=== PATIENT | female | born 1970 | race Caucasian/White ===

== ENCOUNTER 2021-05-23 21:59 | Emergency (ER) | payer MEDICAID, SELFPAY ==
[2021-05-23 22:14] VITALS: BP 156/99; PULSE 72; RESP 20; TEMP 36.8; O2SAT 97; BMI 28.5
--- NOTE | 2021-05-24 00:54 | PC.NURSE ---
patient on floor shaking. responds to verbal stimuli. denies new pain. warm blanket provided. reports further emesis with current vomiting. noted emesis is yellow with food particles.
--- NOTE | 2021-05-24 01:10 | CTR_ITS ---
PROCEDURE INFORMATION: Exam: CT Abdomen And Pelvis With Contrast Exam date and time: 05/24/2021 1:10 AM Age: 50 years old Clinical indication: Abdominal pain; Generalized; Prior surgery; Surgery date: 6+ months; Surgery type: Appy, gb, hyst; Additional info: Abd pain TECHNIQUE: Imaging protocol: Computed tomography of the abdomen and pelvis with contrast. Radiation optimization: All CT scans at this facility use at least one of these dose optimization techniques: automated exposure control; mA and/or kV adjustment per patient size (includes targeted exams where dose is matched to clinical indication); or iterative reconstruction. Contrast material: [id number]; Contrast volume: 95 ml; Contrast route: INTRAVENOUS (IV); COMPARISON: No relevant prior studies available. RADIATION DOSE METRICS: Total DLP (mGy-cm): 1080.02 FINDINGS: Diaphragm: Small hiatal hernia Liver: There is a 12 mm hypoattenuation cystic mass seen within the left hepatic lobe compatible with a benign cyst. Gallbladder and bile ducts: Status post cholecystectomy. Pancreas: Normal. No ductal dilation. Spleen: Normal. No splenomegaly. Adrenal glands: Normal. No mass. Kidneys and ureters: Normal. No hydronephrosis. Stomach and bowel: There mildly dilated loops of terminal ileum present in the lower abdomen containing some fluid and mildly desiccated bowel contents and mild bowel wall edema, findings compatible with a terminal ileitis. Trace fluid collections are seen within mesenteric folds within the pelvis adjacent to the terminal ileum. Appendix: Status post appendectomy. Intraperitoneal space: Unremarkable. No free air. No significant fluid collection. Vasculature: Unremarkable. No abdominal aortic aneurysm. Lymph nodes: Unremarkable. No enlarged lymph nodes. Urinary bladder: Unremarkable as visualized. Reproductive: Status post hysterectomy. Bones/joints: Unremarkable. No acute fracture. Soft tissues: Unremarkable. CT/CT abdomen pelvis w con* [id number] IMPRESSION: 1. Findings suggesting terminal ileitis 2. Trace fluid collection seen within mesenteric folds adjacent to the terminal ileum. 3. Benign cyst in the left hepatic lobe measuring 12 mm. No further workup needed.
--- NOTE | 2021-05-24 01:28 | ED_ITS ---
HPI - Nausea/Vomiting/Diarrhea General: Chief complaint: Nausea/Vomiting/Diarrhea Stated complaint: PT thinks ulcers Time Seen by Provider: 05/24/21 01:03 Source: patient Mode of arrival: ambulatory Limitations: no limitations History of Present Illness: HPI Narrative: 50-year-old female states she has been having abdominal pain since 1 PM. States the pain has been diffuse and severe in nature she is also had five episodes of vomiting. States the pain is currently 9 out of 10 denies any worsening or improving factors. States she had a gastric ulcers before and this feels similar. Denies any blood in her stool or diarrhea. Denies any fevers or chest pain. Associated nausea: Yes Associated symtoms: Reports nausea; Denies chest pain, dysuria or headache(s) Review of Systems Const: Denies: fever(s), chills, body aches or change in appetite Eyes: Denies: blurry vision or eye discomfort ENMT: Denies: throat pain or dental pain Card: Denies: chest pain Resp: Denies: dyspnea GI: Reports: abdominal pain, nausea and vomiting : Denies: dysuria Musc: Denies: neck pain or back pain Skin/Breast: Denies: rash Neuro: Denies: headache(s) Psych: Denies: depression Gilberto/Lymph: Denies: easy bruising All/Imm: Denies: urticaria PFSH ED PFSH: Social History Smoking and tobacco status: never smoked Physical Exam Const: COMMON NORMALS: no acute distress, patient oriented x3 and healthy appearing HENMT: COMMON NORMALS: normocephalic and atraumatic HEAD & SCALP: normocephalic and atraumatic Eye: COMMON NORMALS: Equal, round and reactive pupils present and EOMs intact bilaterally PUPIL: Yes Equal, round and reactive pupils present Neck/C-Spine: COMMON NORMALS: full ROM and supple Chest: COMMONS NORMALS: normal inspection of the chest and normal palpation of entire chest wall Resp: COMMON NORMALS: normal respiratory effort, No retractions, No use of accessory muscles and clear to auscultation bilaterally AUSCULTATION: clear to auscultation bilaterally Cardio: COMMON NORMALS: regular rate, regular rhythm and No murmurs present (Cardio) RATE: regular rate RHYTHM: regular rhythm GI: COMMON NORMALS: Normal to inspection, nondistended, normoactive bowel sounds present, Soft to palpation and no masses PALPATION: Yes Soft to palpation OTHER: diffuse abdominal tenderness Extremity: COMMON NORMALS: normal to inspection and full ROM Neuro: COMMON NORMALS: patient oriented x3, moves all extremities and no focal motor deficits Psych: COMMON NORMALS: mental status grossly normal, Normal thought process present and cooperative THOUGHT PROCESS: Normal thought process present Skin: COMMON NORMALS: no rashes or lesions noted and no wounds GENERAL SKIN EXAM: no rashes or lesions noted Course Vital Signs: Vital signs: Vital Signs Temperature 98.3 F 05/24/21 03:18 Pulse Rate 104 H 05/24/21 03:18 Respiratory Rate 20 H 05/24/21 04:01 Blood Pressure 112/78 05/24/21 03:18 Pulse Oximetry 96 05/24/21 03:18 MDM - Nausea/Vomiting/Diarrhea MDM Narrative: Medical decision making narrative: Patient presents with abdominal pain CT does show ileitis patient does have an elevated white count improved on second cbc lactate here is normal abdominal pain is much improved no tenderness on exam at discharge she feels much improved and would like to go home we will start her on antibiotic along with steroids and pain meds we will get her follow-up with the surgeon likely needs a colonoscopy informed her she has any fever or worsening pain she is return immediately she understands agrees to plan. Lab Data: Labs: Lab Results 05/23/21 05/23/21 05/24/21 02:15 02:15 02:55 WBC 20.6 10^3/uL H 10 ^3/uL (4.0-10.0) RBC 4.89 10^6/uL 10^6 /uL (4.1-5.3) Hgb 14.3 g/dL g/dL (11.5-15.3) Hct 43.2 % % (37.0-47.0) MCV 88.3 fl fl (81-99) MCH 29.2 pg pg (28.0-34.0) MCHC 33.1 g/dL g/dL (30.0-36.0) RDW 17.2 % H % (12.1-15.1) Plt Count 424 10^3/cmm H 10 ^3/cmm (130-400) MPV 9.5 fL fL (7.4-10.4) Neut % (Auto) 79.1 % % Lymph % (Auto) 13.0 % % [place] % (Auto) 6.5 % % Eos % (Auto) 0.0 % % Baso % (Auto) 0.2 % % Neut # (Auto) 16.30 10^3/uL H 1 0^3/uL (1.8-7.7) Lymph # (Auto) 2.7 10^3/uL 10^3/ uL (0.8-4.8) [place] # (Auto) 1.3 10^3/uL H 10^ 3/uL (0.2-0.9) Eos # (Auto) 0.0 10^3/uL 10^3/ uL (0.0-0.8) Baso # (Auto) 0.1 10^3/uL 10^3/ uL (0.0-0.1) Nucleated RBC % (a uto) 0 % % Nucleated RBCs # 0.0 /100WBC /100W BC Sodium Cancelled 139 mmol/L mmol/L (136-145) Potassium Cancelled 4.3 mmol/L mmol/L (3.5-5.1) Chloride Cancelled 103 mmol/L mmol/L (98-107) Carbon Dioxide Cancelled 27 mmol/L mmol/L (22-29) Anion Gap Cancelled 13.3 (5-19) BUN Cancelled 17 mg/dL mg/dL (6-20) Creatinine Cancelled 0.7 mg/dL mg/dL (0.5-0.9) GFR Calculation Cancelled 88.2 mL/min L mL/ min (90-130) Glucose Cancelled 102 mg/dL mg/dL (65-115) Calculated Osmolal ity Cancelled 290 mOsm/kg mOsm/ kg (285-295) Lactate Calcium Cancelled 8.3 mg/dL L mg/dL (8.5-10.5) Total Bilirubin Cancelled 0.6 mg/dL mg/dL (0.15-1.2) AST Cancelled 13 U/L U/L (0-32) ALT Cancelled 12 U/L U/L (0-33) Alkaline Phosphata se Cancelled 78 IU/L IU/L (35-105) Total Protein Cancelled 5.7 g/dL L g/dL (6.6-8.7) Albumin Cancelled 3.4 g/dL L g/dL (3.5-5.2) Globulin Cancelled 2.3 g/dL g/dL (1.3-4.6) Lipase Cancelled 26 U/L U/L (13-60) Urine Color Urine Appearance Urine pH Ur Specific Gravit y Urine Protein Urine Glucose (UA) Urine Ketones Urine Blood Urine Nitrate Urine Bilirubin Urine Urobilinogen Ur Leukocyte Olga ase 05/24/21 05/24/21 05/24/21 03:55 04:00 04:05 WBC 17.0 10^3/uL H 10 ^3/uL (4.0-10.0) RBC 4.38 10^6/uL 10^6 /uL (4.1-5.3) Hgb 12.6 g/dL g/dL (11.5-15.3) Hct 38.2 % % (37.0-47.0) MCV 87.2 fl fl (81-99) MCH 28.8 pg pg (28.0-34.0) MCHC 33.0 g/dL g/dL (30.0-36.0) RDW 16.0 % H % (12.1-15.1) Plt Count 361 10^3/cmm 10^3 /cmm (130-400) MPV 9.2 fL fL (7.4-10.4) Neut % (Auto) 78.2 % % Lymph % (Auto) 14.4 % % [place] % (Auto) 6.3 % % Eos % (Auto) 0.1 % % Baso % (Auto) 0.2 % % Neut # (Auto) 13.27 10^3/uL H 1 0^3/uL (1.8-7.7) Lymph # (Auto) 2.4 10^3/uL 10^3/ uL (0.8-4.8) [place] # (Auto) 1.1 10^3/uL H 10^ 3/uL (0.2-0.9) Eos # (Auto) 0.0 10^3/uL 10^3/ uL (0.0-0.8) Baso # (Auto) 0.0 10^3/uL 10^3/ uL (0.0-0.1) Nucleated RBC % (a uto) 0 % % Nucleated RBCs # 0.0 /100WBC /100W BC Sodium Potassium Chloride Carbon Dioxide Anion Gap BUN Creatinine GFR Calculation Glucose Calculated Osmolal ity Lactate 1.6 mmol/L mmol/L (0.5-2.2) Calcium Total Bilirubin AST ALT Alkaline Phosphata se Total Protein Albumin Globulin Lipase Urine Color Yellow (Yellow) Urine Appearance Clear (CLEAR) Urine pH 7 (5-7) Ur Specific Gravit y 1.005 (1.005-1.030) Urine Protein Neg (Negative) Urine Glucose (UA) Norm (Normal) Urine Ketones Negative (Negative) Urine Blood Neg (Negative) Urine Nitrate Negative (Negative) Urine Bilirubin Neg (Negative) Urine Urobilinogen Neg mg/dL mg/dL (Negative) Ur Leukocyte Olga ase Negative (Negative) Imaging Data^: CT Abd/Pel: Attestation: I personally reviewed and interpreted this imaging study as follows: Radiologist's impression: [place] [id number] CT Scan Report Signed Patient: Ramila Barrow I Unit #: [id number] : 1970 Age/Sex: 50 / F ADM Date: 05/23/21 Loc: ER Room/Bed: Attending Dr: Ordering Provider/Ordering MD: Ashanti Villanueva MD Date of Service: 05/24/21 Procedure(s): CT abdomen pelvis w con* [id number] Accession Number(s): [id number] Report Number: [id number] PROCEDURE INFORMATION: Exam: CT Abdomen And Pelvis With Contrast Exam date and time: 05/24/2021 1:10 AM Age: 50 years old Clinical indication: Abdominal pain; Generalized; Prior surgery; Surgery date: 6+ months; Surgery type: Appy, gb, hyst; Additional info: Abd pain TECHNIQUE: Imaging protocol: Computed tomography of the abdomen and pelvis with contrast. Radiation optimization: All CT scans at this facility use at least one of these dose optimization techniques: automated exposure control; mA and/or kV adjustment per patient size (includes targeted exams where dose is matched to clinical indication); or iterative reconstruction. Contrast material: [id number]; Contrast volume: 95 ml; Contrast route: INTRAVENOUS (IV); COMPARISON: No relevant prior studies available. RADIATION DOSE METRICS: Total DLP (mGy-cm): 1080.02 FINDINGS: Diaphragm: Small hiatal hernia Liver: There is a 12 mm hypoattenuation cystic mass seen within the left hepatic lobe compatible with a benign cyst. Gallbladder and bile ducts: Status post cholecystectomy. Pancreas: Normal. No ductal dilation. Spleen: Normal. No splenomegaly. Adrenal glands: Normal. No mass. Kidneys and ureters: Normal. No hydronephrosis. Stomach and bowel: There mildly dilated loops of terminal ileum present in the lower abdomen containing some fluid and mildly desiccated bowel contents and mild bowel wall edema, findings compatible with a terminal ileitis. Trace fluid collections are seen within mesenteric folds within the pelvis adjacent to the terminal ileum. Appendix: Status post appendectomy. Intraperitoneal space: Unremarkable. No free air. No significant fluid collection. Vasculature: Unremarkable. No abdominal aortic aneurysm. Lymph nodes: Unremarkable. No enlarged lymph nodes. Urinary bladder: Unremarkable as visualized. Reproductive: Status post hysterectomy. Bones/joints: Unremarkable. No acute fracture. Soft tissues: Unremarkable. CT/CT abdomen pelvis w con* [id number] IMPRESSION: 1. Findings suggesting terminal ileitis 2. Trace fluid collection seen within mesenteric folds adjacent to the terminal ileum. 3. Benign cyst in the left hepatic lobe measuring 12 mm. No further workup needed. Dictated By: Rohan Rizzo MD Signed By: Rohan Rizzo MD Signed Date/Time: 05/24/21315 DD/ 9 Discharge Plan Discharge Patient Disposition: Home Clinical Impression: Ileitis, terminal Qualifiers: Digestive disease complication type: unspecified complication Qualified Code(s): K50.019 - Crohn's disease of small intestine with unspecified complications Condition: Stable Prescriptions: New hydrocodone-acetaminophen 5-325 mg tablet 1 tab PO Q6H PRN (Reason: pain) Qty: 14 RF: 0 Protonix 40 mg tablet,delayed release (DR/EC) 40 mg PO DAILY Qty: 60 RF: 0 prednisone 50 mg tablet 50 mg PO DAILY Qty: 5 RF: 0 ondansetron 4 mg tablet,disintegrating 4 mg PO Q6H PRN (Reason: nausea and vomiting) Qty: 14 RF: 0 Augmentin 875-125 mg tablet 1 tab PO BID Qty: 14 RF: 0 No Action albuterol sulfate 2.5 mg /3 mL (0.083 %) solution for nebulization 2.5 mg inhalation TID RF: 0 albuterol sulfate [ProAir HFA] 90 mcg/actuation HFA aerosol inhaler 2 puff inhalation BID RF: 0 Atrovent HFA 17 mcg/actuation HFA aerosol inhaler 2 puff inhalation BID Qty: 12.9 RF: 0 albuterol sulfate 2.5 mg /3 mL (0.083 %) solution for nebulization 2.5 mg inhalation QID PRN (Reason: shortness of breath or wheezing) Qty: 75 RF: 1 azithromycin 250 mg tablet See Rx Instructions PO .COMPLEX Qty: 6 RF: 0 prednisone 20 mg tablet See Rx Instructions PO DAILY 11 Days Qty: 19 RF: 0 Discharge Orders: Discharge ED (Routine); Ordered 05/24/21 Ordered By: Ashanti Villanueva Referrals: Solis Appiah MD [Physician] - 1-3 days Linus Parry MD [Primary Care Provider] - Discharge Diet: Advance as tolerated Discharge Activity: Resume usual activity Patient Instructions: Abdominal Pain (ED), Opioid Safety Coding Level of Care Code ED Antenna Machine Operator for Chg Fwd Exam Comprehensive
[2021-05-24] MEDS: sodium chloride 0.9% 1,000 ML 999 ML IV (02:14)
[2021-05-24 02:15] VITALS: RESP 18
[2021-05-24] MEDS: ondansetron 2 mg/ML SDV 2 mL 4 MG IVP (02:15)
[2021-05-24] MEDS: morphine 4 mg/mL SDV 1 mL IVP (02:15)
[2021-05-24 02:23] LABS: Basophils # 0.1 10^3/uL (0.0-0.1); Basophils % 0.2 %; Hematocrit 43.2 % (37.0-47.0); Hemoglobin 14.3 g/dL (11.5-15.3); Lymphocytes # 2.7 10^3/uL (0.8-4.8); Mean Corpuscular HGB Conc 33.1 g/dL (30.0-36.0); Mean Corpuscular Hemoglobin 29.2 pg (28.0-34.0); Mean Corpuscular Volume 88.3 fl (81-99); Mean Platelet Volume 9.5 fL (7.4-10.4); Monocytes # 1.3 10^3/uL (0.2-0.9); Monocytes % 6.5 %; Neutrophils % 79.1 %; Nucleated Red Blood Cells % 0 %; Platelet Count 424 10^3/cmm (130-400); Red Blood Count 4.89 10^6/uL (4.1-5.3); Red Cell Distribution Width 17.2 % (12.1-15.1); White Blood Count 20.6 10^3/uL (4.0-10.0)
[2021-05-24] MEDS: iohexol 300 mg/mL 100 mL Btl IV (02:38)
[2021-05-24 03:18] VITALS: BP 112/78; PULSE 104; RESP 20; TEMP 36.8; O2SAT 96
[2021-05-24 03:25] LABS: Alanine Aminotransferase 12 U/L (0-33); Albumin Level 3.4 g/dL (3.5-5.2); Alkaline Phosphatase 78 IU/L (35-105); Anion Gap 13.3 (5-19); Aspartate Amino Transferase 13 U/L (0-32); Blood Urea Nitrogen 17 mg/dL (6-20); Calcium 8.3 mg/dL (8.5-10.5); Carbon Dioxide 27 mmol/L (22-29); Chloride 103 mmol/L (98-107); Globulin 2.3 g/dL (1.3-4.6); Glomerular Filtration Rate 88.2 mL/min (90-130); Glucose 102 mg/dL (65-115); Lipase 26 U/L (13-60); Osmolality Calculated 290 mOsm/kg (285-295); Potassium 4.3 mmol/L (3.5-5.1); Sodium 139 mmol/L (136-145); Total Bilirubin 0.6 mg/dL (0.15-1.2); Total Protein 5.7 g/dL (6.6-8.7)
[2021-05-24 04:01] VITALS: RESP 20
[2021-05-24] MEDS: HYDROmorphone 1 mg/mL INJ 1 mL IVP (04:01)
[2021-05-24 04:18] LABS: Add Urine Microscopic? NO; Charge for UA Resulting for Rev
[2021-05-24 04:23] LABS: Bilirubin Urine Neg (Negative); Blood Urine Neg (Negative); Glucose Urine UA Norm (Normal); Ketones Urine Negative (Negative); Leukocyte Esterase Urine Negative (Negative); Nitrate Urine Negative (Negative); Protein Urine Neg (Negative); Specific Gravity, Urine 1.005 (1.005-1.030); Urine Appearance Clear (CLEAR); Urine Color Yellow (Yellow); Urobilinogen Urine Neg (Negative); pH Urine 7 (5-7)
[2021-05-24 04:23] LABS: Lactate (Lactic Acid level) 1.6 mmol/L (0.5-2.2)
[2021-05-24 04:42] LABS: Basophils % 0.2 %; Eosinophils % 0.1 %; Hematocrit 38.2 % (37.0-47.0); Hemoglobin 12.6 g/dL (11.5-15.3); Lymphocytes # 2.4 10^3/uL (0.8-4.8); Lymphocytes % 14.4 %; Mean Corpuscular Hemoglobin 28.8 pg (28.0-34.0); Mean Corpuscular Volume 87.2 fl (81-99); Mean Platelet Volume 9.2 fL (7.4-10.4); Monocytes # 1.1 10^3/uL (0.2-0.9); Monocytes % 6.3 %; Neutrophils # 13.27 10^3/uL (1.8-7.7); Neutrophils % 78.2 %; Nucleated Red Blood Cells % 0 %; Platelet Count 361 10^3/cmm (130-400); Red Blood Count 4.38 10^6/uL (4.1-5.3)
[2021-05-24 05:15] VITALS: BP 129/40; PULSE 85; RESP 18; O2SAT 94
--- NOTE | 2021-05-24 11:39 | DCPLANNER ---
home health care case manager had message to schedule a follow up appointment for patient with Dr. Appiah at [facility]. home health care case manager emailed patients information to both Rubina and Meliza at [facility] General Surgery / ENT clinic. Patients information will be printed and reviewed. Clinic will call patient with appointment information.
--- NOTE | 2021-05-25 06:52 | DCPLANNER ---
Addendum entered by Judy Alejandra 06/30/21 16:39: Patient had a follow up appointment scheduled with general surgery - patient did attend appointment. Original Note: Patient has a follow up appointment scheduled for May, at 3:[address] Appiah. Clinic will call patient with appointment information.
== END 2021-05-24 05:18 | disposition home or self-care (01) ==
PROVIDERS: Physician Assistant; Emergency Provider Emergency Medicine; PCP Family Medicine
DX: K50.019 Crohn's disease of small intestine with unspecified complications (principal)
CPT/HCPCS: 74177; 80053; 81003; 83605; 83690; 85025; 96361; 96374; 96375; 99284; J1170; J2270; J2405; J2930; J7030; Q9967

== ENCOUNTER 2021-06-15 12:01 | Outpatient (CLI) | payer MEDICAID, SELFPAY ==
--- NOTE | 2021-06-15 12:22 | XR_ITS ---
WS: [id number] Exam: XR chest 2V* [id number] Date/Time of Exam: 06/15/2021 12:25 PM Reason For Exam: COPD Comparison 04/25/2009. The lungs are fully expanded. No infiltrates or pleural effusions. Stable-appearing 8 mm nodule in th e mid right lung. Cardiomediastinal silhouette is unremarkable. Regional bony elements appear normal. XR/XR chest 2V* [id number] IMPRESSION: 1. No acute cardiopulmonary finding. 2. Stable appearing 8 mm nodule in the mid right lung.
== END 2021-06-15 12:02 | disposition home or self-care (01) ==
LOC: RAD 12:13
PROVIDERS: PCP Family Medicine; Visit Provider Family Medicine
DX: J44.9 Chronic obstructive pulmonary disease, unspecified (principal); R91.1 Solitary pulmonary nodule
CPT/HCPCS: 71046

== ENCOUNTER → 2021-06-21 11:45 | Outpatient (BNVA) | payer MEDICAID, SELFPAY | PROVIDERS: PCP Family Medicine; Visit Provider Surgery | DX: Z11.52 Encounter for screening for COVID-19 (principal) | CPT/HCPCS: 87635 ==

== ENCOUNTER 2021-06-22 09:35 | Day surgery (SDC) | payer MEDICAID, SELFPAY ==
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
[2021-06-22 11:10] VITALS: BP 117/85; PULSE 106; RESP 12; TEMP 36.6; O2SAT 99
[2021-06-22 11:11] VITALS: BMI 31.5
--- NOTE | 2021-06-22 11:42 | W.PM.OPSFHP ---
Same Day Surgery H&P Indication for Procedure/HPI DATE OF PROCEDURE: June 22, 2021 CHIEF COMPLAINT/INDICATIONFOR SURGICAL PROCEDURE: EGD/colonoscopy PREOP DIAGNOSIS: Abdominal pain PLANNED PROCEDURE: Operation Date: 06/22/21 10:30 Proposed Procedures p EGD 58498/r10.13(Not Applicable) - Solis Appiah MD s Colonoscopy k63.5(Not Applicable) - Solis Appiah MD Medications/Allergies* Home Medications Medication Instructions Recorded Confirmed Type albuterol sulfate 2.5 mg INHALATION TID ml 05/13/21 06/22/21 History albuterol sulfate 90 mcg/actuation 2 puff INHALATION BID g 05/13/21 06/22/21 History aerosol inhaler (ProAir HFA) Allergies/Adverse Reactions Allergy/AdvReac Type Severity Reaction Status Date / Time Egg Derived Allergy ALGY-Difficulty Verified 06/07/21 13:39 Breathing Pertinent History/Comorbid Conditions* Medical History (Updated 06/07/21 @ 13:55 by Solis Appiah MD) Asthma Colon polyps History of kidney stones Surgical History (Updated 06/07/21 @ 13:55 by Solis Appiah MD) History of appendectomy History of History of colon resection History of colonoscopy History of hysterectomy History of laparotomy Status post laparoscopic cholecystectomy Social History Smoking and tobacco status: never smoked Pertinent Exam Findings alert, oriented x 3 and regular rate & rhythm Recommendations Surgery/Procedure today Coding Level of Care Code Acute Supervisor Channel Process for Chg Melissa
[2021-06-22] MEDS: sodium chloride 0.9% 1,000 ML 30 ML IV (11:58)
[2021-06-22 12:30] VITALS: BP 109/82; PULSE 97; RESP 18; TEMP 36.6; O2SAT 99
[2021-06-22 12:40] VITALS: BP 120/70; PULSE 92; RESP 20; O2SAT 96
[2021-06-22 12:50] VITALS: BP 103/62; PULSE 96; RESP 22; O2SAT 94
[2021-06-22 13:00] VITALS: BP 144/72; PULSE 97; RESP 20; O2SAT 97
--- NOTE | 2021-06-22 13:13 | ANES.PROC ---
Anesthesia Procedures Procedure/Date: 06/22/21 Procedure Narrative: After several unsuccessful attempts by RNs physician placed PIV. Using sterile prep and real time US guidance for vessel selection an 20 g PIV was inserted with real time visualization of needle entry and real time visualization of catheter advancement. Tolerated well. 1 attempt.
[2021-06-22 13:14] VITALS: BP 127/73; PULSE 88; RESP 20; TEMP 36.4; O2SAT 97
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
== END 2021-06-22 13:20 | disposition home or self-care (01) ==
PROVIDERS: PCP Family Medicine; Visit Provider Surgery
PROC: 0DJ08ZZ Inspection of Upper Intestinal Tract, Via Natural or Artificial Opening Endoscopic (ICD-10-PCS; CPT 43235; principal; 2021-06-22 10:30)
PROC: 0DJD8ZZ Inspection of Lower Intestinal Tract, Via Natural or Artificial Opening Endoscopic (ICD-10-PCS; CPT 45378; 2021-06-22 10:30)
DX: Z86.010 Personal history of colon polyps (principal); R13.10 Dysphagia, unspecified; K44.9 Diaphragmatic hernia without obstruction or gangrene; K29.70 Gastritis, unspecified, without bleeding; K64.8 Other hemorrhoids; J44.9 Chronic obstructive pulmonary disease, unspecified; K21.9 Gastro-esophageal reflux disease without esophagitis
CPT/HCPCS: 36410; 43239; 45380; 76942; 88305; 88342; J2704; J7030

== ENCOUNTER 2021-07-21 18:34 | Inpatient (IN) | payer MEDICAID, SELFPAY ==
[2021-07-21] VITALS (19 sets, daily range): BP systolic 108–186; BP diastolic 79–120; PULSE 108–158; RESP 19–33; TEMP 36.4–37.6; O2SAT 91–98; BMI 29.2
--- NOTE | 2021-07-21 18:35 | W.ED.SOB ---
HPI - SOB/Dyspnea General: Chief Complaint: Asthma Stated Complaint: ASTHMA EXACERBATION Time Seen by Provider: 07/21/21 18:34 History of Present Illness: HPI Narrative: Ms Barrwo is a 50-year-old lady with history of emphysema and asthma who presented to the ED for respiratory distress. She reports being compliant with her medication regimen and actually had a pulmonology appointment today however it was canceled due to weather, the past few days she has had increased cough however her wheezing and respiratory distress did not get worse until today. EMS found the patient to be markedly tachypneic and hypoxemic with respiratory distress. They administered albuterol nebulized treatments in addition to ipratropium, they reported giving 16 mg of Decadron. Patient had mild relief. She otherwise denies significant changes to health. Intensity symptoms is severe. Course has been worsening. Symptoms worse with exertion however do not resolve with rest. No other exacerbating or relieving factors identified. Pertinent past history: COPD and asthma Onset (ago): hour(s) Severity: severe Exacerbating factors: exertion and coughing Relieving factors: nothing Known history of: COPD and asthma Associated symptoms: Reports no associated symptoms Review of Systems General: Reports: 10 or more systems reviewed and unremarkable except in HPI and below PFSH ED PFSH: Medical History Asthma Colon polyps Helicobacter pylori gastritis History of kidney stones Surgical History H/O esophagogastroduodenoscopy (06/22/21) History of appendectomy History of History of colon resection History of colonoscopy History of hysterectomy History of laparotomy Status post colonoscopy (06/22/21) Status post laparoscopic cholecystectomy Family History (Updated 07/21/21 @ 23:06 by Anne Marie Anderson MD) Other No pertinent family history Social History Smoking and tobacco status: never smoked Physical Exam Const: COMMON NORMALS: alert GENERAL APPEARANCE: cooperative, in distress and ill appearing HENMT: COMMON NORMALS: normocephalic and atraumatic HEAD & SCALP: normocephalic and atraumatic THROAT: posterior oropharynx normal Eye: COMMON NORMALS: conjunctivae normal CONJUNCTIVA: Yes conjunctivae normal SCLERA: sclerae normal Neck/C-Spine: COMMON NORMALS: supple GENERAL: Yes trachea midline Resp: EFFORT & INSPECTION: Yes tachypneic, Yes respiratory distress and Yes labored AUSCULTATION: wheezes expiratory wheezes, inspiratory wheezes and throughout and diminished lung sounds Cardio: COMMON NORMALS: regular rhythm RATE: tachycardic RHYTHM: regular rhythm OTHER: Delayed cap refill, cool extremities GI: COMMON NORMALS: Soft to palpation PALPATION: Yes Soft to palpation and No Tenderness to palpation present (GI) PERCUSSION: normal to percussion Extremity: GENERAL: Yes normal exam except as noted and No edema Neuro: COMMON NORMALS: moves all extremities SENSORIUM/ORIENTATION: Yes alert and No Orientation impaired Psych: COMMON NORMALS: mental status grossly normal and Normal thought process present THOUGHT PROCESS: Normal thought process present Skin: NARRATIVE SKIN EXAM: Scattered skin lesions consistent with insect bites Procedures EJ/Peripheral Line Arm L: Size (gauge): 20 IV Secured and Dressing Applied: Yes Patient Tolerated Procedure: well Additional Comments: US guided Course ED course: - Patient was seen and evaluated by me at bedside - Patient placed on cardiac monitors, IV access obtained - Initial evaluation notable for ill appearance, respiratory distress - Additional nebulized treatment ordered, IV fluid bolus and magnesium ordered. Antibiotics given. There was difficulty obtaining IV access and I did obtain IV access using ultrasound guidance. Given work of breathing and patient reported history of improvement BiPAP was ordered. - Labs notable for leukocytosis. Metabolic panel with out acute electrolyte derangement. - Imaging notable for no lobar consolidation on chest x-ray. - Upon serial reexamination after treatment the patient was improved though patient still remains significantly ill. She appears to have improved respiratory effort and lung aeration with BiPAP. Pressures were closely monitored and no evidence of breath stacking identified. We did trial the patient briefly off BiPAP however oxygen saturation dropped to low 80s. A second 10 mg hour-long treatment of albuterol was administered. - Based on patient history, evaluation, labs, and imaging as interpreted the most likely cause of the patient's condition is acute exacerbation of asthma and COPD with acute hypercapnic and hypoxic respiratory failure. - The results of ED evaluation were discussed with the patient including plan for admission due to requirement for level of care not available if discharged to prevent significant worsening/deterioration. - Admitting service was contacted and Dr Anderson with the hospitalist service agreed to admit the patient - Patient was admitted to ICU without further deterioration or significant events though remains critically ill. Note: Click bubbles or prepopulated jensen in note writing are used for assistance with data collection and billing and are inherently more limited than narrative and other text portions of this note. Please use narrative for additional clinical history and defer to narrative/free test for any case of contradictory information. If information appears in only free text or click bubble it should be considered present or absent as reported. Please contact note adjusto writer operator for clarifications of clinical information or contradictory information. MDM is a brief summary, contradictory or erroneous seeming information should be clarified and full note should be reviewed. Vital Signs: Vital signs: Vital Signs Temperature 97.4 F L 07/26/21 11:18 Pulse Rate 95 07/26/21 15:27 Respiratory Rate 18 07/26/21 15:27 Blood Pressure 140/80 07/26/21 11:18 Pulse Oximetry 96 07/26/21 15:27 MDM - SOB/Dyspnea Medical Decision Making 50-year-old lady with history of emphysema and asthma presenting in respiratory distress with 1 day history of significant symptoms. Patient given albuterol treatments, received prehospital steroids, fluids, mag, antibiotics, and placed on BiPAP. Clinically stabilized with BiPAP however remains significantly ill and at significant decompensation with a short trial off BiPAP. Admitted to ICU for further management. Medical Records I reviewed the patient's medical records. Lab Data I reviewed the patient's lab results. : 07/26/21 04:42 07/26/21 04:42 Labs/Radiology: Radiology Impressions Chest CTA 07/22/21 11:41 IMPRESSION: 1. Proximal main pulmonary arteries are normal. No evidence of pulmonary embolus. 2. No acute-appearing pulmonary infiltrates. 3. A few tree-in-bud opacities in the RIGHT upper lobe laterally and RIGHT lower lobe likely inflammatory. 4. No other acute findings. Chest X-Ray 07/24/21 10:31 IMPRESSION: Negative for acute abnormality. Laboratory Results WBC 15.9 10^3/uL (4.0-10.0) H 07/21/21 19:20 RBC 4.77 10^6/uL (4.1-5.3) 07/21/21 19:20 Hgb 14.2 g/dL (11.5-15.3) 07/21/21 19:20 Hct 43.1 % (37.0-47.0) 07/21/21 19:20 MCV 90.4 fl (81-99) 07/21/21 19:20 MCH 29.8 pg (28.0-34.0) 07/21/21 19:20 MCHC 32.9 g/dL (30.0-36.0) 07/21/21 19:20 RDW 15.6 % (12.1-15.1) H 07/21/21 19:20 Plt Count 348 10^3/cmm (130-400) 07/21/21 19:20 MPV 9.4 fL (7.4-10.4) 07/21/21 19:20 Neut % (Auto) 63.2 % 07/21/21 19:20 Lymph % (Auto) 16.5 % 07/21/21 19:20 [place] % (Auto) 6.4 % 07/21/21 19:20 Eos % (Auto) 13.3 % 07/21/21 19:20 Baso % (Auto) 0.3 % 07/21/21 19:20 Neut # (Auto) 10.06 10^3/uL (1.8-7.7) H 07/21/21 19:20 Lymph # (Auto) 2.6 10^3/uL (0.8-4.8) 07/21/21 19:20 [place] # (Auto) 1.0 10^3/uL (0.2-0.9) H 07/21/21 19:20 Eos # (Auto) 2.1 10^3/uL (0.0-0.8) H 07/21/21 19:20 Baso # (Auto) 0.1 10^3/uL (0.0-0.1) 07/21/21 19:20 Nucleated RBC % (auto) 0 % 07/21/21 19:20 Nucleated RBCs # 0.0 /100WBC 07/21/21 19:20 Specimen Type Arterial 07/21/21 20:22 Sample Site Radial, left 07/21/21 20:22 ABG pH 7.36 (7.35-7.45) 07/21/21 20:22 ABG pCO2 46.4 mmHg (35-45) H 07/21/21 20:22 ABG pO2 69.5 mmHg (80.0-100.0) L 07/21/21 20:22 ABG HCO3 26.2 mmol/L (22-26) H 07/21/21 20:22 ABG Base Excess 0.3 mmol/L (-2.0-2.0) 07/21/21 20:22 Eric Test Pos 07/21/21 20:22 Hematocrit 40.8 % (37-47) 07/21/21 20:22 O2 Delivery Device Bipap 07/21/21 20:22 FiO2 40.0 % 07/21/21 20:22 Veterinary Surgeon ID Buttr 07/21/21 20:22 Sodium 144 mmol/L (136-145) 07/21/21 19:20 Potassium 3.7 mmol/L (3.5-5.1) 07/21/21 19:20 Chloride 104 mmol/L (98-107) 07/21/21 19:20 Carbon Dioxide 26 mmol/L (22-29) 07/21/21 19:20 Anion Gap 17.7 (5-19) 07/21/21 19:20 BUN 7 mg/dL (6-20) 07/21/21 19:20 Creatinine 0.7 mg/dL (0.5-0.9) 07/21/21 19:20 GFR Calculation 88.2 mL/min (90-130) L 07/21/21 19:20 Glucose 138 mg/dL (65-115) H 07/21/21 19:20 Calculated Osmolality 298 mOsm/kg (285-295) H 07/21/21 19:20 Calcium 9.8 mg/dL (8.5-10.5) 07/21/21 19:20 Total Bilirubin 0.5 mg/dL (0.15-1.2) 07/21/21 19:20 AST 18 U/L (0-32) 07/21/21 19:20 ALT 15 U/L (0-33) 07/21/21 19:20 Alkaline Phosphatase 115 IU/L (35-105) H 07/21/21 19:20 C-Reactive Protein 30.6 mg/L (0.0-4.9) H 07/21/21 19:20 NT-Pro-B Natriuret Pep 30 pg/mL (0-125) 07/21/21 19:20 Total Protein 7.4 g/dL (6.6-8.7) 07/21/21 19:20 Albumin 4.6 g/dL (3.5-5.2) 07/21/21 19:20 Globulin 2.8 g/dL (1.3-4.6) 07/21/21 19:20 Procalcitonin 0.04 ng/mL (0-0.5) 07/21/21 19:20 TSH 0.73 uIU/mL (0.27-4.20) 07/21/21 19:20 Coronavirus 229E (PCR) Not detected (NOT DETECT) 07/21/21 20:06 SARS-CoV-2 (PCR) Not detected (NOT DETECT) 07/21/21 20:06 EKG Data EKG 1: I personally reviewed and interpreted this EKG as follows: EKG Interpretation Date: 08/18/21 EKG interpretation time: 19:30 Interpretation: Twelve-lead EKG shows a regular rhythm at a rate of 157. RI interval 113. QRS duration 78. QTc 344. right [place] deviation. Interpretation: sinus tachycardia Rhythm. short RI. Critical Care Time Critical Care Time: Critical Care Time: Yes Total Critical Care Time: 40 Attestation: Due to a high probability of clinically significant, possibly life threatening deterioration, the patient required my highest level of attention and preparedness to intervene emergently and I personally spent this critical care time directly and personally managing the patient. This critical care time included obtaining a history; examining the patient; pulse oximetry; ordering and review of laboratory and imaging studies; arranging urgent treatment with development of a management plan; evaluation of patient's response to treatment; frequent reassessment; and, discussions with other providers as applicable. It was exclusive of separately billable procedures. Primary system is respiratory. Discharge Plan Discharge Patient Disposition: Admitted As Inpatient Admit Provider: Anne Marie Anderson Clinical Impression: Asthma with acute exacerbation, Acute respiratory distress, Acute respiratory failure with hypoxia and hypercarbia Condition: Stable Discharge Diet: Regular Discharge Activity: Increase activity as tolerated Coding Level of Care Code ED Fraud Prevention Analyst for Chg Fwd Exam Comprehensive
--- NOTE | 2021-07-21 18:48 | XRR_ITS ---
PROCEDURE INFORMATION: Exam: XR Chest Exam date and time: 07/21/2021 6:48 PM Age: 50 years old Clinical indication: Shortness of breath; Additional info: Asthma TECHNIQUE: Imaging protocol: XR of the chest. Views: 1 view. COMPARISON: CR XR chest 2V* [id number] 06/15/2021 12:30 PM FINDINGS: Lungs: Unremarkable. No consolidation. Pleural spaces: Unremarkable. No pleural effusion. No pneumothorax. Heart/Mediastinum: Unremarkable. No cardiomegaly. Bones/joints: Unremarkable. XR/XR chest 1V portable [id number] IMPRESSION: No acute findings.
--- NOTE | 2021-07-21 18:49 | ECG_ITS ---
[facility] Test Date: 2021-07-21 Pat Name: Ramila Barrow Department: Room: Gender: Female Housing Inspector: : 1970 Requested By: Hal Bernal Order Number: [id number] Jeri MD: Freddy Thompson M.D. Measurements Intervals [place] Rate: 157 P: 106 VT: 113 QRS: 107 QRSD: 78 T: 154 QT: 256 QTc: 414 Interpretive Statements SINUS TACHYCARDIA WITH SHORT VT INTERVAL, POSSIBLE ATRIAL FLUTTER RIGHT AXIS DEVIATION [QRS AXIS > 100] NONSPECIFIC ST & T-WAVE ABNORMALITY CRITICAL TEST RESULT No previous ECG available for comparison Electronically Signed On 07-22-2021 12:26:34 OVERLOCK COLLAR SETTER by Freddy Thompson M.D. [email or web address]/store/[id number]
[2021-07-21 19:27] LABS: Basophils # 0.1 10^3/uL (0.0-0.1); Basophils % 0.3 %; Eosinophils # 2.1 10^3/uL (0.0-0.8); Eosinophils % 13.3 %; Hematocrit 43.1 % (37.0-47.0); Hemoglobin 14.2 g/dL (11.5-15.3); Lymphocytes # 2.6 10^3/uL (0.8-4.8); Lymphocytes % 16.5 %; Mean Corpuscular HGB Conc 32.9 g/dL (30.0-36.0); Mean Corpuscular Hemoglobin 29.8 pg (28.0-34.0); Mean Corpuscular Volume 90.4 fl (81-99); Mean Platelet Volume 9.4 fL (7.4-10.4); Monocytes % 6.4 %; Neutrophils # 10.06 10^3/uL (1.8-7.7); Neutrophils % 63.2 %; Nucleated Red Blood Cells % 0 %; Platelet Count 348 10^3/cmm (130-400); Red Blood Count 4.77 10^6/uL (4.1-5.3); Red Cell Distribution Width 15.6 % (12.1-15.1); White Blood Count 15.9 10^3/uL (4.0-10.0)
[2021-07-21] MEDS: lactated ringers 1,000 ML 999 ML IV (19:33)
[2021-07-21] MEDS: magnesium sulfate premix 2 GM/50 ML PIGGYBACK IV (19:34)
[2021-07-21 19:54] LABS: NT Pro B Type Natriuretic Pept 30 pg/mL (0-125); Procalcitonin 0.04 ng/mL (0-0.5); Thyroid Stimulating Hormone 0.73 uIU/mL (0.27-4.20)
[2021-07-21 19:55] LABS: Slide Review Slide Review Perform
[2021-07-21 20:05] LABS: Alanine Aminotransferase 15 U/L (0-33); Albumin Level 4.6 g/dL (3.5-5.2); Alkaline Phosphatase 115 IU/L (35-105); Anion Gap 17.7 (5-19); Aspartate Amino Transferase 18 U/L (0-32); Blood Urea Nitrogen 7 mg/dL (6-20); C Reactive Protein 30.6 mg/L (0.0-4.9); Calcium 9.8 mg/dL (8.5-10.5); Carbon Dioxide 26 mmol/L (22-29); Chloride 104 mmol/L (98-107); Globulin 2.8 g/dL (1.3-4.6); Glomerular Filtration Rate 88.2 mL/min (90-130); Glucose 138 mg/dL (65-115); Osmolality Calculated 298 mOsm/kg (285-295); Potassium 3.7 mmol/L (3.5-5.1); Sodium 144 mmol/L (136-145); Total Bilirubin 0.5 mg/dL (0.15-1.2); Total Protein 7.4 g/dL (6.6-8.7)
[2021-07-21] MEDS: doxycycline 100 MG in sodium chloride 0.9% (plus) 100 ML IV (20:24)
[2021-07-21 20:33] LABS: ABG PCO2 46.4 mmHg (35-45); ABG PH Result 7.36 (7.35-7.45); Arterial Blood Gas Hematocrit 40.8 % (37-47); Base Excess ABG 0.3 mmol/L (-2.0-2.0); Blood Gas Allen Test Pos; Blood Gas Sample Site Radial, left; Blood Gas Sample Type Arterial; HCO3 ABG 26.2 mmol/L (22-26); Oxygen Device BIPAP; PO2 ABG 69.5 mmHg (80.0-100.0)
[2021-07-21] MEDS: sodium chloride 0.9% 1,000 ML 999 ML IV (21:06)
[2021-07-21] MEDS: cefTRIAXone 1,000 MG in sodium chloride 0.9% (plus) 50 ML 100 MG IV (21:32)
[2021-07-21 22:01] LABS: Adenovirus Not Detected (NOT DETECT); Chlamydia Pneumoniae Not Detected (NOT DETECT); Coronavirus 229E,HKU1,NL63,OC4 Not Detected (NOT DETECT); Human Metapneumovirus Not Detected (NOT DETECT); Human Rhinovirus/Enterovirus Not Detected (NOT DETECT); Influenza A Not Detected (NOT DETECT); Influenza A H1 Not Detected (NOT DETECT); Influenza A H1-2009 Not Detected (NOT DETECT); Influenza A H3 Not Detected (NOT DETECT); Influenza B Not Detected (NOT DETECT); Mycoplasma Pneumoniae Not Detected (NOT DETECT); Parainfluenza Virus Type 1 Not Detected (NOT DETECT); Parainfluenza Virus Type 2 Not Detected (NOT DETECT); Parainfluenza Virus Type 3 Not Detected (NOT DETECT); Parainfluenza Virus Type 4 Not Detected (NOT DETECT); Respiratory Syncytial Virus A Not Detected (NOT DETECT); Respiratory Syncytial Virus B Not Detected (NOT DETECT); SARS-COV-2 Not Detected (NOT DETECT)
[2021-07-21] MEDS: morphine 4 mg/mL SDV 1 mL 2 MG IVP (22:04)
[2021-07-21] MEDS: dexmedeTOMIDine 0.9 % NaCL 400 MCG/100 ML PREMIX IV (22:31)
[2021-07-21] MEDS: enoxaparin 40 mg/0.4 mL Syringe SUBCUT (22:31)
[2021-07-21 22:39] LABS: D Dimer 0.59 ug/mIFEU (0-0.59)
[2021-07-21] MEDS: sodium chloride 0.9% 1,000 ML 50 ML IV (22:53)
--- NOTE | 2021-07-21 22:56 | P.HP_ITS ---
Providers/Chief Complaint Admitting Physician: Anne Marie Anderson Primary Care Provider: Laron Gutierrez MD Chief Complaint: ASTHMA EXACERBATION History of Present Illness 50 year old with past medical history of helicobacter pylori gastritis, multiple abdominal surgeries, and chronic emphysema who denied prior history of tobacco abuse however significant second hand smoke now presenting to ER with shortness of breath. Patient was on BiPAP at time of my evaluation and slightly difficult to obtain full history however was reported the patient was having symptomsFor the past few days. She did states that she had appointment to see Pulmonary Medicine however this was canceled due to weather. Upon arrival to emergency roomHer laboratory workup showed a WBC of 15.9, hemoglobin of 14.2, hematocrit of 43.1 and a platelet count of 348. Sodium 144, potassium 3.7, chloride 104, bicarb 26, BUN 7 and creatinine of 0.7. Glucose of 138. Procalcitonin of 0.04. In a TSH of 0.73. COVID-19 PCR was not detected. Chest x-ray did not show any evidence of acute cardiopulmonary abnormality. Patient was givenHigh-dose albuterol nebulize x3 , ceftriaxone 1 g IV x1 and doxycycline 100 mg IV x1 and placed on BiPAP.While on BiPAP arterial blood gases were performed which showed a pH of 7.36, pCO2 46.4, PO2 of 69.5 and bicarb 26.2. Patient did have increased work of breathing on FiO2 40%. Review of Systems Narrative: All systems reviewed and found to be negative other than pertinent positive/ negatives noted in HPI Medications/Allergies Home Medications Medication Instructions Recorded Confirmed Last Taken Type albuterol sulfate 2.5 mg (3 mL) INHALATION QID PRN 05/13/21 07/12/21 06/21/21 Rx #75 ml albuterol sulfate 2.5 mg INHALATION TID ml 05/13/21 07/12/21 06/21/21 History albuterol sulfate 90 mcg/actuation 2 puff INHALATION BID g 05/13/21 07/12/21 06/21/21 History aerosol inhaler (ProAir HFA) ipratropium bromide 17 2 puff INHALATION BID #12.9 g 05/13/21 07/12/21 06/21/21 Rx mcg/actuation HFA aerosol inhaler (Atrovent HFA) prednisone 20 mg tablet See Rx Instructions PO DAILY 11 05/13/21 07/12/21 06/21/21 Rx Days #19 tab amoxicillin 875 mg-potassium 1 tab PO BID #14 tab 05/24/21 07/12/21 06/21/21 Rx clavulanate 125 mg tablet (Augmentin) hydrocodone 5 mg-acetaminophen 325 1 tab PO Q6H PRN #14 tab 05/24/21 07/12/21 06/20/21 Rx mg tablet prednisone 50 mg tablet 50 mg PO DAILY #5 tab 05/24/21 07/12/21 06/21/21 Rx sucralfate 1 gram tablet (Carafate) 1 g PO TID 30 Days #90 tab 06/07/21 07/12/21 06/21/21 Rx diphenhydramine HCl 25 mg tablet 12.5 mg PO TID PRN 14 Days #40 tab 07/05/21 07/12/21 Unknown Rx (Benadryl Allergy) Allergies Allergy/AdvReac Type Severity Reaction Status Date / Time Egg Derived Allergy ALGY-Difficulty Verified 07/21/21 18:35 Breathing PFSH Acute PFSH: Medical History Asthma Colon polyps Helicobacter pylori gastritis History of kidney stones Surgical History H/O esophagogastroduodenoscopy (06/22/21) History of appendectomy History of History of colon resection History of colonoscopy History of hysterectomy History of laparotomy Status post colonoscopy (06/22/21) Status post laparoscopic cholecystectomy Family History (Updated 07/21/21 @ 23:06 by Anne Marie Anderson MD) Other No pertinent family history Social History Smoking and tobacco status: never smoked Vitals/I&O/Wt Last Vital Signs Temp 99.6 F 07/21/21 18:35 Pulse 153 H 07/21/21 21:44 Resp 29 H 07/21/21 21:44 BP 134/83 07/21/21 20:00 Pulse Ox 94 07/21/21 22:54 07/21/21 07/21/21 07/21/21 06:59 14:59 22:59 Intake Total 1150 / 1150 Balance 1150 / 1150 Weight last 48 hrs Weight 65.771 kg Physical Exam Narrative: General- Alert awake and oriented in mild respiratory distress on BiPAP HEENT -Grossly unremarkable CVS -sinus tachycardia Chest-mildly labored respiration on bipap ABD- Non-distended : [place] Ext : no edema Data : 07/21/21 19:20 07/21/21 19:20 CXR: Radiologist's impression: No acute cardiopulmonary abnormality A&P Assessment and plan (1) Asthma with acute exacerbation: Continue BIPAP Duoneb q6hr Solu-medrol 125 mg IV x 1 Continue 80 mg IV q8hr Wean Bipap as tolerated Check D-dimer May consider CTA Consider pulmonary consult in am if D-dimer elevated Procal negative Empirically continue Doxycycline 100mg IV Q12hr Sputum culture if able to obtain NPO until off Bipap Precedex low dose if needed Status: Acute (2) DVT prophylaxis: Lovenox 40 mg SQ daily Status: Acute Plan Hx of Helicobacter Pylori Verify if completed tx course GERD Protonix 40 mg IV daily Attestations Medical Necessity Statement*: Anticipate over 2 midnights stay in hospital for evaluation and treatment of asthma exacerbation requiring ICU admission, BiPAP IV steroids and antibiotics. Time Spent in Patient Care: Greater than 35 minutes Critical Care Time: 35 Coding Level of Care Code Acute Estate Conservator for Ramirez Torres Diagnoses Asthma with acute exacerbation J45.901 DVT prophylaxis Z29.9
[2021-07-21] MEDS: ipratropium-albuterol 3 mL Neb INHALATION (23:53)
[2021-07-22] VITALS (49 sets, daily range): BP systolic 84–167; BP diastolic 37–90; PULSE 61–126; RESP 6–27; TEMP 36.2–37.1; O2SAT 92–98; BMI 30.9
[2021-07-22] MEDS: ipratropium-albuterol 3 mL Neb INHALATION ×6 (04:18→23:37)
[2021-07-22 04:25] LABS: Blood Urea Nitrogen 7 mg/dL (6-20); Calcium 6.2 mg/dL (8.5-10.5); Carbon Dioxide 14 mmol/L (22-29); Chloride 121 mmol/L (98-107); Glomerular Filtration Rate 168.3 mL/min (90-130); Glucose 183 mg/dL (65-115); Osmolality Calculated 307 mOsm/kg (285-295); Sodium 147 mmol/L (136-145)
[2021-07-22 04:27] LABS: Anion Gap 15.3 (5-19); Potassium 3.3 mmol/L (3.5-5.1)
[2021-07-22] MEDS: dexmedeTOMIDine 0.9 % NaCL 400 MCG/100 ML PREMIX 13.15 MCG IV (04:34)
[2021-07-22] MEDS: potassium chloride ER 20 mEq Tablet PO (06:31)
[2021-07-22] MEDS: doxycycline 100 MG in sodium chloride 0.9% (plus) 100 ML IV ×2 (08:18→21:22)
[2021-07-22] MEDS: pantoprazole 40 mg SDV IVP (08:19)
[2021-07-22] MEDS: dextrose 5%-ns 0.2% + KCL 20 20 MEQ/1,000 ML BAG 75 MEQ IV ×2 (08:20→23:59)
[2021-07-22] MEDS: budesonide 0.5 mg/2 mL Neb INHALATION ×2 (09:26→20:02)
--- NOTE | 2021-07-22 10:06 | PC.CHAP ---
Pastoral Care Encounter/Spiritual Assessment Type of Contact [] Declined elevator examiner and adjuster visit [] Patient/Family/Request visit [] Outpatient visit [] Follow-up visit [] Physician referral [] Code/Alert [x] Routine visit [] Staff referral [] Actively dying [x] Patient sleeping [] Family support [] [] Out of room [] Palliative care [] [] Receiving care in room [] Pre-surgical visit [] Trauma [] Long length of stay [x] ICU visit [] Other: Relational/Emotional Strength [] Patient feels connected with others/family/visitors/staff [] Distress [] Loneliness/isolation [] Abandonment Spirituality of Patient [] Person of Alessandra [] Attends Presybeterian of their Alessandra [] Believes in Prayer [] Reads Bible or Zoroastrianism materials [] There are Spiritual issues to be addressed Handstitching Machine Collar Feller Interventions [x] Prayer [] Active listening [] Non-anxious presence [] Spiritual/emotional support [] Crisis/trauma care [] Spiritual counseling [] Bereavement support [] Provided bereavement packet [] Provided Bible/devotional materials [] Provided toy/stuffed animal, coloring book to patient or family member [] Provided Communion [] Anointing/[place] [] Salvation [x] Completed spiritual assessment [] Other: Impact on Illness or Injury [] Angry [] Fearful [] Anxious [] Often cries [] Exhaustion [] Unable to work [] Unable to attend latter-day [] Unable to walk/stand [] Unable to read [] Unable to drive [] Unable to eat/drink [] Unable to sleep [] Unable to be with family [] Patient intubated [] Other: Summary Time spent with patient
[2021-07-22] MEDS: morphine 4 mg/mL SDV 1 mL 2 MG IVP ×2 (10:14→21:18)
[2021-07-22 10:23] LABS: Basophils % 0.3 %; Lymphocytes # 0.9 10^3/uL (0.8-4.8); Lymphocytes % 8.5 %; Mean Corpuscular Hemoglobin 29.5 pg (28.0-34.0); Mean Corpuscular Volume 95.2 fl (81-99); Mean Platelet Volume 9.5 fL (7.4-10.4); Monocytes # 0.1 10^3/uL (0.2-0.9); Monocytes % 0.5 %; Neutrophils # 9.31 10^3/uL (1.8-7.7); Neutrophils % 90.3 %; Nucleated Red Blood Cells % 0 %; Platelet Count 287 10^3/cmm (130-400); Red Blood Count 4.41 10^6/uL (4.1-5.3); Red Cell Distribution Width 15.6 % (12.1-15.1); White Blood Count 10.3 10^3/uL (4.0-10.0)
--- NOTE | 2021-07-22 11:34 | PM.PN ---
Subjective Subjective: This morning patient was seen and examined, she is off BiPAP currently on 3 clinic She has wheezing with diminished airflow however no acute respiratory distress conversational dyspnea she does have hoarseness of voice Will request CT chest Secondhand smoker Advance diet Severe acidosis noted on BMP today Lactic acid has improved Check ketone level Blood glucose 183 Anion gap 15 Vitals/I&O/Wt Last Vital Signs Temp 97.8 F 07/22/21 08:00 Pulse 77 07/22/21 11:14 Resp 18 07/22/21 11:14 BP 116/78 07/22/21 09:30 Pulse Ox 97 07/22/21 11:14 07/21/21 07/22/21 07/22/21 22:59 06:59 14:59 Intake Total 1150 / 1150 1267.611 / 2417.611 812.5 / 812.5 Output Total 300 / 300 325 / 325 Balance 1150 / 1150 967.611 / 2117.611 487.5 / 487.5 Weight last 48 hrs Weight 69.4 kg Weight 65.771 kg Physical Exam Narrative: Patient is on 3 L nasal cannula Awake and alert Nonfocal neuro exam Anxious appearing Hoarseness of voice noted Diminished breath sounds with mild wheezing Abdomen soft Trace edema of legs Abdomen soft EOMI, PERRLA Nonfocal neuro exam Data : 07/22/21 10:14 07/22/21 03:00 A&P Assessment and plan (1) Helicobacter pylori gastritis: Status: Acute (2) DVT prophylaxis: Status: Acute (3) Asthma with acute exacerbation: Status: Acute (4) Acute respiratory distress: Status: Acute Plan Acute hypoxia related to asthma exacerbation Patient has hoarseness of voice Secondhand smoking exposure We will consider CTA chest Advance diet to GI soft ABG reviewed Potassium repleted TSH is normal Noted severe acidosis, she does not have any signs of DKA, lactic acid is normal, no signs of uremia or abnormal kidney function, check ketone level Continue doxycycline for atypical microorganism coverage procalcitonin is unremarkable Full code Attestations Medical Necessity Statement*: Continue ICU management today may be transferred if ICU bed is required Time Spent in Patient Care: 20mins Coding Level of Care Code Acute Spout Liner Helper for g Fwd Diagnoses Helicobacter pylori gastritis K29.70; B96.81 DVT prophylaxis Z29.9 Asthma with acute exacerbation J45.901 Acute respiratory distress R06.03
--- NOTE | 2021-07-22 11:41 | CT_ITS ---
WS: [id number] CTA OF THE CHEST WITH PULMONARY EMBOLISM PROTOCOL TECHNIQUE: High-resolution contrast enhanced CTA of the chest with coronal and sagittal reformatted i nicks with pulmonary embolism protocol. MIP images are also reviewed. CLINICAL INFORMATION: HYPOXIA COMPARISON: None. DLP: 450.[address] scans at [facility] use at least one of these dose optimization techniques: automated e xposure control; mA and/or kV adjustment per patient size (includes targeted exams where dose is matc hed to clinical indication); or iterative reconstruction. FINDINGS: Proximal main pulmonary arteries are normal. Normal segmental and subsegmental pulmonary arteries. No evidence of pulmonary embolus. No mediastinal or hilar lymphadenopathy. No axillary lymphadenopathy. Calcified granuloma RIGHT upper lobe. No focal pneumonia or pleural fluid. A few tree-in-bud type opa cities in the RIGHT upper lobe laterally and RIGHT lower lobe likely inflammatory. Adrenal glands are normal. Small hepatic cyst at the dome the liver. Adrenal glands are normal. Tarah c and SMA are patent. CT/CT angio chest PE protcl [id number] IMPRESSION: 1. Proximal main pulmonary arteries are normal. No evidence of pulmonary embol us. 2. No acute-appearing pulmonary infiltrates. 3. A few tree-in-bud opacities in the RIGHT upper lobe laterally and RIGHT low er lobe likely inflammatory. 4. No other acute findings.
[2021-07-22] MEDS: iohexol 350 mg/mL 100 mL Btl IV (13:54)
[2021-07-22 13:58] LABS: Ketone (Acetest) Serum Positive (Negative)
[2021-07-22] MEDS: guaiFENesin 100 mg/5 mL UDC 10 mL 200 MG PO ×2 (18:27→23:59)
--- NOTE | 2021-07-22 18:30 | PC.NURSE ---
Report given to Vonnie OSBORNE, pt transferred to room 259-1. tolerated fair.
[2021-07-22] MEDS: enoxaparin 40 mg/0.4 mL Syringe SUBCUT (21:01)
[2021-07-23] VITALS (26 sets, daily range): BP systolic 117–167; BP diastolic 38–88; PULSE 85–140; RESP 16–28; TEMP 36.4–37.2; O2SAT 90–99
[2021-07-23] MEDS: calcium carbonate 500 mg Chew Tablet PO (01:30)
[2021-07-23] MEDS: ipratropium-albuterol 3 mL Neb INHALATION ×2 (04:08→08:37)
[2021-07-23] MEDS: morphine 4 mg/mL SDV 1 mL 2 MG IVP ×2 (06:06→12:28)
[2021-07-23 06:23] LABS: Basophils # 0.1 10^3/uL (0.0-0.1); Basophils % 0.3 %; Hematocrit 41.6 % (37.0-47.0); Hemoglobin 12.6 g/dL (11.5-15.3); Lymphocytes # 1.1 10^3/uL (0.8-4.8); Lymphocytes % 5.9 %; Mean Corpuscular HGB Conc 30.3 g/dL (30.0-36.0); Mean Corpuscular Hemoglobin 29.2 pg (28.0-34.0); Mean Corpuscular Volume 96.5 fl (81-99); Mean Platelet Volume 9.7 fL (7.4-10.4); Monocytes # 0.7 10^3/uL (0.2-0.9); Monocytes % 3.5 %; Neutrophils # 17.13 10^3/uL (1.8-7.7); Neutrophils % 89.5 %; Nucleated Red Blood Cells % 0 %; Platelet Count 229 10^3/cmm (130-400); Red Blood Count 4.31 10^6/uL (4.1-5.3); Red Cell Distribution Width 16.2 % (12.1-15.1); White Blood Count 19.1 10^3/uL (4.0-10.0)
[2021-07-23 06:59] LABS: Anion Gap 15.5 (5-19); Blood Urea Nitrogen 14 mg/dL (6-20); Calcium 9.1 mg/dL (8.5-10.5); Carbon Dioxide 19 mmol/L (22-29); Chloride 107 mmol/L (98-107); Glomerular Filtration Rate 88.2 mL/min (90-130); Glucose 158 mg/dL (65-115); Osmolality Calculated 288 mOsm/kg (285-295); Potassium 4.5 mmol/L (3.5-5.1); Sodium 137 mmol/L (136-145)
--- NOTE | 2021-07-23 07:53 | ECG_ITS ---
[facility] Test Date: 2021-07-23 Pat Name: Ramila Barrow Department: Room: 259 Gender: Female Road Crew Member: : 1970 Requested By: Afia Hernandez Order Number: [id number] Jeri MD: Farida Gonzalez M.D. Measurements Intervals [place] Rate: 120 P: 65 [place]: 109 QRS: 69 QRSD: 82 T: 59 QT: 296 QTc: 418 Interpretive Statements SINUS TACHYCARDIA WITH SHORT [place] INTERVAL ABNORMAL RHYTHM ECG Compared to ECG 07/21/2021 19:29:22 Right-axis deviation no longer present T-wave abnormality no longer present Electronically Signed On 07-23-2021 18:08:45 CAMPUS COORDINATOR by Farida Gonzalez M.D. [email or web address] meridianEBOOKAPLACEprotestant hospital.[employer]/store/[id number]
[2021-07-23] MEDS: budesonide 0.5 mg/2 mL Neb INHALATION ×2 (08:37→19:17)
[2021-07-23] MEDS: lactated ringers 1,000 ML 999 ML IV (08:55)
[2021-07-23] MEDS: pantoprazole 40 mg SDV IVP (09:03)
[2021-07-23] MEDS: doxycycline 100 MG in sodium chloride 0.9% (plus) 100 ML IV (09:07)
[2021-07-23] MEDS: apixaban 5 mg Tablet PO ×2 (09:08→20:45)
[2021-07-23] MEDS: guaiFENesin 100 mg/5 mL UDC 10 mL 200 MG PO ×2 (09:17→20:45)
[2021-07-23] MEDS: levalbuterol 0.63 mg/3 mL Neb INHALATION ×4 (11:34→23:20)
[2021-07-23] MEDS: metoprolol tartrate 1 mg/1 mL SDV 5 mL 5 MG IVP (12:28)
[2021-07-23] MEDS: cefTRIAXone 1,000 MG in sodium chloride 0.9% (plus) 50 ML 100 MG IV (13:15)
--- NOTE | 2021-07-23 14:01 | PM.PN ---
Subjective Subjective: Jump in leukocytosis, patient is still wheezing, escalated her steroids, change her DuoNeb to Xopenex and ipratropium Alternating between BiPAP and nasal cannula Added ceftriaxone Added montelukast No significant eosinophils noted on CBC Vitals/I&O/Wt Last Vital Signs Temp 98.9 F 07/23/21 12:00 Pulse 140 H 07/23/21 12:00 Resp 18 07/23/21 12:28 BP 167/38 07/23/21 12:00 Pulse Ox 90 07/23/21 12:00 07/22/21 07/23/21 07/23/21 22:59 06:59 14:59 Intake Total 1540 / 2608.687 480 / 3088.687 1340 / 1340 Output Total 700 / 1075 0 / 1075 750 / 750 Balance 840 / 1533.687 480 / 2013.687 590 / 590 Weight last 48 hrs Weight 68.629 kg Weight 69.4 kg Weight 65.771 kg Physical Exam Narrative: Patient is still wheezing Emotionally labile Awake and alert Nonfocal neuro exam Hoarseness of voice Diffuse bilateral wheezing She was on BiPAP at the time of my evaluation Looks dehydrated Soft abdomen Data : 07/23/21 06:00 07/23/21 06:00 A&P Assessment and plan (1) DVT prophylaxis: Status: Acute (2) Helicobacter pylori gastritis: Status: Acute (3) Asthma with acute exacerbation: Status: Acute (4) Acute respiratory distress: Status: Acute (5) Acute respiratory failure with hypoxia and hypercarbia: Status: Acute (6) Asthma: Status: Acute Plan Acute exacerbation of asthma Patient has history of secondhand smoking She is a nonalcoholic, does not smoke Activity Escalate her steroids Add ceftriaxone and montelukast I do not appreciate any eosinophils on CBC Close to monitor For sinus tachycardia repeat twelve-lead EKG: Consistent with multifocal atrial tachycardia, I gave her Cardizem and 1 L normal saline bolus Severe dehydration with positive ketones with normal anion gap acidosis Would keep her on BiPAP for now to decrease work of breathing Full code Give her a break from BiPAP to let her eat I try to get in touch with the family, no one has been answering Attestations Medical Necessity Statement*: Continue medical management Time Spent in Patient Care: 20mins Coding Level of Care Code 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
[2021-07-23] MEDS: dextrose 5%-ns 0.2% + KCL 20 20 MEQ/1,000 ML BAG 75 MEQ IV (14:51)
[2021-07-23] MEDS: dilTIAZem 30 mg Tablet PO ×2 (14:51→20:45)
[2021-07-23] MEDS: ipratropium 0.5 mg/2.5 mL Neb INHALATION ×3 (15:21→23:20)
[2021-07-23] MEDS: montelukast sodium 10 mg Tablet PO (17:25)
[2021-07-24] VITALS (21 sets, daily range): BP systolic 111–149; BP diastolic 72–79; PULSE 61–114; RESP 13–19; TEMP 36.7–36.8; O2SAT 93–98
[2021-07-24] MEDS: dilTIAZem 30 mg Tablet PO ×4 (01:18→20:52)
[2021-07-24] MEDS: guaiFENesin 100 mg/5 mL UDC 10 mL 200 MG PO ×5 (01:18→22:03)
[2021-07-24] MEDS: morphine 4 mg/mL SDV 1 mL 2 MG IVP ×2 (01:28→10:04)
[2021-07-24] MEDS: dextrose 5%-ns 0.2% + KCL 20 20 MEQ/1,000 ML BAG 75 MEQ IV (02:16)
[2021-07-24] MEDS: levalbuterol 0.63 mg/3 mL Neb INHALATION ×6 (03:17→23:03)
[2021-07-24] MEDS: ipratropium 0.5 mg/2.5 mL Neb INHALATION ×6 (03:17→23:03)
--- NOTE | 2021-07-24 05:59 | PC.NURSE ---
SHIFT SUMMARY Has slept for intervals. Wore BIPAP first part of the night then requested it to be removed and has been on NC O2 at 2.5l. Says some SOB with exertion. Continues to cough quite alot and says it hurts across upper abd & ribs when she coughs. Given po Robitussin which she says does help with the coughing. Received IV Morphine X1 for pain. Continues to receive IV Solumedrol. Urinating per BSC. IV infusing at 75ml/hr rate. HR has been much better tonight with rate in 90's to 105 range.
[2021-07-24 06:27] LABS: Basophils # 0.1 10^3/uL (0.0-0.1); Basophils % 0.3 %; Eosinophils % 0.1 %; Hematocrit 36.9 % (37.0-47.0); Hemoglobin 12.1 g/dL (11.5-15.3); Lymphocytes # 1.3 10^3/uL (0.8-4.8); Lymphocytes % 7.5 %; Mean Corpuscular HGB Conc 32.8 g/dL (30.0-36.0); Mean Corpuscular Hemoglobin 30.1 pg (28.0-34.0); Mean Corpuscular Volume 91.8 fl (81-99); Mean Platelet Volume 9.9 fL (7.4-10.4); Monocytes # 0.3 10^3/uL (0.2-0.9); Monocytes % 1.7 %; Neutrophils # 14.85 10^3/uL (1.8-7.7); Nucleated Red Blood Cells % 0 %; Platelet Count 298 10^3/cmm (130-400); Red Blood Count 4.02 10^6/uL (4.1-5.3); Red Cell Distribution Width 16.1 % (12.1-15.1); White Blood Count 16.9 10^3/uL (4.0-10.0)
[2021-07-24 06:30] LABS: Blood Urea Nitrogen 19 mg/dL (6-20); Calcium 8.7 mg/dL (8.5-10.5); Carbon Dioxide 19 mmol/L (22-29); Chloride 106 mmol/L (98-107); Glomerular Filtration Rate 88.2 mL/min (90-130); Glucose 145 mg/dL (65-115); Osmolality Calculated 289 mOsm/kg (285-295); Sodium 137 mmol/L (136-145)
[2021-07-24 06:46] LABS: Anion Gap 16.7 (5-19); Potassium 4.7 mmol/L (3.5-5.1)
[2021-07-24 07:31] LABS: Slide Review Slide Review Perform
[2021-07-24] MEDS: pantoprazole 40 mg SDV IVP (07:57)
[2021-07-24] MEDS: budesonide 0.5 mg/2 mL Neb INHALATION ×2 (07:58→19:04)
[2021-07-24] MEDS: apixaban 5 mg Tablet PO ×2 (10:02→20:52)
--- NOTE | 2021-07-24 10:25 | PM.PN ---
Subjective Subjective: This morning patient is endorsing feeling slightly better however still active wheezing present She desaturated to 80s 4% on room air as per the RT Currently on nasal cannula oxygen supplementation Was getting breathing treatment when entered the room Vitals/I&O/Wt Last Vital Signs Temp 98.0 F 07/24/21 03:14 Pulse 94 07/24/21 08:09 Resp 16 07/24/21 10:04 BP 149/79 07/24/21 08:00 Pulse Ox 98 07/24/21 08:00 07/23/21 07/24/21 07/24/21 22:59 06:59 14:59 Intake Total 252 / 2882 1216.25 / 4098.25 Output Total 700 / 1450 700 / 2150 Balance -448 / 1432 516.25 / 1948.25 Weight last 48 hrs Weight 72.484 kg Weight 68.629 kg Physical Exam Narrative: Patient was sitting in her bed On nasal cannula S1, S2 No signs of edema Expiratory wheezing noted on lung auscultation No audible wheezing or stridor No acute respiratory distress no conversational dyspnea Hoarseness of voice persistent Nonfocal neuro exam S1, S2 sinus Data : 07/24/21 05:25 07/24/21 05:25 A&P Assessment and plan (1) DVT prophylaxis: Status: Acute (2) Helicobacter pylori gastritis: Status: Acute (3) Asthma with acute exacerbation: Status: Acute (4) Acute respiratory distress: Status: Acute (5) Acute respiratory failure with hypoxia and hypercarbia: Status: Acute (6) Asthma: Status: Acute Plan Asthma exacerbation with slow recovery Active wheezing, escalated antibiotics continue budesonide Add montelukast and ceftriaxone yesterday Patient is endorsing some improvement in her symptoms CT rule out PE Repeat chest x-ray today TSH is normal, I am not sure what is causing hoarseness of voice, 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 At the time of discharge she will need oxygen, long-term steroids along breathing regimen No signs of infection, she is on empirical coverage with ceftriaxone Sinus tachycardia, short FL interval No signs of delta no signs of WPW For concern of multifocal atrial tachycardia I will keep her on Cardizem for now which is controlled her heart rate, getting Xopenex Repeat D-dimer tomorrow GI soft diet Attestations Medical Necessity Statement*: Continue hospitalization Time Spent in Patient Care: 20min Coding Level of Care Code 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
--- NOTE | 2021-07-24 10:31 | XRR_ITS ---
PROCEDURE INFORMATION: Exam: XR Chest Exam date and time: 07/24/2021 10:31 AM Age: 50 years old Clinical indication: Shortness of breath; Additional info: Asthma TECHNIQUE: Imaging protocol: XR of the chest. Views: 1 view. COMPARISON: CR (CHEST, ) 07/21/2021 7:16 PM FINDINGS: Lungs: Unremarkable. No consolidation. Pleural spaces: Unremarkable. No pleural effusion. No pneumothorax. Heart/Mediastinum: Unremarkable. No cardiomegaly. Bones/joints: Unremarkable. XR/XR chest 1V portable [id number] IMPRESSION: Negative for acute abnormality.
[2021-07-24] MEDS: calcium carbonate 500 mg Chew Tablet PO (11:19)
[2021-07-24] MEDS: cefTRIAXone 1,000 MG in sodium chloride 0.9% (plus) 50 ML 100 MG IV (12:24)
[2021-07-24] MEDS: fluticasone nasal spray 16gm Btl 2 SPRAY NASAL (17:55)
[2021-07-24] MEDS: montelukast sodium 10 mg Tablet PO (17:55)
[2021-07-25] VITALS (17 sets, daily range): BP systolic 138–164; BP diastolic 75–93; PULSE 80–113; RESP 16–18; TEMP 36.4–37; O2SAT 91–98
[2021-07-25] MEDS: guaiFENesin 100 mg/5 mL UDC 10 mL 200 MG PO ×3 (02:10→13:36)
[2021-07-25] MEDS: dilTIAZem 30 mg Tablet PO ×4 (02:10→20:25)
[2021-07-25] MEDS: levalbuterol 0.63 mg/3 mL Neb INHALATION ×5 (03:17→20:01)
[2021-07-25] MEDS: ipratropium 0.5 mg/2.5 mL Neb INHALATION ×5 (03:17→20:01)
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
[2021-07-25 05:13] LABS: Basophils # 0.1 10^3/uL (0.0-0.1); Basophils % 0.7 %; Eosinophils % 0.2 %; Hemoglobin 12.5 g/dL (11.5-15.3); Lymphocytes # 1.1 10^3/uL (0.8-4.8); Lymphocytes % 8.4 %; Mean Corpuscular HGB Conc 32.1 g/dL (30.0-36.0); Mean Corpuscular Hemoglobin 29.6 pg (28.0-34.0); Mean Corpuscular Volume 92.2 fl (81-99); Mean Platelet Volume 9.7 fL (7.4-10.4); Monocytes # 0.3 10^3/uL (0.2-0.9); Monocytes % 2.2 %; Neutrophils # 10.43 10^3/uL (1.8-7.7); Nucleated Red Blood Cells % 0.2 %; Platelet Count 309 10^3/cmm (130-400); Red Blood Count 4.23 10^6/uL (4.1-5.3)
[2021-07-25] MEDS: morphine 4 mg/mL SDV 1 mL 2 MG IVP ×2 (05:52→20:25)
[2021-07-25 06:15] LABS: Slide Review Slide Review Perform
[2021-07-25 07:07] LABS: D Dimer <= 0.27 ug/mIFEU (0-0.59)
[2021-07-25] MEDS: budesonide 0.5 mg/2 mL Neb INHALATION ×2 (08:08→20:01)
[2021-07-25] MEDS: pantoprazole 40 mg SDV IVP (09:26)
[2021-07-25] MEDS: apixaban 5 mg Tablet PO ×2 (09:26→20:25)
[2021-07-25] MEDS: fluticasone nasal spray 16gm Btl 2 SPRAY NASAL ×2 (09:27→17:56)
--- NOTE | 2021-07-25 11:00 | PC.NURSE ---
Dr. Hernandez verbalized order for Tesslon Pearls Q4H PRN for cough
--- NOTE | 2021-07-25 11:48 | PM.PN ---
Subjective Subjective: Patient is being him grace brown sputum with blood-tinged Afebrile Patient is stating feeling slightly better than yesterday Still wheezing Vitals/I&O/Wt Last Vital Signs Temp 97.5 F L 07/25/21 11:14 Pulse 91 07/25/21 11:14 Resp 18 07/25/21 11:14 BP 156/78 07/25/21 11:14 Pulse Ox 94 07/25/21 11:14 07/24/21 07/25/21 07/25/21 22:59 06:59 14:59 Intake Total 1670 / 2070 360 / 2430 Output Total 200 / 200 400 / 600 Balance 1470 / 1870 -40 / 1830 Weight last 48 hrs Weight 72.711 kg Weight 72.484 kg Physical Exam Narrative: Patient saturating well on nasal cannula Expiratory wheezing however slightly improved as compared to yesterday No use of respiratory sensory muscle Productive cough S1, S2 Abdomen soft Nonfocal neuro exam Awake and alert Hoarseness of voice has not improved Data : 07/25/21 04:43 07/24/21 05:25 Micro: Microbiology 07/24/21 11:34 Sputum Culture - Preliminary Sputum - Expectorated Sputum A&P Assessment and plan (1) DVT prophylaxis: Status: Acute (2) Helicobacter pylori gastritis: Status: Acute (3) Acute respiratory distress: Status: Acute (4) Asthma with acute exacerbation: Status: Acute (5) Acute respiratory failure with hypoxia and hypercarbia: Status: Acute (6) Asthma: Status: Acute Plan And plan to keep patient here 1 more day, keep her on high-dose steroids, montelukast, empirical ceftriaxone and add Raquel Ferreirasin Afebrile, no leukocytosis She will need close outpatient follow-up with pulmonary medicine Full code Retired DVT prophylaxis on board Attestations Medical Necessity Statement*: Continue hospitalization, discharge tomorrow Time Spent in Patient Care: 15min Coding Level of Care Code 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
[2021-07-25] MEDS: benzonatate 100 mg Capsule 200 MG PO (13:36)
[2021-07-25] MEDS: cefTRIAXone 1,000 MG in sodium chloride 0.9% (plus) 50 ML 100 MG IV (13:37)
[2021-07-25] MEDS: montelukast sodium 10 mg Tablet PO (17:56)
[2021-07-26] VITALS (10 sets, daily range): BP systolic 124–157; BP diastolic 75–87; PULSE 86–113; RESP 16–18; TEMP 36.3–36.8; O2SAT 91–97
[2021-07-26] MEDS: guaiFENesin 100 mg/5 mL UDC 10 mL 200 MG PO (02:59)
[2021-07-26] MEDS: dilTIAZem 30 mg Tablet PO ×3 (02:59→14:48)
[2021-07-26] MEDS: benzonatate 100 mg Capsule 200 MG PO ×2 (02:59→09:34)
[2021-07-26] MEDS: ipratropium 0.5 mg/2.5 mL Neb INHALATION ×3 (03:12→12:17)
[2021-07-26] MEDS: levalbuterol 0.63 mg/3 mL Neb INHALATION ×3 (03:12→12:17)
[2021-07-26 05:16] LABS: Hematocrit 38.6 % (37.0-47.0); Hemoglobin 12.4 g/dL (11.5-15.3); Mean Corpuscular HGB Conc 32.1 g/dL (30.0-36.0); Mean Corpuscular Hemoglobin 29.2 pg (28.0-34.0); Mean Corpuscular Volume 90.8 fl (81-99); Mean Platelet Volume 9.8 fL (7.4-10.4); Platelet Count 288 10^3/cmm (130-400); Red Blood Count 4.25 10^6/uL (4.1-5.3); Red Cell Distribution Width 15.6 % (12.1-15.1); White Blood Count 13.1 10^3/uL (4.0-10.0)
[2021-07-26 05:40] LABS: Blood Urea Nitrogen 25 mg/dL (6-20); Calcium 8.6 mg/dL (8.5-10.5); Carbon Dioxide 24 mmol/L (22-29); Chloride 105 mmol/L (98-107); Glomerular Filtration Rate 75.6 mL/min (90-130); Glucose 150 mg/dL (65-115); Osmolality Calculated 293 mOsm/kg (285-295); Sodium 138 mmol/L (136-145)
[2021-07-26 05:45] LABS: Anion Gap 13.2 (5-19); Potassium 4.2 mmol/L (3.5-5.1)
[2021-07-26 06:04] LABS: Slide Review Slide Review Perform
[2021-07-26 06:07] LABS: Absolute Neutrophil 8.6 10^3/cmm (1.4-6.5); Absolute Segmented Neutrophil 7.5 10/cmm (1.6-7.1); Band Neutrophils Absolute 1.2 10^3/cmm (0.0-1.2); Eosinophils 0 %; Lymphocytes 17 %; Lymphocytes Absolute 3.3 10^3/cmm (1.2-3.4); Platelet Estimate Normal (Normal); Segmented Neutrophils 57 %; Total Cells Counted 100 (0-100)
[2021-07-26] MEDS: budesonide 0.5 mg/2 mL Neb INHALATION (08:09)
[2021-07-26] MEDS: apixaban 5 mg Tablet PO (09:34)
[2021-07-26] MEDS: fluticasone nasal spray 16gm Btl 2 SPRAY NASAL (09:34)
[2021-07-26] MEDS: pantoprazole DR 40 mg Tablet PO (09:34)
[2021-07-26] MEDS: acetaminophen 325 mg Tablet 650 MG PO ×2 (09:35→14:48)
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
== END 2021-07-26 15:15 | disposition home or self-care (01) | DRG 202 ==
LOC: ER 21:01 → ICU 21:27 → MEDSURG 07-22 18:10
PROVIDERS: Admitting Provider Hospitalist; Emergency Provider Emergency Medicine; PCP Family Medicine; Visit Provider Internal Medicine
DX: J45.901 Unspecified asthma with (acute) exacerbation (principal); J96.02 Acute respiratory failure with hypercapnia; J96.01 Acute respiratory failure with hypoxia; E87.2 Acidosis; B96.81 Helicobacter pylori [H. pylori] as the cause of diseases classified elsewhere; K29.70 Gastritis, unspecified, without bleeding; J43.9 Emphysema, unspecified; R00.0 Tachycardia, unspecified; F43.10 Post-traumatic stress disorder, unspecified; Z77.22 Contact with and (suspected) exposure to environmental tobacco smoke (acute) (chronic); Z90.49 Acquired absence of other specified parts of digestive tract; Z79.899 Other long term (current) drug therapy; Z79.01 Long term (current) use of anticoagulants; Z63.0 Problems in relationship with spouse or partner
CPT/HCPCS: 36415; 36600; 71045; 71275; 80048; 80053; 82009; 82803; 83605; 83735; 83880; 84145; 84443; 85007; 85025; 85378; 86140; 87070; 87635; 93005; 94640; 94660; 94664; 96365; 96367; 96372; 99285; C9113; J0696; J1650; J2270; J2930; J3475; J3490; J7030; J7611; J7614; J7626; J7644; Q9967

== ENCOUNTER 2021-08-29 11:00 | Outpatient (CLI) | payer MEDICAID, SELFPAY | END 2021-08-29 11:01 | disposition home or self-care (01) | LOC: SLEEP 08-30 11:09 | PROVIDERS: PCP Family Medicine; Visit Provider Family Medicine | DX: R09.02 Hypoxemia (principal) | CPT/HCPCS: 94762 ==

== ENCOUNTER 2021-08-31 12:57 | Outpatient (CLI) | payer MEDICAID, SELFPAY ==
--- NOTE | 2021-08-31 13:07 | MM_ITS ---
WS: [id number] BILATERAL SCREENING 3D TOMOSYNTHESIS DIGITAL MAMMOGRAM WITH CAD HISTORY: SCREENING COMPARISON: 02/17/2011 Bilateral CC and MLO views submitted. Computer aided detection analyzed. Breast composition: There are scattered areas of fibroglandular density. No suspicious masses, microc alcifications or architectural distortion. MM/[place] [id number] IMPRESSION: BI-RADS: 1-Negative FOLLOW UP: 1 Year Follow-up
== END 2021-08-31 12:58 | disposition home or self-care (01) ==
PROVIDERS: PCP Family Medicine; Visit Provider Family Medicine
DX: Z12.31 Encounter for screening mammogram for malignant neoplasm of breast (principal)
CPT/HCPCS: 77063; 77067

== ENCOUNTER 2021-12-15 20:00 | Outpatient (CLI) | payer MEDICAID, SELFPAY | END 2021-12-15 20:01 | disposition home or self-care (01) | LOC: SLEEP 12-16 07:40 | PROVIDERS: PCP Family Medicine; Visit Provider Family Medicine | DX: G47.10 Hypersomnia, unspecified (principal); R06.83 Snoring; R53.83 Other fatigue | CPT/HCPCS: 95810 ==

== ENCOUNTER → 2022-01-10 12:42 | Outpatient (BNVA) | payer MEDICAID, SELFPAY | PROVIDERS: PCP Family Medicine; Referring Provider Family Medicine; Visit Provider Internal Medicine Critical Care Medicine | DX: J45.50 Severe persistent asthma, uncomplicated (principal); R06.02 Shortness of breath; R07.89 Other chest pain; F41.9 Anxiety disorder, unspecified | CPT/HCPCS: 82785; 85025; 86003; 99204 ==

== ENCOUNTER 2022-02-28 08:44 | Outpatient (CLI) | payer MEDICAID, SELFPAY ==
--- NOTE | 2022-02-28 14:16 | PFTS_ITS ---
Date of Study:02/28/22 Date of Dictation: MECHANICS: Forced vital capacity (FVC) is normal. Forced expiratory volume in one second (FEV1) is reduced. FEV1/FVC is reduced. FLOW VOLUME LOOP: Reduced flow at all lung volumes with significant scooping. LUNG VOLUMES: Total lung capacity (TLC) is normal. Residual volume (RV) is increased. DIFFUSING CAPACITY FOR CARBON MONOXIDE: Normal. INTERPRETATION: The postbronchodilator spirometry is consistent with moderate airflow obstruction. There is a significant postbronchodilator response. Lung volumes are consistent with air trapping. Gas exchange (DLCO) is normal. MTDD
== END 2022-02-28 08:45 | disposition home or self-care (01) ==
LOC: RT 08:45
PROVIDERS: PCP Family Medicine; Visit Provider Internal Medicine Critical Care Medicine
DX: J45.50 Severe persistent asthma, uncomplicated (principal)
CPT/HCPCS: J7611

== ENCOUNTER → 2022-03-01 08:33 | Outpatient (BNVA) | payer MEDICAID, SELFPAY | PROVIDERS: PCP Family Medicine; Visit Provider Internal Medicine Critical Care Medicine | DX: J45.50 Severe persistent asthma, uncomplicated (principal); M85.80 Other specified disorders of bone density and structure, unspecified site; M81.0 Age-related osteoporosis without current pathological fracture; Z92.241 Personal history of systemic steroid therapy | CPT/HCPCS: 99214 ==

== ENCOUNTER 2022-03-22 14:52 | Outpatient (CLI) | payer MEDICAID, SELFPAY ==
[2022-03-22 15:19] LABS: Occult Blood Stool Negative (Negative)
== END 2022-03-22 14:53 | disposition home or self-care (01) ==
LOC: LAB 14:54
PROVIDERS: PCP Family Medicine; Visit Provider Clinical Nurse Specialist Adult Health
DX: K92.1 Melena (principal)
CPT/HCPCS: 80053; 81000; 85025; G0328

== ENCOUNTER 2022-05-04 12:46 | Inpatient (IN) | payer MEDICAID, SELFPAY ==
[2022-05-04] VITALS (8 sets, daily range): BP systolic 134–158; BP diastolic 86–103; PULSE 98–121; RESP 16–24; TEMP 36.5–36.6; O2SAT 94–97; BMI 28.3; BMI 32.5
--- NOTE | 2022-05-04 14:21 | XR_ITS ---
WS: [id number] EXAMINATION: XR chest 1V portable [id number] REASON FOR EXAM: sob COMPARISON: 07/24/2021 ORDER DATE: 05/04/2022 2:21 PM TECHNIQUE: A single, portable frontal chest x-ray was obtained. X-RAY FINDINGS: The lungs are clear. Pleural spaces are clear. No pleural effusions or pneumothorax. Cardiomediastinal silhouette is normal. No evidence for pulmonary edema. Soft tissue and osseous structures are unremarkable, except for mild unchanged dextroscoliosis. No tubes or lines are present. XR/XR chest 1V portable [id number] IMPRESSION: Unremarkable frontal portable chest x-ray.
--- NOTE | 2022-05-04 14:33 | W.ED.SOB ---
HPI - SOB/Dyspnea General: Chief Complaint: Shortness of Breath/Dyspnea Stated Complaint: asthma attack Time Seen by Provider: 05/04/22 14:25 Source: patient History of Present Illness: HPI Narrative: 51-year-old female who presents to the emergency room with difficulty with breathing. She has a history of asthma she was seen at her doctor's office today and was in severe respiratory distress somewhat short of the doctor personally drove her to the emergency room on arrival here she was wheezing. When I came in to see the patient she was wheezing in a tripod position using accessory respiratory muscles and was moderately hypoxic. This is corrected with 2 L by nasal cannula however she has very poor air exchange. She does states she has had a moderately productive cough denies any chest pain subjective low-grade fever. MD elicited complaint: shortness of breath and cough Pertinent past history: COPD Onset (ago): day(s) Severity: mild Exacerbating factors: exertion and coughing Relieving factors: oxygen Associated symptoms: Reports chest congestion, cough and fever(s); Deny abdominal pain, chest pain, diaphoresis, dizziness, extremity pain, hemoptysis, lightheadedness, myalgias, nausea, orthopnea, palpitations, paresthesias, polydipsia, polyuria, rash, sense of impending doom, syncope or vomiting Treatment prior to arrival: bronchodilator Review of Systems Const: Reports: fever(s); Denies: chills, fatigue, malaise or diaphoresis ENMT: Denies: throat pain, ear or mastoid pain, nasal discharge or nasal congestion Card: Denies: chest pain, palpitations, lightheadedness, syncope or orthopnea Resp: Reports: dyspnea, productive cough, wheezing and chest congestion; Denies: hemoptysis GI: Denies: abdominal pain, nausea or vomiting : Denies: flank pain, difficulty voiding, dysuria, urinary frequency or urinary urgency Musc: Denies: extremity pain Skin/Breast: Denies: rash or pruritus Neuro: Denies: dizziness Endo: Denies: polyuria or polydipsia PFSH ED PFSH: Medical History Acute respiratory distress Acute respiratory failure with hypoxia and hypercarbia Asthma Asthma with acute exacerbation Colon polyps DVT prophylaxis Helicobacter pylori gastritis History of kidney stones Surgical History H/O esophagogastroduodenoscopy (06/22/21) History of appendectomy History of History of colon resection History of colonoscopy History of hysterectomy History of laparotomy Status post colonoscopy (06/22/21) Status post laparoscopic cholecystectomy Family History Other No pertinent family history Social History Smoking and tobacco status: never smoked Second hand smoke exposure: Yes Alcohol intake: never Physical Exam Const: GENERAL APPEARANCE: cooperative and comfortable ORIENTATION/CONSCIOUSNESS: Yes awake, Yes oriented to person, Yes oriented to place and Yes oriented to time HENMT: COMMON NORMALS: normocephalic, atraumatic and hearing grossly normal bilaterally HEAD & SCALP: normocephalic and atraumatic Resp: EFFORT & INSPECTION: Yes abnormal respiratory pattern, Yes tachypneic and Yes decreased respiratory effort AUSCULTATION: rhonchi, wheezes and diminished lung sounds Cardio: COMMON NORMALS: regular rhythm and No murmurs present (Cardio) RHYTHM: regular rhythm GI: COMMON NORMALS: Soft to palpation and No hepatosplenomegaly present AUSCULTATION: Yes normoactive bowel sounds PALPATION: Yes Soft to palpation, No Tenderness to palpation present (GI), No Guarding due to palpation present (GI) and Yes No hepatosplenomegaly present Extremity: COMMON NORMALS: normal to inspection, capillary refill normal, no clubbing, cyanosis or edema, no calf tenderness and no pedal edema Neuro: SENSORIUM/ORIENTATION: Yes oriented to person, Yes oriented to place and Yes oriented to time Skin: COMMON NORMALS: no rashes or lesions noted GENERAL SKIN EXAM: no rashes or lesions noted Course Vital Signs: Vital signs: Vital Signs Temperature 97.7 F 05/04/22 13:00 Pulse Rate 118 H 05/04/22 14:54 Respiratory Rate 22 H 05/04/22 14:46 Blood Pressure 158/103 05/04/22 13:00 Pulse Oximetry 97 05/04/22 14:48 Oxygen Delivery Me thod 05/04/22 14:46 Oxygen Flow Rate 30 05/04/22 14:46 Fraction of Inspir ed Oxygen 30 05/04/22 14:48 MDM - SOB/Dyspnea Medical Decision Making Patient required BiPAP. My initial exam room she was tripoding moving very little air despite nebulizers and steroids she still sounds very tight chest x-ray is unremarkable will admit discussed with hospitalist orders written Medical Records I reviewed the patient's medical records. Lab Data I reviewed the patient's lab results. 05/04/22 14:50 05/04/22 14:50 Labs/Radiology: Radiology Impressions Chest X-Ray 05/04/22 14:21 IMPRESSION: Unremarkable frontal portable chest x-ray. Laboratory Results WBC 9.5 10^3/uL (4.0-10.0) 05/04/22 14:50 RBC 4.73 10^6/uL (4.1-5.3) 05/04/22 14:50 Hgb 13.5 g/dL (11.5-15.3) 05/04/22 14:50 Hct 42.4 % (37.0-47.0) 05/04/22 14:50 MCV 89.6 fl (81-99) 05/04/22 14:50 MCH 28.5 pg (28.0-34.0) 05/04/22 14:50 MCHC 31.8 g/dL (30.0-36.0) 05/04/22 14:50 RDW 15.6 % (12.1-15.1) H 05/04/22 14:50 Plt Count 321 10^3/cmm (130-400) 05/04/22 14:50 MPV 9.1 fL (7.4-10.4) 05/04/22 14:50 Neut % (Auto) 73.6 % 05/04/22 14:50 Lymph % (Auto) 15.2 % 05/04/22 14:50 Otoe % (Auto) 4.4 % 05/04/22 14:50 Eos % (Auto) 5.9 % 05/04/22 14:50 Baso % (Auto) 0.2 % 05/04/22 14:50 Neut # (Auto) 6.95 10^3/uL (1.8-7.7) 05/04/22 14:50 Lymph # (Auto) 1.4 10^3/uL (0.8-4.8) 05/04/22 14:50 Otoe # (Auto) 0.4 10^3/uL (0.2-0.9) 05/04/22 14:50 Eos # (Auto) 0.6 10^3/uL (0.0-0.8) 05/04/22 14:50 Baso # (Auto) 0.0 10^3/uL (0.0-0.1) 05/04/22 14:50 Nucleated RBC % (auto) 0 % 05/04/22 14:50 Nucleated RBCs # 0.0 /100WBC 05/04/22 14:50 Specimen Type Arterial 05/04/22 14:46 Sample Site Radial, left 05/04/22 14:46 ABG pH 7.37 (7.35-7.45) 05/04/22 14:46 ABG pCO2 38.7 mmHg (35-45) 05/04/22 14:46 ABG pO2 100.0 mmHg (80.0-100.0) 05/04/22 14:46 ABG HCO3 22.6 mmol/L (22-26) 05/04/22 14:46 ABG O2 Saturation 98.5 05/04/22 14:46 ABG Base Excess -2.4 mmol/L (-2.0-2.0) L 05/04/22 14:46 Eric Test Pos 05/04/22 14:46 A-a O2 Gradient 8.5 mmHg (5-10) 05/04/22 14:46 Hematocrit 41.2 % (37-47) 05/04/22 14:46 Hgb O2 Saturation 96.7 % (95-100) 05/04/22 14:46 Carboxyhemoglobin 0.9 %THgb (0.4-20.1) 05/04/22 14:46 Methemoglobin 0.9 % (0.4-1.5) 05/04/22 14:46 Total Hemoglobin 13.4 g/dL (12-16) 05/04/22 14:46 Sodium 142.0 mmol/L (131-143) 05/04/22 14:46 Potassium 3.2 mmol/L (3.5-5.0) L 05/04/22 14:46 Glucose 112.0 mg/dL (70-115) 05/04/22 14:46 Ionized Calcium 1.2 mmol/L (1.1-1.4) 05/04/22 14:46 O2 Delivery Device Bipap 05/04/22 14:46 FiO2 30.0 % 05/04/22 14:46 Director Of Recruitment And Admissions ID Cak 05/04/22 14:46 Sodium 144 mmol/L (136-145) 05/04/22 14:50 Potassium 3.6 mmol/L (3.5-5.1) 05/04/22 14:50 Chloride 108 mmol/L (98-107) H 05/04/22 14:50 Carbon Dioxide 24 mmol/L (22-29) 05/04/22 14:50 Anion Gap 15.6 (5-19) 05/04/22 14:50 BUN 9 mg/dL (6-20) 05/04/22 14:50 Creatinine 0.7 mg/dL (0.5-0.9) 05/04/22 14:50 GFR Calculation 87.9 mL/min (90-130) L 05/04/22 14:50 Glucose 112 mg/dL (65-115) 05/04/22 14:50 Calculated Osmolality 297 mOsm/kg (285-295) H 05/04/22 14:50 Calcium 9.2 mg/dL (8.5-10.5) 05/04/22 14:50 Total Bilirubin 0.4 mg/dL (0.15-1.2) 05/04/22 14:50 AST 16 U/L (0-32) 05/04/22 14:50 ALT 19 U/L (0-33) 05/04/22 14:50 Alkaline Phosphatase 100 U/L (35-105) 05/04/22 14:50 Troponin T Baseline 6 ng/L (0-10) 05/04/22 14:50 Total Protein 7.1 g/dL (6.6-8.7) 05/04/22 14:50 Albumin 4.2 g/dL (3.5-5.2) 05/04/22 14:50 Globulin 2.9 g/dL (1.3-4.6) 05/04/22 14:50 Discharge Plan Discharge Patient Disposition: Admitted As Inpatient Clinical Impression: Asthma with exacerbation Condition: Stable Prescriptions: No Action albuterol sulfate 2.5 mg /3 mL (0.083 %) solution for nebulization 2.5 mg inhalation QID PRN (Reason: shortness of breath or wheezing) Qty: 75 1RF ondansetron HCl 4 mg tablet 4 mg PO Q8H PRN (Reason: nausea and vomiting) Qty: 30 0RF ipratropium-albuterol 0.5 mg-3 mg(2.5 mg base)/3 mL solution for nebulization 3 ml inhalation ONCE Qty: 1 0RF budesonide-formoterol [Symbicort] 160-4.5 mcg/actuation HFA aerosol inhaler 2 puff inhalation BID 30 Days Qty: 10.2 3RF Spiriva Respimat 1.25 mcg/actuation mist 2 puff inhalation DAILY 30 Days Qty: 4 3RF montelukast [Singulair] 10 mg tablet 10 mg PO DAILY 30 Days Qty: 30 3RF prednisone 10 mg tablet 10 mg PO .COMPLEX 16 Days Qty: 40 0RF Rx Instructions: 10 mg orally 40 mg for 4 days, 30 mg for 4 days, 20 mg for 4 days, 10 mg for 4 days; buspirone 5 mg tablet 5 mg PO TID PRN (Reason: anxiety) Qty: 90 3RF hydroxyzine HCl 25 mg tablet 25 mg PO BID PRN (Reason: anxiety) Qty: 60 0RF albuterol sulfate 90 mcg/actuation HFA aerosol inhaler 2 puff inhalation Q6H PRN (Reason: shortness of breath or wheezing) 30 Days Qty: 8.5 12RF sennosides [Senna Laxative] 8.6 mg tablet 8.6 mg PO BID PRN (Reason: constipation) Qty: 20 0RF Flomax 0.4 mg Capsule 0.4 mg PO DAILY prazosin 1 mg capsule 1 mg PO BEDTIME Referrals: Laron Gutierrez MD [Primary Care Provider] - Patient Instructions: Opioid Safety, Pain Management Coding Level of Care Code ED Transportation Economics Teacher for Elving Fwd Exam Detailed
[2022-05-04] MEDS: ipratropium-albuterol 3 mL Neb 6 ML INHALATION (14:44)
[2022-05-04 14:58] LABS: ABG PCO2 38.7 mmHg (35-45); ABG PH Result 7.37 (7.35-7.45); Alveolar-Arterial Oxygen Gradi 8.5 mmHg (5-10); Arterial Blood Gas Hematocrit 41.2 % (37-47); Base Excess ABG -2.4 mmol/L (-2.0-2.0); Blood Gas Allen Test Pos; Blood Gas Operator Identificat CAK; Blood Gas Sample Site Radial, left; Blood Gas Sample Type Arterial; Carboxyhemoglobin 0.9 %THgb (0.4-20.1); HCO3 ABG 22.6 mmol/L (22-26); HGB O2 Sat 96.7 % (95-100); Ionized Calcium Level - ABG 1.2 mmol/L (1.1-1.4); Methemoglobin 0.9 % (0.4-1.5); Oxygen Device BIPAP; Oxygen Saturation ABG 98.5; Potassium Level - ABG 3.2 mmol/L (3.5-5.0); Total Hemoglobin 13.4 g/dL (12-16)
[2022-05-04 15:13] LABS: Basophils % 0.2 %; Eosinophils # 0.6 10^3/uL (0.0-0.8); Eosinophils % 5.9 %; Hematocrit 42.4 % (37.0-47.0); Hemoglobin 13.5 g/dL (11.5-15.3); Lymphocytes # 1.4 10^3/uL (0.8-4.8); Lymphocytes % 15.2 %; Mean Corpuscular HGB Conc 31.8 g/dL (30.0-36.0); Mean Corpuscular Hemoglobin 28.5 pg (28.0-34.0); Mean Corpuscular Volume 89.6 fl (81-99); Mean Platelet Volume 9.1 fL (7.4-10.4); Monocytes # 0.4 10^3/uL (0.2-0.9); Monocytes % 4.4 %; Neutrophils # 6.95 10^3/uL (1.8-7.7); Neutrophils % 73.6 %; Nucleated Red Blood Cells % 0 %; Platelet Count 321 10^3/cmm (130-400); Red Blood Count 4.73 10^6/uL (4.1-5.3); Red Cell Distribution Width 15.6 % (12.1-15.1); White Blood Count 9.5 10^3/uL (4.0-10.0)
[2022-05-04 15:40] LABS: Alanine Aminotransferase 19 U/L (0-33); Albumin Level 4.2 g/dL (3.5-5.2); Alkaline Phosphatase 100 U/L (35-105); Anion Gap 15.6 (5-19); Aspartate Amino Transferase 16 U/L (0-32); Blood Urea Nitrogen 9 mg/dL (6-20); Calcium 9.2 mg/dL (8.5-10.5); Carbon Dioxide 24 mmol/L (22-29); Chloride 108 mmol/L (98-107); Globulin 2.9 g/dL (1.3-4.6); Glomerular Filtration Rate 87.9 mL/min (90-130); Glucose 112 mg/dL (65-115); Osmolality Calculated 297 mOsm/kg (285-295); Potassium 3.6 mmol/L (3.5-5.1); Sodium 144 mmol/L (136-145); Total Bilirubin 0.4 mg/dL (0.15-1.2); Total Protein 7.1 g/dL (6.6-8.7)
--- NOTE | 2022-05-04 15:48 | ECG_ITS ---
[facility] Test Date: 2022-05-04 Pat Name: Ramila Barrow Department: Room: Gender: Female Snow Removal Supervisor: : 1970 Requested By: Toby Parada Order Number: [id number] Jeri MD: Shelbie Ashby M.D. Measurements Intervals [place] Rate: 112 P: 70 NV: 109 QRS: 77 QRSD: 81 T: 73 QT: 328 QTc: 448 Interpretive Statements SINUS TACHYCARDIA WITH SHORT [place] INTERVAL POSSIBLE LEFT ATRIAL ENLARGEMENT [-0.1mV P-WAVE IN V1/V2] MINIMAL ST DEPRESSION [0.025+ mV ST DEPRESSION] Compared to ECG 07/23/2021 08:08:07 ST (T wave) deviation now present Electronically Signed On 05-05-2022 13:13:05 CANAL EQUIPMENT MAINTENANCE SUPERVISOR by Shelbie Ashby M.D. [id number]
[2022-05-04] MEDS: aspirin 81 mg Chew Tablet 324 MG PO (16:07)
[2022-05-04 16:20] LABS: Troponin(5th) Baseline 6 ng/L (0-10)
--- NOTE | 2022-05-04 16:38 | PM.HP ---
Providers/Chief Complaint Admitting Physician: Matthieu Tolbert MD, hospitalist Primary Care Provider: Laron Gutierrez MD Chief Complaint: asthma attack History of Present Illness Ramila Barrow is a 51 year old female who presents to the emergency department with complaints of significant shortness of breath. She states it started last night. She has a history of underlying severe persistent asthma, and reports she is never completely wheeze free. She has had no fevers. She is coughing up a little yellowish sputum. No vomiting or diarrhea. Denies any obvious ill contacts. Has been intubated 1 time in the past, several years ago. Has required BiPAP in the past. Has some chest tightness, which is her usual when she is having an asthma attack. Denies any smoke exposure. Review of Systems General: Reports: 10 or more systems reviewed and unremarkable except in HPI and below Const: Reports: fatigue; Denies: fever(s) or chills Eyes: Denies: change in vision ENMT: Denies: throat pain Card: Denies: chest pain Resp: Reports: dyspnea and productive cough GI: Denies: abdominal pain : Denies: flank pain Musc: Denies: neck pain Skin/Breast: Denies: rash Neuro: Denies: headache(s) Psych: Denies: anxiety or depression Endo: Denies: polyuria Gilberto/Lymph: Denies: easy bruising All/Imm: Denies: urticaria Medications/Allergies Home Medications Medication Instructions Recorded Confirmed Last Taken Type albuterol sulfate 2.5 mg/3 mL 2.5 mg (3 mL) inhalation QID PRN 05/13/21 05/04/22 06/21/21 Rx (0.083 %) solution for nebulization shortness of breath or wheezing #75 mL sennosides 8.6 mg tablet (Senna 8.6 mg PO BID PRN constipation #20 07/26/21 05/04/22 Unknown Rx Laxative) tabs budesonide-formoterol HFA 160 2 puff inhalation BID 30 days 01/10/22 05/04/22 Unknown Rx mcg-4.5 mcg/actuation aerosol #10.2 grams inhaler (Symbicort) montelukast 10 mg tablet 10 mg PO DAILY 30 days #30 tabs 08/16/22 12/08/22 12/07/22 Rx (Singulair) tiotropium bromide 1.25 2 puff inhalation DAILY 30 days #4 01/10/22 05/04/22 Unknown Rx mcg/actuation mist for inhalation grams (Spiriva Respimat) ondansetron HCl 4 mg tablet 4 mg PO Q8H PRN nausea and 02/02/22 05/04/22 Unknown Rx vomiting #30 tabs prednisone 10 mg tablet 10 mg PO .COMPLEX 16 days #40 tabs 03/01/22 05/04/22 Unknown Rx buspirone 5 mg tablet 5 mg PO TID PRN anxiety #90 tabs 04/13/22 05/04/22 Unknown Rx hydroxyzine HCl 25 mg tablet 25 mg PO BID PRN anxiety #60 tabs 04/13/22 05/04/22 Unknown Rx albuterol sulfate 90 mcg/actuation 2 puff inhalation Q6H PRN 05/02/22 05/04/22 Unknown Rx aerosol inhaler shortness of breath or wheezing 30 days #8.5 grams prazosin 1 mg capsule 1 mg PO BEDTIME 05/04/22 05/04/22 05/03/22 History tamsulosin 0.4 mg capsule (Flomax) 0.4 mg PO DAILY 05/04/22 05/04/22 05/03/22 History Allergies Allergy/AdvReac Type Severity Reaction Status Date / Time Egg Derived Allergy ALGY-Difficulty Verified 03/22/22 08:53 Breathing PFSH Acute PFSH: Medical History Acute respiratory distress Acute respiratory failure with hypoxia and hypercarbia Asthma Asthma with acute exacerbation Colon polyps DVT prophylaxis Helicobacter pylori gastritis History of kidney stones Surgical History H/O esophagogastroduodenoscopy (06/22/21) History of appendectomy History of History of colon resection History of colonoscopy History of hysterectomy History of laparotomy Status post colonoscopy (06/22/21) Status post laparoscopic cholecystectomy Family History Other No pertinent family history Social History (Updated 05/04/22 @ 16:40 by Matthieu Tolbert MD) Smoking and tobacco status: never smoked Second hand smoke exposure: Yes Alcohol intake: never Vitals/I&O/Wt Last Vital Signs Temp 97.7 F 05/04/22 13:00 Pulse 118 H 05/04/22 14:54 Resp 22 H 05/04/22 14:46 BP 158/103 05/04/22 13:00 Pulse Ox 97 05/04/22 14:48 O2 Del Method 05/04/22 14:46 O2 Flow Rate 30 05/04/22 14:46 FiO2 30 05/04/22 14:48 Weight last 48 hrs Weight 63.503 kg Physical Exam Narrative: General exam is a white female, who is actively wheezing, currently on BiPAP. HEENT: Atraumatic and normocephalic. Pupils equally round. BiPAP in place so oropharynx not examined Neck is supple no lymphadenopathy thyromegaly Cardiovascular tachycardic, no murmur Lungs bilateral expiratory wheezes. No inspiratory wheezes noted. No crackles. Abdomen is soft nontender positive bowel sounds. No obvious organomegaly exam is deferred Extremities no cyanosis clubbing or edema, cap refill brisk Skin no rash Neuro no obvious focal deficits. Data 05/04/22 14:50 05/04/22 14:50 Other Labs: ABG on BiPAP, 30% demonstrated pH 7.37, PCO2 of 39, PO2 of 100 LFTs normal Chest x-ray no infiltrate Troponin 6 EKG sinus tachycardia, normal axis, nonspecific ST-T wave changes. A&P Assessment and plan (1) Asthma attack: She has had a severe attack, but is improving She is currently requiring BiPAP Wean BiPAP and oxygen as tolerated. She normally does not use oxygen at home She is already received Solu-Medrol through the emergency department. We will continue this IV 60 mg every 6 hours hours Doxycycline secondary to purulent sputum in case bronchitis is present DuoNeb every 4 hours, albuterol every 2 hours as needed Budesonide twice daily Add loratadine Continue Singulair Influenza and COVID testing Follow-up with pulmonary as an outpatient. She is already established. Plan PTSD, continue current medications. Wean steroids as soon as possible as this could contribute to anxiety. Other medical problems as outlined in past medical history Attestations Medical Necessity Statement*: Will require greater than 2 midnight stay for evaluation treatment of severe asthma attack requiring BiPAP. Coding Level of Care Code Acute Registered Massage Therapist for Ramirez Torres Diagnoses Asthma attack J45.906
[2022-05-04] MEDS: LORazepam 2 mg/mL INJ 1 mL IVP (16:59)
--- NOTE | 2022-05-04 17:48 | ECG_ITS ---
[facility] Test Date: 2022-05-04 Pat Name: Ramila Barrow Department: Room: 261 Gender: Female Career Education Teacher: : 1970 Requested By: Toby Parada Order Number: [id number] Jeri MD: Shelbie Ashby M.D. Measurements Intervals [place] Rate: 104 P: 71 ND: 107 QRS: 67 QRSD: 81 T: 69 QT: 335 QTc: 442 Interpretive Statements SINUS TACHYCARDIA WITH SHORT [place] INTERVAL POSSIBLE LEFT ATRIAL ENLARGEMENT [-0.1mV P-WAVE IN V1/V2] Compared to ECG 05/04/2022 15:55:15 ST (T wave) deviation no longer present Electronically Signed On 05-05-2022 13:14:56 DIPPER CLOCK AND WATCH HANDS by Shelbie Ashby M.D. [id number]
[2022-05-04 19:11] LABS: Adenovirus Not Detected (NOT DETECT); Chlamydia Pneumoniae Not Detected (NOT DETECT); Coronavirus 229E,HKU1,NL63,OC4 Not Detected (NOT DETECT); Human Metapneumovirus Not Detected (NOT DETECT); Human Rhinovirus/Enterovirus Not Detected (NOT DETECT); Influenza A Not Detected (NOT DETECT); Influenza A H1 Not Detected (NOT DETECT); Influenza A H1-2009 Not Detected (NOT DETECT); Influenza A H3 Not Detected (NOT DETECT); Influenza B Not Detected (NOT DETECT); Mycoplasma Pneumoniae Not Detected (NOT DETECT); Parainfluenza Virus Type 1 Not Detected (NOT DETECT); Parainfluenza Virus Type 2 Not Detected (NOT DETECT); Parainfluenza Virus Type 3 Not Detected (NOT DETECT); Parainfluenza Virus Type 4 Not Detected (NOT DETECT); Respiratory Syncytial Virus A Not Detected (NOT DETECT); Respiratory Syncytial Virus B Not Detected (NOT DETECT); SARS-COV-2 Not Detected (NOT DETECT)
[2022-05-04 19:19] LABS: Results from GEN
[2022-05-04] MEDS: prazosin 1 mg Capsule PO (20:34)
[2022-05-04] MEDS: ipratropium-albuterol 3 mL Neb INHALATION (20:36)
[2022-05-04] MEDS: budesonide 0.5 mg/2 mL Neb INHALATION (20:36)
--- NOTE | 2022-05-04 20:52 | ECG_ITS ---
[facility] Test Date: 2022-05-04 Pat Name: Ramila Barrow Department: Room: 261 Gender: Female Electronic System Engineer: : 1970 Requested By: Toby Parada Order Number: [id number] Jeri MD: Shelbie Ashby M.D. Measurements Intervals [place] Rate: 104 P: 50 AK: 124 QRS: 35 QRSD: 71 T: 25 QT: 324 QTc: 428 Interpretive Statements SINUS TACHYCARDIA ABNORMAL RHYTHM ECG Compared to ECG 05/04/2022 18:09:51 Short AK interval no longer present Electronically Signed On 05-05-2022 13:14:36 ENTRY LEVEL LAB TECHNICIAN by Shelbie Ashby M.D. [id number]
[2022-05-04 22:39] LABS: Troponin 5 6HR 7.31 ng/L (0-10)
[2022-05-04 23:10] LABS: Troponin 5 6HR Delta 1.31 ng/L (0-12)
[2022-05-05] VITALS (14 sets, daily range): BP systolic 100–130; BP diastolic 58–76; PULSE 84–134; RESP 15–23; TEMP 36.6–36.9; O2SAT 94–98
[2022-05-05] MEDS: ipratropium-albuterol 3 mL Neb INHALATION ×6 (00:51→20:35)
[2022-05-05 04:18] LABS: Basophils % 0.1 %; Hematocrit 38.7 % (37.0-47.0); Hemoglobin 12.2 g/dL (11.5-15.3); Lymphocytes % 12.9 %; Mean Corpuscular HGB Conc 31.5 g/dL (30.0-36.0); Mean Corpuscular Hemoglobin 28.5 pg (28.0-34.0); Mean Corpuscular Volume 90.4 fl (81-99); Mean Platelet Volume 9.1 fL (7.4-10.4); Monocytes % 0.1 %; Neutrophils # 6.67 10^3/uL (1.8-7.7); Neutrophils % 86.1 %; Nucleated Red Blood Cells % 0 %; Platelet Count 287 10^3/cmm (130-400); Red Blood Count 4.28 10^6/uL (4.1-5.3); Red Cell Distribution Width 15.6 % (12.1-15.1); White Blood Count 7.8 10^3/uL (4.0-10.0)
[2022-05-05 04:36] LABS: Blood Urea Nitrogen 14 mg/dL (6-20); Calcium 9.5 mg/dL (8.5-10.5); Carbon Dioxide 19 mmol/L (22-29); Chloride 108 mmol/L (98-107); Glomerular Filtration Rate 75.3 mL/min (90-130); Glucose 162 mg/dL (65-115); Osmolality Calculated 294 mOsm/kg (285-295); Sodium 140 mmol/L (136-145)
[2022-05-05 05:20] LABS: Slide Review Slide Review Perform
[2022-05-05] MEDS: budesonide 0.5 mg/2 mL Neb INHALATION ×2 (07:40→20:35)
--- NOTE | 2022-05-05 09:26 | PM.PN ---
Subjective Subjective: Ramila reports she is a little bit better. She would like to be off the BiPAP. Medications: Reviewed: Yes Vitals/I&O/Wt Last Vital Signs Temp 98.5 F 05/05/22 08:00 Pulse 84 05/05/22 08:00 Resp 18 05/05/22 08:00 BP 116/70 05/05/22 08:00 Pulse Ox 97 05/05/22 08:00 O2 Del Method 05/05/22 08:00 O2 Flow Rate 2 05/04/22 19:30 FiO2 30 05/05/22 07:44 05/04/22 05/05/22 05/05/22 22:59 06:59 14:59 Intake Total 340 / 340 Output Total 350 / 350 Balance -10 / -10 Weight last 48 hrs Weight 71.078 kg Weight 70.76 kg Weight 63.503 kg Physical Exam Narrative: General exam is a white female, no distress currently Neck is supple no lymphadenopathy thyromegaly Cardiovascular tachycardic, no murmur Lungs few faint expiratory wheezes Abdomen is soft nontender positive bowel sounds. No obvious organomegaly Extremities no cyanosis clubbing or edema, cap refill brisk Skin no rash Data 05/05/22 04:08 05/05/22 04:08 A&P Assessment and plan (1) Asthma attack: She has had a severe attack, but is improving Wean off BiPAP Wean oxygen as tolerated Reduce Solu-Medrol to every 12 hours Continue doxycycline secondary to purulent sputum in case bronchitis is present DuoNeb every 4 hours, albuterol every 2 hours as needed Budesonide twice daily Continue loratadine Continue Singulair Influenza and COVID testing negative Follow-up with pulmonary as an outpatient. She is already established. Add Tessalon for cough Plan PTSD, continue current medications. Wean steroids as soon as possible as this could contribute to anxiety. Other medical problems as outlined in past medical history Attestations Medical Necessity Statement*: Needs continued hospitalization for IV steroids secondary to acute asthma exacerbation Coding Level of Care Code Acute Butadiene Compressor Operator for Ramirez Torres Diagnoses Asthma attack J45.901
[2022-05-05] MEDS: tamsulosin 0.4 mg Capsule PO (09:28)
[2022-05-05] MEDS: loratadine 10 mg Tablet PO (09:28)
[2022-05-05] MEDS: montelukast sodium 10 mg Tablet PO (09:28)
--- NOTE | 2022-05-05 11:16 | PC.CHAP ---
Pastoral Care Encounter/Spiritual Assessment Type of Contact [] Declined plug assembler visit [] Patient/Family/Request visit [] Outpatient visit [] Follow-up visit [] Physician referral [] Code/Alert [x] Routine visit [] Staff referral [] Actively dying [] Patient sleeping [] Family support [] [] Out of room [] Palliative care [] [] Receiving care in room [] Pre-surgical visit [] Trauma [] Long length of stay [] ICU visit [] Other: Relational/Emotional Strength [x] Patient feels connected with others/family/visitors/staff [] Distress [] Loneliness/isolation [] Abandonment Spirituality of Patient [x] Person of Alessandra [] Attends Zoroastrian of their Alessandra [x] Believes in Prayer [] Reads Bible or Adventist materials [] There are Spiritual issues to be addressed Production Intern Interventions [x] Prayer [] Active listening [] Non-anxious presence [] Spiritual/emotional support [] Crisis/trauma care [] Spiritual counseling [] Bereavement support [] Provided bereavement packet [x] Provided Bible/devotional materials [] Provided toy/stuffed animal, coloring book to patient or family member [] Provided Communion [] Anointing/[place] [] Salvation [] Completed spiritual assessment [] Other: Impact on Illness or Injury [] Angry [] Fearful [] Anxious [] Often cries [] Exhaustion [] Unable to work [] Unable to attend restorationism [] Unable to walk/stand [] Unable to read [] Unable to drive [] Unable to eat/drink [] Unable to sleep [] Unable to be with family [] Patient intubated [] Other: Summary Time spent with patient 5 min
[2022-05-05] MEDS: enoxaparin 40 mg/0.4 mL Syringe SUBCUT (11:19)
--- NOTE | 2022-05-05 11:31 | PC.NURSE ---
Notified Dr. Tolbert of patients HR 129-134. Patient did get a breathing treatment and at [address] Tolbert said to continue to observe.
[2022-05-05] MEDS: hyDROXYzine 25 mg Capsule PO (12:56)
[2022-05-05] MEDS: acetaminophen 325 mg Tablet 650 MG PO (12:57)
[2022-05-05] MEDS: benzonatate 100 mg Capsule PO (12:57)
[2022-05-05] MEDS: prazosin 1 mg Capsule PO (20:55)
[2022-05-06] VITALS (11 sets, daily range): BP systolic 105–176; BP diastolic 66–77; PULSE 72–116; RESP 15–24; TEMP 36.5–36.8; O2SAT 90–98
[2022-05-06] MEDS: ipratropium-albuterol 3 mL Neb INHALATION ×6 (00:15→21:31)
[2022-05-06 05:27] LABS: Basophils % 0.1 %; Hematocrit 35.7 % (37.0-47.0); Hemoglobin 11.4 g/dL (11.5-15.3); Lymphocytes # 1.1 10^3/uL (0.8-4.8); Lymphocytes % 6.3 %; Mean Corpuscular HGB Conc 31.9 g/dL (30.0-36.0); Mean Corpuscular Hemoglobin 28.9 pg (28.0-34.0); Mean Corpuscular Volume 90.4 fl (81-99); Mean Platelet Volume 9.4 fL (7.4-10.4); Monocytes # 0.3 10^3/uL (0.2-0.9); Monocytes % 1.4 %; Neutrophils # 15.93 10^3/uL (1.8-7.7); Neutrophils % 91.5 %; Nucleated Red Blood Cells % 0 %; Platelet Count 284 10^3/cmm (130-400); Red Blood Count 3.95 10^6/uL (4.1-5.3); Red Cell Distribution Width 15.9 % (12.1-15.1); White Blood Count 17.4 10^3/uL (4.0-10.0)
[2022-05-06 05:46] LABS: Anion Gap 12.6 (5-19); Blood Urea Nitrogen 20 mg/dL (6-20); Calcium 9.2 mg/dL (8.5-10.5); Carbon Dioxide 24 mmol/L (22-29); Chloride 104 mmol/L (98-107); Glomerular Filtration Rate 87.9 mL/min (90-130); Glucose 156 mg/dL (65-115); Osmolality Calculated 290 mOsm/kg (285-295); Potassium 3.6 mmol/L (3.5-5.1); Sodium 137 mmol/L (136-145)
[2022-05-06] MEDS: budesonide 0.5 mg/2 mL Neb INHALATION ×2 (07:43→21:32)
[2022-05-06] MEDS: tamsulosin 0.4 mg Capsule PO (08:20)
[2022-05-06] MEDS: montelukast sodium 10 mg Tablet PO (08:20)
[2022-05-06] MEDS: loratadine 10 mg Tablet PO (08:20)
[2022-05-06] MEDS: enoxaparin 40 mg/0.4 mL Syringe SUBCUT (12:06)
[2022-05-06] MEDS: benzonatate 100 mg Capsule 200 MG PO ×2 (14:59→20:52)
--- NOTE | 2022-05-06 19:57 | PM.PN ---
Subjective Subjective: Patient was seen and examined this morning, shortness of breath is improved, though she still has significant cough. Medications: Reviewed: Yes Medication Review Details: Generic Name Dose Route Start Last Admin Trade Name Janak PRN Reason Stop Dose Admin Acetaminophen 650 mg 05/05/22 09:23 05/05/22 12:57 Acetaminophen 32 5 Mg Tablet PO 650 mg Q6H PRN Administration Mild/Mod Pain Or Temp >/= 101 Albuterol/Ipratrop ium 3 ml 05/04/22 20:00 05/06/22 15:28 Ipratropium-Albu terol 3 Ml Neb INHALATION 3 ml Q4H.RESPIRATORY S CH Administration Benzonatate 200 mg 05/06/22 15:00 05/06/22 14:59 Benzonatate 100 Mg Capsule PO 200 mg TID AD Administration Budesonide 0.5 mg 05/04/22 20:00 05/06/22 07:43 Budesonide 0.5 M g/2 Ml Neb INHALATION 0.5 mg BID.RESPIRATORY S CH Administration Enoxaparin Sodium 40 mg 05/05/22 11:00 05/06/22 12:06 Enoxaparin 40 Mg /0.4 Ml Syringe SUBCUT 40 mg Q24H AD Administration Hydroxyzine Pamoat e 25 mg 05/04/22 18:36 05/05/22 12:56 Hydroxyzine 25 M g Capsule PO 25 mg BID PRN Administration anxiety Loratadine 10 mg 05/05/22 09:00 05/06/22 08:20 Loratadine 10 Mg Tablet PO 10 mg DAILY AD Administration Methylprednisolone Sodium Succinate 40 mg 05/06/22 14:00 05/06/22 14:57 Methylprednisolo ne Sod Succ 40 Mg/ Ml Inj IVP 40 mg Q8H AD Administration Montelukast Sodium 10 mg 05/05/22 09:00 05/06/22 08:20 Montelukast Sodi um 10 Mg Tablet PO 10 mg DAILY AD Administration Prazosin HCl 1 mg 05/04/22 21:00 05/05/22 20:55 Prazosin 1 Mg Ca psule PO 1 mg BEDTIME AD Administration Tamsulosin HCl 0.4 mg 05/05/22 09:00 05/06/22 08:20 Tamsulosin 0.4 M g Capsule PO 0.4 mg DAILY AD Administration Vitals/I&O/Wt Last Vital Signs Temp 97.9 F 05/06/22 16:00 Pulse 116 H 05/06/22 16:00 Resp 18 05/06/22 16:00 BP 135/67 05/06/22 16:00 Pulse Ox 90 05/06/22 16:00 O2 Del Method 05/06/22 16:00 O2 Flow Rate 1 05/06/22 11:10 FiO2 30 05/05/22 07:44 05/06/22 05/06/22 05/06/22 06:59 14:59 22:59 Intake Total 600 / 1320 480 / 480 360 / 840 Output Total 440 / 790 Balance 160 / 530 480 / 480 360 / 840 Weight last 48 hrs Weight 73.164 kg Weight 71.078 kg Physical Exam Resp: COMMON NORMALS: clear to auscultation bilaterally AUSCULTATION: clear to auscultation bilaterally Cardio: COMMON NORMALS: regular rate, regular rhythm, S1 normal heart sound present, S2 normal heart sound present, No gallops present (Cardio), No murmurs present (Cardio), No rub (Cardio) and Peripheral pulses 2+ throughout RATE: regular rate RHYTHM: regular rhythm HEART SOUNDS: S1 normal heart sound present and S2 normal heart sound present PERIPHERAL PULSES: Peripheral pulses 2+ throughout GI: COMMON NORMALS: Normal to inspection, nondistended, normoactive bowel sounds present, Soft to palpation, non-tender, No hepatosplenomegaly present and no masses AUSCULTATION: Yes normoactive bowel sounds PALPATION: Yes Soft to palpation and Yes No hepatosplenomegaly present RECTAL EXAM: deferred Extremity: COMMON NORMALS: no clubbing, cyanosis or edema and no pedal edema Data 05/06/22 05:08 05/06/22 05:08 A&P Assessment and plan (1) Asthma attack: She has had a severe attack, but is improving Wean off BiPAP Wean oxygen as tolerated Reduce Solu-Medrol to every 12 hours Continue doxycycline secondary to purulent sputum in case bronchitis is present DuoNeb every 4 hours, albuterol every 2 hours as needed Budesonide twice daily Continue loratadine Continue Singulair Influenza and COVID testing negative Follow-up with pulmonary as an outpatient. She is already established. Add Tessalon for cough Plan PTSD, continue current medications. Wean steroids as soon as possible as this could contribute to anxiety. Other medical problems as outlined in past medical history Attestations Medical Necessity Statement*: Patient is in hospital for continued IV steroids. Coding Level of Care Code Acute General Handling Supervisor for Ramirez Torres Diagnoses Asthma attack J45.901
[2022-05-06] MEDS: prazosin 1 mg Capsule PO (20:53)
[2022-05-07] VITALS (9 sets, daily range): BP systolic 118–137; BP diastolic 72–78; PULSE 75–113; RESP 16–22; TEMP 36.4–36.8; O2SAT 92–94
[2022-05-07] MEDS: ipratropium-albuterol 3 mL Neb INHALATION ×4 (00:58→12:18)
[2022-05-07] MEDS: budesonide 0.5 mg/2 mL Neb INHALATION (07:50)
[2022-05-07] MEDS: tamsulosin 0.4 mg Capsule PO (09:48)
[2022-05-07] MEDS: loratadine 10 mg Tablet PO (09:48)
[2022-05-07] MEDS: montelukast sodium 10 mg Tablet PO (09:48)
[2022-05-07] MEDS: benzonatate 100 mg Capsule 200 MG PO (09:48)
--- NOTE | 2022-05-07 12:14 | PM.DCS ---
Discharge Providers Date of Admission: 05/04/22 17:59 Date of Discharge: May 07, 2022 Attending Provider at Admission: Matthieu Tolbert MD Attending Provider at Discharge: Kahlil Keating MD Primary Care Provider: Laron Gutierrez MD Diagnoses at Discharge Discharge Diagnosis (1) Asthma attack: Status: Inactive Reason for Visit Reason for Visit: asthma attack Hospital Course Hospital Course 51 year old female with PMH h/o asthma came to ER with chief complain of significant shortness of breath she was admitted for the management of acute asthma excerbation, she initially required BIPAP along with other routine asthma exacerbation treatment ( steroids,nebs, supplemental oxygen as needed) to which she responded well she at the time of her discharge her SOB had resolved. She was discharged home on short course po steroids as well as antitussives medications.She will follow her PCP as outpatient. Physical Exam Resp: COMMON NORMALS: clear to auscultation bilaterally AUSCULTATION: clear to auscultation bilaterally Cardio: COMMON NORMALS: regular rate, regular rhythm, S1 normal heart sound present, S2 normal heart sound present, No gallops present (Cardio), No murmurs present (Cardio), No rub (Cardio) and Peripheral pulses 2+ throughout RATE: regular rate RHYTHM: regular rhythm HEART SOUNDS: S1 normal heart sound present and S2 normal heart sound present PERIPHERAL PULSES: Peripheral pulses 2+ throughout GI: COMMON NORMALS: Normal to inspection, nondistended, normoactive bowel sounds present, Soft to palpation, non-tender, No hepatosplenomegaly present and no masses AUSCULTATION: Yes normoactive bowel sounds PALPATION: Yes Soft to palpation and Yes No hepatosplenomegaly present RECTAL EXAM: deferred Extremity: COMMON NORMALS: no clubbing, cyanosis or edema and no pedal edema Discharge Data Studies Completed and Pending Completed Studies During Hospitalization Category Date Time Status XR chest 1V portable [id number] Urgent Exams 05/04/22 14:21 Completed Radiology Impressions Chest X-Ray 05/04/22 14:21 IMPRESSION: Unremarkable frontal portable chest x-ray. Laboratory Results WBC 17.4 10^3/uL (4.0-10.0) H 05/06/22 05:08 RBC 3.95 10^6/uL (4.1-5.3) L 05/06/22 05:08 Hgb 11.4 g/dL (11.5-15.3) L 05/06/22 05:08 Hct 35.7 % (37.0-47.0) L 05/06/22 05:08 MCV 90.4 fl (81-99) 05/06/22 05:08 MCH 28.9 pg (28.0-34.0) 05/06/22 05:08 MCHC 31.9 g/dL (30.0-36.0) 05/06/22 05:08 RDW 15.9 % (12.1-15.1) H 05/06/22 05:08 Plt Count 284 10^3/cmm (130-400) 05/06/22 05:08 MPV 9.4 fL (7.4-10.4) 05/06/22 05:08 Neut % (Auto) 91.5 % 05/06/22 05:08 Lymph % (Auto) 6.3 % 05/06/22 05:08 [place] % (Auto) 1.4 % 05/06/22 05:08 Eos % (Auto) 0.0 % 05/06/22 05:08 Baso % (Auto) 0.1 % 05/06/22 05:08 Neut # (Auto) 15.93 10^3/uL (1.8-7.7) H 05/06/22 05:08 Lymph # (Auto) 1.1 10^3/uL (0.8-4.8) 05/06/22 05:08 [place] # (Auto) 0.3 10^3/uL (0.2-0.9) 05/06/22 05:08 Eos # (Auto) 0.0 10^3/uL (0.0-0.8) 05/06/22 05:08 Baso # (Auto) 0.0 10^3/uL (0.0-0.1) 05/06/22 05:08 Nucleated RBC % (auto) 0 % 05/06/22 05:08 Nucleated RBCs # 0.0 /100WBC 05/06/22 05:08 Specimen Type Arterial 05/04/22 14:46 Sample Site Radial, left 05/04/22 14:46 ABG pH 7.37 (7.35-7.45) 05/04/22 14:46 ABG pCO2 38.7 mmHg (35-45) 05/04/22 14:46 ABG pO2 100.0 mmHg (80.0-100.0) 05/04/22 14:46 ABG HCO3 22.6 mmol/L (22-26) 05/04/22 14:46 ABG O2 Saturation 98.5 05/04/22 14:46 ABG Base Excess -2.4 mmol/L (-2.0-2.0) L 05/04/22 14:46 Eric Test Pos 05/04/22 14:46 A-a O2 Gradient 8.5 mmHg (5-10) 05/04/22 14:46 Hematocrit 41.2 % (37-47) 05/04/22 14:46 Hgb O2 Saturation 96.7 % (95-100) 05/04/22 14:46 Carboxyhemoglobin 0.9 %THgb (0.4-20.1) 05/04/22 14:46 Methemoglobin 0.9 % (0.4-1.5) 05/04/22 14:46 Total Hemoglobin 13.4 g/dL (12-16) 05/04/22 14:46 Sodium 142.0 mmol/L (131-143) 05/04/22 14:46 Potassium 3.2 mmol/L (3.5-5.0) L 05/04/22 14:46 Glucose 112.0 mg/dL (70-115) 05/04/22 14:46 Ionized Calcium 1.2 mmol/L (1.1-1.4) 05/04/22 14:46 O2 Delivery Device Bipap 05/04/22 14:46 FiO2 30.0 % 05/04/22 14:46 Finished Metal Repairer ID Cak 05/04/22 14:46 Sodium 137 mmol/L (136-145) 05/06/22 05:08 Potassium 3.6 mmol/L (3.5-5.1) 05/06/22 05:08 Chloride 104 mmol/L (98-107) 05/06/22 05:08 Carbon Dioxide 24 mmol/L (22-29) 05/06/22 05:08 Anion Gap 12.6 (5-19) 05/06/22 05:08 BUN 20 mg/dL (6-20) 05/06/22 05:08 Creatinine 0.7 mg/dL (0.5-0.9) 05/06/22 05:08 GFR Calculation 87.9 mL/min (90-130) L 05/06/22 05:08 Glucose 156 mg/dL (65-115) H 05/06/22 05:08 Calculated Osmolality 290 mOsm/kg (285-295) 05/06/22 05:08 Calcium 9.2 mg/dL (8.5-10.5) 05/06/22 05:08 Magnesium 2.0 mg/dL (1.7-2.3) 05/06/22 05:08 Total Bilirubin 0.4 mg/dL (0.15-1.2) 05/04/22 14:50 AST 16 U/L (0-32) 05/04/22 14:50 ALT 19 U/L (0-33) 05/04/22 14:50 Alkaline Phosphatase 100 U/L (35-105) 05/04/22 14:50 Troponin T Baseline 6 ng/L (0-10) 05/04/22 14:50 Troponin T Hi Sens 6Hr 7.31 ng/L (0-10) 05/04/22 21:54 Troponin T Hi Sens 6Hr Delta 1.31 ng/L (0-12) 05/04/22 21:54 Total Protein 7.1 g/dL (6.6-8.7) 05/04/22 14:50 Albumin 4.2 g/dL (3.5-5.2) 05/04/22 14:50 Globulin 2.9 g/dL (1.3-4.6) 05/04/22 14:50 Nasal Influ A H1 2008 PCR Not detected (NOT DETECT) 05/04/22 17:10 Coronavirus 229E (PCR) Not detected (NOT DETECT) 05/04/22 17:10 Influenza A (H1) PCR Not detected (NOT DETECT) 05/04/22 17:10 Influenza A (H3) PCR Not detected (NOT DETECT) 05/04/22 17:10 Influenza Type A (PCR) Not detected (NOT DETECT) 05/04/22 17:10 Influenza Type B (PCR) Not detected (NOT DETECT) 05/04/22 17:10 SARS-CoV-2 (PCR) Not detected (NOT DETECT) 05/04/22 17:10 Vitals Last Vital Signs Temp 97.8 F 05/07/22 11:49 Pulse 89 05/07/22 11:49 Resp 18 05/07/22 11:49 BP 137/78 05/07/22 11:49 Pulse Ox 93 05/07/22 11:49 O2 Del Method 05/07/22 07:55 O2 Flow Rate 1 05/06/22 11:10 FiO2 30 05/05/22 07:44 Discharge Plan Discharge Patient Disposition: Home Condition: Stable Prescriptions: New Adult Tussin Cough Congest DM 10-100 mg/5 mL liquid 10 ml PO Q8H PRN (Reason: cough) Qty: 1000 0RF prednisone 20 mg tablet 40 mg PO DAILY 5 Days Qty: 5 0RF Continued albuterol sulfate 2.5 mg /3 mL (0.083 %) solution for nebulization 2.5 mg inhalation QID PRN (Reason: shortness of breath or wheezing) Qty: 75 1RF ondansetron HCl 4 mg tablet 4 mg PO Q8H PRN (Reason: nausea and vomiting) Qty: 30 0RF ipratropium-albuterol 0.5 mg-3 mg(2.5 mg base)/3 mL solution for nebulization 3 ml inhalation ONCE Qty: 1 0RF budesonide-formoterol [Symbicort] 160-4.5 mcg/actuation HFA aerosol inhaler 2 puff inhalation BID 30 Days Qty: 10.2 3RF Spiriva Respimat 1.25 mcg/actuation mist 2 puff inhalation DAILY 30 Days Qty: 4 3RF montelukast [Singulair] 10 mg tablet 10 mg PO DAILY 30 Days Qty: 30 3RF buspirone 5 mg tablet 5 mg PO TID PRN (Reason: anxiety) Qty: 90 3RF hydroxyzine HCl 25 mg tablet 25 mg PO BID PRN (Reason: anxiety) Qty: 60 0RF albuterol sulfate 90 mcg/actuation HFA aerosol inhaler 2 puff inhalation Q6H PRN (Reason: shortness of breath or wheezing) 30 Days Qty: 8.5 12RF sennosides [Senna Laxative] 8.6 mg tablet 8.6 mg PO BID PRN (Reason: constipation) Qty: 20 0RF Flomax 0.4 mg Capsule 0.4 mg PO DAILY prazosin 1 mg capsule 1 mg PO BEDTIME Discontinued prednisone 10 mg tablet 10 mg PO .COMPLEX 16 Days Qty: 40 0RF Rx Instructions: 10 mg orally 40 mg for 4 days, 30 mg for 4 days, 20 mg for 4 days, 10 mg for 4 days; Discharge Orders: Discharge Order (Routine); Ordered 05/07/22 Ordered By: Kahlil Keating Referrals: Laron Gutierrez MD [Primary Care Provider] - 7-10 days (Please call Sunday to schedule your appointment with Dr. Gutierrez.) Patient Instructions: Asthma Exacerbation - Adult, Prednisone (By mouth), Guaifenesin (By mouth), Opioid Safety, Pain Management Discharge Attestations Time Spent in Discharge Care*: less than 30 min Quality Metrics Clinical Quality Measures [ No reported AMI, CVA or VTE this stay] Coding Level of Care Code Acute Chg FW DC note Exam Expanded Problem Focused Diagnoses Asthma attack J45.901
[2022-05-07] MEDS: enoxaparin 40 mg/0.4 mL Syringe SUBCUT (12:34)
== END 2022-05-07 14:33 | disposition home or self-care (01) | DRG 203 ==
LOC: ER 17:08 → MEDSURG 18:00
PROVIDERS: Physician Assistant; Admitting Provider Internal Medicine; Emergency Provider Family Medicine; PCP Family Medicine; Visit Provider Internal Medicine
DX: J45.901 Unspecified asthma with (acute) exacerbation (principal); F43.10 Post-traumatic stress disorder, unspecified; Z20.822 Contact with and (suspected) exposure to COVID-19; Z79.899 Other long term (current) drug therapy
CPT/HCPCS: 36415; 36600; 71045; 80048; 80051; 80053; 82330; 82805; 83735; 84484; 85025; 87631; 87635; 93005; 94640; 94660; 94762; 96372; 96374; 99285; J1650; J2060; J2920; J2930; J7626

== ENCOUNTER → 2022-06-06 12:45 | Outpatient (BNVA) | payer MEDICAID, SELFPAY | PROVIDERS: PCP Family Medicine; Visit Provider Internal Medicine Pulmonary Disease | DX: J45.50 Severe persistent asthma, uncomplicated (principal); J82.83 Eosinophilic asthma; M81.0 Age-related osteoporosis without current pathological fracture | CPT/HCPCS: 99214 ==

== ENCOUNTER 2022-06-20 07:29 | Inpatient (IN) | payer MEDICAID, SELFPAY ==
[2022-06-20] VITALS (98 sets, daily range): BP systolic 107–172; BP diastolic 65–118; PULSE 85–144; RESP 8–36; TEMP 36.5–37.2; O2SAT 88–100; BMI 34.4
--- NOTE | 2022-06-20 07:31 | XR_ITS ---
WS: [id number] Exam: XR chest 1V portable [id number] Date/Time of Exam: 06/20/2022 7:31 AM Reason For Exam: dyspnea/cough Comparison 05/04/2022. Lungs are clear and fully expanded. Normal cardiomediastinal silhouette. No pleural effusions. Region al bony elements are unremarkable. Mild thoracic dextroscoliosis. XR/XR chest 1V portable [id number] IMPRESSION: 1. No acute cardiopulmonary finding. No change.
--- NOTE | 2022-06-20 07:31 | ECG_ITS ---
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 Measurements Intervals [place] Rate: 127 P: 73 SC: 112 QRS: 73 QRSD: 80 T: 65 QT: 294 QTc: 427 Interpretive Statements SINUS TACHYCARDIA WITH SHORT SC INTERVAL MODERATE ST DEPRESSION [0.05+ mV ST DEPRESSION] Compared to ECG 05/04/2022 20:52:52 Short SC interval now present ST (T wave) deviation now present Electronically Signed On 06-20-2022 7:55:28 CURTAIN WORKER by Lasha Choi M.D. [id number]
--- NOTE | 2022-06-20 08:00 | W.ED.SOB ---
HPI - SOB/Dyspnea General: Chief Complaint: Shortness of Breath/Dyspnea Stated Complaint: ASTHMA ATTACK Time Seen by Provider: 06/20/22 07:31 Source: patient Mode of arrival: EMS History of Present Illness: HPI Narrative: 51-year-old female with a known history of severe asthma presents emergency room complaining difficulty with her asthma began overnight and progressively worsening on arrival here she is tripoding with use of accessory respiratory muscles. She was given albuterol and nebulized dexamethasone in route by EMS. She continues to speak in 2 and 3 word sentences with audible wheezing. She denies any fever sweats or chills reviewing her chart she had similar episodes previously. MD elicited complaint: shortness of breath, cough and asthma attack Pertinent past history: asthma Onset (ago): day(s) (1) Timing: constant Severity: severe Exacerbating factors: nothing Relieving factors: nothing Known history of: asthma Associated symptoms: Reports chest congestion and cough; Deny abdominal pain, chest pain, diaphoresis, dizziness, extremity pain, fever(s), hemoptysis, lightheadedness, myalgias, nausea, orthopnea, palpitations, paresthesias, polydipsia, polyuria, rash, sense of impending doom, syncope or vomiting Treatment prior to arrival: bronchodilator and other (Dexamethasone) Related Data: Home oxygen amount: none Review of Systems Const: Denies: fever(s), chills, fatigue, malaise or diaphoresis ENMT: Denies: throat pain, ear or mastoid pain, nasal discharge or nasal congestion Card: Denies: chest pain, palpitations, lightheadedness, syncope or orthopnea Resp: Reports: dyspnea, non-productive cough, wheezing and chest congestion; Denies: productive cough or hemoptysis GI: Denies: abdominal pain, nausea or vomiting : Denies: flank pain, difficulty voiding, dysuria, urinary frequency or urinary urgency Musc: Denies: extremity pain Skin/Breast: Denies: rash or pruritus Neuro: Denies: dizziness Endo: Denies: polyuria or polydipsia PFS ED PFSH: Medical History (Updated 06/20/22 @ 10:22 by Matthieu Tolbert MD) Acute respiratory distress Acute respiratory failure with hypoxia and hypercarbia Asthma Asthma attack Asthma with acute exacerbation Colon polyps DVT prophylaxis Helicobacter pylori gastritis History of kidney stones Surgical History H/O esophagogastroduodenoscopy (06/22/21) History of appendectomy History of History of colon resection History of colonoscopy History of hysterectomy History of laparotomy Status post colonoscopy (06/22/21) Status post laparoscopic cholecystectomy Family History Other No pertinent family history Social History Smoking and tobacco status: never smoked Second hand smoke exposure: Yes Alcohol intake: never Physical Exam Const: GENERAL APPEARANCE: cooperative ORIENTATION/CONSCIOUSNESS: Yes awake, Yes oriented to person, Yes oriented to place and Yes oriented to time HENMT: COMMON NORMALS: normocephalic, atraumatic and hearing grossly normal bilaterally HEAD & SCALP: normocephalic and atraumatic Resp: EFFORT & INSPECTION: Yes abnormal respiratory pattern, Yes respiratory distress, Yes labored, Yes retractions, Yes uses accessory muscles, Yes audible wheezes and Yes tripod positioning AUSCULTATION: rhonchi and wheezes Cardio: COMMON NORMALS: regular rhythm and No murmurs present (Cardio) RATE: tachycardic RHYTHM: regular rhythm GI: COMMON NORMALS: Soft to palpation and No hepatosplenomegaly present AUSCULTATION: Yes normoactive bowel sounds PALPATION: Yes Soft to palpation, No Tenderness to palpation present (GI), No Guarding due to palpation present (GI) and Yes No hepatosplenomegaly present Extremity: COMMON NORMALS: normal to inspection, capillary refill normal, no clubbing, cyanosis or edema, no calf tenderness and no pedal edema Neuro: SENSORIUM/ORIENTATION: Yes oriented to person, Yes oriented to place and Yes oriented to time Skin: COMMON NORMALS: no rashes or lesions noted GENERAL SKIN EXAM: no rashes or lesions noted Course Vital Signs: Vital signs: Vital Signs Temperature 98.2 F 06/20/22 07:30 Pulse Rate 108 H 06/20/22 10:33 Respiratory Rate 26 H 06/20/22 10:33 Blood Pressure 147/117 06/20/22 10:33 Pulse Oximetry 96 06/20/22 10:33 Oxygen Delivery Me thod 06/20/22 10:33 Fraction of Inspir ed Oxygen 26 06/20/22 08:13 MDM - SOB/Dyspnea Medical Decision Making Improved with BiPAP will admit ICU. Initially had ordered some IV Solu-Medrol was told she did receive dexamethasone later realized had been nebulized we did reorder the IV Solu-Medrol discussed Dr. Tolbert orders written. Labs imaging and EKG reviewed as found in the chart. Medical Records I reviewed the patient's medical records. Lab Data I reviewed the patient's lab results. 06/20/22 08:12 06/20/22 08:12 Labs/Radiology: Radiology Impressions Chest X-Ray 06/20/22 07:31 IMPRESSION: 1. No acute cardiopulmonary finding. No change. Laboratory Results WBC 11.0 10^3/uL (4.0-10.0) H 06/20/22 08:12 RBC 5.01 10^6/uL (4.1-5.3) 06/20/22 08:12 Hgb 14.2 g/dL (11.5-15.3) 06/20/22 08:12 Hct 45.0 % (37.0-47.0) 06/20/22 08:12 MCV 89.8 fl (81-99) 06/20/22 08:12 MCH 28.3 pg (28.0-34.0) 06/20/22 08:12 MCHC 31.6 g/dL (30.0-36.0) 06/20/22 08:12 RDW 14.9 % (12.1-15.1) 06/20/22 08:12 Plt Count 357 10^3/cmm (130-400) 06/20/22 08:12 MPV 9.2 fL (7.4-10.4) 06/20/22 08:12 Neut % (Auto) 50.4 % 06/20/22 08:12 Lymph % (Auto) 32.9 % 06/20/22 08:12 [place] % (Auto) 4.5 % 06/20/22 08:12 Eos % (Auto) 11.3 % 06/20/22 08:12 Baso % (Auto) 0.4 % 06/20/22 08:12 Neut # (Auto) 5.54 10^3/uL (1.8-7.7) 06/20/22 08:12 Lymph # (Auto) 3.6 10^3/uL (0.8-4.8) 06/20/22 08:12 [place] # (Auto) 0.5 10^3/uL (0.2-0.9) 06/20/22 08:12 Eos # (Auto) 1.3 10^3/uL (0.0-0.8) H 06/20/22 08:12 Baso # (Auto) 0.0 10^3/uL (0.0-0.1) 06/20/22 08:12 Nucleated RBC % (auto) 0 % 06/20/22 08:12 Nucleated RBCs # 0.0 /100WBC 06/20/22 08:12 Specimen Type Arterial 06/20/22 08:22 Sample Site Radial, right 06/20/22 08:22 ABG pH 7.36 (7.35-7.45) 06/20/22 08:22 ABG pCO2 46.4 mmHg (35-45) H 06/20/22 08:22 ABG pO2 77.7 mmHg (80.0-100.0) L 06/20/22 08:22 ABG HCO3 26.1 mmol/L (22-26) H 06/20/22 08:22 ABG O2 Saturation 96.4 06/20/22 08:22 ABG Base Excess 0.1 mmol/L (-2.0-2.0) 06/20/22 08:22 Eric Test Pos 06/20/22 08:22 A-a O2 Gradient 6.8 mmHg (5-10) 06/20/22 08:22 Hematocrit 43.0 % (37-47) 06/20/22 08:22 Hgb O2 Saturation 95.2 % (95-100) 06/20/22 08:22 Carboxyhemoglobin < 1.0 %THgb (0.4-20.1) 06/20/22 08:22 Methemoglobin 0.4 % (0.4-1.5) 06/20/22 08:22 Total Hemoglobin 14.0 g/dL (12-16) 06/20/22 08:22 Sodium 142.0 mmol/L (131-143) 06/20/22 08:22 Potassium 3.4 mmol/L (3.5-5.0) L 06/20/22 08:22 Glucose 138.0 mg/dL (70-115) H 06/20/22 08:22 Ionized Calcium 1.3 mmol/L (1.1-1.4) 06/20/22 08:22 O2 Delivery Device Bipap 06/20/22 08:22 FiO2 26.0 % 06/20/22 08:[address] ID glc 06/20/22 08:22 Sodium 139 mmol/L (136-145) 06/20/22 08:12 Potassium 3.5 mmol/L (3.5-5.1) 06/20/22 08:12 Chloride 102 mmol/L (98-107) 06/20/22 08:12 Carbon Dioxide 26 mmol/L (22-29) 06/20/22 08:12 Anion Gap 14.5 (5-19) 06/20/22 08:12 BUN 11 mg/dL (6-20) 06/20/22 08:12 Creatinine 0.8 mg/dL (0.5-0.9) 06/20/22 08:12 GFR Calculation 75.3 mL/min (90-130) L 06/20/22 08:12 Glucose 131 mg/dL (65-115) H 06/20/22 08:12 Calculated Osmolality 289 mOsm/kg (285-295) 06/20/22 08:12 Calcium 9.6 mg/dL (8.5-10.5) 06/20/22 08:12 Total Bilirubin 0.4 mg/dL (0.15-1.2) 06/20/22 08:12 AST 18 U/L (0-32) 06/20/22 08:12 ALT 18 U/L (0-33) 06/20/22 08:12 Alkaline Phosphatase 107 U/L (35-105) H 06/20/22 08:12 Total Protein 7.3 g/dL (6.6-8.7) 06/20/22 08:12 Albumin 4.7 g/dL (3.5-5.2) 06/20/22 08:12 Globulin 2.6 g/dL (1.3-4.6) 06/20/22 08:12 Influenza Type A Ag negative (Negative) 06/20/22 09:40 Influenza Type B Ag negative (Negative) 06/20/22 09:40 Discharge Plan Discharge Condition: Stable Prescriptions: No Action budesonide-formoterol [Symbicort] 160-4.5 mcg/actuation HFA aerosol inhaler 2 puff inhalation BID 30 Days Qty: 10.2 3RF Fasenra Pen 30 mg/mL auto-injector 30 mg SUBCUT Q28D Qty: 1 2RF Rx Instructions: PA Approved 04/03/22-04/03/23 [id number], LOADING DOSE- Start maintenance dose afterwards Fasenra Pen 30 mg/mL auto-injector 30 mg SUBCUT .q 8 weeks Qty: 1 5RF Rx Instructions: PA approved 04/03/22-04/03/23 [id number] Maintenance dose buspirone 5 mg tablet 5 mg PO TID PRN (Reason: anxiety) Qty: 90 3RF albuterol sulfate 90 mcg/actuation HFA aerosol inhaler 2 puff inhalation Q6H PRN (Reason: shortness of breath or wheezing) 30 Days Qty: 8.5 12RF albuterol sulfate 2.5 mg /3 mL (0.083 %) solution for nebulization 2.5 mg inhalation QID PRN (Reason: shortness of breath or wheezing) Qty: 360 9RF prazosin 1 mg capsule 1 mg PO BEDTIME dextromethorphan-guaifenesin [Adult Tussin Cough Congest DM] 10-100 mg/5 mL liquid 10 ml PO Q8H PRN (Reason: cough) Qty: 1000 0RF multivitamin Tablet 1 tab PO DAILY zinc acetate 50 mg (zinc) Capsule 50 mg PO DAILY Fish Oil Concentrate 1,000 mg Capsule 1,000 mg PO DAILY Calcium + D 600 mg-5 mcg (200 unit) Tablet 1 tab PO DAILY Vitamin C 500 mg Tablet 500 mg PO DAILY prednisone 10 mg tablet See Rx Instructions .ROUTE .COMPLEX Rx Instructions: 2 tablets (20 mg) po daily x 5 days then 1 tablet (10 mg) po daily x 5 days rx filled 06/08/22 10d/s Singulair 10 mg tablet 10 mg PO QAM hydroxyzine HCl 25 mg tablet 25 mg PO BID PRN (Reason: Anxiety) Spiriva Respimat 1.25 mcg/actuation mist 2 puff inhalation QAM Referrals: Laron Gutierrez MD [Primary Care Provider] - Coding Level of Care Code ED Public Health Technician for Chg Fwd Exam Detailed
[2022-06-20] MEDS: albuterol 2.5 mg/3 mL Neb INHALATION ×4 (08:09→19:58)
[2022-06-20] MEDS: ipratropium 0.5 mg/2.5 mL Neb INHALATION (08:09)
[2022-06-20 08:24] LABS: Basophils % 0.4 %; Eosinophils # 1.3 10^3/uL (0.0-0.8); Eosinophils % 11.3 %; Hemoglobin 14.2 g/dL (11.5-15.3); Lymphocytes # 3.6 10^3/uL (0.8-4.8); Lymphocytes % 32.9 %; Mean Corpuscular HGB Conc 31.6 g/dL (30.0-36.0); Mean Corpuscular Hemoglobin 28.3 pg (28.0-34.0); Mean Corpuscular Volume 89.8 fl (81-99); Mean Platelet Volume 9.2 fL (7.4-10.4); Monocytes # 0.5 10^3/uL (0.2-0.9); Monocytes % 4.5 %; Neutrophils # 5.54 10^3/uL (1.8-7.7); Neutrophils % 50.4 %; Nucleated Red Blood Cells % 0 %; Platelet Count 357 10^3/cmm (130-400); Red Blood Count 5.01 10^6/uL (4.1-5.3); Red Cell Distribution Width 14.9 % (12.1-15.1)
[2022-06-20 08:31] LABS: ABG PCO2 46.4 mmHg (35-45); ABG PH Result 7.36 (7.35-7.45); Alveolar-Arterial Oxygen Gradi 6.8 mmHg (5-10); Base Excess ABG 0.1 mmol/L (-2.0-2.0); Blood Gas Allen Test Pos; Blood Gas Operator Identificat glc; Blood Gas Sample Site Radial, right; Blood Gas Sample Type Arterial; Carboxyhemoglobin < 1.0 %THgb (0.4-20.1); HCO3 ABG 26.1 mmol/L (22-26); HGB O2 Sat 95.2 % (95-100); Ionized Calcium Level - ABG 1.3 mmol/L (1.1-1.4); Methemoglobin 0.4 % (0.4-1.5); Oxygen Device BIPAP; Oxygen Saturation ABG 96.4; PO2 ABG 77.7 mmHg (80.0-100.0); Potassium Level - ABG 3.4 mmol/L (3.5-5.0)
[2022-06-20 08:41] LABS: Alanine Aminotransferase 18 U/L (0-33); Albumin Level 4.7 g/dL (3.5-5.2); Alkaline Phosphatase 107 U/L (35-105); Anion Gap 14.5 (5-19); Aspartate Amino Transferase 18 U/L (0-32); Blood Urea Nitrogen 11 mg/dL (6-20); Calcium 9.6 mg/dL (8.5-10.5); Carbon Dioxide 26 mmol/L (22-29); Chloride 102 mmol/L (98-107); Globulin 2.6 g/dL (1.3-4.6); Glomerular Filtration Rate 75.3 mL/min (90-130); Glucose 131 mg/dL (65-115); Osmolality Calculated 289 mOsm/kg (285-295); Potassium 3.5 mmol/L (3.5-5.1); Sodium 139 mmol/L (136-145); Total Bilirubin 0.4 mg/dL (0.15-1.2); Total Protein 7.3 g/dL (6.6-8.7)
[2022-06-20 10:05] LABS: Influenza A by IFA negative (Negative); Influenza B by IFA negative (Negative)
--- NOTE | 2022-06-20 10:17 | P.HP_ITS ---
Providers/Chief Complaint Admitting Physician: Matthieu Tolbert MD, hospitalist Primary Care Provider: Laron Gutierrez MD Chief Complaint: ASTHMA ATTACK History of Present Illness Ramila Barrow is a 51 year old female presenting to the emergency department with complaints of severe wheezing, shortness of breath, cough, and some posttussive vomiting starting last night. She has history of severe persistent asthma, and was recently prescribed biologic. She reports this is not yet arrived so she has not yet started benralizumab. No fever. No ill contacts. Most recent hospitalization for asthma exacerbation requiring BiPAP was April. Review of Systems General: Reports: 10 or more systems reviewed and unremarkable except in HPI and below Const: Reports: malaise; Denies: fever(s) or chills Eyes: Denies: change in vision ENMT: Denies: throat pain Card: Denies: chest pain Resp: Reports: dyspnea, non-productive cough and wheezing GI: Reports: vomiting; Denies: abdominal pain or nausea : Denies: flank pain Musc: Denies: neck pain Skin/Breast: Denies: rash Neuro: Denies: headache(s) Psych: Denies: anxiety or depression Endo: Denies: polyuria Gilberto/Lymph: Denies: easy bruising All/Imm: Denies: urticaria Medications/Allergies Home Medications Medication Instructions Recorded Confirmed Last Taken Type budesonide-formoterol HFA 160 2 puff inhalation BID 30 days 01/10/22 06/20/22 Unknown Rx mcg-4.5 mcg/actuation aerosol #10.2 grams inhaler (Symbicort) buspirone 5 mg tablet 5 mg PO TID PRN anxiety #90 tabs 04/13/22 06/20/22 Unknown Rx prazosin 1 mg capsule 1 mg PO BEDTIME 05/04/22 06/20/22 06/19/22 History dextromethorphan-guaifenesin 10 10 ml PO Q8H PRN cough #1,000 mL 05/07/22 06/20/22 Unknown Rx mg-100 mg/5 mL oral liquid (Adult Tussin Cough Congestion DM) albuterol sulfate 90 mcg/actuation 2 puff inhalation Q6H PRN 06/02/22 06/20/22 06/20/22 Rx aerosol inhaler shortness of breath or wheezing 30 days #8.5 grams benralizumab 30 mg/mL subcutaneous 30 mg SUBCUT .q 8 weeks #1 mL 06/06/22 06/20/22 Unknown Rx auto-injector (Fasenra Pen) benralizumab 30 mg/mL subcutaneous 30 mg SUBCUT Q28D 3 doses #1 mL 06/06/22 06/20/22 Unknown Rx auto-injector (Fasenra Pen) albuterol sulfate 2.5 mg/3 mL 2.5 mg (3 mL) inhalation QID PRN 06/19/22 06/20/22 06/20/22 Rx (0.083 %) solution for nebulization shortness of breath or wheezing #360 mL ascorbic acid (vitamin C) 500 mg 500 mg PO DAILY 06/20/22 06/20/22 Unknown History tablet (Vitamin C) calcium carbonate 600 mg-vitamin 1 tab PO DAILY 06/20/22 06/20/22 Unknown History D3 5 mcg (200 unit) tablet hydroxyzine HCl 25 mg tablet 25 mg PO BID PRN Anxiety 06/20/22 06/20/22 Unknown History montelukast 10 mg tablet 10 mg PO QAM 06/20/22 06/20/22 06/19/22 History (Singulair) multivitamin 1 tab PO DAILY 06/20/22 06/20/22 Unknown History omega-3 fatty acids 1,000 mg 1,000 mg PO DAILY 06/20/22 06/20/22 06/16/22 History capsule prednisone 10 mg tablet See Rx Instructions .Route .COMPLEX 06/20/22 06/20/22 06/20/22 History 2 tabs tiotropium bromide 1.25 2 puff inhalation QAM 06/20/22 06/20/22 06/19/22 History mcg/actuation mist for inhalation (Spiriva Respimat) zinc acetate 50 mg (zinc) capsule 50 mg PO DAILY 06/20/22 06/20/22 Unknown History Allergies Allergy/AdvReac Type Severity Reaction Status Date / Time Iodinated Contrast Media Allergy Unknown Unknown Verified 06/20/22 09:07 Egg Derived Allergy ALGY-Difficulty Verified 06/20/22 09:07 Breathing PFSH Acute PFSH: Medical History (Updated 06/20/22 @ 10:22 by Matthieu Tolbert MD) Acute respiratory distress Acute respiratory failure with hypoxia and hypercarbia Asthma Asthma attack Asthma with acute exacerbation Colon polyps DVT prophylaxis Helicobacter pylori gastritis History of kidney stones Surgical History H/O esophagogastroduodenoscopy (06/22/21) History of appendectomy History of History of colon resection History of colonoscopy History of hysterectomy History of laparotomy Status post colonoscopy (06/22/21) Status post laparoscopic cholecystectomy Family History Other No pertinent family history Social History Smoking and tobacco status: never smoked Second hand smoke exposure: Yes Alcohol intake: never Vitals/I&O/Wt Last Vital Signs Temp 98.2 F 06/20/22 07:30 Pulse 117 H 06/20/22 09:21 Resp 8 L 06/20/22 09:21 BP 148/86 06/20/22 09:21 Pulse Ox 99 06/20/22 09:21 O2 Del Method 06/20/22 09:21 FiO2 26 06/20/22 08:13 Physical Exam Narrative: General exam is a white female, somewhat scared appearing, currently on BiPAP. HEENT: Atraumatic normocephalic. Oropharynx not examined she is on BiPAP. Neck is supple no lymphadenopathy thyromegaly Cardiovascular tachycardic, regular, no murmur Lungs bilateral expiratory wheezes, heard most prominently on the left. Diminished air expansion. Abdomen is soft nontender positive bowel sounds. No obvious organomegaly exam is deferred Extremities no cyanosis clubbing or edema, cap refill brisk Skin: Some areas of healing sores, most consistent with excoriations over the arms and legs Neuro no obvious focal deficits. Data 06/20/22 08:12 06/20/22 08:12 Other Labs: ABG demonstrates a pH 7.36, PCO2 46, PO2 of 77 on BiPAP with 26% FiO2 LFTs normal with the exception of alk phos of 107 Calcium 9.6 Influenza negative. COVID PCR pending. A&P Assessment and plan (1) Acute respiratory failure with hypoxia and hypercarbia: Patient presents with hypercarbia, hypoxia secondary to asthma exacerbation BiPAP has been initiated See further notation under asthma (2) Asthma exacerbation: Patient presents with severe asthma exacerbation She has received DuoNeb, Solu-Medrol in the emergency department. She is requiring BiPAP Secondary to the severity of presentation, will place in the ICU Solu-Medrol 60 mg IV every 8 hours Continue DuoNeb every 4 hours, albuterol every 2 to 4 hours as needed Continue Singulair Add loratadine Budesonide 0.5 mg twice daily Secondary to severity of presentation and requiring BiPAP there is risk for worsening medical status. She was recently prescribed biologic but has not yet had this delivered. I do not see a reason for antibiotic at this point in time. Plan Anxiety Other medical problems as listed in past medical history Full code Lovenox for DVT prophylaxis Attestations Medical Necessity Statement*: Will require greater than 2 midnight stay secondary to asthma exacerbation Critical Care Time: The high probability of a clinically significant, sudden or life threatening deterioration of the patient's [pulmonary] system(s) required my full and direct attention, intervention and personal management. The critical care time is as shown. This time is in addition to time spent performing any reported procedures but includes the following: [x] Data and vital sign review and interpretation [x] Patient assessment, examination and intervention [x] Documentation [x] Medication orders and management Critical Care Time (min): 34 Coding Level of Care Code Acute Code for [facility] Fwd Diagnoses Acute respiratory failure with hypoxia and hypercarbia J96.01; J96.02 Asthma exacerbation J45.901
[2022-06-20] MEDS: ketorolac 30 mg/mL INJ IVP (10:55)
[2022-06-20 11:29] LABS: Adenovirus Not Detected (NOT DETECT); Chlamydia Pneumoniae Not Detected (NOT DETECT); Coronavirus 229E,HKU1,NL63,OC4 Not Detected (NOT DETECT); Human Metapneumovirus Not Detected (NOT DETECT); Human Rhinovirus/Enterovirus Not Detected (NOT DETECT); Influenza A Not Detected (NOT DETECT); Influenza A H1 Not Detected (NOT DETECT); Influenza A H1-2009 Not Detected (NOT DETECT); Influenza A H3 Not Detected (NOT DETECT); Influenza B Not Detected (NOT DETECT); Mycoplasma Pneumoniae Not Detected (NOT DETECT); Parainfluenza Virus Type 1 Not Detected (NOT DETECT); Parainfluenza Virus Type 2 Not Detected (NOT DETECT); Parainfluenza Virus Type 3 Not Detected (NOT DETECT); Parainfluenza Virus Type 4 Not Detected (NOT DETECT); Respiratory Syncytial Virus A Not Detected (NOT DETECT); Respiratory Syncytial Virus B Not Detected (NOT DETECT); SARS-COV-2 Not Detected (NOT DETECT)
--- NOTE | 2022-06-20 12:03 | PC.CHAP ---
Pastoral Care Encounter/Spiritual Assessment Type of Contact [] Declined manufacturing engineer supervisor visit [] Patient/Family/Request visit [] Outpatient visit [] Follow-up visit [] Physician referral [] Code/Alert [] Routine visit [] Staff referral [] Actively dying [] Patient sleeping [] Family support [] [] Out of room [] Palliative care [] [] Receiving care in room [] Pre-surgical visit [] Trauma [] Long length of stay [] ICU visit [x] Other: not in room yet Relational/Emotional Strength [] Patient feels connected with others/family/visitors/staff [] Distress [] Loneliness/isolation [] Abandonment Spirituality of Patient [] Person of Alessandra [] Attends Yazidi of their Alessandra [] Believes in Prayer [] Reads Bible or Denominational materials [] There are Spiritual issues to be addressed Cook Boat Interventions [] Prayer [] Active listening [] Non-anxious presence [] Spiritual/emotional support [] Crisis/trauma care [] Spiritual counseling [] Bereavement support [] Provided bereavement packet [] Provided Bible/devotional materials [] Provided toy/stuffed animal, coloring book to patient or family member [] Provided Communion [] Anointing/Sharon [] Salvation [] Completed spiritual assessment [] Other: Impact on Illness or Injury [] Angry [] Fearful [] Anxious [] Often cries [] Exhaustion [] Unable to work [] Unable to attend orthodox [] Unable to walk/stand [] Unable to read [] Unable to drive [] Unable to eat/drink [] Unable to sleep [] Unable to be with family [] Patient intubated [] Other: Summary Time spent with patient
[2022-06-20] MEDS: sodium chloride 0.9% 1,000 ML 50 ML IV (13:16)
[2022-06-20] MEDS: enoxaparin 40 mg/0.4 mL Syringe SUBCUT (13:16)
[2022-06-20] MEDS: hyDROXYzine 25 mg Capsule PO (19:29)
--- NOTE | 2022-06-20 19:49 | ECG_ITS ---
[facility] Test Date: 2022-06-20 Pat Name: Ramila Barrow Department: Room: [facility] Gender: Female Chief Nurse Anesthetist: : 1970 Requested By: Matthieu Prince Order Number: [id number] Jeri MD: Lasha Choi M.D. Measurements Intervals [place] Rate: 134 P: 52 IL: 88 QRS: 68 QRSD: 81 T: 68 QT: 283 QTc: 423 Interpretive Statements SINUS TACHYCARDIA WITH SHORT [place] INTERVAL MODERATE ST DEPRESSION [0.05+ mV ST DEPRESSION] Compared to ECG 06/20/2022 07:51:33 No significant changes Electronically Signed On 06-21-2022 9:30:32 [employer] by Lasha Choi M.D. [id number]
[2022-06-20] MEDS: budesonide 0.5 mg/2 mL Neb INHALATION (19:58)
[2022-06-20] MEDS: prazosin 1 mg Capsule PO (20:57)
[2022-06-21] VITALS (29 sets, daily range): BP systolic 97–147; BP diastolic 49–93; PULSE 79–137; RESP 14–29; TEMP 37–37.2; O2SAT 90–100; BMI 34.4
[2022-06-21 04:11] LABS: Basophils % 0.1 %; Hemoglobin 11.7 g/dL (11.5-15.3); Lymphocytes # 1.2 10^3/uL (0.8-4.8); Lymphocytes % 11.7 %; Mean Corpuscular HGB Conc 31.6 g/dL (30.0-36.0); Mean Corpuscular Hemoglobin 28.8 pg (28.0-34.0); Mean Corpuscular Volume 91.1 fl (81-99); Mean Platelet Volume 9.3 fL (7.4-10.4); Monocytes # 0.1 10^3/uL (0.2-0.9); Monocytes % 0.6 %; Neutrophils # 8.51 10^3/uL (1.8-7.7); Neutrophils % 86.6 %; Nucleated Red Blood Cells % 0 %; Platelet Count 291 10^3/cmm (130-400); Red Blood Count 4.06 10^6/uL (4.1-5.3); Red Cell Distribution Width 15.2 % (12.1-15.1); White Blood Count 9.8 10^3/uL (4.0-10.0)
[2022-06-21 04:37] LABS: Anion Gap 16.4 (5-19); Blood Urea Nitrogen 15 mg/dL (6-20); Calcium 8.5 mg/dL (8.5-10.5); Carbon Dioxide 22 mmol/L (22-29); Chloride 106 mmol/L (98-107); Glomerular Filtration Rate 87.9 mL/min (90-130); Glucose 188 mg/dL (65-115); Osmolality Calculated 296 mOsm/kg (285-295); Potassium 4.4 mmol/L (3.5-5.1); Sodium 140 mmol/L (136-145)
[2022-06-21] MEDS: montelukast sodium 10 mg Tablet PO (05:54)
[2022-06-21] MEDS: predniSONE 20 mg Tablet 60 MG PO (08:01)
[2022-06-21] MEDS: loratadine 10 mg Tablet PO (08:01)
[2022-06-21] MEDS: pantoprazole DR 40 mg Tablet PO (08:01)
[2022-06-21] MEDS: levalbuterol 0.63 mg/3 mL Neb INHALATION ×3 (09:16→20:12)
[2022-06-21] MEDS: ipratropium 0.5 mg/2.5 mL Neb INHALATION ×3 (09:16→20:11)
[2022-06-21] MEDS: budesonide 0.5 mg/2 mL Neb INHALATION ×2 (09:16→20:11)
--- NOTE | 2022-06-21 09:48 | P.PN_ITS ---
Subjective Subjective: Ramila reports she is feeling somewhat better. She is still requiring BiPAP occasionally. She has an anxiety component as well. Wheezing has improved. Medications: Reviewed: Yes Vitals/I&O/Wt Last Vital Signs Temp 98.6 F 06/21/22 08:57 Pulse 95 06/21/22 09:17 Resp 17 06/21/22 08:00 BP 99/65 06/21/22 08:00 Pulse Ox 96 06/21/22 09:17 O2 Del Method 06/21/22 08:00 O2 Flow Rate 3 06/20/22 20:00 FiO2 26 06/21/22 09:17 06/20/22 06/21/22 06/21/22 22:59 06:59 14:59 Intake Total 795 / 795 250 / 1045 1240 / 1240 Output Total 900 / 900 150 / 150 Balance -105 / -105 250 / 145 1090 / 1090 Weight last 48 hrs Weight 74.843 kg Weight 74.843 kg Physical Exam Narrative: General exam is a white female no distress currently Neck is supple no lymphadenopathy thyromegaly Cardiovascular tachycardic, regular, no murmur Lungs diminished breath sounds currently. I do not hear any wheezing. Does have improved aeration compared to yesterday. Abdomen is soft nontender positive bowel sounds. No obvious organomegaly Extremities no cyanosis clubbing or edema, cap refill brisk Skin: Some areas of healing sores, most consistent with excoriations over the arms and legs Data 06/21/22 03:45 06/21/22 03:45 A&P Assessment and plan (1) Acute respiratory failure with hypoxia and hypercarbia: Patient presents with hypercarbia, hypoxia secondary to asthma exacerbation BiPAP has been initiated. She is no longer requiring BiPAP constantly. See further notation under asthma (2) Asthma exacerbation: Patient presents with severe asthma exacerbation She has received DuoNeb, Solu-Medrol in the emergency department. BiPAP has now been changed to as needed Discontinue Solu-Medrol. Changed to prednisone Continue DuoNeb every 4 hours, albuterol every 2 to 4 hours as needed Continue Singulair Add loratadine Budesonide 0.5 mg twice daily She was recently prescribed biologic but has not yet had this delivered. I do not see a reason for antibiotic at this point in time. Plan Anxiety Other medical problems as listed in past medical history Full code Lovenox for DVT prophylaxis Transfer out of ICU No need for laboratory tomorrow Hopefully ready for discharge by tomorrow a.m. Attestations Medical Necessity Statement*: Needs continued hospitalization secondary to sev ere asthma exacerbation requiring BiPAP, IV steroids. Coding Level of Care Code Acute Code for [facility] Fwd Diagnoses Acute respiratory failure with hypoxia and hypercarbia J96.01; J96.02 Asthma exacerbation J45.901
[2022-06-21] MEDS: enoxaparin 40 mg/0.4 mL Syringe SUBCUT (13:40)
[2022-06-21] MEDS: BuSPIRONE 10 mg Tablet 5 MG PO (15:23)
[2022-06-21] MEDS: hyDROXYzine 25 mg Capsule PO (16:39)
[2022-06-21 17:08] LABS: Thyroid Stimulating Hormone 0.47 uIU/mL (0.27-4.20)
[2022-06-21] MEDS: prazosin 1 mg Capsule PO (20:47)
[2022-06-22] VITALS (10 sets, daily range): BP systolic 100–130; BP diastolic 55–93; PULSE 82–100; RESP 14–20; O2SAT 92–96
[2022-06-22] MEDS: montelukast sodium 10 mg Tablet PO (05:22)
[2022-06-22] MEDS: pantoprazole DR 40 mg Tablet PO (08:01)
[2022-06-22] MEDS: predniSONE 20 mg Tablet 60 MG PO (08:01)
[2022-06-22] MEDS: loratadine 10 mg Tablet PO (08:01)
[2022-06-22] MEDS: budesonide 0.5 mg/2 mL Neb INHALATION (08:21)
[2022-06-22] MEDS: ipratropium 0.5 mg/2.5 mL Neb INHALATION (08:21)
[2022-06-22] MEDS: levalbuterol 0.63 mg/3 mL Neb INHALATION (08:21)
--- NOTE | 2022-06-22 09:47 | PM.DCS ---
Discharge Providers Date of Admission: 06/20/22 12:13 Date of Discharge: June 22, 2022 Attending Provider at Admission: Matthieu Tolbert MD Attending Provider at Discharge: Matthieu Tolbert MD Primary Care Provider: Laron Gutierrez MD Diagnoses at Discharge Discharge Diagnosis (1) Acute respiratory failure with hypoxia and hypercarbia: Status: Acute (2) Asthma exacerbation: Status: Acute Reason for Visit Reason for Visit: ASTHMA ATTACK Hospital Course Hospital Course Ramila is a 51-year-old white female with known severe persistent asthma who presented to the emergency department with complaints of increased wheezing. She had not been ill with any fever. She was diagnosed with an asthma exacerbation. There was no evidence of pneumonia. She was initiated on IV steroids, frequent breathing treatments. BiPAP was required initially. COVID and influenza testing were negative. With these treatments she had gradual improvement, and was able to be discharged on June 22. Home oxygen evaluation was completed and she did not qualify. I discussed with her, her steroid taper. She is also to follow-up with pulmonary, and try to get biological medication started as soon as possible. Physical Exam Narrative: General exam no distress Neck is supple no lymphadenopathy thyromegaly Cardiovascular regular rate and rhythm without murmur Lungs diminished breath sounds bilaterally. A very faint distant wheeze heard today Abdomen is soft with positive bowel sounds Extremities no cyanosis clubbing or edema Skin without rash Discharge Data Studies Completed and Pending Completed Studies During Hospitalization Category Date Time Status XR chest 1V portable [id number] Stat Exams 06/20/22 07:31 Completed Radiology Impressions Chest X-Ray 06/20/22 07:31 IMPRESSION: 1. No acute cardiopulmonary finding. No change. Laboratory Results WBC 9.8 10^3/uL (4.0-10.0) 06/21/22 03:45 RBC 4.06 10^6/uL (4.1-5.3) L 06/21/22 03:45 Hgb 11.7 g/dL (11.5-15.3) 06/21/22 03:45 Hct 37.0 % (37.0-47.0) 06/21/22 03:45 MCV 91.1 fl (81-99) 06/21/22 03:45 MCH 28.8 pg (28.0-34.0) 06/21/22 03:45 MCHC 31.6 g/dL (30.0-36.0) 06/21/22 03:45 RDW 15.2 % (12.1-15.1) H 06/21/22 03:45 Plt Count 291 10^3/cmm (130-400) 06/21/22 03:45 MPV 9.3 fL (7.4-10.4) 06/21/22 03:45 Neut % (Auto) 86.6 % 06/21/22 03:45 Lymph % (Auto) 11.7 % 06/21/22 03:45 [place] % (Auto) 0.6 % 06/21/22 03:45 Eos % (Auto) 0.0 % 06/21/22 03:45 Baso % (Auto) 0.1 % 06/21/22 03:45 Neut # (Auto) 8.51 10^3/uL (1.8-7.7) H 06/21/22 03:45 Lymph # (Auto) 1.2 10^3/uL (0.8-4.8) 06/21/22 03:45 [place] # (Auto) 0.1 10^3/uL (0.2-0.9) L 06/21/22 03:45 Eos # (Auto) 0.0 10^3/uL (0.0-0.8) 06/21/22 03:45 Baso # (Auto) 0.0 10^3/uL (0.0-0.1) 06/21/22 03:45 Nucleated RBC % (auto) 0 % 06/21/22 03:45 Nucleated RBCs # 0.0 /100WBC 06/21/22 03:45 Specimen Type Arterial 06/20/22 08:22 Sample Site Radial, right 06/20/22 08:22 ABG pH 7.36 (7.35-7.45) 06/20/22 08:22 ABG pCO2 46.4 mmHg (35-45) H 06/20/22 08:22 ABG pO2 77.7 mmHg (80.0-100.0) L 06/20/22 08:22 ABG HCO3 26.1 mmol/L (22-26) H 06/20/22 08:22 ABG O2 Saturation 96.4 06/20/22 08:22 ABG Base Excess 0.1 mmol/L (-2.0-2.0) 06/20/22 08:22 Eric Test Pos 06/20/22 08:22 A-a O2 Gradient 6.8 mmHg (5-10) 06/20/22 08:22 Hematocrit 43.0 % (37-47) 06/20/22 08:22 Hgb O2 Saturation 95.2 % (95-100) 06/20/22 08:22 Carboxyhemoglobin < 1.0 %THgb (0.4-20.1) 06/20/22 08:22 Methemoglobin 0.4 % (0.4-1.5) 06/20/22 08:22 Total Hemoglobin 14.0 g/dL (12-16) 06/20/22 08:22 Sodium 142.0 mmol/L (131-143) 06/20/22 08:22 Potassium 3.4 mmol/L (3.5-5.0) L 06/20/22 08:22 Glucose 138.0 mg/dL (70-115) H 06/20/22 08:22 Ionized Calcium 1.3 mmol/L (1.1-1.4) 06/20/22 08:22 O2 Delivery Device Bipap 06/20/22 08:22 FiO2 26.0 % 06/20/22 08:22 Waiter And Cashier ID glc 06/20/22 08:22 Sodium 140 mmol/L (136-145) 06/21/22 03:45 Potassium 4.4 mmol/L (3.5-5.1) 06/21/22 03:45 Chloride 106 mmol/L (98-107) 06/21/22 03:45 Carbon Dioxide 22 mmol/L (22-29) 06/21/22 03:45 Anion Gap 16.4 (5-19) 06/21/22 03:45 BUN 15 mg/dL (6-20) 06/21/22 03:45 Creatinine 0.7 mg/dL (0.5-0.9) 06/21/22 03:45 GFR Calculation 87.9 mL/min (90-130) L 06/21/22 03:45 Glucose 188 mg/dL (65-115) H 06/21/22 03:45 Calculated Osmolality 296 mOsm/kg (285-295) H 06/21/22 03:45 Calcium 8.5 mg/dL (8.5-10.5) 06/21/22 03:45 Magnesium 2.0 mg/dL (1.7-2.3) 06/21/22 03:45 Total Bilirubin 0.4 mg/dL (0.15-1.2) 06/20/22 08:12 AST 18 U/L (0-32) 06/20/22 08:12 ALT 18 U/L (0-33) 06/20/22 08:12 Alkaline Phosphatase 107 U/L (35-105) H 06/20/22 08:12 Total Protein 7.3 g/dL (6.6-8.7) 06/20/22 08:12 Albumin 4.7 g/dL (3.5-5.2) 06/20/22 08:12 Globulin 2.6 g/dL (1.3-4.6) 06/20/22 08:12 TSH 0.47 uIU/mL (0.27-4.20) 06/21/22 03:42 Coronavirus 229E (PCR) Not detected (NOT DETECT) 06/20/22 09:22 Influenza Type A Ag negative (Negative) 06/20/22 09:40 Influenza Type B Ag negative (Negative) 06/20/22 09:40 SARS-CoV-2 (PCR) Not detected (NOT DETECT) 06/20/22 09:22 Vitals Last Vital Signs Temp 98.7 F 06/21/22 16:00 Pulse 100 06/22/22 08:24 Resp 20 H 06/22/22 08:24 BP 110/67 06/22/22 08:00 Pulse Ox 95 06/22/22 08:26 O2 Del Method 06/22/22 08:24 O2 Flow Rate 3 06/20/22 20:00 FiO2 24 06/22/22 05:31 Discharge Plan Discharge Patient Disposition: Home Condition: Stable Prescriptions: New loratadine 10 mg Tablet 10 mg PO DAILY Qty: 30 0RF prednisone 10 mg tablet 10 mg PO DIRECTED Qty: 48 0RF Rx Instructions: see taper instructions 6 daily for 3 days, then 4 daily for 3 days, then 3 daily for 3 days, then 2 daily for 3 days, then 1 daily for 3 days Continued budesonide-formoterol [Symbicort] 160-4.5 mcg/actuation HFA aerosol inhaler 2 puff inhalation BID 30 Days Qty: 10.2 3RF Fasenra Pen 30 mg/mL auto-injector 30 mg SUBCUT Q28D Qty: 1 2RF Rx Instructions: PA Approved 04/03/22-04/03/23 [id number], LOADING DOSE- Start maintenance dose afterwards Fasenra Pen 30 mg/mL auto-injector 30 mg SUBCUT .q 8 weeks Qty: 1 5RF Rx Instructions: PA approved 04/03/22-04/03/23 [id number] Maintenance dose buspirone 5 mg tablet 5 mg PO TID PRN (Reason: anxiety) Qty: 90 3RF albuterol sulfate 90 mcg/actuation HFA aerosol inhaler 2 puff inhalation Q6H PRN (Reason: shortness of breath or wheezing) 30 Days Qty: 8.5 12RF albuterol sulfate 2.5 mg /3 mL (0.083 %) solution for nebulization 2.5 mg inhalation QID PRN (Reason: shortness of breath or wheezing) Qty: 360 9RF prazosin 1 mg capsule 1 mg PO BEDTIME dextromethorphan-guaifenesin [Adult Tussin Cough Congest DM] 10-100 mg/5 mL liquid 10 ml PO Q8H PRN (Reason: cough) Qty: 1000 0RF multivitamin Tablet 1 tab PO DAILY zinc acetate 50 mg (zinc) Capsule 50 mg PO DAILY Fish Oil Concentrate 1,000 mg Capsule 1,000 mg PO DAILY Calcium + D 600 mg-5 mcg (200 unit) Tablet 1 tab PO DAILY Vitamin C 500 mg Tablet 500 mg PO DAILY prednisone 10 mg tablet See Rx Instructions .ROUTE .COMPLEX Rx Instructions: 2 tablets (20 mg) po daily x 5 days then 1 tablet (10 mg) po daily x 5 days rx filled 06/08/22 10d/s Singulair 10 mg tablet 10 mg PO QAM hydroxyzine HCl 25 mg tablet 25 mg PO BID PRN (Reason: Anxiety) Spiriva Respimat 1.25 mcg/actuation mist 2 puff inhalation QAM Discharge Orders: Discharge Order (Routine); Ordered 06/22/22 Ordered By: Matthieu Tolbert Referrals: YadirarCelestino MD [Physician] - 1 week Laron Gutierrez MD [Primary Care Provider] - 4-7 days Discharge Diet: Regular Discharge Activity: Increase activity as tolerated Patient Instructions: Opioid Safety Activity Restrictions/Additional Instructions: Take all medicine as prescribed Avoid all exposure to smoke Prednisone taper is 10 mg tablets, 6 a day for 3 days, 4-day for 3 days, 3-day for 3 days, 2 a day for 3 days, 1 a day for 3 days then discontinue Patient's Health Concerns: Wheezing, asthma exacerbation Assessment: Asthma exacerbation Plan of Treatment: Steroid taper Continue nebs Initiate biologic when available Discharge Attestations Time Spent in Discharge Care*: greater than 30 min Quality Metrics Clinical Quality Measures [ No reported AMI, CVA or VTE this stay] Coding Level of Care Code Acute Chg FW DC note Diagnoses Acute respiratory failure with hypoxia and hypercarbia J96.01; J96.02 Asthma exacerbation J45.901
== END 2022-06-22 11:25 | disposition home or self-care (01) | DRG 202 ==
LOC: ER 08:03 → ICU 14:19
PROVIDERS: Admitting Provider Internal Medicine; Emergency Provider Family Medicine; PCP Family Medicine; Visit Provider Internal Medicine
DX: J45.51 Severe persistent asthma with (acute) exacerbation (principal); J96.01 Acute respiratory failure with hypoxia; J96.02 Acute respiratory failure with hypercapnia; Z79.51 Long term (current) use of inhaled steroids; Z79.52 Long term (current) use of systemic steroids; Z91.041 Radiographic dye allergy status; Z90.49 Acquired absence of other specified parts of digestive tract
CPT/HCPCS: 36415; 36600; 71045; 80048; 80051; 80053; 82330; 82805; 83735; 84443; 85025; 87635; 87804; 93005; 94640; 94660; 94760; 96372; 96374; 96375; 99285; J1650; J1885; J2930; J7030; J7512; J7613; J7614; J7626; J7644

== ENCOUNTER 2022-07-12 14:25 | Emergency (ER) | payer MEDICAID, SELFPAY ==
[2022-07-12] VITALS (29 sets, daily range): BP systolic 140–164; BP diastolic 69–92; PULSE 71–87; RESP 18; TEMP 35.8; O2SAT 96–100; BMI 30.2
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
[2022-07-12] MEDS: diphenhydrAMINE 50 mg/mL SDV 1mL 12.5 MG IVP (17:36)
[2022-07-12] MEDS: metoclopramide 5 mg/mL SDV 2 mL 10 MG IVP (17:36)
[2022-07-12] MEDS: sodium chloride 0.9% 1,000 ML 999 ML IV (17:36)
[2022-07-12] MEDS: ketorolac 30 mg/mL INJ 15 MG IVP (17:36)
[2022-07-12 17:42] LABS: Basophils % 0.3 %; Eosinophils % 9.4 %; Hematocrit 42.4 % (37.0-47.0); Hemoglobin 13.3 g/dL (11.5-15.3); Lymphocytes # 1.9 10^3/uL (0.8-4.8); Lymphocytes % 18.2 %; Mean Corpuscular HGB Conc 31.4 g/dL (30.0-36.0); Mean Corpuscular Hemoglobin 28.1 pg (28.0-34.0); Mean Corpuscular Volume 89.5 fl (81-99); Mean Platelet Volume 9.4 fL (7.4-10.4); Monocytes # 0.5 10^3/uL (0.2-0.9); Monocytes % 4.3 %; Neutrophils # 7.12 10^3/uL (1.8-7.7); Neutrophils % 67.2 %; Nucleated Red Blood Cells % 0 %; Platelet Count 332 10^3/cmm (130-400); Red Blood Count 4.74 10^6/uL (4.1-5.3); Red Cell Distribution Width 15.2 % (12.1-15.1); White Blood Count 10.6 10^3/uL (4.0-10.0)
[2022-07-12 18:05] LABS: Alanine Aminotransferase 13 U/L (0-33); Albumin Level 2.9 g/dL (3.5-5.2); Alkaline Phosphatase 61 U/L (35-105); Anion Gap 10.6 (5-19); Aspartate Amino Transferase 12 U/L (0-32); Blood Urea Nitrogen 9 mg/dL (6-20); Carbon Dioxide 21 mmol/L (22-29); Chloride 116 mmol/L (98-107); Globulin 1.5 g/dL (1.3-4.6); Glomerular Filtration Rate 129.6 mL/min (90-130); Glucose 86 mg/dL (65-115); Osmolality Calculated 298 mOsm/kg (285-295); Sodium 145 mmol/L (136-145); Total Bilirubin 0.2 mg/dL (0.15-1.2); Total Protein 4.4 g/dL (6.6-8.7)
[2022-07-12 18:08] LABS: Calcium 5.9 mg/dL (8.5-10.5); Potassium 2.6 mmol/L (3.5-5.1)
[2022-07-12 18:32] LABS: Ionized Calcium 1.1 mmol/L (1.1-1.4)
[2022-07-12] MEDS: potassium chloride ER 20 mEq Tablet 60 MEQ PO (18:36)
== END 2022-07-12 19:17 | disposition home or self-care (01) ==
PROVIDERS: Emergency Provider Emergency Medicine; PCP Family Medicine
DX: E87.1 Hypo-osmolality and hyponatremia (principal); R51.9 Headache, unspecified
CPT/HCPCS: 70450; 80053; 82330; 85025; 96365; 96375; 99285; J1200; J1885; J2765; J3475; J7030

== ENCOUNTER 2022-07-18 11:55 | Inpatient (IN) | payer MEDICAID, SELFPAY ==
[2022-07-18] VITALS (86 sets, daily range): BP systolic 106–166; BP diastolic 65–123; PULSE 92–140; RESP 14–38; TEMP 36.7; O2SAT 91–99; BMI 33.3
--- NOTE | 2022-07-18 12:24 | ECG_ITS ---
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 Measurements Intervals Thermal Rate: 125 P: 70 GA: 106 QRS: 74 QRSD: 75 T: 72 QT: 300 QTc: 434 Interpretive Statements SINUS TACHYCARDIA WITH SHORT GA INTERVAL NONSPECIFIC ST & T-WAVE ABNORMALITY Compared to ECG 06/20/2022 19:49:03 T-wave abnormality now present ST (T wave) deviation no longer present Electronically Signed On 07-18-2022 17:34:07 BRICK CATCHER by Lasha Choi M.D. [id number]
--- NOTE | 2022-07-18 12:25 | XR_ITS ---
WS: [id number] Exam: XR chest 1V portable [id number] Date/Time of Exam: 07/18/2022 12:30 PM Reason For Exam: dyspnea/cough Comparison 06/20/2022. The lungs are clear and fully expanded. Normal cardiomediastinal silhouette. No pleural effusions. [place] structures are intact. XR/XR chest 1V portable [id number] IMPRESSION: 1. No acute cardiopulmonary finding.
[2022-07-18 12:31] LABS: ABG PCO2 43.6 mmHg (35-45); ABG PH Result 7.37 (7.35-7.45); Arterial Blood Gas Hematocrit 43.1 % (37-47); Base Excess ABG -0.5 mmol/L (-2.0-2.0); Blood Gas Allen Test Pos; Blood Gas Operator Identificat MONRO; Blood Gas Sample Site Radial, left; Blood Gas Sample Type Arterial; Carboxyhemoglobin 0.7 %THgb (0.4-20.1); HGB O2 Sat 92.5 % (95-100); Ionized Calcium Level - ABG 1.2 mmol/L (1.1-1.4); Methemoglobin < 0.0 % (0.4-1.5); Oxygen Device ROOM AIR; Oxygen Saturation ABG 92.3; PO2 ABG 64.6 mmHg (80.0-100.0); Potassium Level - ABG 3.5 mmol/L (3.5-5.0); Total Hemoglobin 14.1 g/dL (12-16)
--- NOTE | 2022-07-18 12:47 | ED_ITS ---
HPI - SOB/Dyspnea General: Chief Complaint: Shortness of Breath/Dyspnea Stated Complaint: SOB Time Seen by Provider: 07/18/22 12:07 Source: patient Mode of arrival: EMS History of Present Illness: HPI Narrative: 51-year-old female with a history of asthma presents emergency room complaining of shortness of breath. She is very tachycardic has audible wheezing is tripoding using accessory respiratory muscles she has a moderately productive cough she denies fever. She has a known history of chronic respiratory failure with episodes of acute hypercarbia. She is not chronically on oxygen she is use multiple rounds of albuterol this morning with no improvement. MD elicited complaint: shortness of breath and cough Pertinent past history: asthma Onset (ago): hour(s) Timing: constant Severity: severe Exacerbating factors: exertion and coughing Relieving factors: nothing Known history of: asthma Associated symptoms: Reports chest congestion and cough; Deny abdominal pain, chest pain, diaphoresis, dizziness, extremity pain, fever(s), hemoptysis, lightheadedness, myalgias, nausea, orthopnea, palpitations, paresthesias, polydipsia, polyuria, rash, sense of impending doom, syncope or vomiting Treatment prior to arrival: bronchodilator Review of Systems Const: Reports: fatigue and malaise; Denies: fever(s), chills or diaphoresis ENMT: Denies: throat pain, ear or mastoid pain, nasal discharge or nasal congestion Card: Denies: chest pain, palpitations, lightheadedness, syncope or orthopnea Resp: Reports: dyspnea, non-productive cough, wheezing and chest congestion; Denies: hemoptysis GI: Denies: abdominal pain, nausea or vomiting : Denies: flank pain, difficulty voiding, dysuria, urinary frequency or urinary urgency Musc: Denies: extremity pain Skin/Breast: Denies: rash or pruritus Neuro: Denies: dizziness Endo: Denies: polyuria or polydipsia PFSH ED PFSH: Medical History (Updated 07/20/22 @ 06:48 by Toby Silva DO) Anxiety 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 Moderate airflow obstruction, significant post-bronchodilator response, air trapping. History of sleep study 11/2021 no sleep apnea or nocturnal hypoxemia Multiple allergies In 2021 absolute eosinophils 2100 and IgE 8633 PTSD (post-traumatic stress disorder) Severe persistent asthma Surgical History (Updated 07/18/22 @ 15:50 by Blanca Petit MD) H/O esophagogastroduodenoscopy (06/22/21) History of appendectomy History of History of colon resection History of hysterectomy History of laparotomy Status post colonoscopy (06/22/21) Status post laparoscopic cholecystectomy Family History Other No pertinent family history Social History (Updated 07/18/22 @ 17:44 by Blanca Petit MD) Smoking and tobacco status: never smoked Second hand smoke exposure: Yes Alcohol intake: never Substance/Drug Use: never Physical Exam Const: COMMON NORMALS: no acute distress GENERAL APPEARANCE: cooperative and comfortable ORIENTATION/CONSCIOUSNESS: Yes awake, Yes oriented to person, Yes oriented to place and Yes oriented to time HENMT: COMMON NORMALS: normocephalic, atraumatic and hearing grossly normal bilaterally HEAD & SCALP: normocephalic and atraumatic Resp: EFFORT & INSPECTION: Yes tachypneic, Yes retractions and Yes uses accessory muscles AUSCULTATION: wheezes Cardio: COMMON NORMALS: regular rhythm and No murmurs present (Cardio) RATE: tachycardic RHYTHM: regular rhythm GI: COMMON NORMALS: Soft to palpation and No hepatosplenomegaly present AUSCULTATION: Yes normoactive bowel sounds PALPATION: Yes Soft to palpation, No Tenderness to palpation present (GI), No Guarding due to palpation present (GI) and Yes No hepatosplenomegaly present Extremity: COMMON NORMALS: normal to inspection, capillary refill normal, no clubbing, cyanosis or edema, no calf tenderness and no pedal edema Neuro: SENSORIUM/ORIENTATION: Yes oriented to person, Yes oriented to place and Yes oriented to time Skin: COMMON NORMALS: no rashes or lesions noted GENERAL SKIN EXAM: no rashes or lesions noted Course Vital Signs: Vital signs: Vital Signs Temperature 98.4 F 07/20/22 06:00 Pulse Rate 102 H 07/20/22 06:00 Respiratory Rate 16 07/20/22 06:00 Blood Pressure 132/79 07/20/22 06:00 Pulse Oximetry 95 07/20/22 06:00 Oxygen Delivery Me thod 07/20/22 03:00 Oxygen Flow Rate 2 07/20/22 03:00 Fraction of Inspir ed Oxygen 30 07/19/22 06:06 MDM - SOB/Dyspnea Medical Decision Making Severe asthma exacerbation patient has had persistent problem in the past given steroids on arrival here she already had multiple nebs is very tachycardic. She was placed on BiPAP have good improvement with decrease to worker we will repeat breathing better oxygenation decrease in respiratory rate she is feeling quite a bit better will admit discussed with hospitalist. Flu and COVID swabs were negative nothing acute on her chest x-ray EKG did not show any acute changes. Blood pressure is elevated will need to be monitored. Discussed with hospitalist orders have been written Medical Records I reviewed the patient's medical records. Lab Data I reviewed the patient's lab results. 07/18/22 12:47 07/18/22 12:47 Labs/Radiology: Radiology Impressions Chest X-Ray 07/18/22 12:25 IMPRESSION: 1. No acute cardiopulmonary finding. Laboratory Results WBC 8.5 10^3/uL (4.0-10.0) 07/18/22 12:47 RBC 5.05 10^6/uL (4.1-5.3) 07/18/22 12:47 Hgb 14.3 g/dL (11.5-15.3) 07/18/22 12:47 Hct 44.7 % (37.0-47.0) 07/18/22 12:47 MCV 88.5 fl (81-99) 07/18/22 12:47 MCH 28.3 pg (28.0-34.0) 07/18/22 12:47 MCHC 32.0 g/dL (30.0-36.0) 07/18/22 12:47 RDW 15.3 % (12.1-15.1) H 07/18/22 12:47 Plt Count 345 10^3/cmm (130-400) 07/18/22 12:47 MPV 9.3 fL (7.4-10.4) 07/18/22 12:47 Neut % (Auto) 58.2 % 07/18/22 12:47 Lymph % (Auto) 26.7 % 07/18/22 12:47 [place] % (Auto) 5.6 % 07/18/22 12:47 Eos % (Auto) 8.4 % 07/18/22 12:47 Baso % (Auto) 0.4 % 07/18/22 12:47 Neut # (Auto) 4.95 10^3/uL (1.8-7.7) 07/18/22 12:47 Lymph # (Auto) 2.3 10^3/uL (0.8-4.8) 07/18/22 12:47 [place] # (Auto) 0.5 10^3/uL (0.2-0.9) 07/18/22 12:47 Eos # (Auto) 0.7 10^3/uL (0.0-0.8) 07/18/22 12:47 Baso # (Auto) 0.0 10^3/uL (0.0-0.1) 07/18/22 12:47 Nucleated RBC % (auto) 0 % 07/18/22 12:47 Nucleated RBCs # 0.0 /100WBC 07/18/22 12:47 Specimen Type Arterial 07/18/22 12:18 Sample Site Radial, left 07/18/22 12:18 ABG pH 7.37 (7.35-7.45) 07/18/22 12:18 ABG pCO2 43.6 mmHg (35-45) 07/18/22 12:18 ABG pO2 64.6 mmHg (80.0-100.0) L 07/18/22 12:18 ABG HCO3 25.0 mmol/L (22-26) 07/18/22 12:18 ABG O2 Saturation 92.3 07/18/22 12:18 ABG Base Excess -0.5 mmol/L (-2.0-2.0) 07/18/22 12:18 Eric Test Pos 07/18/22 12:18 A-a O2 Gradient 4.0 mmHg (5-10) L 07/18/22 12:18 Hematocrit 43.1 % (37-47) 07/18/22 12:18 Hgb O2 Saturation 92.5 % (95-100) L 07/18/22 12:18 Carboxyhemoglobin 0.7 %THgb (0.4-20.1) 07/18/22 12:18 Methemoglobin < 0.0 % (0.4-1.5) L 07/18/22 12:18 Total Hemoglobin 14.1 g/dL (12-16) 07/18/22 12:18 Sodium 143.0 mmol/L (131-143) 07/18/22 12:18 Potassium 3.5 mmol/L (3.5-5.0) 07/18/22 12:18 Glucose 124.0 mg/dL (70-115) H 07/18/22 12:18 Ionized Calcium 1.2 mmol/L (1.1-1.4) 07/18/22 12:18 O2 Delivery Device Room air 07/18/22 12:18 FiO2 21.0 % 07/18/22 12:18 Vp [employer] [place] 07/18/22 12:18 Sodium 142 mmol/L (136-145) 07/18/22 12:47 Potassium 4.0 mmol/L (3.5-5.1) 07/18/22 12:47 Chloride 105 mmol/L (98-107) 07/18/22 12:47 Carbon Dioxide 24 mmol/L (22-29) 07/18/22 12:47 Anion Gap 17.0 (5-19) 07/18/22 12:47 BUN 15 mg/dL (6-20) 07/18/22 12:47 Creatinine 0.7 mg/dL (0.5-0.9) 07/18/22 12:47 GFR Calculation 87.9 mL/min (90-130) L 07/18/22 12:47 Glucose 130 mg/dL (65-115) H 07/18/22 12:47 Calculated Osmolality 297 mOsm/kg (285-295) H 07/18/22 12:47 Calcium 8.7 mg/dL (8.5-10.5) 07/18/22 12:47 Total Bilirubin 0.4 mg/dL (0.15-1.2) 07/18/22 12:47 AST 19 U/L (0-32) 07/18/22 12:47 ALT 12 U/L (0-33) 07/18/22 12:47 Alkaline Phosphatase 89 U/L (35-105) 07/18/22 12:47 Troponin T Baseline 6 ng/L (0-10) 07/18/22 22:15 Troponin T 120 Minute Cancelled 07/17/22 23:44 Delta Troponin T Cancelled 07/17/22 23:44 NT-Pro-B Natriuret Pep 36 pg/mL (0-125) 07/18/22 12:47 Total Protein 7.2 g/dL (6.6-8.7) 07/18/22 12:47 Albumin 4.2 g/dL (3.5-5.2) 07/18/22 12:47 Globulin 3.0 g/dL (1.3-4.6) 07/18/22 12:47 Coronavirus 229E (PCR) Not detected (NOT DETECT) 07/18/22 14:55 Influenza Type A Ag negative (Negative) 07/18/22 14:55 Influenza Type B Ag negative (Negative) 07/18/22 14:55 SARS-CoV-2 (PCR) Not detected (NOT DETECT) 07/18/22 14:55 Discharge Plan Discharge Patient Disposition: Admitted As Inpatient Admit Provider: Blanca Petit Clinical Impression: Severe persistent asthma, Anxiety, PTSD (post-traumatic stress disorder), Status asthmaticus, Elevated blood pressure reading Condition: Stable Coding Level of Care Code ED Tipple Boss for Ramirez Torres
[2022-07-18 12:57] LABS: Basophils % 0.4 %; Eosinophils # 0.7 10^3/uL (0.0-0.8); Eosinophils % 8.4 %; Hematocrit 44.7 % (37.0-47.0); Hemoglobin 14.3 g/dL (11.5-15.3); Lymphocytes # 2.3 10^3/uL (0.8-4.8); Lymphocytes % 26.7 %; Mean Corpuscular Hemoglobin 28.3 pg (28.0-34.0); Mean Corpuscular Volume 88.5 fl (81-99); Mean Platelet Volume 9.3 fL (7.4-10.4); Monocytes # 0.5 10^3/uL (0.2-0.9); Monocytes % 5.6 %; Neutrophils # 4.95 10^3/uL (1.8-7.7); Neutrophils % 58.2 %; Nucleated Red Blood Cells % 0 %; Platelet Count 345 10^3/cmm (130-400); Red Blood Count 5.05 10^6/uL (4.1-5.3); Red Cell Distribution Width 15.3 % (12.1-15.1); White Blood Count 8.5 10^3/uL (4.0-10.0)
[2022-07-18 13:17] LABS: Alanine Aminotransferase 12 U/L (0-33); Albumin Level 4.2 g/dL (3.5-5.2); Alkaline Phosphatase 89 U/L (35-105); Aspartate Amino Transferase 19 U/L (0-32); Blood Urea Nitrogen 15 mg/dL (6-20); Calcium 8.7 mg/dL (8.5-10.5); Carbon Dioxide 24 mmol/L (22-29); Chloride 105 mmol/L (98-107); Glomerular Filtration Rate 87.9 mL/min (90-130); Glucose 130 mg/dL (65-115); Osmolality Calculated 297 mOsm/kg (285-295); Sodium 142 mmol/L (136-145); Total Bilirubin 0.4 mg/dL (0.15-1.2); Total Protein 7.2 g/dL (6.6-8.7)
--- NOTE | 2022-07-18 14:21 | PC.PHAR ---
PT BROUGHT MEDICATIONS IN WITH HER- PT HAS MULTIPLE BOTTLES OF THE SAME MEDICATIONS- UNCLEAR IF PT TAKES MEDICATIONS PRESCRIBED
--- NOTE | 2022-07-18 15:29 | P.HP_ITS ---
Providers/Chief Complaint Admitting Physician: Blanca Petit MD Primary Care Provider: Laron Gutierrez MD Chief Complaint: SOB History of Present Illness Ramila Barrow is a 51 year old female with a history of severe persistent asthma who presented to the emergency room via EMS with severe difficulty breathing. She says she was doing okay yesterday. Last night her breathing started to worsen. She equates it to her downstairs neighbor increasing use of heat last night which often bothers her. She utilized several rescue nebulizer treatments, her usual inhalers and took extra prednisone without any improvement in her symptoms. She is not sure exactly how many breathing treatments she used but nothing was making anything any better. She eventually contacted EMS. On arrival to the emergency room she was described as tripoding and using accessory muscles. She received Solu-Medrol and was placed on BiPAP. ABG showed 7.3 on room air. She has had several ER visits and hospitalizations over the last few months. She has a history of hypercapnia and hypoxemia at times. She has required BiPAP before. With management she has started to have some improvement continues to have significant work of breathing. Request was made for admission to hospitalist service. In talking with Mrs. Barrow, she had previously followed with Dr. Ruiz. She does have an allergic component to her asthma. She was prescribed anti-IL-5 treatment last fall. Prior approval was obtained in March but patient indicates she has yet to receive the medication from the company. She takes prednisone 10 mg most days sometimes more. She uses albuterol, Spiriva and Pulmicort. She also uses loratadine and Singulair. She has rhinorrhea. Not using any nasal inhalers. Cough is occasionally productive of yellowish-green sputum. No fever. No nausea or vomiting. She has chronic diarrhea related to prior GI surgeries. She indicates that she is in the process of trying to see if she can make arrangements to move back to [facility] where she might have more support. The issues around her PTSD and anxiety have escalated lately for reasons beyond her control. This has made it more challenging for her. She tells me that at some point in time she was told that she had a spot on her lungs. Review of prior CT scans seems to show that she had a bud in tree appearance in right upper lobe. She is worried that this could have been cancer but she indicates that she does not want to know and would never have a biopsy. Cancer evidently runs in her family. Her tobacco exposure over the years was secondhand smoke. Review of Systems General: Reports: Other (ROS as per HPI or as otherwise noted here) Card: Denies: chest pain Resp: Denies: pain on inspiration or hemoptysis GI: Denies: change in bowel habits or hematochezia : Denies: difficulty voiding or hematuria Psych: Reports: anxiety and other (Fear) Medications/Allergies Home Medications Medication Instructions Recorded Confirmed Last Taken Type budesonide-formoterol HFA 160 2 puff inhalation BID 30 days 01/10/22 07/18/22 Unknown Rx mcg-4.5 mcg/actuation aerosol #10.2 grams inhaler (Symbicort) buspirone 5 mg tablet 5 mg PO TID PRN anxiety #90 tabs 04/13/22 07/18/22 Unknown Rx prazosin 1 mg capsule 1 mg PO BEDTIME 05/04/22 07/18/22 07/17/22 History albuterol sulfate 90 mcg/actuation 2 puff inhalation Q6H PRN 06/02/22 07/18/22 06/20/22 Rx aerosol inhaler shortness of breath or wheezing 30 days #8.5 grams benralizumab 30 mg/mL subcutaneous 30 mg SUBCUT .q 8 weeks #1 mL 06/06/22 07/18/22 Unknown Rx auto-injector (Fasenra Pen) benralizumab 30 mg/mL subcutaneous 30 mg SUBCUT Q28D 3 doses #1 mL 06/06/22 07/18/22 Unknown Rx auto-injector (Fasenra Pen) albuterol sulfate 2.5 mg/3 mL 2.5 mg (3 mL) inhalation QID PRN 06/19/22 07/18/22 07/18/22 Rx (0.083 %) solution for nebulization shortness of breath or wheezing #360 mL ascorbic acid (vitamin C) 500 mg 500 mg PO DAILY 06/20/22 07/18/22 07/18/22 History tablet (Vitamin C) calcium carbonate 600 mg-vitamin 1 tab PO DAILY 06/20/22 07/18/22 07/17/22 History D3 5 mcg (200 unit) tablet hydroxyzine HCl 25 mg tablet 25 mg PO BID PRN Anxiety 06/20/22 07/18/22 Unknown History multivitamin 1 tab PO DAILY 06/20/22 07/18/22 07/17/22 History omega-3 fatty acids 1,000 mg 1,000 mg PO DAILY 06/20/22 07/18/22 06/16/22 History capsule prednisone 10 mg tablet 10 mg PO DAILY PRN Pain 06/20/22 07/18/22 07/18/22 History tiotropium bromide 1.25 2 puff inhalation QAM 06/20/22 07/18/22 07/17/22 History mcg/actuation mist for inhalation (Spiriva Respimat) zinc acetate 50 mg (zinc) capsule 50 mg PO DAILY 06/20/22 07/18/22 07/17/22 History loratadine 10 mg tablet 10 mg PO DAILY #30 tabs 06/22/22 07/18/22 07/17/22 Rx montelukast 10 mg tablet 10 mg PO QAM #30 tabs 06/28/22 07/18/22 07/17/22 Rx (Singulair) metoclopramide HCl 10 mg tablet 10 mg PO Q6H PRN headache #20 tabs 07/12/22 07/18/22 Unknown Rx (Reglan) potassium chloride 10 mEq 10 meq PO DAILY #5 caps 07/12/22 07/18/22 Unknown Rx capsule,extended release Allergies Allergy/AdvReac Type Severity Reaction Status Date / Time Iodinated Contrast Media Allergy Unknown Unknown Verified 06/20/22 09:07 Egg Derived Allergy ALGY-Difficulty Verified 06/20/22 09:07 Breathing PFSH Acute PFSH: Medical History (Updated 07/18/22 @ 17:53 by Blanca Petit MD) Anxiety 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 Moderate airflow obstruction, significant post-bronchodilator response, air trapping. History of sleep study 11/2021 no sleep apnea or nocturnal hypoxemia Multiple allergies In 2021 absolute eosinophils 2100 and IgE 8633 PTSD (post-traumatic stress disorder) Severe persistent asthma Surgical History (Updated 07/18/22 @ 15:50 by Blanca Petit MD) H/O esophagogastroduodenoscopy (06/22/21) History of appendectomy History of History of colon resection History of hysterectomy History of laparotomy Status post colonoscopy (06/22/21) Status post laparoscopic cholecystectomy Family History Other No pertinent family history Social History (Updated 07/18/22 @ 17:44 by Blanca Petit MD) Smoking and tobacco status: never smoked Second hand smoke exposure: Yes Alcohol intake: never Substance/Drug Use: never Vitals/I&O/Wt Last Vital Signs Temp 98.0 F 07/18/22 12:07 Pulse 124 H 07/18/22 15:27 Resp 22 H 07/18/22 15:10 BP 139/87 07/18/22 15:10 Pulse Ox 97 07/18/22 15:27 O2 Del Method 07/18/22 13:20 FiO2 30 07/18/22 15:27 Weight last 48 hrs Weight 74.843 kg Physical Exam Narrative: Patient is awake and alert. She is able to talk in 1-3 word sentences only. She is sitting straight up in bed. Accessory muscle use noted supraclavicular and intercostal. Some nasal flaring at times and has to pause frequently to take in a few breaths. No audible wheezing. Normocephalic except for dry skin particularly notable around the mouth. Right pupil is larger than left pupil. [place] sclera. Nasopharynx with clear rhinorrhea. Oropharynx with cobblestone posterior pharyngeal mucosa. Neck is supple. Lungs with diffuse inspiratory and expiratory wheezes throughout. Occasional cough nonproductive. Cardiovascular exam reveals a tachycardic but regular rhythm. Pulses are 2+ x4. Abdomen is soft. Nontender. Extremities with 1+ pretibial edema bilaterally. Mild clubbing is noted. Patient with multiple sores in different stages of healing and evidence of old sores with scattered hypopigmentation. Moves all extremities. Face is symmetric. Speech understandable. Patient is tearful and apologetic at times but able to provide history and has normal affect otherwise. Data 07/18/22 12:47 07/18/22 12:47 Other Labs: Radiology Impressions Chest X-Ray 07/18/22 12:25 IMPRESSION: 1. No acute cardiopulmonary finding. Laboratory Results WBC 8.5 10^3/uL (4.0-10.0) 07/18/22 12:47 RBC 5.05 10^6/uL (4.1-5.3) 07/18/22 12:47 Hgb 14.3 g/dL (11.5-15.3) 07/18/22 12:47 Hct 44.7 % (37.0-47.0) 07/18/22 12:47 MCV 88.5 fl (81-99) 07/18/22 12:47 MCH 28.3 pg (28.0-34.0) 07/18/22 12:47 MCHC 32.0 g/dL (30.0-36.0) 07/18/22 12:47 RDW 15.3 % (12.1-15.1) H 07/18/22 12:47 Plt Count 345 10^3/cmm (130-400) 07/18/22 12:47 MPV 9.3 fL (7.4-10.4) 07/18/22 12:47 Neut % (Auto) 58.2 % 07/18/22 12:47 Lymph % (Auto) 26.7 % 07/18/22 12:47 [place] % (Auto) 5.6 % 07/18/22 12:47 Eos % (Auto) 8.4 % 07/18/22 12:47 Baso % (Auto) 0.4 % 07/18/22 12:47 Neut # (Auto) 4.95 10^3/uL (1.8-7.7) 07/18/22 12:47 Lymph # (Auto) 2.3 10^3/uL (0.8-4.8) 07/18/22 12:47 [place] # (Auto) 0.5 10^3/uL (0.2-0.9) 07/18/22 12:47 Eos # (Auto) 0.7 10^3/uL (0.0-0.8) 07/18/22 12:47 Baso # (Auto) 0.0 10^3/uL (0.0-0.1) 07/18/22 12:47 Nucleated RBC % (auto) 0 % 07/18/22 12:47 Nucleated RBCs # 0.0 /100WBC 07/18/22 12:47 Specimen Type Arterial 07/18/22 12:18 Sample Site Radial, left 07/18/22 12:18 ABG pH 7.37 (7.35-7.45) 07/18/22 12:18 ABG pCO2 43.6 mmHg (35-45) 07/18/22 12:18 ABG pO2 64.6 mmHg (80.0-100.0) L 07/18/22 12:18 ABG HCO3 25.0 mmol/L (22-26) 07/18/22 12:18 ABG O2 Saturation 92.3 07/18/22 12:18 ABG Base Excess -0.5 mmol/L (-2.0-2.0) 07/18/22 12:18 Eric Test Pos 07/18/22 12:18 A-a O2 Gradient 4.0 mmHg (5-10) L 07/18/22 12:18 Hematocrit 43.1 % (37-47) 07/18/22 12:18 Hgb O2 Saturation 92.5 % (95-100) L 07/18/22 12:18 Carboxyhemoglobin 0.7 %THgb (0.4-20.1) 07/18/22 12:18 Methemoglobin < 0.0 % (0.4-1.5) L 07/18/22 12:18 Total Hemoglobin 14.1 g/dL (12-16) 07/18/22 12:18 Sodium 143.0 mmol/L (131-143) 07/18/22 12:18 Potassium 3.5 mmol/L (3.5-5.0) 07/18/22 12:18 Glucose 124.0 mg/dL (70-115) H 07/18/22 12:18 Ionized Calcium 1.2 mmol/L (1.1-1.4) 07/18/22 12:18 O2 Delivery Device Room air 07/18/22 12:18 FiO2 21.0 % 07/18/22 12:18 Policy Value Calculator ID [place] 07/18/22 12:18 Sodium 142 mmol/L (136-145) 07/18/22 12:47 Potassium 4.0 mmol/L (3.5-5.1) 07/18/22 12:47 Chloride 105 mmol/L (98-107) 07/18/22 12:47 Carbon Dioxide 24 mmol/L (22-29) 07/18/22 12:47 Anion Gap 17.0 (5-19) 07/18/22 12:47 BUN 15 mg/dL (6-20) 07/18/22 12:47 Creatinine 0.7 mg/dL (0.5-0.9) 07/18/22 12:47 GFR Calculation 87.9 mL/min (90-130) L 07/18/22 12:47 Glucose 130 mg/dL (65-115) H 07/18/22 12:47 Calculated Osmolality 297 mOsm/kg (285-295) H 07/18/22 12:47 Calcium 8.7 mg/dL (8.5-10.5) 07/18/22 12:47 Total Bilirubin 0.4 mg/dL (0.15-1.2) 07/18/22 12:47 AST 19 U/L (0-32) 07/18/22 12:47 ALT 12 U/L (0-33) 07/18/22 12:47 Alkaline Phosphatase 89 U/L (35-105) 07/18/22 12:47 Total Protein 7.2 g/dL (6.6-8.7) 07/18/22 12:47 Albumin 4.2 g/dL (3.5-5.2) 07/18/22 12:47 Globulin 3.0 g/dL (1.3-4.6) 07/18/22 12:47 Influenza Type A Ag negative (Negative) 07/18/22 14:55 Influenza Type B Ag negative (Negative) 07/18/22 14:55 Laboratory Tests 07/18/22 14:55 Coronavirus 229E (PCR) Pending SARS-CoV-2 (PCR) Pending A&P Assessment and plan (1) Status asthmaticus: (2) Severe persistent asthma: (3) Anxiety: (4) PTSD (post-traumatic stress disorder): Plan Lower extremity edema High blood pressure without a diagnosis of hypertension Inpatient admission ICU level care Continue BiPAP as needed Oxygen supplementation as needed Continue systemic and inhaled steroids Pulmonary toilet Continue Singulair and loratadine Add Flonase Influenza and COVID screening are negative No current indication for antibiotic therapy Check BNP Echocardiogram Monitor blood pressure for need to treat Telemetry monitoring Benadryl cream to areas of itching Hydroxyzine orally as needed PPI Lovenox for DVT prophylaxis Supportive care otherwise Findings, concerns and plans were discussed with patient and she was provided supportive care. She was given an opportunity to ask questions Anticipate discharge home with outpatient follow-up Has appointment with Dr. Kumar in November of this year, may have to consider earlier appointment for follow-up Appointment scheduled with Dr. Gutierrez on 07/20/2022 11:40 AM although I anticipate patient will probably be in the hospital that date Case management to assist with challenges receiving anti-IL-5 treatment Full code Attestations Medical Necessity Statement*: Anticipated stay greater than 2 midnights in a patient with severe persistent asthma presenting again with severe respiratory distress of acute onset in the last 24 hours. She is requiring BiPAP therapy, close monitoring, IV steroids and serial breathing treatments. At high risk of rapid clinical decline up to and including the possibility of needing intubation. Diagnoses Status asthmaticus J45.902 Severe persistent asthma J45.50 Anxiety F41.9 PTSD (post-traumatic stress disorder) F43.10
[2022-07-18 15:42] LABS: Influenza A by IFA negative (Negative); Influenza B by IFA negative (Negative)
[2022-07-18 17:10] LABS: Adenovirus Not Detected (NOT DETECT); Chlamydia Pneumoniae Not Detected (NOT DETECT); Coronavirus 229E,HKU1,NL63,OC4 Not Detected (NOT DETECT); Human Metapneumovirus Not Detected (NOT DETECT); Human Rhinovirus/Enterovirus Not Detected (NOT DETECT); Influenza A Not Detected (NOT DETECT); Influenza A H1 Not Detected (NOT DETECT); Influenza A H1-2009 Not Detected (NOT DETECT); Influenza A H3 Not Detected (NOT DETECT); Influenza B Not Detected (NOT DETECT); Mycoplasma Pneumoniae Not Detected (NOT DETECT); Parainfluenza Virus Type 1 Not Detected (NOT DETECT); Parainfluenza Virus Type 2 Not Detected (NOT DETECT); Parainfluenza Virus Type 3 Not Detected (NOT DETECT); Parainfluenza Virus Type 4 Not Detected (NOT DETECT); Respiratory Syncytial Virus A Not Detected (NOT DETECT); Respiratory Syncytial Virus B Not Detected (NOT DETECT); SARS-COV-2 Not Detected (NOT DETECT)
[2022-07-18 18:19] LABS: NT Pro B Type Natriuretic Pept 36 pg/mL (0-125)
--- NOTE | 2022-07-18 20:59 | ECG_ITS ---
[facility] Test Date: 2022-07-18 Pat Name: Ramila Barrow Department: Room: Gender: Female Agent Broker: : 1970 Requested By: Ashanti Villanueva Order Number: [id number] Jeri MD: Lasha Choi M.D. Measurements Intervals [place] Rate: 132 P: 73 ND: 113 QRS: 75 QRSD: 73 T: 67 QT: 288 QTc: 427 Interpretive Statements SINUS TACHYCARDIA WITH SHORT ND INTERVAL NONSPECIFIC ST & T-WAVE ABNORMALITY Compared to ECG 07/18/2022 12:59:13 No significant changes Electronically Signed On 07-19-2022 10:27:00 STAVE BLOCK SPLITTER by Lasha Choi M.D. [id number]
[2022-07-18] MEDS: budesonide 0.5 mg/2 mL Neb INHALATION (21:57)
[2022-07-18] MEDS: ipratropium 0.5 mg/2.5 mL Neb INHALATION (21:57)
[2022-07-18 22:46] LABS: Troponin(5th) Baseline 6 ng/L (0-10)
[2022-07-18] MEDS: fluticasone nasal spray 16gm Btl 1 SPRAY NASAL (22:56)
[2022-07-18] MEDS: FUROsemide 10 mg/mL SDV 4mL 40 MG IVP (22:56)
[2022-07-18] MEDS: magnesium sulfate premix 2 GM/50 ML PIGGYBACK IV (22:58)
[2022-07-18] MEDS: prazosin 1 mg Capsule PO (22:59)
--- NOTE | 2022-07-18 23:20 | ECG_ITS ---
[facility] Test Date: 2022-07-19 Pat Name: Ramila Barrow Department: Room: ICU02 Gender: Female Superintendent Drilling And Production: : 1970 Requested By: Emmanuel Grant Order Number: [id number] Jeri MD: Lasha Choi M.D. Measurements Intervals [place] Rate: 115 P: 68 CA: 109 QRS: 71 QRSD: 76 T: 71 QT: 334 QTc: 463 Interpretive Statements SINUS TACHYCARDIA WITH SHORT CA INTERVAL POSSIBLE LEFT ATRIAL ENLARGEMENT [-0.1mV P-WAVE IN V1/V2] MODERATE ST DEPRESSION [0.05+ mV ST DEPRESSION] Compared to ECG 07/18/2022 21:06:57 ST (T wave) deviation now present T-wave abnormality no longer present Electronically Signed On 07-19-2022 10:29:25 SUPERVISOR POWDERED METAL by Lasha Choi M.D. [id number]
--- NOTE | 2022-07-18 23:33 | W.PM.EVENTAC ---
Event Note Event Note: Called by the ER nurse as patient is still awaiting bed in the ICU. She is complaining of chest pain with tachycardia and heart rate running at around 130. Complaining of left-sided pricking type chest pain radiating to retrosternal without nausea or vomiting. On examination decreased air entry all over the lung jensen with diffuse rhonchi. Heart rate 130 Saturation 92% on BiPAP Afebrile On review it seems patient has not received any medication as orders are still in transfer que. Plan: Magnesium sulfate 1 g IV stat Ipratropium, Xopenex every 4 hourly, Pulmicort twice daily with first dose of both right now. Solu-Medrol 60 mg every 8 hourly. Dose right now. Protonix 40 mg IV stat, MaaloX as needed Troponin cycle. We will further treat as per the results of the labs. On checking in again post nebulization patient feels a lot better but still complaining of mild chest pain. IV Lasix 40 mg one-time. Other Coding Information Prolonged care (total time indicated above or notated here) (Care given in addition to the admission evaluation for worsening of symptoms while on treatment. Overall care time 45 minutes)
[2022-07-19] VITALS (110 sets, daily range): BP systolic 85–141; BP diastolic 53–105; PULSE 82–139; RESP 11–30; TEMP 35.7–36.8; O2SAT 87–100; BMI 33.8
[2022-07-19] MEDS: morphine 4 mg/mL SDV 1 mL 1 MG IVP ×4 (00:23→18:41)
[2022-07-19] MEDS: pantoprazole 40 mg SDV IVP ×2 (00:24→08:00)
[2022-07-19] MEDS: nitroglycerin 1 gm/inch oint Pkt 0.5 INCH TOPICAL (00:27)
[2022-07-19] MEDS: enoxaparin 40 mg/0.4 mL Syringe SUBCUT ×2 (00:29→23:09)
[2022-07-19 00:58] LABS: Troponin 5 2HR 7.41 ng/L (0-10); Troponin 5 2HR Delta 1.41 ABS# (0-10)
--- NOTE | 2022-07-19 01:46 | PC.NURSE ---
Pt arrived from ER to ICU 2 via yael @2321 on continuos monitoring w/ RN @bedside. Continuos monitoring continued. No skin issues noted. Pt reporting 8/10 chest pain. Hospitalist aware. New order for Morphine 1mg PRN and nitro paste 0.5 inch ONCE (see MAR). 93% Spo2 on 3L NC, BIPAP applied for work of breathing.
--- NOTE | 2022-07-19 03:20 | ECG_ITS ---
[facility] Test Date: 2022-07-19 Pat Name: Ramila Barrow Department: Room: [facility] Gender: Female Satellite Communications Operator: : 1970 Requested By: Emmanuel Grant Order Number: [id number] Jeri MD: Lasha Choi M.D. Measurements Intervals [place] Rate: 111 P: 66 MO: 113 QRS: 69 QRSD: 77 T: 75 QT: 330 QTc: 449 Interpretive Statements SINUS TACHYCARDIA WITH SHORT MO INTERVAL POSSIBLE LEFT ATRIAL ENLARGEMENT [-0.1mV P-WAVE IN V1/V2] MODERATE ST DEPRESSION [0.05+ mV ST DEPRESSION] Compared to ECG 07/19/2022 01:14:50 No significant changes Electronically Signed On 07-19-2022 10:28:50 ELECTRO OPTICS ENGINEER by Lasha Choi M.D. [id number]
[2022-07-19 03:25] LABS: Troponin 5 6HR 6.89 ng/L (0-10)
[2022-07-19] MEDS: ipratropium 0.5 mg/2.5 mL Neb INHALATION ×6 (03:50→23:29)
[2022-07-19] MEDS: levalbuterol 1.25 mg/3 mL Neb INHALATION ×6 (03:50→23:28)
[2022-07-19 04:28] LABS: Troponin 5 6HR Delta 0.52 ng/L (0-12)
[2022-07-19] MEDS: montelukast sodium 10 mg Tablet PO (05:34)
[2022-07-19] MEDS: budesonide 0.5 mg/2 mL Neb INHALATION ×2 (07:35→19:43)
[2022-07-19] MEDS: guaiFENesin 100 mg/5 mL UDC 10 mL 200 MG PO ×5 (07:57→23:09)
[2022-07-19] MEDS: fluticasone nasal spray 16gm Btl 1 SPRAY NASAL ×2 (08:00→17:14)
[2022-07-19] MEDS: loratadine 10 mg Tablet PO (08:00)
[2022-07-19] MEDS: hyDROXYzine 25 mg Capsule PO (12:11)
--- NOTE | 2022-07-19 14:02 | PC.NURSE ---
New Orders Received Informed Dr. Mendenhall patient has no diet order-received telephone orders for regular diet.
--- NOTE | 2022-07-19 15:28 | P.PN_ITS ---
Subjective Subjective: Overnight labs and H&P reviewed. Patient states she is feeling better this morning, however still continues to have intermittent sharp left- sided chest pain. Her troponin series was unremarkable overnight. She does have significant wheezing over her left lung jensen. Medications: Reviewed: Yes Vitals/I&O/Wt Last Vital Signs Temp 96.3 F L 07/19/22 08:00 Pulse 113 H 07/19/22 14:00 Resp 12 07/19/22 14:00 BP 133/75 07/19/22 14:00 Pulse Ox 95 07/19/22 14:00 O2 Del Method 07/19/22 11:25 O2 Flow Rate 2 07/19/22 11:25 FiO2 30 07/19/22 06:06 07/19/22 07/19/22 07/19/22 06:59 14:59 22:59 Intake Total 50 / 50 Output Total 600 / 600 Balance -550 / -550 Weight last 48 hrs Weight 73.482 kg Weight 73.482 kg Weight 74.843 kg Physical Exam Narrative: General: No acute distress, AO x3 HEENT: PERRLA, pupils bilaterally equal and reactive, pallors not present Chest: B/L wheezing left worse than right. CVS: S1-S2 regular, no murmurs, no tachycardia, no gallops, no rubs Abdomen: Soft, nontender, no organomegaly, bowel sounds present Neuro: No focal deficits, no facial deformity, AO x3, power 5/5 in all limbs Extremities: Healthy surgical dressing present on the right hip, mild tenderness, soft no erythema. Data 07/18/22 12:47 07/18/22 12:47 A&P Assessment and plan (1) Status asthmaticus: Patient admitted yesterday with status asthmaticus. She has persistent severe asthma. Currently receiving treatment with levo albuterol 1.25 mg 4 times daily, ipratropium every 4 hours scheduled, budesonide 0.5 mg twice daily, IV steroids methylprednisone 60 mg IV every 8 hours. Patient was supposed to start interleukin-5 inhibitors as outpatient, however she states that she never received the medication. Review of pulmonology notes shows that medication was refilled as recently as June 06 and the PA was approved. We are going to send this prescription to our specialty pharmacy and try to get her the medication. She still has significant wheezing, left worse than right. Suspect that her left-sided chest pain is related to worsening wheezing on the left side, however given persistence will obtain D-dimer to screen for PE. If elevated will likely need a CTA. He is continuing to be significantly tachycardic. Given that patient's symptoms are still ongoing, she would be best monitored in the ICU with close monitoring of her respiratory status. (2) Severe persistent asthma: (3) Anxiety: (4) PTSD (post-traumatic stress disorder): Attestations Medical Necessity Statement*: continued monitoring of respiratory status is warranted in view of persistent wheezing, coughing, need to continue both IV steroids and scheduled nebulization Coding Level of Care Code Critical Care >/= 30 minutes Diagnoses Status asthmaticus J45.902 Severe persistent asthma J45.50 Anxiety F41.9 PTSD (post-traumatic stress disorder) F43.10
[2022-07-19 16:51] LABS: D Dimer 0.35 ug/mIFEU (0-0.59)
[2022-07-19] MEDS: prazosin 1 mg Capsule PO (20:32)
--- NOTE | 2022-07-19 21:18 | USCV_ITS ---
Ramila Barrow Age: 51 Gender: F : 1970 Exam Date: 07/19/2022 07:48 Ordering Phys: Blanca Petit MD Technologist: KENTON Exam Location: [facility] Indication: SHORTNESS OF BREATH, RESP DISTRESS, HIGH BLOOD PRESSURE BP: 113 / 69 HR: 97 Rhythm: Sinus Technical Quality: Adequate MEASUREMENTS (Male / Female) Normal Values 2D ECHO LVOT Diameter 2.0 cm LV Ejection Fraction MOD 2C 66.3 % LV Ejection Fraction 2C AL 67.4 % LA Diameter 2.7 cm LA Width 2.5 cm LA Height 3.9 cm RA Width 2.4 cm RA Height 3.9 cm Aorta at Sinotubular Diameter 1.3 cm IVC Diameter 1.7 cm M-MODE Aortic Annulus Diameter 1.8 cm LA Ao Ratio MM 1.5 MV E Point Septal Separation 0.3 cm DOPPLER AV Peak Velocity 223.7 cm/s LVOT Peak Velocity 127.0 cm/s AV Area Cont Eq vti 1.4 cm squared AV Area Cont Eq pk 1.7 cm squared MV Peak Velocity 162.0 cm/s MV Area PHT 3.4 cm squared Mitral E to A Ratio 0.7 MV E' Velocity 54.5 cm/s Mitral E to MV E' Ratio 9.2 Mitral E to LV E' Lateral Ratio 8.3 Mitral E to LV E' Septal Ratio 10.4 TR Peak Velocity 257.1 cm/s TR Peak Gradient 26.4 mmHg TR Mean Velocity 207.9 cm/s TR Mean Gradient 17.8 mmHg TR Velocity Time Integral 59.8 cm TV Peak E Velocity 44.0 cm/s Right Atrial Pressure 3.0 mmHg Pulmonary Artery Systolic Pressu 29.4 mmHg PV Peak Velocity 124.0 cm/s RV Acceleration Time 0.2 s RV Ejection Time 0.3 s RV AcT/ET 0.6 FINDINGS Left Ventricle Normal left ventricular size and systolic function, EF 67 %. No regional wall motion abnormalities. Grade I/IV diastolic dysfunction (abnormal relaxation filling pattern), normal to mildly elevated filling pressures. Mild left ventricular hypertrophy. No regional wall motion abnormalities. Right Ventricle The right ventricle is normal in size and function. Right Atrium The right atrium is normal in size. Left Atrium The left atrium is normal in size. Mitral Valve Trace mitral valve regurgitation. Aortic Valve No gross abnormalities noted Tricuspid Valve Trace tricuspid valve regurgitation. Pulmonic Valve Pulmonic valve not well visualized. Estimated pulmonary artery peak systolic pressure of 29 mmHg Pericardium Normal pericardium without effusion. Aorta Normal ascending aorta dimension. IVC Normal inferior vena cava. CONCLUSIONS Normal left ventricular size and systolic function, EF 67 %. No regional wall motion abnormalities. Grade I/IV diastolic dysfunction (abnormal relaxation filling pattern), normal to mildly elevated filling pressures. Mild left ventricular hypertrophy. No regional wall motion abnormalities. Pulmonic valve not well visualized. Estimated pulmonary artery peak systolic pressure of 29 mmHg. No significant stenotic or regurgitant valvular lesions There is no pericardial effusion. There are no intracardiac masses. No previous study is available for comparison. Dr Farida Gonzalez MD FACC (Electronically Signed) Final Date: 19 July 2022 18:30 S
[2022-07-20] VITALS (85 sets, daily range): BP systolic 88–169; BP diastolic 50–110; PULSE 88–139; RESP 10–48; TEMP 36.9–37; O2SAT 84–99
[2022-07-20] MEDS: guaiFENesin 100 mg/5 mL UDC 10 mL 200 MG PO ×6 (02:49→23:59)
[2022-07-20 03:41] LABS: Magnesium 2.8 mg/dL (1.7-2.3)
[2022-07-20] MEDS: ipratropium 0.5 mg/2.5 mL Neb INHALATION ×5 (03:44→19:46)
[2022-07-20] MEDS: levalbuterol 1.25 mg/3 mL Neb INHALATION ×5 (03:44→19:46)
[2022-07-20] MEDS: montelukast sodium 10 mg Tablet PO (05:17)
[2022-07-20] MEDS: budesonide 0.5 mg/2 mL Neb INHALATION ×2 (08:18→19:46)
[2022-07-20] MEDS: loratadine 10 mg Tablet PO (08:43)
[2022-07-20] MEDS: pantoprazole 40 mg SDV IVP (08:43)
[2022-07-20] MEDS: fluticasone nasal spray 16gm Btl 1 SPRAY NASAL ×2 (08:45→18:03)
[2022-07-20] MEDS: morphine 4 mg/mL SDV 1 mL 1 MG IVP ×2 (12:48→20:09)
--- NOTE | 2022-07-20 13:10 | CT_ITS ---
WS: [id number] CTA CHEST AND ABDOMEN AND PELVIS TECHNIQUE: Contrast enhanced CTA of the chest, with abdomen, and pelvis with coronal and sagittal ref ormatted images and additional MIP Images. CLINICAL INFORMATION: evalute for PE , pancreatitis COMPARISON: CTA July 22, 2021 DLP: 1058.[address] scans at [facility] use at least one of these dose optimization techniques: automated e xposure control; mA and/or kV adjustment per patient size (includes targeted exams where dose is matc hed to clinical indication); or iterative reconstruction. FINDINGS: Both lungs are well aerated. No acute pulmonary infiltrates. No focal pneumonia or pleural fluid. A few calcified granulomas. No mediastinal or hilar lymphadenopathy. No axillary lymphadenopat hy. Proximal main pulmonary arteries are normal. Normal segmental and subsegmental pulmonary arteries . No filling defects to suggest pulmonary embolus. Normal caliber thoracic aorta. Normal caliber desc ending thoracic aorta. Diffuse fatty infiltration liver. Mild hepatomegaly. Small LEFT hepatic cyst measuring 10 mm. Cholecy stectomy clips. Normal portal vein and splenic vein. Normal pancreatic parenchymal enhancement. Mami l portal vein and splenic vein. Normal caliber abdominal aorta. Celiac and SMA are patent. Adrenal gl ands are normal. Normal renal parenchymal enhancement. No hydronephrosis. Normal sigmoid colon. Prior hysterectomy. Low-lying cecum RIGHT lower quadrant. Mild cecal and RIGHT colon constipation. Fat-con taining umbilical hernia. Prior hysterectomy. CT/CT angio chest w abd pel w con IMPRESSION: 1. Lungs are well aerated. No acute pulmonary infiltrates. No focal pneumonia or pleural fluid. 2. No evidence of pulmonary embolus. 3. Diffuse fatty infiltration liver with hepatomegaly. 4. Cholecystectomy clips. 5. Prior hysterectomy. 6. Fat-containing umbilical hernia. 7. Low-lying cecum RIGHT lower quadrant with cecal and RIGHT colon constipatio n.
[2022-07-20] MEDS: diphenhydrAMINE 50 mg/mL SDV 1mL IVP (13:40)
[2022-07-20] MEDS: iohexol 350 mg/mL 500 mL Btl (per mL) IV (15:15)
--- NOTE | 2022-07-20 18:09 | PC.NURSE ---
Uneventful shift, did go to CT today for complaint of abdomen pain. Results in reports
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
[2022-07-20] MEDS: acetaminophen 325 mg Tablet 650 MG PO (21:03)
[2022-07-20] MEDS: prazosin 1 mg Capsule PO (21:03)
[2022-07-20] MEDS: hyDROXYzine 25 mg Capsule PO (21:03)
[2022-07-20] MEDS: benzonatate 100 mg Capsule PO (21:03)
[2022-07-21] VITALS (37 sets, daily range): BP systolic 113–153; BP diastolic 56–99; PULSE 84–129; RESP 14–26; TEMP 36.1–36.6; O2SAT 88–96
[2022-07-21] MEDS: levalbuterol 1.25 mg/3 mL Neb INHALATION ×7 (00:08→23:53)
[2022-07-21] MEDS: ipratropium 0.5 mg/2.5 mL Neb INHALATION ×7 (00:08→23:53)
[2022-07-21] MEDS: enoxaparin 40 mg/0.4 mL Syringe SUBCUT ×2 (00:11→23:20)
[2022-07-21] MEDS: morphine 4 mg/mL SDV 1 mL 1 MG IVP ×5 (00:11→22:33)
[2022-07-21 03:00] LABS: Basophils % 0.2 %; Hemoglobin 11.3 g/dL (11.5-15.3); Lymphocytes # 0.7 10^3/uL (0.8-4.8); Lymphocytes % 4.3 %; Mean Corpuscular HGB Conc 30.5 g/dL (30.0-36.0); Mean Corpuscular Volume 91.8 fl (81-99); Monocytes # 0.4 10^3/uL (0.2-0.9); Monocytes % 2.1 %; Neutrophils # 14.97 10^3/uL (1.8-7.7); Neutrophils % 91.3 %; Nucleated Red Blood Cells % 0 %; Platelet Count 274 10^3/cmm (130-400); Red Blood Count 4.03 10^6/uL (4.1-5.3); Red Cell Distribution Width 16.3 % (12.1-15.1); White Blood Count 16.4 10^3/uL (4.0-10.0)
[2022-07-21 03:25] LABS: Alanine Aminotransferase 27 U/L (0-33); Albumin Level 3.5 g/dL (3.5-5.2); Alkaline Phosphatase 69 U/L (35-105); Aspartate Amino Transferase 25 U/L (0-32); Blood Urea Nitrogen 22 mg/dL (6-20); Carbon Dioxide 22 mmol/L (22-29); Chloride 105 mmol/L (98-107); Globulin 2.3 g/dL (1.3-4.6); Glomerular Filtration Rate 65.8 mL/min (90-130); Glucose 178 mg/dL (65-115); Osmolality Calculated 296 mOsm/kg (285-295); Sodium 139 mmol/L (136-145); Total Bilirubin 0.2 mg/dL (0.15-1.2); Total Protein 5.8 g/dL (6.6-8.7)
[2022-07-21 03:36] LABS: Anion Gap 15.8 (5-19); Potassium 3.8 mmol/L (3.5-5.1)
[2022-07-21] MEDS: guaiFENesin 100 mg/5 mL UDC 10 mL 200 MG PO ×6 (04:15→22:31)
[2022-07-21] MEDS: sucralfate 1 gm Tablet PO ×4 (06:11→22:31)
[2022-07-21] MEDS: montelukast sodium 10 mg Tablet PO (06:11)
--- NOTE | 2022-07-21 07:34 | PC.NURSE ---
Rounding with Dr. Cosby, discussing POC.
[2022-07-21] MEDS: budesonide 0.5 mg/2 mL Neb INHALATION ×2 (07:47→19:47)
[2022-07-21] MEDS: pantoprazole DR 40 mg Tablet PO ×2 (08:10→17:06)
[2022-07-21] MEDS: loratadine 10 mg Tablet PO (08:10)
[2022-07-21] MEDS: metoprolol tartrate 25 mg Tablet PO ×2 (08:11→22:31)
[2022-07-21] MEDS: fluticasone nasal spray 16gm Btl 1 SPRAY NASAL ×2 (08:11→17:06)
[2022-07-21] MEDS: alum-mag-hydroxide-sime 30 mL UDC 15 ML PO (09:07)
--- NOTE | 2022-07-21 09:52 | PC.CHAP ---
Pastoral Care Encounter/Spiritual Assessment Type of Contact [] Declined safety director visit [] Patient/Family/Request visit [] Outpatient visit [] Follow-up visit [] Physician referral [] Code/Alert [x] Routine visit [] Staff referral [] Actively dying [] Patient sleeping [] Family support [] [] Out of room [] Palliative care [] [] Receiving care in room [] Pre-surgical visit [] Trauma [] Long length of stay [x] ICU visit [x] Other: 2nd day with meeting with PT... setting up in chair Relational/Emotional Strength [] Patient feels connected with others/family/visitors/staff [] Distress [] Loneliness/isolation [] Abandonment Spirituality of Patient [] Person of Alessandra [] Attends Sabianist of their Alessandra [] Believes in Prayer [] Reads Bible or Zoroastrian materials [] There are Spiritual issues to be addressed Platform Mill Supervisor Interventions [x] Prayer [] Active listening [] Non-anxious presence [] Spiritual/emotional support [] Crisis/trauma care [] Spiritual counseling [] Bereavement support [] Provided bereavement packet [] Provided Bible/devotional materials [] Provided toy/stuffed animal, coloring book to patient or family member [] Provided Communion [] Anointing/[place] [] Salvation [x] Completed spiritual assessment [] Other: Impact on Illness or Injury [] Angry [] Fearful [] Anxious [] Often cries [] Exhaustion [] Unable to work [] Unable to attend rastafarian [] Unable to walk/stand [] Unable to read [] Unable to drive [] Unable to eat/drink [] Unable to sleep [] Unable to be with family [] Patient intubated [] Other: Summary Time spent with patient
--- NOTE | 2022-07-21 14:46 | P.PN_ITS ---
Subjective Subjective: Reports that she is still having pain in her LUQ. Continued shortness of breath. Denies N/V/D. Has been able to eat and drink some and sit up in the chair. She says that she is still very fatigued. Vitals/I&O/Wt Last Vital Signs Temp 97.0 F L 07/21/22 06:00 Pulse 100 07/21/22 14:00 Resp 16 07/21/22 14:00 BP 122/81 07/21/22 14:00 Pulse Ox 95 07/21/22 14:00 O2 Del Method 07/21/22 12:14 O2 Flow Rate 2 07/21/22 12:14 FiO2 30 07/19/22 06:06 07/20/22 07/21/22 07/21/22 22:59 06:59 14:59 Intake Total 440 / 920 400 / 1320 480 / 480 Output Total 150 / 150 200 / 350 Balance 290 / 770 200 / 970 480 / 480 Weight last 48 hrs Weight 167 lb Weight 162 lb Physical Exam 2 Narrative: General: No acute distress, AO x3 HEENT: PERRLA, pupils bilaterally equal and reactive, pallors not present Chest: Wheezing appreciated over left lung all feels CVS: S1-S2 regular, no murmurs, no tachycardia, no gallops, no rubs Abdomen: Soft, nontender, no organomegaly, bowel sounds present Neuro: No focal sensory or motor deficits. Data 07/21/22 02:11 07/21/22 02:11 A&P Assessment and plan (1) Status asthmaticus: . (2) Severe persistent asthma: (3) Anxiety: (4) PTSD (post-traumatic stress disorder): Plan Patient admitted with status asthmaticus. She has persistent severe asthma. Currently receiving treatment with levo albuterol 1.25 mg 4 times daily, ipratropium every 4 hours scheduled, budesonide 0.5 mg twice daily, IV steroids methylprednisone 60 mg IV every 8 hours. Her wheezing is improved today though still persistent in the left lung. Continue IV steroids for now. She continues to complain of a persistent epigastric and left-sided chest discomfort which is radiating into her left shoulder. Troponin series was negative, no acute ST-T wave changes on EKG, unlikely that her pain is related to ACS. CTA of the chest was performed and negative for PE. CT of the abdomen and pelvis negative for acute events, no evidence of pancreatitis. Patient has a history of gastric ulceration and that may be the source of her p ain. We will increase her Protonix to 40 mg twice daily and add Carafate. Tachycardia is improved. Will continue ICU monitoring for now until her breathing is more stable Code Status: Full IVF: None DVT PPx: Lovenox GI PPx: Protonix ABx: None Diet: Regular Disposition: ICU Attestations Medical Necessity Statement*: Continued admission for status asthmaticus, IV steroids, intense nebulization, de-escalating steroids today, moved out of ICU Coding Level of Care Code Acute Code for Chg Fwd Moderate MDM includes number and complexity of problems actively addressed during encounter, amount and/or complexity of data reviewed/ordered and described risk of complication, morbidity or mortality of management as documented Diagnoses Status asthmaticus J45.902 Severe persistent asthma J45.50 Anxiety F41.9 PTSD (post-traumatic stress disorder) F43.10
--- NOTE | 2022-07-21 18:50 | PC.NURSE ---
TPN bag hung, tubing not changed, Surgeon, Pharmacy, and spd manager aware.
[2022-07-21] MEDS: ondansetron 2 mg/ML SDV 2 mL 4 MG IVP (21:53)
[2022-07-21] MEDS: prazosin 1 mg Capsule PO (22:31)
[2022-07-22] VITALS (37 sets, daily range): BP systolic 104–169; BP diastolic 63–103; PULSE 73–128; RESP 15–41; TEMP 36.6–36.8; O2SAT 90–98
[2022-07-22] MEDS: guaiFENesin 100 mg/5 mL UDC 10 mL 200 MG PO ×6 (02:58→22:04)
[2022-07-22] MEDS: levalbuterol 1.25 mg/3 mL Neb INHALATION ×6 (03:02→23:46)
[2022-07-22] MEDS: ipratropium 0.5 mg/2.5 mL Neb INHALATION ×6 (03:02→23:46)
[2022-07-22] MEDS: morphine 4 mg/mL SDV 1 mL 1 MG IVP (03:17)
[2022-07-22 04:33] LABS: Basophils % 0.2 %; Eosinophils % 0.1 %; Hematocrit 40.1 % (37.0-47.0); Hemoglobin 12.3 g/dL (11.5-15.3); Lymphocytes # 1.2 10^3/uL (0.8-4.8); Lymphocytes % 9.8 %; Mean Corpuscular HGB Conc 30.7 g/dL (30.0-36.0); Mean Corpuscular Hemoglobin 28.8 pg (28.0-34.0); Mean Corpuscular Volume 93.9 fl (81-99); Monocytes # 0.4 10^3/uL (0.2-0.9); Monocytes % 3.3 %; Neutrophils # 10.54 10^3/uL (1.8-7.7); Nucleated Red Blood Cells % 0 %; Platelet Count 291 10^3/cmm (130-400); Red Blood Count 4.27 10^6/uL (4.1-5.3); Red Cell Distribution Width 16.3 % (12.1-15.1); White Blood Count 12.6 10^3/uL (4.0-10.0)
[2022-07-22 05:02] LABS: Alanine Aminotransferase 30 U/L (0-33); Albumin Level 3.6 g/dL (3.5-5.2); Alkaline Phosphatase 75 U/L (35-105); Aspartate Amino Transferase 25 U/L (0-32); Blood Urea Nitrogen 23 mg/dL (6-20); C Reactive Protein 4.9 mg/L (0.0-4.9); Calcium 8.1 mg/dL (8.5-10.5); Carbon Dioxide 24 mmol/L (22-29); Chloride 106 mmol/L (98-107); Globulin 2.5 g/dL (1.3-4.6); Glomerular Filtration Rate 65.8 mL/min (90-130); Glucose 133 mg/dL (65-115); Osmolality Calculated 294 mOsm/kg (285-295); Sodium 139 mmol/L (136-145); Total Bilirubin 0.3 mg/dL (0.15-1.2); Total Protein 6.1 g/dL (6.6-8.7)
[2022-07-22 05:10] LABS: Anion Gap 14.3 (5-19); Potassium 5.3 mmol/L (3.5-5.1)
[2022-07-22] MEDS: sucralfate 1 gm Tablet PO ×4 (06:03→20:25)
[2022-07-22] MEDS: montelukast sodium 10 mg Tablet PO (06:03)
[2022-07-22] MEDS: budesonide 0.5 mg/2 mL Neb INHALATION ×2 (07:36→19:22)
--- NOTE | 2022-07-22 07:41 | PM.PN ---
Subjective Subjective: Reports continued shortness of breath and chest tightness. She has been able to sit up and ambulate around the room. Denies any chest pain. Has been able to eat and drink some. Vitals/I&O/Wt Last Vital Signs Temp 97.8 F 07/21/22 19:00 Pulse 107 H 07/22/22 07:30 Resp 20 H 07/22/22 07:30 BP 106/63 07/22/22 06:00 Pulse Ox 95 07/22/22 07:30 O2 Del Method 07/22/22 07:30 O2 Flow Rate 2 07/22/22 07:30 FiO2 30 07/19/22 06:06 07/21/22 07/22/22 07/22/22 22:59 06:59 14:59 Intake Total 440 / 920 200 / 1120 Output Total 350 / 350 Balance 440 / 920 -150 / 770 Weight last 48 hrs Weight 167 lb Weight 167 lb Physical Exam Narrative: General: No acute distress, AO x3. HEENT: PERRLA, pupils bilaterally equal and reactive, pallors not present Chest: Wheezing appreciated over left lung all feels CVS: S1-S2 regular, no murmurs, no tachycardia, no gallops, no rubs Abdomen: Soft, nontender, no organomegaly, bowel sounds present. Neuro: No focal sensory or motor deficits. Data 07/22/22 03:30 07/22/22 03:30 A&P Assessment and plan (1) Status asthmaticus: . (2) Severe persistent asthma: (3) Anxiety: (4) PTSD (post-traumatic stress disorder): Plan Patient admitted with status asthmaticus. Has history of severe persistent asthma. Currently receiving treatment with levo albuterol 1.25 mg 4 times daily, ipratropium every 4 hours scheduled, budesonide 0.5 mg twice daily, IV steroids methylprednisone 60 mg IV every 8 hours. Her wheezing is improved today though still persistent in the left lung. Continue IV steroids for now. She continues to complain of a persistent epigastric and left-sided chest discomfort which is radiating into her left shoulder. Troponin series was negative, no acute ST-T wave changes on EKG, unlikely that her pain is related to ACS. CTA of the chest was performed and negative for PE. CT of the abdomen and pelvis negative for acute events, no evidence of pancreatitis. Patient has a history of gastric ulceration and that may be the source of her pain. We will increase her Protonix to 40 mg twice daily and add Carafate. Tachycardia is improved. Ok to transfer to CSU today. Code Status: Full IVF: None DVT PPx: Lovenox GI PPx: Protonix ABx: None Diet: Regular Attestations Medical Necessity Statement*: Continued admission for status asthmaticus, IV steroids, intense nebulization, de-escalating steroids today, moved out of ICU Coding Level of Care Code Acute Code for Chg Fwd Moderate MDM includes number and complexity of problems actively addressed during encounter, amount and/or complexity of data reviewed/ordered and described risk of complication, morbidity or mortality of management as documented Diagnoses Status asthmaticus J45.902 Severe persistent asthma J45.50 Anxiety F41.9 PTSD (post-traumatic stress disorder) F43.10
[2022-07-22] MEDS: metoprolol tartrate 25 mg Tablet PO ×2 (08:05→20:25)
[2022-07-22] MEDS: pantoprazole DR 40 mg Tablet PO ×2 (08:05→17:22)
[2022-07-22] MEDS: loratadine 10 mg Tablet PO (08:05)
[2022-07-22] MEDS: fluticasone nasal spray 16gm Btl 1 SPRAY NASAL ×2 (08:05→17:24)
[2022-07-22] MEDS: prazosin 1 mg Capsule PO (20:25)
[2022-07-22] MEDS: benzonatate 100 mg Capsule PO (22:04)
[2022-07-22] MEDS: hyDROXYzine 25 mg Capsule PO (22:04)
[2022-07-22] MEDS: enoxaparin 40 mg/0.4 mL Syringe SUBCUT (23:58)
[2022-07-23] VITALS (36 sets, daily range): BP systolic 120–182; BP diastolic 80–108; PULSE 86–115; RESP 15–26; TEMP 36.6–36.8; O2SAT 88–99
[2022-07-23] MEDS: guaiFENesin 100 mg/5 mL UDC 10 mL 200 MG PO ×5 (02:44→19:27)
[2022-07-23] MEDS: ipratropium 0.5 mg/2.5 mL Neb INHALATION ×5 (05:19→19:48)
[2022-07-23] MEDS: levalbuterol 1.25 mg/3 mL Neb INHALATION ×5 (05:19→19:48)
[2022-07-23] MEDS: montelukast sodium 10 mg Tablet PO (06:32)
[2022-07-23] MEDS: sucralfate 1 gm Tablet PO ×4 (06:32→20:08)
[2022-07-23] MEDS: budesonide 0.5 mg/2 mL Neb INHALATION ×2 (08:42→19:48)
[2022-07-23] MEDS: fluticasone nasal spray 16gm Btl 1 SPRAY NASAL ×2 (09:26→17:34)
[2022-07-23] MEDS: pantoprazole DR 40 mg Tablet PO ×2 (09:26→17:37)
[2022-07-23] MEDS: loratadine 10 mg Tablet PO (09:26)
[2022-07-23] MEDS: metoprolol tartrate 25 mg Tablet PO ×2 (09:26→20:08)
[2022-07-23] MEDS: benzonatate 100 mg Capsule PO (13:48)
--- NOTE | 2022-07-23 17:21 | P.PN_ITS ---
Subjective Subjective: Says she feels a little better today. Having trouble breathing when she gets up to walk. Continues to have a lot of wheezing. Vitals/I&O/Wt Last Vital Signs Temp 97.9 F 07/23/22 15:56 Pulse 110 H 07/23/22 15:56 Resp 18 07/23/22 15:56 BP 164/108 07/23/22 15:56 Pulse Ox 94 07/23/22 15:56 O2 Del Method 07/23/22 15:56 O2 Flow Rate 3 07/23/22 15:38 FiO2 30 07/19/22 06:06 07/23/22 07/23/22 07/23/22 06:59 14:59 22:59 Intake Total 480 / 480 Balance 480 / 480 Weight last 48 hrs Weight 167 lb 9.6 oz Weight 167 lb Physical Exam Narrative: General: No acute distress, AO x3. HEENT: PERRLA, pupils bilaterally equal and reactive, pallors not present Chest: Wheezing appreciated over left lung all jensen. Decreased air movement throughout. CVS: S1-S2 regular, no murmurs, no tachycardia, no gallops, no rubs Abdomen: Soft, nontender, no organomegaly, bowel sounds present. Neuro: No focal sensory or motor deficits. Data 07/22/22 03:30 07/22/22 03:30 A&P Assessment and plan (1) Status asthmaticus: . (2) Severe persistent asthma: (3) Anxiety: (4) PTSD (post-traumatic stress disorder): Plan Patient admitted with status asthmaticus. Continue inpatient monitoring. Currently receiving treatment with levo albuterol 1.25 mg 4 times daily, ipratropium every 4 hours scheduled, budesonide 0.5 mg twice daily, IV steroids methylprednisone 60 mg IV every 8 hours. Her wheezing is improved today though still persistent in the left lung. Continue IV steroids for now. Chest pain improved. Troponin series was negative, no acute ST-T wave changes on EKG, unlikely that her pain is related to ACS. CTA of the chest was performed and negative for PE. CT of the abdomen and pelvis negative for acute events, no evidence of pa ncreatitis. Patient has a history of gastric ulceration and that may be the source of her pain. We will increase her Protonix to 40 mg twice daily and add Carafate. Tachycardia is improved. Code Status: Full IVF: None DVT PPx: Lovenox GI PPx: Protonix ABx: None Diet: Regular Attestations Medical Necessity Statement*: Continued admission for status asthmaticus, IV steroids, intense nebulization, de-escalating steroids today, moved out of ICU Coding Level of Care Code Acute Code for Chg Fwd Moderate MDM includes number and complexity of problems actively addressed during encounter, amount and/or complexity of data reviewed/ordered and described risk of complication, morbidity or mortality of management as documented Diagnoses Status asthmaticus J45.902 Severe persistent asthma J45.50 Anxiety F41.9 PTSD (post-traumatic stress disorder) F43.10
[2022-07-23] MEDS: morphine 4 mg/mL SDV 1 mL 1 MG IVP (20:07)
[2022-07-23] MEDS: prazosin 1 mg Capsule PO (20:08)
[2022-07-24] VITALS (20 sets, daily range): BP systolic 142–171; BP diastolic 66–95; PULSE 72–107; RESP 16–25; TEMP 36.6–36.7; O2SAT 94–99
[2022-07-24] MEDS: guaiFENesin 100 mg/5 mL UDC 10 mL 200 MG PO ×4 (00:13→23:28)
[2022-07-24] MEDS: enoxaparin 40 mg/0.4 mL Syringe SUBCUT ×2 (00:14→23:29)
[2022-07-24] MEDS: levalbuterol 1.25 mg/3 mL Neb INHALATION ×6 (00:49→22:16)
[2022-07-24] MEDS: ipratropium 0.5 mg/2.5 mL Neb INHALATION ×6 (00:49→22:16)
[2022-07-24] MEDS: sucralfate 1 gm Tablet PO ×4 (06:09→20:48)
[2022-07-24] MEDS: montelukast sodium 10 mg Tablet PO (06:09)
[2022-07-24] MEDS: budesonide 0.5 mg/2 mL Neb INHALATION ×2 (08:08→22:16)
[2022-07-24] MEDS: metoprolol tartrate 25 mg Tablet PO ×2 (08:55→20:48)
[2022-07-24] MEDS: loratadine 10 mg Tablet PO (08:55)
[2022-07-24] MEDS: pantoprazole DR 40 mg Tablet PO ×2 (08:55→16:47)
[2022-07-24] MEDS: hyDROXYzine 25 mg Capsule PO ×3 (08:56→20:48)
--- NOTE | 2022-07-24 11:56 | P.PN_ITS ---
Subjective Subjective: Seen this morning. No acute events overnight. He says she gets really short of breath when she tries to walk to the bathroom. CTA at admission did rule out a pulmonary embolism. Sees Dr. Kumar for pulmonology. Patient does have a diagnosis of severe persistent asthma. Says she feels slightly better than yesterday. Vitals/I&O/Wt Last Vital Signs Temp 97.9 F 07/24/22 04:00 Pulse 103 H 07/24/22 08:00 Resp 16 07/24/22 08:00 BP 155/67 07/24/22 07:41 Pulse Ox 97 07/24/22 08:00 O2 Del Method 07/24/22 08:00 O2 Flow Rate 3 07/24/22 08:00 FiO2 30 07/19/22 06:06 07/23/22 07/24/22 07/24/22 22:59 06:59 14:59 Intake Total 1480 / 1960 236 / 236 Balance 1480 / 1960 236 / 236 Weight last 48 hrs Weight 76.022 kg Weight 76.022 kg Physical Exam Narrative: General: Alert oriented x3, patient seen eating up in bed appearing comfortable at this time not short of breath right now. No conversational dyspnea. No acute distress. On 3 L nasal cannula. HEENT: Normocephalic, atraumatic, EOMI, Cardio: Regular rate rhythm, normal S1-S2, Respiratory: Bilateral rhonchi all throughout her lung jensen and significant wheezing present. GI: Abdomen soft, nontender, nondistended, bowel sounds + Extremities: No bilateral lower extremity edema appreciated. Data 07/22/22 03:30 07/22/22 03:30 A&P Assessment and plan (1) Severe persistent asthma: (2) Anxiety: (3) PTSD (post-traumatic stress disorder): (4) Status asthmaticus: (5) COPD (chronic obstructive pulmonary disease): Plan #Asthma exacerbation #History of severe persistent asthma #Anxiety #PTSD -Continue Solu-Medrol 60 every 8 hours ? Continue with desonide 0.5 nebulization twice daily ? DuoNeb every 4 hours scheduled ? Patient is definitely improved compared to admission however still is wheezing significantly and sounds tight. I would like to continue inpatient treatment with IV steroids at this time. ? CTA chest at admission was negative for PE. CT abdomen pelvis negative for acute pathology no pancreatitis. ? Patient did have some epigastric pain on admission for which Protonix was increased to 40 twice daily and Carafate was added. I will continue that at discharge. ? Patient follows with pulmonology as an outpatient. I have encouraged her to follow-up with them after discharge. ? She will require prolonged prednisone taper. -Patient is on IL-5 injections as an outpatient however she says she has not been able to get her dose most recently. She is supposed to be on it every 8 weeks. ?Sputum culture did not show any growth ? Echocardiogram shows EF 67% no diagnostic wall motion abnormalities. Grade 1 x 4 diastolic dysfunction. ?Patient does not seem fluid overloaded and seems well compensated. -No labs to review today. ? We will check a BMP tomorrow. ? Patient got magnesium on admission in the ER. -If she continues to improve will consider to discharge her in a.m. ? We will need home oxygen evaluation at discharge - We will discuss with her outpatient senior education specialist at discharge for transition of care. Full Code Diet: Regular Attestations Medical Necessity Statement*: Continue to hospitalize today for IV steroids and treatment of asthma exacerbation. Plan to discharge her home possibly by tomorrow if she continues to improve. and Straight Forward/Low Time for a total of 30 minutes, includes reviewing past or interval history, examining/interviewing patient, placing orders, counseling patient/family/other support, updating patient/family/other support, discussing plan of care with staff and documenting encounter Other Coding Information Focused coding review requested Diagnoses Severe persistent asthma J45.50 Anxiety F41.9 PTSD (post-traumatic stress disorder) F43.10 Status asthmaticus J45.902 COPD (chronic obstructive pulmonary disease) J44.9
[2022-07-24] MEDS: benzonatate 100 mg Capsule PO ×2 (12:04→20:48)
[2022-07-24] MEDS: prazosin 1 mg Capsule PO (20:48)
[2022-07-24] MEDS: morphine 4 mg/mL SDV 1 mL 1 MG IVP (20:52)
[2022-07-24 21:25] LABS: Adenovirus Detected (NOT DETECT); Chlamydia Pneumoniae Not Detected (NOT DETECT); Coronavirus 229E,HKU1,NL63,OC4 Not Detected (NOT DETECT); Human Metapneumovirus Not Detected (NOT DETECT); Human Rhinovirus/Enterovirus Detected (NOT DETECT); Influenza A Not Detected (NOT DETECT); Influenza A H1 Not Detected (NOT DETECT); Influenza A H1-2009 Not Detected (NOT DETECT); Influenza A H3 Not Detected (NOT DETECT); Influenza B Not Detected (NOT DETECT); Mycoplasma Pneumoniae Not Detected (NOT DETECT); Parainfluenza Virus Type 1 Not Detected (NOT DETECT); Parainfluenza Virus Type 2 Not Detected (NOT DETECT); Parainfluenza Virus Type 3 Not Detected (NOT DETECT); Parainfluenza Virus Type 4 Not Detected (NOT DETECT); Respiratory Syncytial Virus A Not Detected (NOT DETECT); Respiratory Syncytial Virus B Not Detected (NOT DETECT); SARS-COV-2 Not Detected (NOT DETECT)
[2022-07-25] VITALS (18 sets, daily range): BP systolic 116–170; BP diastolic 58–98; PULSE 71–106; RESP 15–23; TEMP 36.6–36.8; O2SAT 87–100
[2022-07-25] MEDS: montelukast sodium 10 mg Tablet PO (03:03)
[2022-07-25] MEDS: ipratropium 0.5 mg/2.5 mL Neb INHALATION ×4 (04:08→20:21)
[2022-07-25] MEDS: levalbuterol 1.25 mg/3 mL Neb INHALATION ×4 (04:08→20:21)
[2022-07-25] MEDS: budesonide 0.5 mg/2 mL Neb INHALATION ×2 (07:41→20:21)
[2022-07-25] MEDS: loratadine 10 mg Tablet PO (09:03)
[2022-07-25] MEDS: metoprolol tartrate 25 mg Tablet PO ×2 (09:03→20:17)
[2022-07-25] MEDS: fluticasone nasal spray 16gm Btl 1 SPRAY NASAL ×2 (09:03→18:02)
[2022-07-25] MEDS: pantoprazole DR 40 mg Tablet PO ×2 (09:03→17:47)
[2022-07-25] MEDS: guaiFENesin 100 mg/5 mL UDC 10 mL 200 MG PO ×3 (12:02→22:51)
[2022-07-25] MEDS: sucralfate 1 gm Tablet PO ×2 (12:02→17:48)
--- NOTE | 2022-07-25 14:59 | PC.NURSE ---
IV infiltrated #24 gauge removed on left lateral wrist. pt stated she is a hard stick. and needed an IV ultrasound to put in.
--- NOTE | 2022-07-25 15:01 | PC.NURSE ---
House sup called to assist in starting an MAGNOLIA IV.
--- NOTE | 2022-07-25 15:04 | PM.PN ---
Subjective Subjective: Patient seen and examined today. She was undergoing a home O2 evaluation. She feels a lot better. However still has some wheezing. Vitals/I&O/Wt Last Vital Signs Temp 97.9 F 07/25/22 12:00 Pulse 94 07/25/22 12:00 Resp 22 H 07/25/22 12:00 BP 170/98 07/25/22 12:48 Pulse Ox 90 07/25/22 12:00 O2 Del Method 07/25/22 12:00 O2 Flow Rate 2 07/25/22 09:02 FiO2 30 07/19/22 06:06 07/25/22 07/25/22 07/25/22 06:59 14:59 22:59 Intake Total 420 / 1636 480 / 480 Balance 420 / 1636 480 / 480 Weight last 48 hrs Weight 76.34 kg Weight 76.022 kg Physical Exam Narrative: General: Alert oriented x3, patient seen eating up in bed appearing comfortable at this time not short of breath right now. No conversational dyspnea. No acute distress. On 3 L nasal cannula. HEENT: Normocephalic, atraumatic, EOMI, Cardio: Regular rate rhythm, normal S1-S2, Respiratory: Bilateral rhonchi all throughout her lung jensen and moderate wheezing present with significant improvement than yesterday GI: Abdomen soft, nontender, nondistended, bowel sounds + Extremities: No bilateral lower extremity edema appreciated. Data 07/22/22 03:30 07/22/22 03:30 Micro: Microbiology 07/24/22 19:05 Gram Stain - Final Sputum - Expectorated Sputum A&P Assessment and plan (1) Severe persistent asthma: (2) Anxiety: (3) PTSD (post-traumatic stress disorder): (4) Status asthmaticus: (5) COPD (chronic obstructive pulmonary disease): Plan #Asthma exacerbation #History of severe persistent asthma #Anxiety #PTSD -Continue Solu-Medrol 60 BID. She will need a prednisone taper at discharge. ? Continue with desonide 0.5 nebulization twice daily ? DuoNeb every 4 hours scheduled ? Patient is definitely improved compared to admission however still is wheezing significantly and sounds tight. I would like to continue inpatient treatment with IV steroids at this time. ? CTA chest at admission was negative for PE. CT abdomen pelvis negative for acute pathology no pancreatitis. ? Patient did have some epigastric pain on admission for which Protonix was increased to 40 twice daily and Carafate was added. I will continue that at discharge. ? Patient follows with pulmonology as an outpatient. I have encouraged her to follow-up with them after discharge. ? She will require prolonged prednisone taper. -Patient is on IL-5 injections as an outpatient however she says she has not been able to get her dose most recently. She is supposed to be on it every 8 weeks. ?Sputum culture did not show any growth ? Echocardiogram shows EF 67% no diagnostic wall motion abnormalities. Grade 1 x 4 diastolic dysfunction. ?Patient does not seem fluid overloaded and seems well compensated. -No labs to review today. ? Patient got magnesium on admission in the ER. -If she continues to improve will consider to discharge her in a.m. ? We will need home oxygen evaluation at discharge Full Code Diet: Regular Attestations Medical Necessity Statement*: Possible discharge in a.m. as long as patient continues to improve. Diagnoses Severe persistent asthma J45.50 Anxiety F41.9 PTSD (post-traumatic stress disorder) F43.10 Status asthmaticus J45.902 COPD (chronic obstructive pulmonary disease) J44.9
[2022-07-25] MEDS: benzonatate 100 mg Capsule PO (20:17)
[2022-07-25] MEDS: prazosin 1 mg Capsule PO (20:17)
[2022-07-25] MEDS: hyDROXYzine 25 mg Capsule PO (20:18)
[2022-07-25] MEDS: enoxaparin 40 mg/0.4 mL Syringe SUBCUT (20:18)
--- NOTE | 2022-07-25 22:29 | PC.NURSE ---
Solumedrol not given due to no IV access. Multiple attempts have been made without success. Waiting for US guided access.
--- NOTE | 2022-07-25 23:00 | PC.NURSE ---
IV access obtained to right AC using US guiding. Patient given solumedrol as ordered with flush. Shortly after patient c/o severe pain to site with twitching noticed to right pointer finger. IV access removed. Patient refusing to have IV replaced at this time.
[2022-07-26] VITALS (10 sets, daily range): BP systolic 149–152; BP diastolic 70–90; PULSE 75–90; RESP 14–20; TEMP 36.6; O2SAT 90–97
[2022-07-26] MEDS: guaiFENesin 100 mg/5 mL UDC 10 mL 200 MG PO ×2 (04:01→11:06)
[2022-07-26] MEDS: montelukast sodium 10 mg Tablet PO (04:01)
[2022-07-26] MEDS: fluticasone nasal spray 16gm Btl 1 SPRAY NASAL (09:02)
[2022-07-26] MEDS: pantoprazole DR 40 mg Tablet PO (09:03)
[2022-07-26] MEDS: metoprolol tartrate 25 mg Tablet PO (09:03)
[2022-07-26] MEDS: loratadine 10 mg Tablet PO (09:03)
[2022-07-26] MEDS: budesonide 0.5 mg/2 mL Neb INHALATION (09:14)
[2022-07-26] MEDS: levalbuterol 1.25 mg/3 mL Neb INHALATION ×2 (09:15→11:47)
[2022-07-26] MEDS: ipratropium 0.5 mg/2.5 mL Neb INHALATION ×2 (09:15→11:47)
[2022-07-26] MEDS: sucralfate 1 gm Tablet PO (11:06)
--- NOTE | 2022-07-26 12:47 | PC.NURSE ---
discharge instructions given and explained.pt verb understanding of instructions.discharged via w/c to exit.friend to drive pt home
--- NOTE | 2022-07-26 13:55 | P.DS_ITS ---
Discharge Providers Date of Admission: 07/18/22 22:41 Date of Discharge: July 25, 2022 Attending Provider at Admission: Blanca Petit MD Attending Provider at Discharge: Lenka Wilhelm MD Primary Care Provider: Laron Gutierrez MD Diagnoses at Discharge Discharge Diagnosis (1) Severe persistent asthma: Status: Chronic (2) Anxiety: Status: Acute (3) PTSD (post-traumatic stress disorder): Status: Acute (4) Status asthmaticus: Status: Resolved (5) COPD (chronic obstructive pulmonary disease): Status: Acute Reason for Visit Reason for Visit: SOB Brief History: As per Dr. Petit Ramila Riddhi Barrow is a 51 year old female with a history of severe persistent asthma who presented to the emergency room via EMS with severe difficulty breathing.? She says she was doing okay yesterday.? Last night her breathing started to worsen.? She equates it to her downstairs neighbor increasing use of heat last night which often bothers her.? She utilized several rescue nebulizer treatments, her usual inhalers and took extra prednisone without any improvement in her symptoms.? She is not sure exactly how many breathing treatments she used but nothing was making anything any better.? She eventually contacted EMS.? On arrival to the emergency room she was described as tripoding and using accessory muscles.? She received Solu-Medrol and was placed on BiPAP.? ABG showed 7.3 // on room air.? She has had several ER visits and hospitalizations over the last few months.? She has a history of hypercapnia and hypoxemia at times.? She has required BiPAP before.? With management she has started to have some improvement continues to have significant work of breathing.? Request was made for admission to hospitalist service. In talking with Mrs. Barrow, she had previously followed with Dr. Ruiz.? She does have an allergic component to her asthma.? She was prescribed anti-IL-5 treatment last fall.? Prior approval was obtained in March but patient indicates she has yet to receive the medication from the company.? She takes prednisone 10 mg most days sometimes more.? She uses albuterol, Spiriva and Pulmicort.? She also uses loratadine and Singulair.? She has rhinorrhea.? Not using any nasal inhalers.? Cough is occasionally productive of yellowish-green sputum.? No fever.? No nausea or vomiting.? She has chronic diarrhea related to prior GI surgeries.? She indicates that she is in the process of trying to see if she can make arrangements to move back to [facility] where she might have more support.? The issues around her PTSD and anxiety have escalated lately for reasons beyond her control.? This has made it more challenging for her.? She tells me that at some point in time she was told that she had a spot on her lungs.? Review of prior CT scans seems to show that she had a bud in tree appearance in right upper lobe.? She is worried that this could have been cancer but she indicates that she does not want to know and would never have a biopsy.? Cancer evidently runs in her family.? Her tobacco exposure over the years was secondhand smoke. Hospital Course Hospital Course She was initially admitted for status asthmaticus who has an allergic component to asthma as well. She was supposed to start on IL-5 biologic agent treatment last fall however was not able to obtain the medication due to insurance issues. She finally got approval but has not received the medication yet. She initially was in the ICU and was given magnesium and placed on Solu-Medrol 60 every 8 hours. Patient remained on that and gradually improved. CT of chest negative for PE. Eventually patient was discharged home once wheezing was better on a steroid taper. During hospital stay respiratory panel revealed she was positive for adenovirus and Enterra rhinovirus as well. Home oxygen evaluation was done at discharge and she was sent home on 2 L. She was asked to follow-up with her inventory planner after discharge. Once she is completely back to her baseline she will be starting the biologic agent. She will coordinate with pulmonology clinic to have that administered. I will send a copy of the summary to her inventory planner for transition of care. Physical Exam Narrative: General: Alert oriented x3, patient seen eating up in bed appearing comfortable at this time not short of breath right now.? No conversational dyspnea.? No acute distress.? On 2 L nasal cannula. HEENT: Normocephalic, atraumatic, EOMI, Cardio: Regular rate rhythm, normal S1-S2, Respiratory: No wheezing present however minimal rhonchi appreciated at lung bases. Lungs mainly clear to auscultation today. Much better compared to prior days when she was seen. Very good bilateral air movement. GI: Abdomen soft, nontender, nondistended, bowel sounds + Extremities: No bilateral lower extremity edema appreciated. Discharge Data Studies Completed and Pending Completed Studies During Hospitalization Category Date Time Status CTA chest CT abdomen pelvis [CT angio chest w abd pel w Cat Scan 07/20/22 13:10 Completed con] Routine XR chest 1V portable [id number] Stat Exams 07/18/22 12:25 Completed CV. echo complete* [id number] Routine Ultrasound 07/19/22 21:18 Completed Pending at discharge Category Date Time Status Sputum Culture and Gram Stain Routine Lab 07/24/22 19:05 Results Radiology Impressions Chest X-Ray 07/18/22 12:25 IMPRESSION: 1. No acute cardiopulmonary finding. Chest/Abdomen/Pelvis CT 07/20/22 13:10 IMPRESSION: 1. Lungs are well aerated. No acute pulmonary infiltrates. No focal pneumonia or pleural fluid. 2. No evidence of pulmonary embolus. 3. Diffuse fatty infiltration liver with hepatomegaly. 4. Cholecystectomy clips. 5. Prior hysterectomy. 6. Fat-containing umbilical hernia. 7. Low-lying cecum RIGHT lower quadrant with cecal and RIGHT colon con stipation. Laboratory Results WBC 12.6 10^3/uL (4.0-10.0) H 07/22/22 03:30 RBC 4.27 10^6/uL (4.1-5.3) 07/22/22 03:30 Hgb 12.3 g/dL (11.5-15.3) 07/22/22 03:30 Hct 40.1 % (37.0-47.0) 07/22/22 03:30 MCV 93.9 fl (81-99) 07/22/22 03:30 MCH 28.8 pg (28.0-34.0) 07/22/22 03:30 MCHC 30.7 g/dL (30.0-36.0) 07/22/22 03:30 RDW 16.3 % (12.1-15.1) H 07/22/22 03:30 Plt Count 291 10^3/cmm (130-400) 07/22/22 03:30 MPV 10.0 fL (7.4-10.4) 07/22/22 03:30 Neut % (Auto) 84.0 % 07/22/22 03:30 Lymph % (Auto) 9.8 % 07/22/22 03:30 [place] % (Auto) 3.3 % 07/22/22 03:30 Eos % (Auto) 0.1 % 07/22/22 03:30 Baso % (Auto) 0.2 % 07/22/22 03:30 Neut # (Auto) 10.54 10^3/uL (1.8-7.7) H 07/22/22 03:30 Lymph # (Auto) 1.2 10^3/uL (0.8-4.8) 07/22/22 03:30 [place] # (Auto) 0.4 10^3/uL (0.2-0.9) 07/22/22 03:30 Eos # (Auto) 0.0 10^3/uL (0.0-0.8) 07/22/22 03:30 Baso # (Auto) 0.0 10^3/uL (0.0-0.1) 07/22/22 03:30 Nucleated RBC % (auto) 0 % 07/22/22 03:30 Nucleated RBCs # 0.0 /100WBC 07/22/22 03:30 D-Dimer 0.35 ug/mIFEU (0-0.59) 07/19/22 16:00 Specimen Type Arterial 07/18/22 12:18 Sample Site Radial, left 07/18/22 12:18 ABG pH 7.37 (7.35-7.45) 07/18/22 12:18 ABG pCO2 43.6 mmHg (35-45) 07/18/22 12:18 ABG pO2 64.6 mmHg (80.0-100.0) L 07/18/22 12:18 ABG HCO3 25.0 mmol/L (22-26) 07/18/22 12:18 ABG O2 Saturation 92.3 07/18/22 12:18 ABG Base Excess -0.5 mmol/L (-2.0-2.0) 07/18/22 12:18 Eric Test Pos 07/18/22 12:18 A-a O2 Gradient 4.0 mmHg (5-10) L 07/18/22 12:18 Hematocrit 43.1 % (37-47) 07/18/22 12:18 Hgb O2 Saturation 92.5 % (95-100) L 07/18/22 12:18 Carboxyhemoglobin 0.7 %THgb (0.4-20.1) 07/18/22 12:18 Methemoglobin < 0.0 % (0.4-1.5) L 07/18/22 12:18 Total Hemoglobin 14.1 g/dL (12-16) 07/18/22 12:18 Sodium 143.0 mmol/L (131-143) 07/18/22 12:18 Potassium 3.5 mmol/L (3.5-5.0) 07/18/22 12:18 Glucose 124.0 mg/dL (70-115) H 07/18/22 12:18 Ionized Calcium 1.2 mmol/L (1.1-1.4) 07/18/22 12:18 O2 Delivery Device Room air 07/18/22 12:18 FiO2 21.0 % 07/18/22 12:18 Charter Representative ID [place] 07/18/22 12:18 Sodium 139 mmol/L (136-145) 07/22/22 03:30 Potassium 5.3 mmol/L (3.5-5.1) H 07/22/22 03:30 Chloride 106 mmol/L (98-107) 07/22/22 03:30 Carbon Dioxide 24 mmol/L (22-29) 07/22/22 03:30 Anion Gap 14.3 (5-19) 07/22/22 03:30 BUN 23 mg/dL (6-20) H 07/22/22 03:30 Creatinine 0.9 mg/dL (0.5-0.9) 07/22/22 03:30 GFR Calculation 65.8 mL/min (90-130) L 07/22/22 03:30 Glucose 133 mg/dL (65-115) H 07/22/22 03:30 Calculated Osmolality 294 mOsm/kg (285-295) 07/22/22 03:30 Calcium 8.1 mg/dL (8.5-10.5) L 07/22/22 03:30 Magnesium 2.8 mg/dL (1.7-2.3) H 07/20/22 02:32 Total Bilirubin 0.3 mg/dL (0.15-1.2) 07/22/22 03:30 AST 25 U/L (0-32) 07/22/22 03:30 ALT 30 U/L (0-33) 07/22/22 03:30 Alkaline Phosphatase 75 U/L (35-105) 07/22/22 03:30 Troponin T Baseline 6 ng/L (0-10) 07/18/22 22:15 Troponin T 120 Minute 7.41 ng/L (0-10) 07/18/22 23:44 Delta Troponin T 1.41 ABS# (0-10) 07/18/22 23:44 Troponin T Hi Sens 6Hr 6.89 ng/L (0-10) 07/19/22 02:48 Troponin T Hi Sens 6Hr Delta 0.52 ng/L (0-12) 07/19/22 02:48 C-Reactive Protein 4.9 mg/L (0.0-4.9) 07/22/22 03:30 NT-Pro-B Natriuret Pep 36 pg/mL (0-125) 07/18/22 12:47 Total Protein 6.1 g/dL (6.6-8.7) L 07/22/22 03:30 Albumin 3.6 g/dL (3.5-5.2) 07/22/22 03:30 Globulin 2.5 g/dL (1.3-4.6) 07/22/22 03:30 Nasal Influ A H1 2009 PCR Not detected (NOT DETECT) 07/24/22 19:30 Adenovirus (PCR) Detected (NOT DETECT) A 07/24/22 19:30 C. pneumoniae DNA (PCR) Not detected (NOT DETECT) 07/24/22 19:30 Coronavirus 229E (PCR) Not detected (NOT DETECT) 07/24/22 19:30 Human Metapneumovir PCR Not detected (NOT DETECT) 07/24/22 19:30 Influenza A (H1) PCR Not detected (NOT DETECT) 07/24/22 19:30 Influenza A (H3) PCR Not detected (NOT DETECT) 07/24/22 19:30 Influenza Type A Ag negative (Negative) 07/18/22 14:55 Influenza Type A (PCR) Not detected (NOT DETECT) 07/24/22 19:30 Influenza Type B Ag negative (Negative) 07/18/22 14:55 Influenza Type B (PCR) Not detected (NOT DETECT) 07/24/22 19:30 M. pneumoniae (PCR) Not detected (NOT DETECT) 07/24/22 19:30 Parainfluenza 1 (PCR) Not detected (NOT DETECT) 07/24/22 19:30 Parainfluenza 2 (PCR) Not detected (NOT DETECT) 07/24/22 19:30 Parainfluenza 3 (PCR) Not detected (NOT DETECT) 07/24/22 19:30 Parainfluenza 4 (PCR) Not detected (NOT DETECT) 07/24/22 19:30 RSV Type A (PCR) Not detected (NOT DETECT) 07/24/22 19:30 RSV Type B (PCR) Not detected (NOT DETECT) 07/24/22 19:30 Entero/Rhino (PCR) Detected (NOT DETECT) A 07/24/22 19:30 SARS-CoV-2 (PCR) Not detected (NOT DETECT) 07/24/22 19:30 Vitals Last Vital Signs Temp 97.9 F 07/25/22 12:00 Pulse 94 07/25/22 12:00 Resp 22 H 07/25/22 12:00 BP 170/98 07/25/22 12:48 Pulse Ox 90 07/25/22 12:00 O2 Del Method 07/25/22 12:00 O2 Flow Rate 2 07/25/22 09:02 FiO2 30 07/19/22 06:06 Discharge Plan Discharge Patient Disposition: Home Condition: Stable Prescriptions: New sucralfate 1 gram Tablet 1 g PO AC&BEDTIME 14 Days Qty: 28 0RF benzonatate 100 mg Capsule 100 mg PO TID PRN (Reason: Cough) 7 Days Qty: 15 0RF pantoprazole 40 mg Tablet,Delayed Release (Dr/Ec) 40 mg PO BID 30 Days Qty: 60 0RF metoprolol tartrate 25 mg Tablet 25 mg PO BID@0900,2100 30 Days Qty: 60 0RF prednisone 10 mg tablet 10 mg PO DIRECTED Qty: 23 0RF Rx Instructions: 40 mg daily x3d 20 mg daily x3d 10 mg daily x3d 5 mg daily x4d Continued buspirone 5 mg tablet 5 mg PO TID PRN (Reason: anxiety) Qty: 90 3RF albuterol sulfate 90 mcg/actuation HFA aerosol inhaler 2 puff inhalation Q6H PRN (Reason: shortness of breath or wheezing) 30 Days Qty: 8.5 12RF albuterol sulfate 2.5 mg /3 mL (0.083 %) solution for nebulization 2.5 mg inhalation QID PRN (Reason: shortness of breath or wheezing) Qty: 360 9RF Singulair 10 mg tablet 10 mg PO QAM Qty: 30 3RF Fasenra Pen 30 mg/mL auto-injector 30 mg SUBCUT Q28D Qty: 1 2RF Rx Instructions: LOADING DOSE NC Ref# [id number], 04/03/22-04/03/23 [id number] Fasenra Pen 30 mg/mL auto-injector 30 mg SUBCUT .q 8 weeks Qty: 1 5RF Rx Instructions: Maintenance dose NC Ref# [id number], 04/03/22-04/03/23 [id number] metoclopramide HCl [Reglan] 10 mg tablet 10 mg PO Q6H PRN (Reason: headache) Qty: 20 0RF potassium chloride 10 mEq capsule, extended release 10 meq PO DAILY Qty: 5 0RF prazosin 1 mg capsule 1 mg PO BEDTIME multivitamin Tablet 1 tab PO DAILY zinc acetate 50 mg (zinc) Capsule 50 mg PO DAILY omega-3 fatty acids 1,000 mg Capsule 1,000 mg PO DAILY calcium carbonate-vitamin D3 600 mg-5 mcg (200 unit) Tablet 1 tab PO DAILY ascorbic acid (vitamin C) [Vitamin C] 500 mg Tablet 500 mg PO DAILY prednisone 10 mg tablet 10 mg PO DAILY PRN (Reason: Pain) hydroxyzine HCl 25 mg tablet 25 mg PO BID PRN (Reason: Anxiety) Spiriva Respimat 1.25 mcg/actuation mist 2 puff inhalation QAM loratadine 10 mg Tablet 10 mg PO DAILY Qty: 30 0RF No Action budesonide-formoterol [Symbicort] 160-4.5 mcg/actuation HFA aerosol inhaler 2 puff inhalation BID 30 Days Qty: 10.2 3RF Discharge Orders: Discharge Order (Routine); Ordered 07/26/22 Ordered By: Lenka Wilhelm Other Ambulatory Orders: DME: Oxygen (Order) Location: None Selected Ordered By: Lenka Wilhelm Referrals: Celestino Kumar MD [Physician] - 08/08/22 3:00 pm (Please follow-up with Dr. Kumar on August 08 at 3:00P.M. If you have any questions or need to reschedule. Please call ) Laron Gutierrez MD [Primary Care Provider] - 08/01/22 4:10 pm (Please follow-up with Dr. Gutierrez on August 01 at 4:10P.M. If you have any quesions or need to reschedule. Please call ) Discharge Diet: Regular Discharge Activity: Increase activity as tolerated and Oxygen as instructed Patient Instructions: Benzonatate (By mouth), Metoprolol (By mouth) (Lopressor, Toprol XL), Sucralfate (By mouth) (Carafate), Prednisone (By mouth) (predniSONE Intensol, Prednicot, Deltasone, Riya), Pantoprazole (By mouth) (Protonix), Asthma (DC), COPD (Chronic Obstructive Pulmonary Disease) (DC), Anxiety (DC), COPD Stoplight, Opioid Safety Activity Restrictions/Additional Instructions: return to er if you have worsening of symptoms or new symptoms develop Discharge Attestations Time Spent in Discharge Care*: less than 30 min Quality Metrics Clinical Quality Measures [ No reported AMI, CVA or VTE this stay] Coding Level of Care Code 72357 Total time (in minutes) for Discharge: 20 Diagnoses Severe persistent asthma J45.50 Anxiety F41.9 PTSD (post-traumatic stress disorder) F43.10 Status asthmaticus J45.902 COPD (chronic obstructive pulmonary disease) J44.9
== END 2022-07-26 12:48 | disposition home or self-care (01) | DRG 191 ==
LOC: ER 12:51 → ICU 22:42 → CSU 07-22 14:21
PROVIDERS: Family Medicine; Student in an Organized Health Care Education/Training Program; Admitting Provider Hospitalist; Emergency Provider Family Medicine; PCP Family Medicine; Visit Provider Internal Medicine
DX: J44.9 Chronic obstructive pulmonary disease, unspecified (principal); J45.52 Severe persistent asthma with status asthmaticus; F43.10 Post-traumatic stress disorder, unspecified; Z79.51 Long term (current) use of inhaled steroids; Z79.52 Long term (current) use of systemic steroids; K52.9 Noninfective gastroenteritis and colitis, unspecified; F41.9 Anxiety disorder, unspecified; Z77.22 Contact with and (suspected) exposure to environmental tobacco smoke (acute) (chronic); H54.40 Blindness, one eye, unspecified eye; Z86.16 Personal history of COVID-19; Z90.49 Acquired absence of other specified parts of digestive tract; R07.9 Chest pain, unspecified; R00.0 Tachycardia, unspecified
CPT/HCPCS: 36415; 36600; 71045; 71275; 74177; 80051; 80053; 82330; 82805; 83735; 83880; 84484; 85025; 85378; 86140; 87070; 87205; 87486; 87581; 87633; 87635; 87804; 93005; 93306; 94640; 94660; 94664; 94760; 96365; 96372; 96374; 96375; 99291; C9113; J1200; J1650; J1940; J2270; J2405; J2930; J3475; J7613; J7614; J7626; J7644; Q9967

== ENCOUNTER 2022-08-08 13:51 | Oncology outpatient (recurring) (ONCR) | payer MEDICAID, SELFPAY ==
[2022-08-08] MEDS: NON-FORMULARY MEDICATION 1 EACH SUBCUT (14:31)
[2022-08-08 14:35] VITALS: BP 126/72; PULSE 71; RESP 18; TEMP 35.9; TEMP 36.4; O2SAT 99
== END 2022-08-25 23:59 | disposition home or self-care (01) ==
LOC: ONCMED 13:51
PROVIDERS: PCP Family Medicine; Visit Provider Internal Medicine Pulmonary Disease
DX: J45.50 Severe persistent asthma, uncomplicated (principal)
CPT/HCPCS: 96401; 99214

== ENCOUNTER 2022-09-14 23:02 | Inpatient (IN) | payer MEDICAID, SELFPAY ==
--- NOTE | 2022-09-14 23:03 | XRR_ITS ---
PROCEDURE INFORMATION: Exam: XR Chest Exam date and time: 09/14/2022 11:15 PM Age: 52 years old Clinical indication: Shortness of breath; Additional info: SOB TECHNIQUE: Imaging protocol: Radiologic exam of the chest. Views: 1 view. COMPARISON: CR XR chest 1V portable [id number] 07/18/2022 1:11 PM FINDINGS: Lungs: The lungs are hyperinflated, consistent with COPD. No consolidative pulmonary infiltrates are noted. Faintly visualized 5 mm calcified granuloma noted in the mid right lung. Pleural spaces: No pleural effusion. No pneumothorax. Heart/Mediastinum: No cardiomegaly. Bones/joints: Mild degenerative thoracic spine changes are noted. XR/XR chest 1V portable [id number] IMPRESSION: 1. The lungs are hyperinflated, consistent with COPD. 2. No acute abnormality demonstrated.
[2022-09-14 23:11] VITALS: BP 170/101; PULSE 140; RESP 28; TEMP 37.4; O2SAT 100; BMI 29.9
[2022-09-14 23:36] VITALS: PULSE 143; RESP 24; O2SAT 93
[2022-09-14] MEDS: albuterol 2.5 mg/3 mL Neb INHALATION (23:36)
[2022-09-14] MEDS: ipratropium 0.5 mg/2.5 mL Neb INHALATION (23:36)
[2022-09-14 23:50] LABS: SARS Covid-2 Antigen negative (Negative)
[2022-09-14 23:51] LABS: ABG PCO2 48.7 mmHg (35-45); ABG PH Result 7.33 (7.35-7.45); Arterial Blood Gas Hematocrit 40.3 % (37-47); Blood Gas Sample Site Brachial, right; Blood Gas Sample Type Arterial; HCO3 ABG 25.5 mmol/L (22-26); Oxygen Device NC; PO2 ABG 85.8 mmHg (80.0-100.0)
[2022-09-15] VITALS (27 sets, daily range): BP systolic 122–183; BP diastolic 58–131; PULSE 78–147; RESP 15–31; TEMP 36.4–36.8; O2SAT 89–97
[2022-09-15 00:31] LABS: Basophils % 0.1 %; Hematocrit 41.4 % (37.0-47.0); Hemoglobin 13.4 g/dL (11.5-15.3); Lymphocytes # 1.4 10^3/uL (0.8-4.8); Lymphocytes % 13.5 %; Mean Corpuscular HGB Conc 32.4 g/dL (30.0-36.0); Mean Corpuscular Hemoglobin 28.3 pg (28.0-34.0); Mean Corpuscular Volume 87.5 fl (81-99); Mean Platelet Volume 8.9 fL (7.4-10.4); Monocytes # 0.3 10^3/uL (0.2-0.9); Monocytes % 2.4 %; Neutrophils # 8.76 10^3/uL (1.8-7.7); Neutrophils % 83.4 %; Nucleated Red Blood Cells % 0 %; Platelet Count 382 10^3/cmm (130-400); Red Blood Count 4.73 10^6/uL (4.1-5.3); Red Cell Distribution Width 15.6 % (12.1-15.1); White Blood Count 10.5 10^3/uL (4.0-10.0)
--- NOTE | 2022-09-15 00:59 | W.ED.SOB ---
HPI - SOB/Dyspnea General: Chief Complaint: Shortness of Breath/Dyspnea Stated Complaint: RESP DISTRESS Time Seen by Provider: 09/14/22 23:15 Source: patient and EMS Mode of arrival: EMS Limitations: no limitations History of Present Illness: HPI Narrative: 52-year-old female has a history of chronic persistent asthma states started having coughing fit roughly 2 hours ago took 4 breathing treatments states she continued be short of breath she is on 2 L oxygen at all times at home she is on 3 L here and is 98%. She received breathing treatments in route she denies any recent fevers states that she gets these asthma attacks like this. Denies any worsening proving factors. 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 Moderate airflow obstruction, significant post-bronchodilator response, air trapping. History of sleep study 11/2021 no sleep apnea or nocturnal hypoxemia Multiple allergies In 2021 absolute eosinophils 2100 and IgE 8633 PTSD (post-traumatic stress disorder) Severe persistent asthma Surgical History H/O esophagogastroduodenoscopy (06/22/21) History of appendectomy History of History of colon resection History of hysterectomy History of laparotomy Status post colonoscopy (06/22/21) Status post laparoscopic cholecystectomy Family History Other No pertinent family history Social History Smoking and tobacco status: never smoked Second hand smoke exposure: Yes Alcohol intake: never Substance/Drug Use: never Physical Exam Const: COMMON NORMALS: patient oriented x3 GENERAL APPEARANCE: in distress HENMT: COMMON NORMALS: normocephalic and atraumatic HEAD & SCALP: normocephalic and atraumatic Eye: COMMON NORMALS: Equal, round and reactive pupils present and EOMs intact bilaterally PUPIL: Yes Equal, round and reactive pupils present Neck/C-Spine: COMMON NORMALS: full ROM and supple Chest: COMMONS NORMALS: normal inspection of the chest and normal palpation of entire chest wall Resp: EFFORT & INSPECTION: Yes tachypneic AUSCULTATION: wheezes Cardio: COMMON NORMALS: regular rhythm and No murmurs present (Cardio) RATE: tachycardic RHYTHM: regular rhythm GI: COMMON NORMALS: Normal to inspection, nondistended, normoactive bowel sounds present, Soft to palpation, non-tender and no masses PALPATION: Yes Soft to palpation Extremity: COMMON NORMALS: normal to inspection and full ROM Neuro: COMMON NORMALS: patient oriented x3, moves all extremities and no focal motor deficits Psych: COMMON NORMALS: mental status grossly normal, Normal thought process present and cooperative THOUGHT PROCESS: Normal thought process present Skin: COMMON NORMALS: no rashes or lesions noted and no wounds GENERAL SKIN EXAM: no rashes or lesions noted Course Vital Signs: Vital signs: Vital Signs Temperature 99.4 F 09/14/22 23:11 Pulse Rate 145 H 09/15/22 01:45 Respiratory Rate 30 H 09/15/22 01:45 Blood Pressure 183/85 09/15/22 00:43 Pulse Oximetry 96 09/15/22 01:45 Oxygen Delivery Me thod Nasal Cannula 09/15/22 01:45 Oxygen Flow Rate 3 09/15/22 01:45 MDM - SOB/Dyspnea Medical Decision Making Patient presents with asthma exacerbation. Have given her multiple breathing treatments along with magnesium she still has wheezing did ambulate her and she desaturated x-ray shows no pneumonia spoke to hospitalist will admit. Lab Data 09/15/22 00:24 09/15/22 00:24 Labs/Radiology: Radiology Impressions Chest X-Ray 09/14/22 23:03 IMPRESSION: 1. The lungs are hyperinflated, consistent with COPD. 2. No acute abnormality demonstrated. Laboratory Results WBC 10.5 10^3/uL (4.0-10.0) H 09/15/22 00:24 RBC 4.73 10^6/uL (4.1-5.3) 09/15/22 00: Hgb 13.4 g/dL (11.5-15.3) 09/15/22 00: Hct 41.4 % (37.0-47.0) 09/15/22: MCV 87.5 fl (81-99) 09/15/22 00: MCH 28.3 pg (28.0-34.0) 09/15/22: MCHC 32.4 g/dL (30.0-36.0) 09/15/22 00: RDW 15.6 % (12.1-15.1) H 09/15/22 00:24 Plt Count 382 10^3/cmm (130-400) 09/15/22: MPV 8.9 fL (7.4-10.4) 09/15/22 00: Neut % (Auto) 83.4 % 09/15/22 00: Lymph % (Auto) 13.5 % 09/15/22 00:24 [place] % (Auto) 2.4 % 09/15/22 00:24 Eos % (Auto) 0.0 % 09/15/22 00: Baso % (Auto) 0.1 % 09/15/22 00: Neut # (Auto) 8.76 10^3/uL (1.8-7.7) H 09/15/22 00: Lymph # (Auto) 1.4 10^3/uL (0.8-4.8) 09/15/22 00:24 [place] # (Auto) 0.3 10^3/uL (0.2-0.9) 09/15/22 00:24 Eos # (Auto) 0.0 10^3/uL (0.0-0.8) 09/15/22 00: Baso # (Auto) 0.0 10^3/uL (0.0-0.1) 09/15/22 00: Nucleated RBC % (auto) 0 % 09/15/22:24 Nucleated RBCs # 0.0 /100WBC 09/15/22 00:24 PT 13.00 SECONDS (12.1-14.9) 09/15/22 01:14 INR 0.95 (0.8-1.2) 09/15/22 01:14 Specimen Type Arterial 09/14/22 23:39 Sample Site Brachial, right 09/14/22 23:39 ABG pH 7.33 (7.35-7.45) L 09/14/22 23:39 ABG pCO2 48.7 mmHg (35-45) H 09/14/22 23:39 ABG pO2 85.8 mmHg (80.0-100.0) 09/14/22 23:39 ABG HCO3 25.5 mmol/L (22-26) 09/14/22 23:39 ABG Base Excess -1.0 mmol/L (-2.0-2.0) 09/14/22 23:39 Eric Test N/a 09/14/22 23:39 Hematocrit 40.3 % (37-47) 09/14/22 23:39 O2 Delivery Device Nc 09/14/22 23:39 O2 Liters/Min 3.0 % 09/14/22 23:39 FiO2 32.0 % 09/14/22 23:39 Underground Foreman ID Alewe 09/14/22 23:39 Sodium 139 mmol/L (136-145) 09/15/22 00:24 Potassium 3.7 mmol/L (3.5-5.1) 09/15/22 00:24 Chloride 105 mmol/L (98-107) 09/15/22 00:24 Carbon Dioxide 21 mmol/L (22-29) L 09/15/22 00:24 Anion Gap 16.7 (5-19) 09/15/22 00:24 BUN 11 mg/dL (6-20) 09/15/22 00:24 Creatinine 0.7 mg/dL (0.5-0.9) 09/15/22 00:24 GFR Calculation 87.5 mL/min (90-130) L 09/15/22 00:24 Glucose 153 mg/dL (65-115) H 09/15/22 00:24 Calculated Osmolality 290 mOsm/kg (285-295) 09/15/22 00:24 Calcium 8.9 mg/dL (8.5-10.5) 09/15/22 00:24 Total Bilirubin 0.2 mg/dL (0.15-1.2) 09/15/22 00:24 AST 20 U/L (0-32) 09/15/22 00:24 ALT 17 U/L (0-33) 09/15/22 00:24 Alkaline Phosphatase 88 U/L (35-105) 09/15/22 00:24 NT-Pro-B Natriuret Pep 36 pg/mL (0-125) 09/15/22 00:24 Total Protein 7.4 g/dL (6.6-8.7) 09/15/22 00:24 Albumin 4.0 g/dL (3.5-5.2) 09/15/22 00:24 Globulin 3.4 g/dL (1.3-4.6) 09/15/22 00:24 SARS-CoV-2 Ag (Rapid) negative (Negative) 09/14/22 23:25 Discharge Plan Discharge Patient Disposition: Admitted As Inpatient Clinical Impression: Asthma with exacerbation, Acute respiratory failure with hypoxia Condition: Stable Prescriptions: No Action (DME) Walker with wheels and a seat See Rx Instructions .Route .MEDSUPPLY Qty: 1 0RF Rx Instructions: As directed nystatin 100,000 unit/mL suspension 500,000 unit PO Q6H Qty: 250 2RF Rx Instructions: swish in mouth for two minutes and then swallow for treatment of thrush until better. hydroxyzine HCl 25 mg tablet 25 mg PO BID PRN (Reason: Anxiety) Qty: 60 0RF albuterol sulfate 90 mcg/actuation HFA aerosol inhaler 2 puff inhalation Q6H PRN (Reason: shortness of breath or wheezing) 30 Days Qty: 8.5 12RF albuterol sulfate 2.5 mg /3 mL (0.083 %) solution for nebulization 2.5 mg inhalation QID PRN (Reason: shortness of breath or wheezing) Qty: 360 9RF Singulair 10 mg tablet 10 mg PO QAM Qty: 30 3RF Fasenra Pen 30 mg/mL auto-injector 30 mg SUBCUT Q28D Qty: 1 2RF Rx Instructions: LOADING DOSE PA Ref# [id number], 04/03/22-04/03/23 [id number] Fasenra Pen 30 mg/mL auto-injector 30 mg SUBCUT .q 8 weeks Qty: 1 5RF Rx Instructions: Maintenance dose [place] Ref# [id number], 04/03/22-04/03/23 [id number] budesonide-formoterol [Symbicort] 160-4.5 mcg/actuation HFA aerosol inhaler 2 puff inhalation BID 30 Days Qty: 10.2 3RF buspirone 5 mg tablet 5 mg PO TID PRN (Reason: anxiety) Qty: 90 6RF metoclopramide HCl [Reglan] 10 mg tablet 10 mg PO Q6H PRN (Reason: headache) Qty: 20 0RF potassium chloride 10 mEq capsule, extended release 10 meq PO DAILY Qty: 5 0RF prazosin 1 mg capsule 1 mg PO BEDTIME multivitamin Tablet 1 tab PO DAILY zinc acetate 50 mg (zinc) Capsule 50 mg PO DAILY omega-3 fatty acids 1,000 mg Capsule 1,000 mg PO DAILY calcium carbonate-vitamin D3 600 mg-5 mcg (200 unit) Tablet 1 tab PO DAILY ascorbic acid (vitamin C) [Vitamin C] 500 mg Tablet 500 mg PO DAILY prednisone 10 mg tablet 10 mg PO DAILY PRN (Reason: Pain) Spiriva Respimat 1.25 mcg/actuation mist 2 puff inhalation QAM loratadine 10 mg Tablet 10 mg PO DAILY Qty: 30 0RF prednisone 10 mg tablet 10 mg PO DIRECTED Qty: 23 0RF Rx Instructions: 40 mg daily x3d 20 mg daily x3d 10 mg daily x3d 5 mg daily x4d Referrals: Laron Gutierrez MD [Primary Care Provider] - Coding Level of Care Code ED Dray Truck Driver for Ramirez Torres
[2022-09-15 01:03] LABS: Alanine Aminotransferase 17 U/L (0-33); Alkaline Phosphatase 88 U/L (35-105); Blood Urea Nitrogen 11 mg/dL (6-20); Calcium 8.9 mg/dL (8.5-10.5); Carbon Dioxide 21 mmol/L (22-29); Chloride 105 mmol/L (98-107); Globulin 3.4 g/dL (1.3-4.6); Glomerular Filtration Rate 87.5 mL/min (90-130); Glucose 153 mg/dL (65-115); NT Pro B Type Natriuretic Pept 36 pg/mL (0-125); Osmolality Calculated 290 mOsm/kg (285-295); Sodium 139 mmol/L (136-145); Total Bilirubin 0.2 mg/dL (0.15-1.2); Total Protein 7.4 g/dL (6.6-8.7)
[2022-09-15 01:05] LABS: Anion Gap 16.7 (5-19); Aspartate Amino Transferase 20 U/L (0-32); Potassium 3.7 mmol/L (3.5-5.1)
[2022-09-15] MEDS: LORazepam 2 mg/mL INJ 1 mL 0.5 MG IVP (01:22)
[2022-09-15] MEDS: morphine 4 mg/mL SDV 1 mL IVP (01:24)
[2022-09-15] MEDS: ondansetron 2 mg/ML SDV 2 mL 4 MG IVP (01:27)
[2022-09-15] MEDS: magnesium sulfate premix 2 GM/50 ML PIGGYBACK IV (01:30)
[2022-09-15] MEDS: albuterol 2.5 mg/3 mL Neb INHALATION (01:39)
[2022-09-15 01:47] LABS: INR 0.95 (0.8-1.2)
[2022-09-15] MEDS: acetaminophen 500 mg Tablet 1000 MG PO (02:22)
[2022-09-15] MEDS: LORazepam 2 mg/mL INJ 1 mL 1 MG IVP (02:38)
--- NOTE | 2022-09-15 03:21 | PM.HP ---
Providers/Chief Complaint Admitting Physician: Yoni Caldwell MD Primary Care Provider: Laron Gutierrez MD Chief Complaint: RESP DISTRESS History of Present Illness Ramila Barrow is a 52 year old female with a past medical history of COPD, asthma, anxiety, PTSD, who presents to [facility] due to wheezing and shortness of breath. She tells me that she has been short of breath since her , she is always short of breath, she is always wheezing, but recently she been feeling increasingly short of breath. Short of breath with exertion, no chest pain, no palpitations, does have a productive cough. In the emergency room, patient received several steroid treatments with albuterol with magnesium, but continues to have wheezing and complains of shortness of breath, hospitalist team was called for admission Review of Systems Const: Denies: fever(s) Card: Denies: chest pain Resp: Reports: dyspnea and productive cough : Denies: flank pain Medications/Allergies Home Medications Medication Instructions Recorded Confirmed Last Taken Type prazosin 1 mg capsule 1 mg PO BEDTIME 05/04/22 08/08/22 07/17/22 History albuterol sulfate 90 mcg/actuation 2 puff inhalation Q6H PRN 06/02/22 08/08/22 06/20/22 Rx aerosol inhaler shortness of breath or wheezing 30 days #8.5 grams albuterol sulfate 2.5 mg/3 mL 2.5 mg (3 mL) inhalation QID PRN 06/19/22 09/13/22 07/18/22 Rx (0.083 %) solution for nebulization shortness of breath or wheezing #360 mL ascorbic acid (vitamin C) 500 mg 500 mg PO DAILY 06/20/22 08/08/22 07/18/22 History tablet (Vitamin C) calcium carbonate 600 mg-vitamin 1 tab PO DAILY 06/20/22 08/08/22 07/17/22 History D3 5 mcg (200 unit) tablet multivitamin 1 tab PO DAILY 06/20/22 08/08/22 07/17/22 History omega-3 fatty acids 1,000 mg 1,000 mg PO DAILY 06/20/22 08/08/22 06/16/22 History capsule prednisone 10 mg tablet 10 mg PO DAILY PRN Pain 06/20/22 08/08/22 07/18/22 History tiotropium bromide 1.25 2 puff inhalation QAM 06/20/22 08/08/22 07/17/22 History mcg/actuation mist for inhalation (Spiriva Respimat) zinc acetate 50 mg (zinc) capsule 50 mg PO DAILY 06/20/22 08/08/22 07/17/22 History loratadine 10 mg tablet 10 mg PO DAILY #30 tabs 06/22/22 08/08/22 07/17/22 Rx montelukast 10 mg tablet 10 mg PO QAM #30 tabs 06/28/22 09/13/22 07/17/22 Rx (Singulair) metoclopramide HCl 10 mg tablet 10 mg PO Q6H PRN headache #20 tabs 07/12/22 08/08/22 Unknown Rx (Reglan) potassium chloride 10 mEq 10 meq PO DAILY #5 caps 07/12/22 08/08/22 Unknown Rx capsule,extended release benralizumab 30 mg/mL subcutaneous 30 mg SUBCUT .q 8 weeks #1 mL 07/21/22 09/13/22 Unknown Rx auto-injector (Fasenra Pen) benralizumab 30 mg/mL subcutaneous 30 mg SUBCUT Q28D 3 doses #1 mL 07/21/22 09/13/22 Unknown Rx auto-injector (Fasenra Pen) prednisone 10 mg tablet 10 mg PO DIRECTED #23 tabs 07/25/22 09/13/22 Unknown Rx budesonide-formoterol HFA 160 2 puff inhalation BID 30 days 07/26/22 08/08/22 Unknown Rx mcg-4.5 mcg/actuation aerosol #10.2 grams inhaler (Symbicort) Walker with wheels and a seat #1 ea 08/01/22 08/08/22 Unknown Rx nystatin 100,000 unit/mL oral 500,000 unit (5 mL) PO Q6H #250 mL 08/01/22 08/08/22 Unknown Rx suspension buspirone 5 mg tablet 5 mg PO TID PRN anxiety #90 tabs 08/17/22 Unknown Rx hydroxyzine HCl 25 mg tablet 25 mg PO BID PRN Anxiety #60 tabs 09/13/22 09/13/22 Unknown Rx Allergies Allergy/AdvReac Type Severity Reaction Status Date / Time Iodinated Contrast Media Allergy Unknown Unknown Verified 09/13/22 12:05 Egg Derived Allergy ALGY-Difficulty Verified 09/13/22 12:05 Breathing PFSH Acute PFSH: Medical History Anxiety 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 Moderate airflow obstruction, significant post-bronchodilator response, air trapping. History of sleep study 11/2021 no sleep apnea or nocturnal hypoxemia Multiple allergies In 2021 absolute eosinophils 2100 and IgE [id number] PTSD (post-traumatic stress disorder) Severe persistent asthma Surgical History H/O esophagogastroduodenoscopy (06/22/21) History of appendectomy History of History of colon resection History of hysterectomy History of laparotomy Status post colonoscopy (06/22/21) Status post laparoscopic cholecystectomy Family History Other No pertinent family history Social History Smoking and tobacco status: never smoked Second hand smoke exposure: Yes Alcohol intake: never Substance/Drug Use: never Vitals/I&O/Wt Last Vital Signs Temp 99.4 F 09/14/22 23:11 Pulse 145 H 09/15/22 01:45 Resp 30 H 09/15/22 01:45 BP 183/85 09/15/22 00:43 Pulse Ox 96 09/15/22 01:45 O2 Del Method Nasal Cannula 09/15/22 01:45 O2 Flow Rate 3 09/15/22 01:45 Weight last 48 hrs Weight 69.4 kg Physical Exam Const: COMMON NORMALS: no acute distress and patient oriented x3 HENMT: COMMON NORMALS: normocephalic HEAD & SCALP: normocephalic Eye: COMMON NORMALS: Equal, round and reactive pupils present Neck/C-Spine: COMMON NORMALS: full ROM Lymph: LYMPHATIC: no lymphadenopathy noted Resp: COMMON NORMALS: normal respiratory effort, No retractions and No use of accessory muscles AUSCULTATION: wheezes throughout Cardio: COMMON NORMALS: regular rhythm, S1 normal heart sound present and S2 normal heart sound present RATE: tachycardic RHYTHM: regular rhythm HEART SOUNDS: S1 normal heart sound present and S2 normal heart sound present GI: COMMON NORMALS: Normal to inspection, nondistended, normoactive bowel sounds present, Soft to palpation, non-tender and no bruits Extremity: COMMON NORMALS: no pedal edema Neuro: COMMON NORMALS: patient oriented x3, CN's II-XII intact bilaterally, moves all extremities and no focal motor deficits Psych: COMMON NORMALS: mental status grossly normal Data 09/15/22 00:24 09/15/22 00:24 A&P Assessment and plan (1) Asthma with exacerbation: (2) Acute respiratory failure with hypoxia: (3) COPD (chronic obstructive pulmonary disease): Plan Asthma, COPD exacerbation -Has received several steroid treatments in the emergency room including albuterol, magnesium, and she does feel better but continues to complain of wheezing and shortness of breath -Admit to general medical floors -Solu-Medrol 60 every 8 hours -DuoNeb -Ipratropium -Doxycycline -Sputum culture, blood cultures -Troponin series, BMP -Monitor respiratory status closely -Full code -Lovenox for DVT prophylaxis Attestations Medical Necessity Statement*: Patient requires hospitalization for COPD, asthma exacerbation, inpatient, greater than 2 midnights Diagnoses Asthma with exacerbation J45.901 Acute respiratory failure with hypoxia J96.01 COPD (chronic obstructive pulmonary disease) J44.9
[2022-09-15] MEDS: pantoprazole 40 mg SDV IVP (03:41)
[2022-09-15] MEDS: enoxaparin 40 mg/0.4 mL Syringe SUBCUT (03:41)
[2022-09-15] MEDS: doxycycline 100 MG in sodium chloride 0.9% (plus) 100 ML IV (03:41)
--- NOTE | 2022-09-15 04:32 | ECG_ITS ---
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 Measurements Intervals [place] Rate: 118 P: 56 VT: 139 QRS: 48 QRSD: 83 T: 54 QT: 338 QTc: 475 Interpretive Statements SINUS TACHYCARDIA POSSIBLE LEFT ATRIAL ENLARGEMENT [-0.1mV P-WAVE IN V1/V2] MODERATE ST DEPRESSION [0.05+ mV ST DEPRESSION] Compared to ECG 07/19/2022 04:56:44 Short VT interval no longer present ST (T wave) deviation still present Electronically Signed On 09-15-2022 21:57:29 CDT by Farida Gonzalez M.D. [id number]
[2022-09-15 06:43] LABS: Troponin(5th) Baseline 8 ng/L (0-10)
[2022-09-15 06:53] LABS: NT Pro B Type Natriuretic Pept 50 pg/mL (0-125); Procalcitonin 0.04 ng/mL (0-0.5)
[2022-09-15 07:03] LABS: C Reactive Protein 6.7 mg/L (0.0-4.9)
--- NOTE | 2022-09-15 07:50 | PC.NURSE ---
Bedside report received from Sarah Winchester director of accounting nurse. Patient resting in bed.
--- NOTE | 2022-09-15 08:19 | PC.PHAR ---
pt states she takes care of her own medications-pt states she is no longer taking metoprolol tartrate 25mg bid @,12 rx filled 07/26/22 30d/s or protonix 40mg bid filled 07/26/22 30d/s-pt states hasnt taken prednisone for a month-pt states she got her loading dose of fasenra last month-notes are made in the pharmacy comments
[2022-09-15] MEDS: ipratropium-albuterol 3 mL Neb INHALATION ×4 (08:33→20:23)
--- NOTE | 2022-09-15 08:48 | ECG_ITS ---
[facility] Test Date: 2022-09-15 Pat Name: Ramila Barrow Department: Room: 259 Gender: Female Parasitologist: : 1970 Requested By: Yoni Caldwell Order Number: [id number] Jeri MD: Farida Gonzalez M.D. Measurements Intervals [place] Rate: 106 P: 56 [place]: 126 QRS: 57 QRSD: 85 T: 64 QT: 350 QTc: 466 Interpretive Statements SINUS TACHYCARDIA POSSIBLE LEFT ATRIAL ENLARGEMENT [-0.1mV P-WAVE IN V1/V2] ABNORMAL RHYTHM ECG Compared to ECG 09/15/2022 04:32:33 ST (T wave) deviation no longer present Electronically Signed On 09-15-2022 22:21:51 CDT by Farida Gonzalez M.D. [id number]
--- NOTE | 2022-09-15 09:36 | PM.PN ---
Subjective Subjective: History and physical reviewed in the chart, as well as with the patient. She has been short of breath. She feels minimally better since arriving at the emergency department with shortness of breath. She states this is similar to her other hospital stays. She does have some discomfort in her chest when she coughs hard. She reports her sputum has been productive yellow to green sputum. Medications: Reviewed: Yes Vitals/I&O/Wt Last Vital Signs Temp 98.3 F 09/15/22 04:00 Pulse 111 H 09/15/22 08:34 Resp 18 09/15/22 08:34 BP 127/79 09/15/22 07:46 Pulse Ox 95 09/15/22 08:34 O2 Del Method Nasal Cannula 09/15/22 08:34 O2 Flow Rate 2 09/15/22 08:34 09/14/22 09/15/22 09/15/22 22:59 06:59 14:59 Intake Total 150 / 150 240 / 240 Output Total 100 / 100 Balance 50 / 50 240 / 240 Weight last 48 hrs Weight 69.4 kg Physical Exam Narrative: General exam is a female, no apparent distress, on 2 L of oxygen Neck is supple Cardiovascular regular rate and rhythm, no murmur Lungs diminished breath sounds bilaterally. Few expiratory wheezes Abdomen is soft nontender, positive bowel sounds Extremities no cyanosis, clubbing, or edema Data 09/15/22 00:24 09/15/22 00:24 Micro: Microbiology 09/15/22 05:58 Blood Culture - Preliminary Blood SPECIMEN COLLECTED 09/15/22 05:54 Blood Culture - Preliminary Blood SPECIMEN COLLECTED A&P Assessment and plan (1) Asthma with exacerbation: Patient presents with acute asthma exacerbation with some respiratory failure. She is still significantly short of breath, but clinically better. Continue budesonide twice daily Reduce Solu-Medrol to 40 every 12 hours Continue doxycycline DuoNeb every 4 hours Plan PTSD. Continue home meds. Attestations Medical Necessity Statement*: needs continued hospital stay for IV steroids, frequent breathing treatments secondary to severe COPD exacerbation. Coding Level of Care Code Acute Code for [facility] Melissa Diagnoses Asthma with exacerbation J45.901
[2022-09-15 09:59] LABS: Troponin 5 2HR 6.58 ng/L (0-10)
[2022-09-15 10:20] LABS: Troponin 5 2HR Delta -1.42 ABS# (0-10)
[2022-09-15 12:18] LABS: Troponin 5 6HR 6.48 ng/L (0-10)
[2022-09-15] MEDS: acetaminophen 325 mg Tablet 650 MG PO (12:24)
[2022-09-15] MEDS: BuSPIRONE 10 mg Tablet 5 MG PO (12:25)
[2022-09-15 12:26] LABS: Troponin 5 6HR Delta -1.52 ng/L (0-12)
[2022-09-15] MEDS: doxycycline 100 mg Tablet PO (17:40)
[2022-09-15] MEDS: budesonide 0.5 mg/2 mL Neb INHALATION (20:23)
[2022-09-15] MEDS: prazosin 1 mg Capsule PO (21:28)
--- NOTE | 2022-09-15 22:50 | ECG_ITS ---
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 Measurements Intervals [place] Rate: 126 P: 66 CO: 100 QRS: 55 QRSD: 79 T: 59 QT: 291 QTc: 422 Interpretive Statements SINUS TACHYCARDIA WITH SHORT CO INTERVAL NONSPECIFIC ST & T-WAVE ABNORMALITY ABNORMAL RHYTHM ECG Compared to ECG 09/15/2022 08:48:03 Short CO interval now present T-wave abnormality now present Electronically Signed On 09-16-2022 10:04:36 CDT by Freddy Thompson M.D. [id number]
[2022-09-16] VITALS (15 sets, daily range): BP systolic 117–125; BP diastolic 71–81; PULSE 50–135; RESP 16–20; TEMP 36.4–36.7; O2SAT 94–99
[2022-09-16] MEDS: ipratropium-albuterol 3 mL Neb INHALATION ×3 (00:26→08:31)
[2022-09-16] MEDS: benzonatate 100 mg Capsule PO ×2 (00:38→09:01)
[2022-09-16] MEDS: enoxaparin 40 mg/0.4 mL Syringe SUBCUT (03:22)
[2022-09-16] MEDS: pantoprazole 40 mg SDV IVP (04:00)
[2022-09-16] MEDS: montelukast sodium 10 mg Tablet PO (05:17)
[2022-09-16 06:25] LABS: Basophils % 0.1 %; Hematocrit 37.4 % (37.0-47.0); Hemoglobin 11.5 g/dL (11.5-15.3); Lymphocytes # 1.2 10^3/uL (0.8-4.8); Lymphocytes % 6.9 %; Mean Corpuscular HGB Conc 30.7 g/dL (30.0-36.0); Mean Corpuscular Hemoglobin 27.5 pg (28.0-34.0); Mean Corpuscular Volume 89.5 fl (81-99); Mean Platelet Volume 9.3 fL (7.4-10.4); Monocytes # 0.2 10^3/uL (0.2-0.9); Monocytes % 1.2 %; Neutrophils # 15.54 10^3/uL (1.8-7.7); Neutrophils % 90.9 %; Nucleated Red Blood Cells % 0 %; Platelet Count 391 10^3/cmm (130-400); Red Blood Count 4.18 10^6/uL (4.1-5.3); Red Cell Distribution Width 16.3 % (12.1-15.1); White Blood Count 17.1 10^3/uL (4.0-10.0)
[2022-09-16 06:49] LABS: Anion Gap 17.6 (5-19); Blood Urea Nitrogen 17 mg/dL (6-20); Calcium 8.6 mg/dL (8.5-10.5); Carbon Dioxide 20 mmol/L (22-29); Chloride 107 mmol/L (98-107); Glomerular Filtration Rate 87.5 mL/min (90-130); Glucose 143 mg/dL (65-115); Osmolality Calculated 296 mOsm/kg (285-295); Potassium 3.6 mmol/L (3.5-5.1); Sodium 141 mmol/L (136-145)
[2022-09-16] MEDS: budesonide 0.5 mg/2 mL Neb INHALATION ×2 (08:31→19:48)
[2022-09-16] MEDS: doxycycline 100 mg Tablet PO (09:01)
[2022-09-16] MEDS: BuSPIRONE 10 mg Tablet 5 MG PO (09:01)
[2022-09-16] MEDS: loratadine 10 mg Tablet PO (09:01)
[2022-09-16] MEDS: acetaminophen 325 mg Tablet 650 MG PO (09:09)
[2022-09-16] MEDS: FUROsemide 10 mg/mL SDV 4mL 40 MG IVP (11:39)
[2022-09-16] MEDS: levalbuterol 0.63 mg/3 mL Neb INHALATION ×4 (11:51→23:58)
[2022-09-16] MEDS: ipratropium 0.5 mg/2.5 mL Neb INHALATION (11:51)
--- NOTE | 2022-09-16 14:45 | P.PN_ITS ---
Subjective Subjective: Hospital course, labs appreciated. Examination patient sitting up in bed, on 2 L of oxygen supplementation. States she feels better but still feeling out of breath. Today morning went to the bathroom off oxygen and desaturated to the low 80s with tachycardia with heart rate going up to 120s. On review it seems heart rate has been running more than 110s since yesterday. Saturating appropriate on 2 L. Able to have conversation without difficulty breathing.. States continues to have cough with expectoration. Medications: Reviewed: Yes Vitals/I&O/Wt Last Vital Signs Temp 97.7 F 09/16/22 12:00 Pulse 117 H 09/16/22 12:00 Resp 16 09/16/22 12:00 BP 123/76 09/16/22 12:00 Pulse Ox 96 09/16/22 12:00 O2 Del Method Nasal Cannula 09/16/22 12:00 O2 Flow Rate 2 09/16/22 11:55 09/15/22 09/16/22 09/16/22 22:59 06:59 14:59 Intake Total 360 / 1300 720 / 720 Balance 360 / 1300 720 / 720 Weight last 48 hrs Weight 69.4 kg Physical Exam Const: COMMON NORMALS: no acute distress and patient oriented x3 HENMT: COMMON NORMALS: normocephalic HEAD & SCALP: normocephalic Eye: COMMON NORMALS: Equal, round and reactive pupils present PUPIL: Yes Eq ual, round and reactive pupils present Neck/C-Spine: COMMON NORMALS: full ROM Lymph: LYMPHATIC: no lymphadenopathy noted Resp: COMMON NORMALS: normal respiratory effort, No retractions and No use of accessory muscles EFFORT & INSPECTION: Yes able to speak in complete sentences, Yes symmetric chest movement, Yes tachypneic, No pursed lip breathing, No labored and Yes audible wheezes AUSCULTATION: wheezes throughout Cardio: COMMON NORMALS: regular rhythm, S1 normal heart sound present and S2 normal heart sound present RATE: tachycardic RHYTHM: regular rhythm HEART SOUNDS: S1 normal heart sound present and S2 normal heart sound present GI: COMMON NORMALS: Normal to inspection, nondistended, normoactive bowel sounds present, Soft to palpation, non-tender and no bruits PALPATION: Yes Soft to palpation Extremity: COMMON NORMALS: no pedal edema Neuro: COMMON NORMALS: patient oriented x3, CN's II-XII intact bilaterally, moves all extremities and no focal motor deficits Psych: COMMON NORMALS: mental status grossly normal Data 09/16/22 05:26 09/16/22 05:26 Micro: Microbiology 09/15/22 05:58 Blood Culture - Preliminary Blood NEGATIVE TO DATE 09/15/22 05:54 Blood Culture - Preliminary Blood NEGATIVE TO DATE A&P Assessment and plan (1) Asthma with exacerbation: Hypoxic respiratory failure secondary to asthma. Follow-up sputum culture. Switch to Levaquin. Check respiratory viral panel. Echocardiogram done before showed an normal EF with grade 1 diastolic dysfunction. Given persistent tachycardia cannot rule out mild CHF. Check proBNP. IV Lasix 40 mg one-time. Switch from DuoNeb to ipratropium, Xopenex every 4 hourly. Budesonide twice daily. Continue with Solu-Medrol 40 mg every 12 hourly. (2) Acute respiratory failure with hypoxia: (3) Tachycardia: Sinus Most likely in setting of respiratory failure and regular use of DuoNebs. Nebulization changed. We will continue to monitor. If needed will start on low-dose beta-jordan. Plan PTSD. Continue home meds. Attestations Medical Necessity Statement*: Requires further hospitalization for management of hypoxic respiratory failure in setting of asthma Time Spent in Patient Care: Greater than 35 minutes Coding Level of Care Code Acute Code for [facility] Melissa Diagnoses Asthma with exacerbation J45.901 Acute respiratory failure with hypoxia J96.01 Tachycardia R00.0
[2022-09-16 14:50] LABS: Adenovirus Not Detected (NOT DETECT); Chlamydia Pneumoniae Not Detected (NOT DETECT); Coronavirus 229E,HKU1,NL63,OC4 Not Detected (NOT DETECT); Human Metapneumovirus Not Detected (NOT DETECT); Human Rhinovirus/Enterovirus Not Detected (NOT DETECT); Influenza A Not Detected (NOT DETECT); Influenza A H1 Not Detected (NOT DETECT); Influenza A H1-2009 Not Detected (NOT DETECT); Influenza A H3 Not Detected (NOT DETECT); Influenza B Not Detected (NOT DETECT); Mycoplasma Pneumoniae Not Detected (NOT DETECT); Parainfluenza Virus Type 1 Not Detected (NOT DETECT); Parainfluenza Virus Type 2 Not Detected (NOT DETECT); Parainfluenza Virus Type 3 Not Detected (NOT DETECT); Parainfluenza Virus Type 4 Not Detected (NOT DETECT); Respiratory Syncytial Virus A Not Detected (NOT DETECT); Respiratory Syncytial Virus B Not Detected (NOT DETECT); SARS-COV-2 Not Detected (NOT DETECT)
[2022-09-16] MEDS: prazosin 1 mg Capsule PO (20:17)
[2022-09-16] MEDS: morphine 4 mg/mL SDV 1 mL 1 MG IVP (22:33)
[2022-09-17] VITALS (7 sets, daily range): BP systolic 102–146; BP diastolic 65–82; PULSE 73–108; RESP 15–18; TEMP 36.4–36.9; O2SAT 96–98
[2022-09-17] MEDS: enoxaparin 40 mg/0.4 mL Syringe SUBCUT (03:08)
[2022-09-17] MEDS: pantoprazole 40 mg SDV IVP (03:08)
[2022-09-17] MEDS: levalbuterol 0.63 mg/3 mL Neb INHALATION ×2 (03:27→08:29)
[2022-09-17] MEDS: montelukast sodium 10 mg Tablet PO (05:44)
[2022-09-17] MEDS: levoFLOXacin 750 mg Tablet PO (05:44)
[2022-09-17] MEDS: loratadine 10 mg Tablet PO (08:09)
--- NOTE | 2022-09-17 12:47 | PM.DCS ---
Discharge Providers Date of Admission: 09/15/22 02:38 Date of Discharge: September 17, 2022 Attending Provider at Admission: Yoni Caldwell MD Attending Provider at Discharge: Emmanuel Grant MD Primary Care Provider: Laron Gutierrez MD Diagnoses at Discharge Discharge Diagnosis (1) Asthma with exacerbation: Status: Acute (2) Acute respiratory failure with hypoxia: Status: Acute (3) Tachycardia: Status: Acute Reason for Visit Reason for Visit: RESP DISTRESS Brief History: History as per HPI: Ramila Barrow is a 52 year old female with a past medical history of COPD, asthma, anxiety, PTSD, who presents to [facility] due to wheezing and shortness of breath.? She tells me that she has been short of breath since her , she is always short of breath, she is always wheezing, but recently she been feeling increasingly short of breath.? Short of breath with exertion, no chest pain, no palpitations, does have a productive cough.? In the emergency room, patient received several steroid treatments with albuterol with magnesium, but continues to have wheezing and complains of shortness of breath, hospitalist team was called for admission Hospital Course Hospital Course Patient was roomed to the hospital further evaluation and management of hypoxia in setting of asthma exacerbation. She was started on inhalation treatment and IV steroids. Because she had protracted recovery she was started on empiric antibiotics. Chest imaging negative for consolidations. Respiratory viral panel came back negative. Eventually patient responded to the treatment and has been on her home oxygen requirement for last 24 hours both at rest on exertion. She has been discharged hemodynamically stable condition on inhalation treatment with Pulmicort twice daily and DuoNebs every 8 hours with steroid taper. She is to follow-up with a primary care provider within next 1 week. On review of old records it seems patient has a history of diastolic heart failure for which she has been discharged on oral Lasix 20 mg as needed on a daily basis. Physical Exam Narrative: General exam is a female, no apparent distress, on 2 L of oxygen Neck is supple Cardiovascular regular rate and rhythm, no murmur Lungs diminished breath sounds bilaterally. Few expiratory wheezes Abdomen is soft nontender, positive bowel sounds Extremities no cyanosis, clubbing, or edema Discharge Data Studies Completed and Pending Completed Studies During Hospitalization Category Date Time Status XR chest 1V portable [id number] Stat Exams 09/14/22 23:03 Completed Pending at discharge Category Date Time Status Arterial Blood Gas W/Coox Stat Lab 09/14/22 23:03 Ordered Blood Culture Routine Lab 09/15/22 05:58 Results Sputum Culture and Gram Stain Stat Lab 09/15/22 08:40 Results Radiology Impressions Chest X-Ray 09/14/22 23:03 IMPRESSION: 1. The lungs are hyperinflated, consistent with COPD. 2. No acute abnormality demonstrated. Laboratory Results WBC 17.1 10^3/uL (4.0-10.0) H 09/16/22 05:26 RBC 4.18 10^6/uL (4.1-5.3) 09/16/22 05:26 Hgb 11.5 g/dL (11.5-15.3) 09/16/22 05:26 Hct 37.4 % (37.0-47.0) 09/16/22 05:26 MCV 89.5 fl (81-99) 09/16/22 05:26 MCH 27.5 pg (28.0-34.0) L 09/16/22 05:26 MCHC 30.7 g/dL (30.0-36.0) D 09/16/22 05:26 RDW 16.3 % (12.1-15.1) H 09/16/22 05:26 Plt Count 391 10^3/cmm (130-400) 09/16/22 05:26 MPV 9.3 fL (7.4-10.4) 09/16/22 05:26 Neut % (Auto) 90.9 % 09/16/22 05:26 Lymph % (Auto) 6.9 % 09/16/22 05:26 Parker % (Auto) 1.2 % 09/16/22 05:26 Eos % (Auto) 0.0 % 09/16/22 05:26 Baso % (Auto) 0.1 % 09/16/22 05:26 Neut # (Auto) 15.54 10^3/uL (1.8-7.7) H 09/16/22 05:26 Lymph # (Auto) 1.2 10^3/uL (0.8-4.8) 09/16/22 05:26 Parker # (Auto) 0.2 10^3/uL (0.2-0.9) 09/16/22 05:26 Eos # (Auto) 0.0 10^3/uL (0.0-0.8) 09/16/22 05:26 Baso # (Auto) 0.0 10^3/uL (0.0-0.1) 09/16/22 05:26 Nucleated RBC % (auto) 0 % 09/16/22 05:26 Nucleated RBCs # 0.0 /100WBC 09/16/22 05:26 PT 13.00 SECONDS (12.1-14.9) 09/15/22 01:14 INR 0.95 (0.8-1.2) 09/15/22 01:14 Specimen Type Arterial 09/14/22 23:39 Sample Site Brachial, right 09/14/22 23:39 ABG pH 7.33 (7.35-7.45) L 09/14/22 23:39 ABG pCO2 48.7 mmHg (35-45) H 09/14/22 23:39 ABG pO2 85.8 mmHg (80.0-100.0) 09/14/22 23:39 ABG HCO3 25.5 mmol/L (22-26) 09/14/22 23:39 ABG Base Excess -1.0 mmol/L (-2.0-2.0) 09/14/22 23:39 Eric Test N/a 09/14/22 23:39 Hematocrit 40.3 % (37-47) 09/14/22 23:39 O2 Delivery Device Nc 09/14/22 23:39 O2 Liters/Min 3.0 % 09/14/22 23:39 FiO2 32.0 % 09/14/22 23:39 Pig Machine Crane Operator ID [email or web address] 09/14/22 23:39 Sodium 141 mmol/L (136-145) 09/16/22 05:26 Potassium 3.6 mmol/L (3.5-5.1) 09/16/22 05:26 Chloride 107 mmol/L (98-107) 09/16/22 05:26 Carbon Dioxide 20 mmol/L (22-29) L 09/16/22 05:26 Anion Gap 17.6 (5-19) 09/16/22 05:26 BUN 17 mg/dL (6-20) 09/16/22 05:26 Creatinine 0.7 mg/dL (0.5-0.9) 09/16/22 05:26 GFR Calculation 87.5 mL/min (90-130) L 09/16/22 05:26 Glucose 143 mg/dL (65-115) H 09/16/22 05:26 Calculated Osmolality 296 mOsm/kg (285-295) H 09/16/22 05:26 Calcium 8.6 mg/dL (8.5-10.5) 09/16/22 05:26 Total Bilirubin 0.2 mg/dL (0.15-1.2) 09/15/22 00:24 AST 20 U/L (0-32) 09/15/22 00:24 ALT 17 U/L (0-33) 09/15/22 00:24 Alkaline Phosphatase 88 U/L (35-105) 09/15/22 00:24 Troponin T Baseline 8 ng/L (0-10) 09/15/22 05:54 Troponin T 120 Minute 6.58 ng/L (0-10) 09/15/22 08:56 Delta Troponin T -1.42 ABS# (0-10) L 09/15/22 08:56 Troponin T Hi Sens 6Hr 6.48 ng/L (0-10) 09/15/22 11:44 Troponin T Hi Sens 6Hr Delta -1.52 ng/L (0-12) L 09/15/22 11:44 C-Reactive Protein 6.7 mg/L (0.0-4.9) H 09/15/22 05:54 NT-Pro-B Natriuret Pep 50 pg/mL (0-125) 09/15/22 05:54 Total Protein 7.4 g/dL (6.6-8.7) 09/15/22 00:24 Albumin 4.0 g/dL (3.5-5.2) 09/15/22 00:24 Globulin 3.4 g/dL (1.3-4.6) 09/15/22 00:24 Procalcitonin 0.04 ng/mL (0-0.5) 09/15/22 05:54 Nasal Influ A H1 2008 PCR Not detected (NOT DETECT) 09/16/22 12:07 Adenovirus (PCR) Not detected (NOT DETECT) 09/16/22 12:07 C. pneumoniae DNA (PCR) Not detected (NOT DETECT) 09/16/22 12:07 Coronavirus 229E (PCR) Not detected (NOT DETECT) 09/16/22 12:07 Human Metapneumovir PCR Not detected (NOT DETECT) 09/16/22 12:07 Influenza A (H1) PCR Not detected (NOT DETECT) 09/16/22 12:07 Influenza A (H3) PCR Not detected (NOT DETECT) 09/16/22 12:07 Influenza Type A (PCR) Not detected (NOT DETECT) 09/16/22 12:07 Influenza Type B (PCR) Not detected (NOT DETECT) 09/16/22 12:07 M. pneumoniae (PCR) Not detected (NOT DETECT) 09/16/22 12:07 Parainfluenza 1 (PCR) Not detected (NOT DETECT) 09/16/22 12:07 Parainfluenza 2 (PCR) Not detected (NOT DETECT) 09/16/22 12:07 Parainfluenza 3 (PCR) Not detected (NOT DETECT) 09/16/22 12:07 Parainfluenza 4 (PCR) Not detected (NOT DETECT) 09/16/22 12:07 RSV Type A (PCR) Not detected (NOT DETECT) 09/16/22 12:07 RSV Type B (PCR) Not detected (NOT DETECT) 09/16/22 12:07 Entero/Rhino (PCR) Not detected (NOT DETECT) 09/16/22 12:07 SARS-CoV-2 (PCR) Not detected (NOT DETECT) 09/16/22 12:07 SARS-CoV-2 Ag (Rapid) negative (Negative) 09/14/22 23:25 Vitals Last Vital Signs Temp 97.9 F 09/17/22 12:00 Pulse 97 09/17/22 12:00 Resp 16 09/17/22 12:00 BP 146/82 09/17/22 12:00 Pulse Ox 96 09/17/22 12:00 O2 Del Method Nasal Cannula 09/17/22 08:00 O2 Flow Rate 2 09/17/22 08:00 Discharge Plan Discharge Patient Disposition: Home Condition: Stable Prescriptions: New Pulmicort 0.5 mg/2 mL suspension for nebulization 0.5 mg inhalation BID Qty: 60 0RF ipratropium-albuterol 0.5 mg-3 mg(2.5 mg base)/3 mL solution for nebulization 3 ml inhalation TID Qty: 180 0RF metoprolol tartrate 25 mg tablet 12.5 mg PO BID Qty: 30 0RF Lasix 20 mg tablet 20 mg PO DAILY PRN (Reason: edema) Qty: 20 0RF prednisone 10 mg tablet See Taper PO DIRECTED Qty: 42 0RF Taper: predniSONE 60-10 60 mg Daily for 2 Days and 0 Hour 50 mg Daily for 2 Days and 0 Hour 40 mg Daily for 2 Days and 0 Hour 30 mg Daily for 2 Days and 0 Hour 20 mg Daily for 2 Days and 0 Hour 10 mg Daily for 2 Days and 0 Hour Rx Instructions: see taper instructions Continued (DME) Walker with wheels and a seat See Rx Instructions .Route .MEDSUPPLY Qty: 1 0RF Rx Instructions: As directed hydroxyzine HCl 25 mg tablet 25 mg PO BID PRN (Reason: Anxiety) Qty: 60 0RF albuterol sulfate 90 mcg/actuation HFA aerosol inhaler 2 puff inhalation Q6H PRN (Reason: shortness of breath or wheezing) 30 Days Qty: 8.5 12RF albuterol sulfate 2.5 mg /3 mL (0.083 %) solution for nebulization 2.5 mg inhalation QID PRN (Reason: shortness of breath or wheezing) Qty: 360 9RF Singulair 10 mg tablet 10 mg PO QAM Qty: 30 3RF Fasenra Pen 30 mg/mL auto-injector 30 mg SUBCUT Q28D Qty: 1 2RF Rx Instructions: LOADING DOSE PA Ref# [id number], 04/03/22-04/03/23 [id number] Fasenra Pen 30 mg/mL auto-injector 30 mg SUBCUT .q 8 weeks Qty: 1 5RF Rx Instructions: Maintenance dose PA Ref# [id number], 04/03/22-04/03/23 [id number] budesonide-formoterol [Symbicort] 160-4.5 mcg/actuation HFA aerosol inhaler 2 puff inhalation BID 30 Days Qty: 10.2 3RF buspirone 5 mg tablet 5 mg PO TID PRN (Reason: anxiety) Qty: 90 6RF metoclopramide HCl [Reglan] 10 mg tablet 10 mg PO Q6H PRN (Reason: headache) Qty: 20 0RF prazosin 1 mg capsule 1 mg PO BEDTIME multivitamin Tablet 1 tab PO QAM zinc acetate 50 mg (zinc) Capsule 50 mg PO QAM calcium carbonate-vitamin D3 600 mg-5 mcg (200 unit) Tablet 1 tab PO QAM ascorbic acid (vitamin C) [Vitamin C] 500 mg Tablet 500 mg PO QAM Spiriva Respimat 1.25 mcg/actuation mist 2 puff inhalation QAM Claritin 10 mg Tablet 10 mg PO DAILY PRN (Reason: Allergy Symptoms) Discharge Orders: Discharge Order (Routine); Ordered 09/17/22 Ordered By: Emmanuel Grant Referrals: Laron Gutierrez MD [Primary Care Provider] - 4-7 days (Please call tomorrow to schedule hospital follow up appointment in 4-7 days.) Discharge Diet: Regular Discharge Activity: Resume usual activity and Increase activity as tolerated Patient Instructions: Asthma Exacerbation - Adult, Metoprolol (By mouth), Furosemide (By mouth), Prednisone (By mouth), Budesonide (By breathing), Ipratropium/Albuterol (By breathing), Opioid Safety Activity Restrictions/Additional Instructions: Continue taking steroid taper as directed. Take DuoNebs which is inhalation treatment every 8 hours and Pulmicort twice daily. Take metoprolol 12.5 mg twice daily for elevated heart rate. 20 mg oral Lasix has been added to you rmedication list for edema in lower limbs. Discharge Attestations Time Spent in Discharge Care*: greater than 30 min Specific Discharge Activities: educating patient, educating and/or supporting family/caregiver, discussing with pcp/other providers, discussing with supportive employment case manager/social workers/dc planners, documenting/other paperwork and evaluating patient/reviewing data Status at Discharge: Cognitive status at discharge: cognitively intact, Behavioral status at discharge: cooperative, Functional status at discharge: independent ambulation, Overall status at discharge: patient is back to baseline Quality Metrics Clinical Quality Measures [ No reported AMI, CVA or VTE this stay] Coding Level of Care Code 22142 Total time (in minutes) for Discharge: 50 Diagnoses Asthma with exacerbation J45.901 Acute respiratory failure with hypoxia J96.01 Tachycardia R00.0
[2022-09-17] MEDS: FUROsemide 40 mg Tablet PO (13:37)
== END 2022-09-17 15:29 | disposition home or self-care (01) | DRG 190 ==
LOC: ER 09-15 02:54 → MEDSURG 09-15 03:05
PROVIDERS: Internal Medicine; Admitting Provider Family Medicine; Emergency Provider Emergency Medicine; PCP Family Medicine; Visit Provider Student in an Organized Health Care Education/Training Program
DX: J44.9 Chronic obstructive pulmonary disease, unspecified (principal); J96.01 Acute respiratory failure with hypoxia; J45.901 Unspecified asthma with (acute) exacerbation; I50.32 Chronic diastolic (congestive) heart failure; F41.9 Anxiety disorder, unspecified; F43.10 Post-traumatic stress disorder, unspecified; Z79.51 Long term (current) use of inhaled steroids; H54.40 Blindness, one eye, unspecified eye; Z86.16 Personal history of COVID-19; R00.0 Tachycardia, unspecified
CPT/HCPCS: 36415; 36600; 71045; 80048; 80053; 82803; 83880; 84145; 84484; 85025; 85610; 86140; 87040; 87070; 87205; 87426; 87486; 87581; 87633; 93005; 94640; 96365; 96372; 96376; 99291; C9113; J1650; J1940; J2060; J2270; J2405; J2920; J2930; J3475; J3490; J7613; J7614; J7626; J7644

== ENCOUNTER 2022-09-21 10:28 | Oncology outpatient (recurring) (ONCR) | payer MEDICAID, SELFPAY ==
[2022-09-21] MEDS: FASENRA 1 EACH SUBCUT (11:30)
[2022-09-21 11:37] VITALS: BP 116/76; PULSE 86; RESP 18; TEMP 36.4; O2SAT 97
== END 2022-09-24 23:59 | disposition home or self-care (01) ==
LOC: ONCMED 10:28
PROVIDERS: PCP Family Medicine; Visit Provider Internal Medicine Pulmonary Disease
DX: J45.50 Severe persistent asthma, uncomplicated (principal); Z79.899 Other long term (current) drug therapy
CPT/HCPCS: 96372

== ENCOUNTER 2022-10-26 13:36 | Oncology outpatient (recurring) (ONCR) | payer MEDICAID, SELFPAY ==
[2022-10-26] MEDS: Benralizumab *no charge* 30 mg/ml syringe SUBCUT (15:24)
[2022-10-26 16:58] VITALS: BP 134/77; PULSE 88; RESP 18; TEMP 36.6; O2SAT 92
[2022-10-26 17:10] VITALS: BP 134/80; PULSE 88; RESP 18; TEMP 36.6; O2SAT 97
== END 2022-11-24 23:59 | disposition home or self-care (01) ==
PROVIDERS: PCP Family Medicine; Visit Provider Internal Medicine Pulmonary Disease
DX: J45.909 Unspecified asthma, uncomplicated (principal)
CPT/HCPCS: 96372

== ENCOUNTER 2022-11-01 20:47 | Emergency (ER) | payer MEDICAID, SELFPAY ==
[2022-11-01 20:50] VITALS: BP 158/81; PULSE 104; RESP 20; TEMP 36.8; O2SAT 98; BMI 31.3
--- NOTE | 2022-11-01 20:56 | ECG_ITS ---
[facility] Test Date: 2022-11-01 Pat Name: Ramila Barrow Department: Room: Gender: Female [employer] Drafter: : [id number] Requested By: Alvaro Ruiz Order Number: [id number] Jeri MD: Lasha Choi M.D. Measurements Intervals [place] Rate: 111 P: 70 CT: 109 QRS: 67 QRSD: 80 T: 61 QT: 340 QTc: 463 Interpretive Statements SINUS TACHYCARDIA WITH SHORT CT INTERVAL POSSIBLE LEFT ATRIAL ENLARGEMENT [-0.1mV P-WAVE IN V1/V2] MINIMAL ST DEPRESSION [0.025+ mV ST DEPRESSION] Compared to ECG 09/16/2022 00:41:25 ST (T wave) deviation now present T-wave abnormality no longer present Electronically Signed On 11-02-2022 15:41:23 CDT by Lasha Choi M.D. [email or web address]
[2022-11-01 20:58] VITALS: RESP 22; O2SAT 96
--- NOTE | 2022-11-01 21:02 | XRR_ITS ---
PROCEDURE INFORMATION: Exam: XR Chest Exam date and time: 11/01/2022 9:07 PM Age: 52 years old Clinical indication: Dyspnea TECHNIQUE: Imaging protocol: Radiologic exam of the chest. Views: 1 view. COMPARISON: CR (CHEST, ) 09/14/2022 11:15 PM FINDINGS: Lungs: Unremarkable. No consolidation. Pleural spaces: Unremarkable. No pleural effusion. No pneumothorax. Heart/Mediastinum: Unremarkable. No cardiomegaly. Bones/joints: Unremarkable for age. XR/XR chest 1V portable [id number] IMPRESSION: Negative chest
--- NOTE | 2022-11-01 21:07 | ED_ITS ---
HPI - SOB/Dyspnea General: Chief Complaint: Shortness of Breath/Dyspnea Stated Complaint: RESP. DISTRESS Time Seen by Provider: 11/01/22 20:48 History of Present Illness: HPI Narrative: Patient presents to the ER from EMS with complaints of increasing shortness of breath that started yesterday. Patient states she wears 2 L of oxygen at all times. Patient says she took multiple breathing treatments at home and had a DuoNeb on route and it only helped slightly. Patient does admit that she smoked meth approximately 3 days ago to help with her anxiety but she feels this made the problem worse. Patient is very anxious appearing and says she is trying to hide from her ex currently. 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 Moderate airflow obstruction, significant post-bronchodilator response, air trapping. History of sleep study 11/2021 no sleep apnea or nocturnal hypoxemia Multiple allergies In 2021 absolute eosinophils 2100 and IgE 8633 PTSD (post-traumatic stress disorder) Severe persistent asthma Surgical History H/O esophagogastroduodenoscopy (06/22/21) History of appendectomy History of History of colon resection History of hysterectomy History of laparotomy Status post colonoscopy (06/22/21) Status post laparoscopic cholecystectomy Family History Other No pertinent family history Social History Smoking and tobacco status: never smoked Second hand smoke exposure: Yes Alcohol intake: never Substance/Drug Use: never Physical Exam Const: COMMON NORMALS: no acute distress, average body habitus, patient oriented x3, no limitations, healthy appearing, alert and well nourished HENMT: COMMON NORMALS: normocephalic, atraumatic, hearing grossly normal bilaterally, external ears normal, Normal external nose present and moist oral mucous membranes HEAD & SCALP: normocephalic and atraumatic NOSE: Normal external nose present EXTERNAL EAR: Yes external ears normal Eye: COMMON NORMALS: Equal, round and reactive pupils present, EOMs intact bilaterally, conjunctivae normal and no scleral icterus CONJUNCTIVA: Yes conjunctivae normal PUPIL: Yes Equal, round and reactive pupils present Neck/C-Spine: COMMON NORMALS: full ROM, no lymphadenopathy, supple, no meningeal signs, no JVD and Thyroid normal THYROID: Thyroid normal Chest: COMMONS NORMALS: normal inspection of the chest and normal palpation of entire chest wall Resp: COMMON NORMALS: normal respiratory effort, No retractions and No use of accessory muscles AUSCULTATION: wheezes Cardio: COMMON NORMALS: no JVD, regular rhythm (Tachycardic), S1 normal heart sound present and S2 normal heart sound present RHYTHM: regular rhythm (Tachycardic) HEART SOUNDS: S1 normal heart sound present and S2 normal heart sound present GI: COMMON NORMALS: Normal to inspection, nondistended, normoactive bowel sounds present, Soft to palpation, non-tender, No hepatosplenomegaly present and no masses PALPATION: Yes Soft to palpation and Yes No hepatosplenomegaly present : COMMON NORMALS: Yes no CVA tenderness BLADDER/KIDNEY EXAM: Yes no CVA t enderness Back/Pelvis: COMMON NORMALS: no CVA tenderness Neuro: COMMON NORMALS: patient oriented x3 SENSORIUM/ORIENTATION: Yes alert MENINGEAL SIGNS: Yes no meningeal signs Skin: NARRATIVE SKIN EXAM: Multiple sores probably from picking in various stages of healing. Course Vital Signs: Vital signs: Vital Signs Temperature 98.3 F 11/01/22 20:50 Pulse Rate 104 H 11/01/22 20:50 Respiratory Rate 22 H 11/01/22 20:58 Blood Pressure 158/81 11/01/22 20:50 Pulse Oximetry 96 11/01/22 20:58 Oxygen Delivery Me thod Nasal Cannula 11/01/22 20:50 Oxygen Flow Rate 2 11/01/22 20:50 MDM - SOB/Dyspnea Medical Decision Making Patient presents to the ER with complaints of increasing shortness of breath over the last couple days since smoking some methamphetamine. Patient is also extremely anxious and has depression and is currently hiding from her ex. Lab work was obtained, as well as EKG, as well as chest x-ray all which were benign. Patient was given Decadron 10 mg IV and 1 Xopenex breathing treatment. Patient be discharged home for acute exacerbation of COPD secondary to methamphetamine use, anxiety, depression. Patient will be given a prescription for prednisone 50 mg 1 p.o. daily for the next 5 days. Patient should follow-up with her PCP in the next 7 to 10 days. Differential Diagnosis Likely acute exacerbation of chronic obstructive airways disease; Unlikely congestive heart failure, community acquired pneumonia, asthma with exacerbation or pulmonary embolism Medical Records I reviewed the patient's medical records. Lab Data I reviewed the patient's lab results. 11/01/22 22:00 11/01/22 22:00 Labs/Radiology: Radiology Impressions Chest X-Ray 11/01/22 21:02 IMPRESSION: Negative chest Laboratory Results WBC 7.4 10^3/uL (4.0-10.0) 11/01/22 22:00 RBC 4.16 10^6/uL (4.1-5.3) 11/01/22 22:00 Hgb 12.0 g/dL (11.5-15.3) 11/01/22 22:00 Hct 37.4 % (37.0-47.0) 11/01/22 22:00 MCV 89.9 fl (81-99) 11/01/22 22:00 MCH 28.8 pg (28.0-34.0) 11/01/22 22:00 MCHC 32.1 g/dL (30.0-36.0) 11/01/22 22:00 RDW 15.3 % (12.1-15.1) H 11/01/22 22:00 Plt Count 327 10^3/cmm (130-400) 11/01/22 22:00 MPV 9.4 fL (7.4-10.4) 11/01/22 22:00 Neut % (Auto) 68.3 % 11/01/22 22:00 Lymph % (Auto) 21.5 % 11/01/22 22:00 [place] % (Auto) 9.8 % 11/01/22 22:00 Eos % (Auto) 0.0 % 11/01/22 22:00 Baso % (Auto) 0.1 % 11/01/22 22:00 Neut # (Auto) 5.08 10^3/uL (1.8-7.7) 11/01/22 22:00 Lymph # (Auto) 1.6 10^3/uL (0.8-4.8) 11/01/22 22:00 [place] # (Auto) 0.7 10^3/uL (0.2-0.9) 11/01/22 22:00 Eos # (Auto) 0.0 10^3/uL (0.0-0.8) 11/01/22 22:00 Baso # (Auto) 0.0 10^3/uL (0.0-0.1) 11/01/22 22:00 Nucleated RBC % (auto) 0 % 11/01/22 22:00 Nucleated RBCs # 0.0 /100WBC 11/01/22 22:00 Sodium 147 mmol/L (136-145) H 11/01/22 22:00 Potassium 4.0 mmol/L (3.5-5.1) 11/01/22 22:00 Chloride 110 mmol/L (98-107) H 11/01/22 22:00 Carbon Dioxide 28 mmol/L (22-29) 11/01/22 22:00 Anion Gap 13.0 (5-19) 11/01/22 22:00 BUN 8 mg/dL (6-20) 11/01/22 22:00 Creatinine 0.9 mg/dL (0.5-0.9) 11/01/22 22:00 GFR Calculation 65.5 mL/min (90-130) L 11/01/22 22:00 Glucose 110 mg/dL (65-115) 11/01/22 22:00 Calculated Osmolality 303 mOsm/kg (285-295) H 11/01/22 22:00 Calcium 8.8 mg/dL (8.5-10.5) 11/01/22 22:00 Total Bilirubin 0.2 mg/dL (0.15-1.2) 11/01/22 22:00 AST 33 U/L (0-32) H 11/01/22 22:00 ALT 37 U/L (0-33) H 11/01/22 22:00 Alkaline Phosphatase 84 U/L (35-105) 11/01/22 22:00 Troponin T Gen 5 ng/L 11 ng/L (0-10) H 11/01/22 22:00 NT-Pro-B Natriuret Pep 40 pg/mL (0-125) 11/01/22 22:00 Total Protein 6.2 g/dL (6.6-8.7) L 11/01/22 22:00 Albumin 3.9 g/dL (3.5-5.2) 11/01/22 22:00 Globulin 2.3 g/dL (1.3-4.6) 11/01/22 22:00 Urine Color Light yellow (Yellow) 11/01/22 21:32 Urine Appearance Cloudy (CLEAR) A 11/01/22 21:32 Urine pH 5 (5-7) 11/01/22 21:32 Ur Specific [place] 1.025 (1.005-1.030) 11/01/22 21:32 Urine Protein Neg (Negative) 11/01/22 21:32 Urine Glucose (UA) Norm (Normal) 11/01/22 21:32 Urine Ketones Negative (Negative) 11/01/22 21:32 Urine Blood 2+ (Negative) H 11/01/22 21:32 Urine Nitrate Negative (Negative) 11/01/22 21:32 Urine Bilirubin Neg (Negative) 11/01/22 21:32 Urine Urobilinogen Neg mg/dL (Negative) 11/01/22 21:32 Ur Leukocyte Esterase Negative (Negative) 11/01/22 21:32 Urine RBC 0-4 /hpf (0-2) H 11/01/22 21:32 Urine WBC 0-4 /hpf (0-5) H 11/01/22 21:32 Ur Squamous Epith Cells 10-15 /hpf (0-5) H 11/01/22 21:32 Calcium Oxalate Crystal 5-10 /hpf H 11/01/22 21:32 Amorphous Sediment Not Reportable 11/01/22 21:32 Urine Bacteria 2+ /hpf (NONE) H 11/01/22 21:32 Urine Mucus 2+ /hpf 11/01/22 21:32 Urine Opiates Screen Negative ng/mL (Negative) 11/01/22 21:32 Ur Barbiturates Screen Negative ng/mL (Negative) 11/01/22 21:32 Ur Phencyclidine Scrn Negative ng/mL (Negative) 11/01/22 21:32 Ur Amphetamines Screen Positive ng/mL (Negative) H 11/01/22 21:32 U Benzodiazepines Scrn Negative ng/mL (Negative) 11/01/22 21:32 Urine Cocaine Screen Negative ng/mL (Negative) 11/01/22 21:32 U Marijuana (THC) Screen Negative ng/mL (Negative) 11/01/22 21:32 EKG Data EKG 1: I personally reviewed and interpreted this EKG as follows: EKG Interpretation Date: 11/01/22 EKG interpretation time: 20:56 Prior EKG tracings: not available for review Interpretation: EKG showed ventricular rate 111 beats a minute, KS interval 109, QRS duration 80, QTc of 406, sinus tach with short KS interval, possible left atrial lod gment, minimal ST depression Discharge Plan Discharge Patient Disposition: Home Clinical Impression: Acute exacerbation of chronic obstructive airways disease Condition: Stable Prescriptions: New prednisone 50 mg tablet 50 mg PO DAILY 7 Days Qty: 7 0RF No Action (DME) Walker with wheels and a seat See Rx Instructions .Route .MEDSUPPLY Qty: 1 0RF Rx Instructions: As directed hydroxyzine HCl 25 mg tablet 25 mg PO BID PRN (Reason: Anxiety) Qty: 60 0RF albuterol sulfate 90 mcg/actuation HFA aerosol inhaler 2 puff inhalation Q6H PRN (Reason: shortness of breath or wheezing) 30 Days Qty: 8.5 12RF albuterol sulfate 2.5 mg /3 mL (0.083 %) solution for nebulization 2.5 mg inhalation QID PRN (Reason: shortness of breath or wheezing) Qty: 360 9RF Singulair 10 mg tablet 10 mg PO QAM Qty: 30 3RF Fasenra Pen 30 mg/mL auto-injector 30 mg SUBCUT Q28D Qty: 1 2RF Rx Instructions: LOADING DOSE PA Ref# [id number], 04/03/22-04/03/23 [id number] Fasenra Pen 30 mg/mL auto-injector 30 mg SUBCUT .q 8 weeks Qty: 1 5RF Rx Instructions: Maintenance dose PA Ref# [id number], 04/03/22-04/03/23 [id number] budesonide-formoterol [Symbicort] 160-4.5 mcg/actuation HFA aerosol inhaler 2 puff inhalation BID 30 Days Qty: 10.2 3RF buspirone 5 mg tablet 5 mg PO TID PRN (Reason: anxiety) Qty: 90 6RF metoclopramide HCl [Reglan] 10 mg tablet 10 mg PO Q6H PRN (Reason: headache) Qty: 20 0RF prazosin 1 mg capsule 1 mg PO BEDTIME multivitamin Tablet 1 tab PO QAM zinc acetate 50 mg (zinc) Capsule 50 mg PO QAM calcium carbonate-vitamin D3 600 mg-5 mcg (200 unit) Tablet 1 tab PO QAM ascorbic acid (vitamin C) [Vitamin C] 500 mg Tablet 500 mg PO QAM Spiriva Respimat 1.25 mcg/actuation mist 2 puff inhalation QAM Claritin 10 mg Tablet 10 mg PO DAILY PRN (Reason: Allergy Symptoms) Pulmicort 0.5 mg/2 mL suspension for nebulization 0.5 mg inhalation BID Qty: 60 0RF ipratropium-albuterol 0.5 mg-3 mg(2.5 mg base)/3 mL solution for nebulization 3 ml inhalation TID Qty: 180 0RF metoprolol tartrate 25 mg tablet 12.5 mg PO BID Qty: 30 0RF Lasix 20 mg tablet 20 mg PO DAILY PRN (Reason: edema) Qty: 20 0RF prednisone 10 mg tablet See Taper PO DIRECTED Qty: 42 0RF Taper: predniSONE 60-10 60 mg Daily for 2 Days and 0 Hour 50 mg Daily for 2 Days and 0 Hour 40 mg Daily for 2 Days and 0 Hour 30 mg Daily for 2 Days and 0 Hour 20 mg Daily for 2 Days and 0 Hour 10 mg Daily for 2 Days and 0 Hour Rx Instructions: see taper instructions Discharge Orders: Discharge ED (Routine); Ordered 11/01/22 Ordered By: Alvaro Ruiz Referrals: Laron Gutierrez MD [Primary Care Provider] - 1 week Patient Instructions: COPD (Chronic Obstructive Pulmonary Disease) (DC) Activity Restrictions/Additional Instructions: Please take your steroids as directed for the next 7 days. Please do not use any illicit substances. Please follow-up with your family practice doctor in the next 1 to 2 weeks as needed. Or return to the ER if symptoms return and/or worsen. Coding Level of Care Code ED Weed Cooking Operator for Ramirez Torres
[2022-11-01 21:56] LABS: Add Urine Microscopic? YES; Bilirubin Urine Neg (Negative); Blood Urine 2+ (Negative); Glucose Urine UA Norm (Normal); Ketones Urine Negative (Negative); Leukocyte Esterase Urine Negative (Negative); Nitrate Urine Negative (Negative); Protein Urine Neg (Negative); Specific Gravity, Urine 1.025 (1.005-1.030); Urine Appearance Cloudy (CLEAR); Urine Color Light yellow (Yellow); Urobilinogen Urine Neg (Negative); pH Urine 5 (5-7)
[2022-11-01 21:57] LABS: Add Urine Culture? No; Amphetamines Screen Urine Positive (Negative); Bacteria Urine 2+ /hpf; Barbiturates Screen Urine Negative (Negative); Benzodiazepines Screen Urine Negative (Negative); Cocaine Screen Urine Negative (Negative); Mucus Urine 2+ /hpf; Opiate Screen Urine Negative (Negative); PCP Screen Urine Negative (Negative); RBC Urine 0-4 /hpf (0-2); THC Screen Urine Negative (Negative); WBC Urine 0-4 /hpf (0-5)
[2022-11-01 22:12] LABS: Basophils % 0.1 %; Hematocrit 37.4 % (37.0-47.0); Lymphocytes # 1.6 10^3/uL (0.8-4.8); Lymphocytes % 21.5 %; Mean Corpuscular HGB Conc 32.1 g/dL (30.0-36.0); Mean Corpuscular Hemoglobin 28.8 pg (28.0-34.0); Mean Corpuscular Volume 89.9 fl (81-99); Mean Platelet Volume 9.4 fL (7.4-10.4); Monocytes # 0.7 10^3/uL (0.2-0.9); Monocytes % 9.8 %; Neutrophils # 5.08 10^3/uL (1.8-7.7); Neutrophils % 68.3 %; Nucleated Red Blood Cells % 0 %; Platelet Count 327 10^3/cmm (130-400); Red Blood Count 4.16 10^6/uL (4.1-5.3); Red Cell Distribution Width 15.3 % (12.1-15.1); White Blood Count 7.4 10^3/uL (4.0-10.0)
[2022-11-01 22:26] LABS: Troponin T (5th) Once 11 ng/L (0-10)
[2022-11-01 22:36] LABS: Alanine Aminotransferase 37 U/L (0-33); Albumin Level 3.9 g/dL (3.5-5.2); Alkaline Phosphatase 84 U/L (35-105); Aspartate Amino Transferase 33 U/L (0-32); Blood Urea Nitrogen 8 mg/dL (6-20); Calcium 8.8 mg/dL (8.5-10.5); Carbon Dioxide 28 mmol/L (22-29); Chloride 110 mmol/L (98-107); Globulin 2.3 g/dL (1.3-4.6); Glomerular Filtration Rate 65.5 mL/min (90-130); Glucose 110 mg/dL (65-115); NT Pro B Type Natriuretic Pept 40 pg/mL (0-125); Osmolality Calculated 303 mOsm/kg (285-295); Sodium 147 mmol/L (136-145); Total Bilirubin 0.2 mg/dL (0.15-1.2); Total Protein 6.2 g/dL (6.6-8.7)
[2022-11-01 22:58] VITALS: BP 162/76; PULSE 108; RESP 18; O2SAT 95
[2022-11-01] MEDS: dexamethasone 10 mg/mL INJ IVP (23:05)
[2022-11-01] MEDS: levalbuterol 1.25 mg/3 mL Neb INHALATION (23:14)
[2022-11-01 23:15] VITALS: PULSE 97; RESP 22; O2SAT 97
[2022-11-01 23:33] VITALS: BP 154/73; PULSE 105; RESP 18; O2SAT 96
== END 2022-11-01 23:34 | disposition home or self-care (01) ==
PROVIDERS: Emergency Provider Emergency Medicine; PCP Family Medicine
DX: J44.1 Chronic obstructive pulmonary disease with (acute) exacerbation (principal); Z77.22 Contact with and (suspected) exposure to environmental tobacco smoke (acute) (chronic)
CPT/HCPCS: 71045; 80053; 80306; 81001; 83880; 84484; 85025; 93005; 94640; 96374; 99285; J1100; J7614

== ENCOUNTER → 2022-11-10 08:28 | Outpatient (BNVA) | payer MEDICAID, SELFPAY | PROVIDERS: PCP Family Medicine; Visit Provider Internal Medicine Pulmonary Disease | DX: J45.50 Severe persistent asthma, uncomplicated (principal); F41.9 Anxiety disorder, unspecified; M81.0 Age-related osteoporosis without current pathological fracture | CPT/HCPCS: 99214 ==

== ENCOUNTER 2022-12-04 09:10 | Inpatient (IN) | payer MEDICAID, SELFPAY ==
[2022-12-04] VITALS (14 sets, daily range): BP systolic 107–161; BP diastolic 76–118; PULSE 80–135; RESP 15–24; TEMP 36.2–36.6; O2SAT 92–99; BMI 33.4
--- NOTE | 2022-12-04 09:19 | XR_ITS ---
WS: [id number] XR chest 1V portable [id number] REASON FOR EXAM: dyspnea/cough FINDINGS: The heart and mediastinum are within normal limits. No active pulmonary parenchymal or pleural disease is noted. Bony thorax is intact without significant focal abnormality. XR/XR chest 1V portable [id number] IMPRESSION: No acute chest abnormality.
--- NOTE | 2022-12-04 09:33 | ECG_ITS ---
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 Measurements Intervals [place] Rate: 99 P: 75 GA: 101 QRS: 77 QRSD: 77 T: 70 QT: 325 QTc: 419 Interpretive Statements SINUS RHYTHM WITH SHORT GA INTERVAL Compared to ECG 11/01/2022 20:56:40 Sinus tachycardia no longer present ST (T wave) deviation no longer present Electronically Signed On 12-04-2022 16:18:03 CDT by Freddy Thompson M.D. [id number]
--- NOTE | 2022-12-04 09:35 | W.ED.SOB ---
HPI - SOB/Dyspnea General: Chief Complaint: Shortness of Breath/Dyspnea Stated Complaint: resp distress, copd, asthma Time Seen by Provider: 12/04/22 09:10 Source: patient Mode of arrival: EMS Limitations: no limitations History of Present Illness: HPI Narrative: 52-year-old female presents emergency room with severe shortness of breath and expiratory wheezing. EMS had given her albuterol treatment in route. She was found without any oxygen she normally is on 2 L/min she has significant work of breathing. It is improved slightly with nebulizers here in the emergency room. She has had a little bit of a productive cough. MD elicited complaint: shortness of breath, cough and chest pain Pertinent past history: COPD Onset (ago): hour(s) Timing: constant Severity: severe Exacerbating factors: nothing Relieving factors: nothing Known history of: COPD Associated symptoms: Reports chest congestion, chest pain and cough; Deny abdominal pain, diaphoresis, dizziness, extremity pain, fever(s), hemoptysis, lightheadedness, myalgias, nausea, orthopnea, palpitations, paresthesias, polydipsia, polyuria, rash, sense of impending doom, syncope or vomiting Treatment prior to arrival: oxygen, bronchodilator and other (CPAP) Review of Systems Const: Denies: fever(s), chills or diaphoresis Card: Reports: chest pain; Denies: palpitations, lightheadedness, syncope or orthopnea Resp: Reports: dyspnea, productive cough, wheezing and chest congestion; Denies: hemoptysis GI: Denies: abdominal pain, nausea or vomiting Musc: Denies: extremity pain Neuro: Denies: dizziness Endo: Denies: polyuria or polydipsia PFSH ED PFSH: Medical History Anxiety 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 Moderate airflow obstruction, significant post-bronchodilator response, air trapping. History of sleep study 11/2021 no sleep apnea or nocturnal hypoxemia Multiple allergies In 2021 absolute eosinophils 2100 and IgE 8633 Psychiatric care PTSD (post-traumatic stress disorder) Severe persistent asthma Surgical History H/O esophagogastroduodenoscopy (06/22/21) History of appendectomy History of History of colon resection History of hysterectomy History of laparotomy Status post colonoscopy (06/22/21) Status post laparoscopic cholecystectomy Family History Other No pertinent family history Social History Smoking and tobacco status: never smoked Second hand smoke exposure: Yes Alcohol intake: never Substance/Drug Use: never Physical Exam Const: GENERAL APPEARANCE: cooperative ORIENTATION/CONSCIOUSNESS: Yes awake, Yes oriented to person, Yes oriented to place and Yes oriented to time HENMT: COMMON NORMALS: normocephalic, atraumatic and hearing grossly normal bilaterally HEAD & SCALP: normocephalic and atraumatic Resp: COMMON NORMALS: normal respiratory effort, No retractions and No use of accessory muscles AUSCULTATION: rhonchi and wheezes Cardio: COMMON NORMALS: regular rhythm and No murmurs present (Cardio) RATE: tachycardic RHYTHM: regular rhythm GI: COMMON NORMALS: Soft to palpation and No hepatosplenomegaly present AUSCULTATION: Yes normoactive bowel sounds PALPATION: Yes Soft to palpation, No Tenderness to palpation present (GI), No Guarding due to palpation present (GI) and Yes No hepatosplenomegaly present Extremity: COMMON NORMALS: normal to inspection, capillary refill normal, no clubbing, cyanosis or edema, no calf tenderness and no pedal edema Neuro: SENSORIUM/ORIENTATION: Yes oriented to person, Yes oriented to place and Yes oriented to time Skin: COMMON NORMALS: no rashes or lesions noted GENERAL SKIN EXAM: no rashes or lesions noted Course Vital Signs: Vital signs: Vital Signs Temperature 97.8 F 12/04/22 09:12 Pulse Rate 82 12/04/22 11:27 Respiratory Rate 18 12/04/22 10:28 Blood Pressure 107/82 12/04/22 10:28 Pulse Oximetry 99 12/04/22 11:27 Oxygen Delivery Me thod Room Air 12/04/22 09:20 Fraction of Inspir ed Oxygen 30 12/04/22 11:27 MDM - SOB/Dyspnea Medical Decision Making Chest x-ray clear, ABGs did not show any significant hypercapnia. Patient has severe COPD exacerbation with increased work of breathing requiring BiPAP. She did get some improvement with DuoNebs and steroids. Will place on observation for COPD exacerbation discussed with hospitalist Medical Records I reviewed the patient's medical records. Lab Data I reviewed the patient's lab results. 12/04/22 09:53 12/04/22 09:53 Labs/Radiology: Radiology Impressions Chest X-Ray 12/04/22 09:19 IMPRESSION: No acute chest abnormality. Laboratory Results WBC 10.7 10^3/uL (4.0-10.0) H 12/04/22 09:53 RBC 5.73 10^6/uL (4.1-5.3) H 12/04/22 09:53 Hgb 15.6 g/dL (11.5-15.3) H 12/04/22 09:53 Hct 50.4 % (37.0-47.0) H 12/04/22 09:53 MCV 88.0 fl (81-99) 12/04/22 09:53 MCH 27.2 pg (28.0-34.0) L 12/04/22 09:53 MCHC 31.0 g/dL (30.0-36.0) 12/04/22 09:53 RDW 15.7 % (12.1-15.1) H 12/04/22 09:53 Plt Count 338 10^3/cmm (130-400) 12/04/22 09:53 MPV 9.6 fL (7.4-10.4) 12/04/22 09:53 Neut % (Auto) 53.8 % 12/04/22 09:53 Lymph % (Auto) 39.1 % 12/04/22 09:53 [place] % (Auto) 4.8 % 12/04/22 09:53 Eos % (Auto) 0.0 % 12/04/22 09:53 Baso % (Auto) 0.2 % 12/04/22 09:53 Neut # (Auto) 5.76 10^3/uL (1.8-7.7) 12/04/22 09:53 Lymph # (Auto) 4.2 10^3/uL (0.8-4.8) 12/04/22 09:53 [place] # (Auto) 0.5 10^3/uL (0.2-0.9) 12/04/22 09:53 Eos # (Auto) 0.0 10^3/uL (0.0-0.8) 12/04/22 09:53 Baso # (Auto) 0.0 10^3/uL (0.0-0.1) 12/04/22 09:53 Nucleated RBC % (auto) 0 % 12/04/22 09:53 Nucleated RBCs # 0.0 /100WBC 12/04/22 09:53 Specimen Type Arterial 12/04/22 09:25 Sample Site Brachial, right 12/04/22 09:25 ABG pH 7.39 (7.35-7.45) 12/04/22 09:25 ABG pCO2 43.5 mmHg (35-45) 12/04/22 09:25 ABG pO2 119.0 mmHg (80.0-100.0) H 12/04/22 09:25 ABG HCO3 26.0 mmol/L (22-26) 12/04/22 09:25 ABG O2 Saturation 99.5 12/04/22 09:25 ABG Base Excess 0.6 mmol/L (-2.0-2.0) 12/04/22 09:25 Eric Test N/a 12/04/22 09:25 A-a O2 Gradient 14.5 mmHg (5-10) H 12/04/22 09:25 Hematocrit 42.4 % (37-47) 12/04/22 09:25 Hgb O2 Saturation 97.8 % (95-100) 12/04/22 09:25 Carboxyhemoglobin 1.0 %THgb (0.4-20.1) 12/04/22 09:25 Methemoglobin 0.7 % (0.4-1.5) 12/04/22 09:25 Total Hemoglobin 13.8 g/dL (12-16) 12/04/22 09:25 Sodium 142.0 mmol/L (131-143) 12/04/22 09:25 Potassium 3.8 mmol/L (3.5-5.0) 12/04/22 09:25 Glucose 101.0 mg/dL (70-115) 12/04/22 09:25 Ionized Calcium 1.2 mmol/L (1.1-1.4) 12/04/22 09:25 O2 Delivery Device Bipap 12/04/22 09:25 FiO2 40.0 % 12/04/22 09:25 Chicken Raiser ID Amh 12/04/22 09:25 Sodium 141 mmol/L (136-145) 12/04/22 09:53 Potassium 3.8 mmol/L (3.5-5.1) 12/04/22 09:53 Chloride 102 mmol/L (98-107) 12/04/22 09:53 Carbon Dioxide 27 mmol/L (22-29) 12/04/22 09:53 Anion Gap 15.8 (5-19) 12/04/22 09:53 BUN 17 mg/dL (6-20) 12/04/22 09:53 Creatinine 0.9 mg/dL (0.5-0.9) 12/04/22 09:53 GFR Calculation 65.5 mL/min (90-130) L 12/04/22 09:53 Glucose 95 mg/dL (65-115) 12/04/22 09:53 Calculated Osmolality 293 mOsm/kg (285-295) 12/04/22 09:53 Calcium 9.5 mg/dL (8.5-10.5) 12/04/22 09:53 Total Bilirubin 0.5 mg/dL (0.15-1.2) 12/04/22 09:53 AST 15 U/L (0-32) 12/04/22 09:53 ALT 21 U/L (0-33) 12/04/22 09:53 Alkaline Phosphatase 83 U/L (35-105) 12/04/22 09:53 Troponin T Baseline 9 ng/L (0-10) 12/04/22 09:53 Total Protein 7.6 g/dL (6.6-8.7) 12/04/22 09:53 Albumin 4.5 g/dL (3.5-5.2) 12/04/22 09:53 Globulin 3.1 g/dL (1.3-4.6) 12/04/22 09:53 Discharge Plan Discharge Patient Disposition: Placed in Observation Admit Provider: Matthieu Tolbert Clinical Impression: Acute exacerbation of chronic obstructive airways disease Condition: Stable Prescriptions: No Action (DME) Walker with wheels and a seat See Rx Instructions .Route .MEDSUPPLY Qty: 1 0RF Rx Instructions: As directed hydroxyzine HCl 25 mg tablet 25 mg PO BID PRN (Reason: Anxiety) Qty: 60 0RF albuterol sulfate 90 mcg/actuation HFA aerosol inhaler 2 puff inhalation Q6H PRN (Reason: shortness of breath or wheezing) 30 Days Qty: 8.5 12RF Singulair 10 mg tablet 10 mg PO QAM Qty: 30 3RF Fasenra Pen 30 mg/mL auto-injector 30 mg SUBCUT Q28D Qty: 1 2RF Rx Instructions: LOADING DOSE MS Ref# [id number], 04/03/22-04/03/23 [id number] Fasenra Pen 30 mg/mL auto-injector 30 mg SUBCUT .q 8 weeks Qty: 1 5RF Rx Instructions: Maintenance dose MS Ref# [id number], 04/03/22-04/03/23 [id number] budesonide-formoterol [Symbicort] 160-4.5 mcg/actuation HFA aerosol inhaler 2 puff inhalation BID 30 Days Qty: 10.2 3RF buspirone 5 mg tablet 5 mg PO TID PRN (Reason: anxiety) Qty: 90 6RF albuterol sulfate 2.5 mg /3 mL (0.083 %) solution for nebulization 2.5 mg inhalation QID PRN (Reason: shortness of breath or wheezing) Qty: 360 9RF metoclopramide HCl [Reglan] 10 mg tablet 10 mg PO Q6H PRN (Reason: headache) Qty: 20 0RF [place] Caps 1 cap PO DAILY prazosin 1 mg capsule 1 mg PO BEDTIME PRN (Reason: unknown) multivitamin Tablet 1 tab PO QAM zinc acetate 50 mg (zinc) Capsule 50 mg PO QAM calcium carbonate-vitamin D3 600 mg-5 mcg (200 unit) Tablet 1 tab PO QAM ascorbic acid (vitamin C) [Vitamin C] 500 mg Tablet 500 mg PO QAM Spiriva Respimat 1.25 mcg/actuation mist 2 puff inhalation QAM loratadine [Claritin] 10 mg Tablet 10 mg PO DAILY PRN (Reason: Allergy Symptoms) budesonide [Pulmicort] 0.5 mg/2 mL suspension for nebulization 0.5 mg inhalation BID Qty: 60 0RF ipratropium-albuterol 0.5 mg-3 mg(2.5 mg base)/3 mL solution for nebulization 3 ml inhalation TID Qty: 180 0RF Referrals: Laron Gutierrez MD [Primary Care Provider] - Coding Level of Care Code ED Doctor Of Nurse Anesthesia Practice for Ramirez Torres
[2022-12-04 09:37] LABS: ABG PCO2 43.5 mmHg (35-45); ABG PH Result 7.39 (7.35-7.45); Alveolar-Arterial Oxygen Gradi 14.5 mmHg (5-10); Arterial Blood Gas Hematocrit 42.4 % (37-47); Base Excess ABG 0.6 mmol/L (-2.0-2.0); Blood Gas Operator Identificat AMH; Blood Gas Sample Site Brachial, right; Blood Gas Sample Type Arterial; HGB O2 Sat 97.8 % (95-100); Ionized Calcium Level - ABG 1.2 mmol/L (1.1-1.4); Methemoglobin 0.7 % (0.4-1.5); Oxygen Device BIPAP; Oxygen Saturation ABG 99.5; Potassium Level - ABG 3.8 mmol/L (3.5-5.0); Total Hemoglobin 13.8 g/dL (12-16)
[2022-12-04 10:15] LABS: Basophils % 0.2 %; Hematocrit 50.4 % (37.0-47.0); Hemoglobin 15.6 g/dL (11.5-15.3); Lymphocytes # 4.2 10^3/uL (0.8-4.8); Lymphocytes % 39.1 %; Mean Corpuscular Hemoglobin 27.2 pg (28.0-34.0); Mean Platelet Volume 9.6 fL (7.4-10.4); Monocytes # 0.5 10^3/uL (0.2-0.9); Monocytes % 4.8 %; Neutrophils # 5.76 10^3/uL (1.8-7.7); Neutrophils % 53.8 %; Nucleated Red Blood Cells % 0 %; Platelet Count 338 10^3/cmm (130-400); Red Blood Count 5.73 10^6/uL (4.1-5.3); Red Cell Distribution Width 15.7 % (12.1-15.1); White Blood Count 10.7 10^3/uL (4.0-10.0)
[2022-12-04] MEDS: dexamethasone 10 mg/mL INJ IVP (10:20)
[2022-12-04 10:27] LABS: Alanine Aminotransferase 21 U/L (0-33); Albumin Level 4.5 g/dL (3.5-5.2); Alkaline Phosphatase 83 U/L (35-105); Anion Gap 15.8 (5-19); Aspartate Amino Transferase 15 U/L (0-32); Blood Urea Nitrogen 17 mg/dL (6-20); Calcium 9.5 mg/dL (8.5-10.5); Carbon Dioxide 27 mmol/L (22-29); Chloride 102 mmol/L (98-107); Globulin 3.1 g/dL (1.3-4.6); Glomerular Filtration Rate 65.5 mL/min (90-130); Glucose 95 mg/dL (65-115); Osmolality Calculated 293 mOsm/kg (285-295); Potassium 3.8 mmol/L (3.5-5.1); Sodium 141 mmol/L (136-145); Total Bilirubin 0.5 mg/dL (0.15-1.2); Total Protein 7.6 g/dL (6.6-8.7); Troponin(5th) Baseline 9 ng/L (0-10)
--- NOTE | 2022-12-04 10:27 | PC.PHAR ---
pt states she takes care of her own medications-pt states she hasnt taken lasix 20mg daily (rx filled 09/18/22 20d/s) and metoprolol tartrate 25mg take 12.5mg bid (rx filled 09/18/22 30d/s) for 2 months pt states she has been out for 2 months-pt states she is still taking singulair 10mg qam ext shows last filled 08/05/22 30d/s-pt states she has taken no po meds today pt states she did use albuterol solution and ipratropium-albuterol solution today-notes are made in the pharmacy comments
--- NOTE | 2022-12-04 11:38 | ECG_ITS ---
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 Measurements Intervals [place] Rate: 84 P: 80 DC: 102 QRS: 78 QRSD: 85 T: 70 QT: 353 QTc: 419 Interpretive Statements SINUS RHYTHM WITH SHORT DC INTERVAL Compared to ECG 12/04/2022 09:33:51 No significant changes Electronically Signed On 12-04-2022 16:19:16 CDT by Freddy Thompson M.D. [id number]
--- NOTE | 2022-12-04 11:57 | PM.HP ---
Providers/Chief Complaint Admitting Physician: Matthieu Tolbert MD Primary Care Provider: Laron Gutierrez MD Chief Complaint: resp distress, copd, asthma History of Present Illness Ramila Barrow is a 52 year old female presenting to the hospital with shortness of breath. She reports its been going on for at least the last 3 to 4 days, particularly in the morning, with significant amounts of wheezing and coughing. Today it did not seem to let up even after nebulizer use so she came in. She reports her cough is not productive. No hemoptysis. States she is using all medicine as prescribed. Denies any smoking, or being around any smoke. According to an emergency department note on November 01, she was given a long prednisone taper there and that she had been smoking methamphetamine prior to that visit. Review of Systems General: Reports: 10 or more systems reviewed and unremarkable except in HPI and below Card: Denies: swelling of feet/ankles Resp: Reports: dyspnea, non-productive cough and wheezing GI: Denies: abdominal pain, nausea, vomiting, hematochezia, melena or mucus in stool Medications/Allergies Home Medications Medication Instructions Recorded Confirmed Last Taken Type prazosin 1 mg capsule 1 mg PO BEDTIME PRN unknown 05/04/22 12/04/22 07/17/22 History albuterol sulfate 90 mcg/actuation 2 puff inhalation Q6H PRN 06/02/22 12/04/22 06/20/22 Rx aerosol inhaler shortness of breath or wheezing 30 days #8.5 grams ascorbic acid (vitamin C) 500 mg 500 mg PO QAM 06/20/22 12/04/22 12/03/22 History tablet (Vitamin C) calcium carbonate 600 mg-vitamin 1 tab PO QAM 06/20/22 12/04/22 12/03/22 History D3 5 mcg (200 unit) tablet multivitamin 1 tab PO QAM 06/20/22 12/04/22 07/17/22 History tiotropium bromide 1.25 2 puff inhalation QAM 06/20/22 12/04/22 07/17/22 History mcg/actuation mist for inhalation (Spiriva Respimat) zinc acetate 50 mg (zinc) capsule 50 mg PO QAM 06/20/22 12/04/22 07/17/22 History montelukast 10 mg tablet 10 mg PO QAM #30 tabs 06/28/22 12/04/22 07/17/22 Rx (Singulair) metoclopramide HCl 10 mg tablet 10 mg PO Q6H PRN headache #20 tabs 07/12/22 12/04/22 Unknown Rx (Reglan) benralizumab 30 mg/mL subcutaneous 30 mg SUBCUT .q 8 weeks #1 mL 07/21/22 12/04/22 Unknown Rx auto-injector (Fasenra Pen) benralizumab 30 mg/mL subcutaneous 30 mg SUBCUT Q28D 3 doses #1 mL 07/21/22 12/04/22 10/26/22 Rx auto-injector (Fasenra Pen) budesonide-formoterol HFA 160 2 puff inhalation BID 30 days 07/26/22 12/04/22 Unknown Rx mcg-4.5 mcg/actuation aerosol #10.2 grams inhaler (Symbicort) Walker with wheels and a seat #1 ea 08/01/22 12/04/22 Unknown Rx buspirone 5 mg tablet 5 mg PO TID PRN anxiety #90 tabs 08/17/22 12/04/22 Unknown Rx hydroxyzine HCl 25 mg tablet 25 mg PO BID PRN Anxiety #60 tabs 09/13/22 12/04/22 Unknown Rx loratadine 10 mg tablet (Claritin) 10 mg PO DAILY PRN Allergy Symptoms 09/15/22 12/04/22 Unknown History budesonide 0.5 mg/2 mL suspension 0.5 mg (2 mL) inhalation BID #60 mL 09/17/22 12/04/22 Unknown Rx for nebulization (Pulmicort) ipratropium 0.5 mg-albuterol 3 mg 3 ml inhalation TID #180 mL 09/17/22 12/04/22 12/04/22 08:30 Rx (2.5 mg base)/3 mL nebulization soln albuterol sulfate 2.5 mg/3 mL 2.5 mg (3 mL) inhalation QID PRN 11/14/22 12/04/22 12/04/22 08:00 Rx (0.083 %) solution for nebulization shortness of breath or wheezing #360 mL Black Licorice Caps 1 cap PO DAILY 12/04/22 12/04/22 Unknown History Allergies Allergy/AdvReac Type Severity Reaction Status Date / Time Iodinated Contrast Media Allergy Unknown Unknown Verified 12/04/22 10:27 dexamethasone Allergy ALGY-Rash Verified 12/04/22 10:27 Egg Derived Allergy ALGY-Difficulty Verified 12/04/22 10:27 Breathing PFSH Acute PFSH: Medical History Anxiety 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 Moderate airflow obstruction, significant post-bronchodilator response, air trapping. History of sleep study 11/2021 no sleep apnea or nocturnal hypoxemia Multiple allergies In 2021 absolute eosinophils 2100 and IgE 8633 Psychiatric care PTSD (post-traumatic stress disorder) Severe persistent asthma Surgical History H/O esophagogastroduodenoscopy (06/22/21) History of appendectomy History of History of colon resection History of hysterectomy History of laparotomy Status post colonoscopy (06/22/21) Status post laparoscopic cholecystectomy Family History Other No pertinent family history Social History (Updated 12/04/22 @ 13:20 by Matthieu Tolbert MD) Smoking and tobacco status: never smoked Second hand smoke exposure: Yes Alcohol intake: never Substance/Drug Use: current Vitals/I&O/Wt Last Vital Signs Temp 97.8 F 12/04/22 09:12 Pulse 82 12/04/22 11:27 Resp 18 12/04/22 10:28 BP 107/82 12/04/22 10:28 Pulse Ox 99 12/04/22 11:27 O2 Del Method Room Air 12/04/22 09:20 FiO2 30 12/04/22 11:27 Weight last 48 hrs Weight 72.575 kg Physical Exam Narrative: General exam demonstrates a white female, on BiPAP, with mild retractions HEENT: Atraumatic and normocephalic. Oropharynx not examined as she is on BiPAP Neck is supple no lymphadenopathy thyromegaly Cardiovascular regular rate and rhythm without murmur Lungs bilateral expiratory wheezes. No crackles. Abdomen is soft nontender positive bowel sounds. No obvious organomegaly exam is deferred Extremities no cyanosis clubbing or edema, cap refill brisk Skin no rash Neuro no obvious focal deficits. Data 12/04/22 09:53 12/04/22 09:53 Other Labs: ABG demonstrates pH 7.39, PCO2 44, PO2 of 119 on 40% BiPAP CMP demonstrates LFTs which are normal, initial troponin of 6.9 Calcium and albumin which are normal. A coronavirus PCR is pending Chest x-ray by my read demonstrates no infiltrate EKG by my read demonstrates sinus rhythm, normal axis, essentially a normal EKG. Previous echocardiogram in June 2022 normal ejection fraction, 1/4 diastolic dysfunction. Micro: Microbiology 12/04/22 10:35 Blood Culture - Preliminary Blood SPECIMEN COLLECTED 12/04/22 10:35 Blood Culture - Preliminary Blood SPECIMEN COLLECTED A&P Assessment and plan (1) Acute asthma exacerbation: Patient presents with acute asthma exacerbation She has underlying severe persistent asthma Last ER visit there was some concern about methamphetamine use. 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 Plan on continuing prednisone 60 mg a day DuoNeb every 4 hours Albuterol every 2 hours as needed Budesonide twice daily BiPAP and oxygen as tolerated High risk for decompensation CBC, CMP, magnesium level in the morning Await COVID PCR (2) Acute respiratory failure with hypoxia: Secondary to increased respiratory distress and hypoxia was placed on BiPAP Treatment as above Wean off BiPAP as tolerated Plan Medical problems as outlined in past medical history Full code Lovenox for DVT prophylaxis Attestations Medical Necessity Statement*: Stay for evaluation and treatment of asthma exacerbation Diagnoses Acute asthma exacerbation J45.901 Acute respiratory failure with hypoxia J96.01 Time Spent (min) 44
[2022-12-04 13:19] LABS: Troponin 5 2HR 6.91 ng/L (0-10)
[2022-12-04 13:31] LABS: Troponin 5 2HR Delta -2.09 ABS# (0-10)
[2022-12-04] MEDS: acetaminophen 325 mg Tablet 650 MG PO (14:09)
[2022-12-04] MEDS: enoxaparin 40 mg/0.4 mL Syringe SUBCUT (14:09)
[2022-12-04] MEDS: ipratropium-albuterol 3 mL Neb INHALATION ×2 (15:11→21:30)
--- NOTE | 2022-12-04 15:20 | ECG_ITS ---
[facility] Test Date: 2022-12-04 Pat Name: Ramila Barrow Department: Room: 278 Gender: Female Qa Internship: : 1970 Requested By: Toby Parada Order Number: [id number] Jeri MD: Freddy Thompson M.D. Measurements Intervals [place] Rate: 106 P: 64 NM: 112 QRS: 69 QRSD: 75 T: 73 QT: 323 QTc: 431 Interpretive Statements SINUS TACHYCARDIA WITH SHORT NM INTERVAL POSSIBLE LEFT ATRIAL ENLARGEMENT [-0.1mV P-WAVE IN V1/V2] ABNORMAL RHYTHM ECG Compared to ECG 12/04/2022 11:38:01 Sinus rhythm no longer present Electronically Signed On 12-04-2022 16:19:43 CDT by Freddy Thompson M.D. [email or web address] [email or web address] [email or web address] Filmsst. [email or web address].[employer] I/O/store/[id number]
[2022-12-04 15:31] LABS: Add Urine Microscopic? NO; Charge for UA Resulting for Rev
[2022-12-04 15:47] LABS: Bilirubin Urine Neg (Negative); Blood Urine Neg (Negative); Glucose Urine UA Norm (Normal); Ketones Urine Negative (Negative); Leukocyte Esterase Urine Negative (Negative); Nitrate Urine Negative (Negative); Protein Urine Neg (Negative); Urine Appearance Clear (CLEAR); Urine Color Yellow (Yellow); Urobilinogen Urine Norm (Negative); pH Urine 5 (5-7)
[2022-12-04 15:53] LABS: Adenovirus Not Detected (NOT DETECT); Chlamydia Pneumoniae Not Detected (NOT DETECT); Coronavirus 229E,HKU1,NL63,OC4 Not Detected (NOT DETECT); Human Metapneumovirus Not Detected (NOT DETECT); Human Rhinovirus/Enterovirus Not Detected (NOT DETECT); Influenza A Not Detected (NOT DETECT); Influenza A H1 Not Detected (NOT DETECT); Influenza A H1-2009 Not Detected (NOT DETECT); Influenza A H3 Not Detected (NOT DETECT); Influenza B Not Detected (NOT DETECT); Mycoplasma Pneumoniae Not Detected (NOT DETECT); Parainfluenza Virus Type 1 Not Detected (NOT DETECT); Parainfluenza Virus Type 2 Not Detected (NOT DETECT); Parainfluenza Virus Type 3 Not Detected (NOT DETECT); Parainfluenza Virus Type 4 Not Detected (NOT DETECT); Respiratory Syncytial Virus A Not Detected (NOT DETECT); Respiratory Syncytial Virus B Not Detected (NOT DETECT); SARS-COV-2 Not Detected (NOT DETECT)
[2022-12-04] MEDS: hyDROXYzine 25 mg Capsule PO (17:55)
[2022-12-04] MEDS: budesonide 0.5 mg/2 mL Neb INHALATION (21:30)
[2022-12-04 21:49] LABS: Troponin(5th) Baseline 7 ng/L (0-10)
[2022-12-04 22:40] LABS: Troponin 5 2HR 6.66 ng/L (0-10)
[2022-12-04 23:04] LABS: Troponin 5 2HR Delta -0.34 ABS# (0-10)
[2022-12-05] VITALS (8 sets, daily range): BP systolic 122–126; BP diastolic 67–80; PULSE 76–109; RESP 14–20; TEMP 36.4; O2SAT 95–100
[2022-12-05] MEDS: ipratropium-albuterol 3 mL Neb INHALATION ×4 (00:25→11:43)
[2022-12-05 03:07] LABS: Troponin 5 6HR 7.14 ng/L (0-10)
[2022-12-05 03:14] LABS: Troponin 5 6HR Delta 0.14 ng/L (0-12)
[2022-12-05] MEDS: montelukast sodium 10 mg Tablet PO (05:36)
[2022-12-05] MEDS: budesonide 0.5 mg/2 mL Neb INHALATION (08:41)
[2022-12-05] MEDS: predniSONE 20 mg Tablet 60 MG PO (08:58)
--- NOTE | 2022-12-05 09:28 | PC.CHAP ---
Pastoral Care Encounter/Spiritual Assessment Type of Contact [] Declined epic manager visit [] Patient/Family/Request visit [] Outpatient visit [] Follow-up visit [] Physician referral [] Code/Alert [] Routine visit [] Staff referral [] Actively dying [] Patient sleeping [] Family support [] [] Out of room [] Palliative care [] [x] Receiving care in room [] Pre-surgical visit [] Trauma [] Long length of stay [] ICU visit [] Other: Relational/Emotional Strength [] Patient feels connected with others/family/visitors/staff [] Distress [] Loneliness/isolation [] Abandonment Spirituality of Patient [] Person of Alessandra [] Attends Jewish of their Alessandra [] Believes in Prayer [] Reads Bible or Sikhism materials [] There are Spiritual issues to be addressed Online Advertising Manager Interventions [] Prayer [] Active listening [] Non-anxious presence [] Spiritual/emotional support [] Crisis/trauma care [] Spiritual counseling [] Bereavement support [] Provided bereavement packet [] Provided Bible/devotional materials [] Provided toy/stuffed animal, coloring book to patient or family member [] Provided Communion [] Anointing/Christopher [] Salvation [] Completed spiritual assessment [] Other: Impact on Illness or Injury [] Angry [] Fearful [] Anxious [] Often cries [] Exhaustion [] Unable to work [] Unable to attend lutheran [] Unable to walk/stand [] Unable to read [] Unable to drive [] Unable to eat/drink [] Unable to sleep [] Unable to be with family [] Patient intubated [] Other: Summary Time spent with patient
[2022-12-05 09:30] LABS: Thyroid Stimulating Hormone 0.51 uIU/mL (0.27-4.20)
--- NOTE | 2022-12-05 11:03 | PC.NURSE ---
Pt ambulated with some assistance around the hallway twice.
[2022-12-05] MEDS: enoxaparin 40 mg/0.4 mL Syringe SUBCUT (12:19)
--- NOTE | 2022-12-05 13:14 | PM.DCS ---
Discharge Providers Date of Admission: 12/04/22 11:56 Date of Discharge: December 05, 2022 Attending Provider at Admission: Matthieu Tolbert MD Attending Provider at Discharge: Matthieu Tolbert MD Primary Care Provider: Laron Gutierrez MD Diagnoses at Discharge Discharge Diagnosis (1) Acute asthma exacerbation: Status: Acute (2) Acute respiratory failure with hypoxia: Status: Acute Reason for Visit Reason for Visit: resp distress, copd, asthma Hospital Course Hospital Course Ramila presented to the hospital short of breath and wheezing. She has a long history of asthma, persistent, and reports wheezing at baseline. She was given nebulized treatments, IV steroids, oxygen secondary to hypoxia, and admitted to the hospital for continued treatment. Troponin was not elevated. BNP Joel checked on previous hospital stays multiple times and was negative. Recently admitted revealed she had been smoking amphetamine, inducing shortness of breath at a recent ER visit. She denied any use since this time. With the above treatment she improved quicker than expected, and wanted to go home on December 05. At that time she had only mild wheezing, much improved aeration, and was not requiring oxygen on room air. She was therefore discharged home with close follow-up with her primary care provider and pulmonary. She will finish her course of doxycycline, and a prednisone taper. She was given an opportunity to ask questions, and agreed with the plan. Physical Exam Narrative: General exam no distress Neck is supple Cardiovascular regular rate and rhythm Lungs a few faint expiratory wheezes Abdomen is soft, positive bowel sounds Extremities no cyanosis clubbing edema Discharge Data Studies Completed and Pending Completed Studies During Hospitalization Category Date Time Status XR chest 1V portable [id number] Stat Exams 12/04/22 09:19 Completed Pending at discharge Category Date Time Status Blood Culture Stat Lab 12/04/22 10:35 Results Complete Blood Count w/Auto AM LABS Lab 12/05/22 04:00 Ordered Comprehensive Metabolic Panel AM LABS Lab 12/05/22 04:00 Ordered Magnesium AM LABS Lab 12/05/22 04:00 Ordered Sputum Culture and Gram Stain Stat Lab 12/04/22 21:28 Results Radiology Impressions Chest X-Ray 12/04/22 09:19 IMPRESSION: No acute chest abnormality. Laboratory Results WBC 10.7 10^3/uL (4.0-10.0) H 12/04/22 09:53 RBC 5.73 10^6/uL (4.1-5.3) H 12/04/22 09:53 Hgb 15.6 g/dL (11.5-15.3) H 12/04/22 09:53 Hct 50.4 % (37.0-47.0) H 12/04/22 09:53 MCV 88.0 fl (81-99) 12/04/22 09:53 MCH 27.2 pg (28.0-34.0) L 12/04/22 09:53 MCHC 31.0 g/dL (30.0-36.0) 12/04/22 09:53 RDW 15.7 % (12.1-15.1) H 12/04/22 09:53 Plt Count 338 10^3/cmm (130-400) 12/04/22 09:53 MPV 9.6 fL (7.4-10.4) 12/04/22 09:53 Neut % (Auto) 53.8 % 12/04/22 09:53 Lymph % (Auto) 39.1 % 12/04/22 09:53 [place] % (Auto) 4.8 % 12/04/22 09:53 Eos % (Auto) 0.0 % 12/04/22 09:53 Baso % (Auto) 0.2 % 12/04/22 09:53 Neut # (Auto) 5.76 10^3/uL (1.8-7.7) 12/04/22 09:53 Lymph # (Auto) 4.2 10^3/uL (0.8-4.8) 12/04/22 09:53 [place] # (Auto) 0.5 10^3/uL (0.2-0.9) 12/04/22 09:53 Eos # (Auto) 0.0 10^3/uL (0.0-0.8) 12/04/22 09:53 Baso # (Auto) 0.0 10^3/uL (0.0-0.1) 12/04/22 09:53 Nucleated RBC % (auto) 0 % 12/04/22 09:53 Nucleated RBCs # 0.0 /100WBC 12/04/22 09:53 Specimen Type Arterial 12/04/22 09:25 Sample Site Brachial, right 12/04/22 09:25 ABG pH 7.39 (7.35-7.45) 12/04/22 09:25 ABG pCO2 43.5 mmHg (35-45) 12/04/22 09:25 ABG pO2 119.0 mmHg (80.0-100.0) H 12/04/22 09:25 ABG HCO3 26.0 mmol/L (22-26) 12/04/22 09:25 ABG O2 Saturation 99.5 12/04/22 09:25 ABG Base Excess 0.6 mmol/L (-2.0-2.0) 12/04/22 09:25 Eric Test N/a 12/04/22 09:25 A-a O2 Gradient 14.5 mmHg (5-10) H 12/04/22 09:25 Hematocrit 42.4 % (37-47) 12/04/22 09:25 Hgb O2 Saturation 97.8 % (95-100) 12/04/22 09:25 Carboxyhemoglobin 1.0 %THgb (0.4-20.1) 12/04/22 09:25 Methemoglobin 0.7 % (0.4-1.5) 12/04/22 09:25 Total Hemoglobin 13.8 g/dL (12-16) 12/04/22 09:25 Sodium 142.0 mmol/L (131-143) 12/04/22 09:25 Potassium 3.8 mmol/L (3.5-5.0) 12/04/22 09:25 Glucose 101.0 mg/dL (70-115) 12/04/22 09:25 Ionized Calcium 1.2 mmol/L (1.1-1.4) 12/04/22 09:25 O2 Delivery Device Bipap 12/04/22 09:25 FiO2 40.0 % 12/04/22 09:25 Tool Storage Attendant ID Amh 12/04/22 09:25 Sodium 141 mmol/L (136-145) 12/04/22 09:53 Potassium 3.8 mmol/L (3.5-5.1) 12/04/22 09:53 Chloride 102 mmol/L (98-107) 12/04/22 09:53 Carbon Dioxide 27 mmol/L (22-29) 12/04/22 09:53 Anion Gap 15.8 (5-19) 12/04/22 09:53 BUN 17 mg/dL (6-20) 12/04/22 09:53 Creatinine 0.9 mg/dL (0.5-0.9) 12/04/22 09:53 GFR Calculation 65.5 mL/min (90-130) L 12/04/22 09:53 Glucose 95 mg/dL (65-115) 12/04/22 09:53 Calculated Osmolality 293 mOsm/kg (285-295) 12/04/22 09:53 Calcium 9.5 mg/dL (8.5-10.5) 12/04/22 09:53 Total Bilirubin 0.5 mg/dL (0.15-1.2) 12/04/22 09:53 AST 15 U/L (0-32) 12/04/22 09:53 ALT 21 U/L (0-33) 12/04/22 09:53 Alkaline Phosphatase 83 U/L (35-105) 12/04/22 09:53 Troponin T Baseline 7 ng/L (0-10) 12/04/22 21:03 Troponin T 120 Minute 6.66 ng/L (0-10) 12/04/22 21:57 Delta Troponin T -0.34 ABS# (0-10) L 12/04/22 21:57 Troponin T Hi Sens 6Hr 7.14 ng/L (0-10) 12/05/22 02:16 Troponin T Hi Sens 6Hr Delta 0.14 ng/L (0-12) 12/05/22 02:16 Total Protein 7.6 g/dL (6.6-8.7) 12/04/22 09:53 Albumin 4.5 g/dL (3.5-5.2) 12/04/22 09:53 Globulin 3.1 g/dL (1.3-4.6) 12/04/22 09:53 TSH 0.51 uIU/mL (0.27-4.20) 12/04/22 21:57 Urine Color Yellow (Yellow) 12/04/22 14:47 Urine Appearance Clear (CLEAR) 12/04/22 14:47 Urine pH 5 (5-7) 12/04/22 14:47 Ur Specific [place] 1.020 (1.005-1.030) 12/04/22 14:47 Urine Protein Neg (Negative) 12/04/22 14:47 Urine Glucose (UA) Norm (Normal) 12/04/22 14:47 Urine Ketones Negative (Negative) 12/04/22 14:47 Urine Blood Neg (Negative) 12/04/22 14:47 Urine Nitrate Negative (Negative) 12/04/22 14:47 Urine Bilirubin Neg (Negative) 12/04/22 14:47 Urine Urobilinogen Norm mg/dL (Negative) 12/04/22 14:47 Ur Leukocyte Esterase Negative (Negative) 12/04/22 14:47 Coronavirus 229E (PCR) Not detected (NOT DETECT) 12/04/22 10:20 SARS-CoV-2 (PCR) Not detected (NOT DETECT) 12/04/22 10:20 Vitals Last Vital Signs Temp 97.6 F 12/05/22 04:00 Pulse 108 H 12/05/22 12:00 Resp 20 H 12/05/22 12:00 BP 126/78 12/05/22 12:00 Pulse Ox 97 12/05/22 12:00 O2 Del Method Room Air 12/05/22 12:00 O2 Flow Rate 2 12/05/22 11:44 FiO2 30 12/05/22 00:25 Discharge Plan Discharge Patient Disposition: Home Condition: Stable Prescriptions: New doxycycline monohydrate 100 mg capsule 100 mg PO BID Qty: 20 0RF prednisone 10 mg tablet 10 mg PO DIRECTED Qty: 63 0RF Rx Instructions: see taper instructions Continued (DME) Walker with wheels and a seat See Rx Instructions .Route .MEDSUPPLY Qty: 1 0RF Rx Instructions: As directed hydroxyzine HCl 25 mg tablet 25 mg PO BID PRN (Reason: Anxiety) Qty: 60 0RF albuterol sulfate 90 mcg/actuation HFA aerosol inhaler 2 puff inhalation Q6H PRN (Reason: shortness of breath or wheezing) 30 Days Qty: 8.5 12RF Singulair 10 mg tablet 10 mg PO QAM Qty: 30 3RF Fasenra Pen 30 mg/mL auto-injector 30 mg SUBCUT Q28D Qty: 1 2RF Rx Instructions: LOADING DOSE PA Ref# [id number], 04/03/22-04/03/23 [id number] Fasenra Pen 30 mg/mL auto-injector 30 mg SUBCUT .q 8 weeks Qty: 1 5RF Rx Instructions: Maintenance dose PA Ref# [id number], 04/03/22-04/03/23 [id number] budesonide-formoterol [Symbicort] 160-4.5 mcg/actuation HFA aerosol inhaler 2 puff inhalation BID 30 Days Qty: 10.2 3RF buspirone 5 mg tablet 5 mg PO TID PRN (Reason: anxiety) Qty: 90 6RF albuterol sulfate 2.5 mg /3 mL (0.083 %) solution for nebulization 2.5 mg inhalation QID PRN (Reason: shortness of breath or wheezing) Qty: 360 9RF metoclopramide HCl [Reglan] 10 mg tablet 10 mg PO Q6H PRN (Reason: headache) Qty: 20 0RF Black Licorice Caps 1 cap PO DAILY prazosin 1 mg capsule 1 mg PO BEDTIME PRN (Reason: unknown) multivitamin Tablet 1 tab PO QAM zinc acetate 50 mg (zinc) Capsule 50 mg PO QAM calcium carbonate-vitamin D3 600 mg-5 mcg (200 unit) Tablet 1 tab PO QAM ascorbic acid (vitamin C) [Vitamin C] 500 mg Tablet 500 mg PO QAM Spiriva Respimat 1.25 mcg/actuation mist 2 puff inhalation QAM loratadine [Claritin] 10 mg Tablet 10 mg PO DAILY PRN (Reason: Allergy Symptoms) budesonide [Pulmicort] 0.5 mg/2 mL suspension for nebulization 0.5 mg inhalation BID Qty: 60 0RF ipratropium-albuterol 0.5 mg-3 mg(2.5 mg base)/3 mL solution for nebulization 3 ml inhalation TID Qty: 180 0RF Discharge Orders: Discharge Order (Routine); Ordered 12/05/22 Ordered By: Matthieu Tolbert Referrals: YadirarCelestino MD [Physician] - 2 weeks Laron Gutierrez MD [Primary Care Provider] - 4-7 days Discharge Diet: Usual diet Discharge Activity: Increase activity as tolerated Patient Instructions: Opioid Safety Activity Restrictions/Additional Instructions: Prednisone taper 6 a day for 3 days, 5 a day for 3 days, 4 a day for 3 days, 3 a day for 3 days, 2 a day for 3 days, 1 a day for 3 days then discontinue Take all medicine as prescribed Follow-up as directed Avoid any smoke exposure, drug exposure Return for any concerns Discharge Attestations Time Spent in Discharge Care*: greater than 30 min Status at Discharge: Cognitive status at discharge: cognitively intact, Behavioral status at discharge: cooperative, Quality Metrics Clinical Quality Measures [ No reported AMI, CVA or VTE this stay] Coding Level of Care Code 44737 Total time (in minutes) for Discharge: 37 Diagnoses Acute asthma exacerbation J45.901 Acute respiratory failure with hypoxia J96.01
== END 2022-12-05 15:45 | disposition home or self-care (01) | DRG 202 ==
LOC: ER 10:53 → MEDSURG 13:18
PROVIDERS: Student in an Organized Health Care Education/Training Program; Admitting Provider Internal Medicine; Emergency Provider Family Medicine; PCP Family Medicine; Visit Provider Internal Medicine
DX: J45.51 Severe persistent asthma with (acute) exacerbation (principal); J96.01 Acute respiratory failure with hypoxia; F15.90 Other stimulant use, unspecified, uncomplicated; Z79.51 Long term (current) use of inhaled steroids; F41.9 Anxiety disorder, unspecified; H54.40 Blindness, one eye, unspecified eye; Z86.16 Personal history of COVID-19; Z87.442 Personal history of urinary calculi; F43.10 Post-traumatic stress disorder, unspecified; Z90.49 Acquired absence of other specified parts of digestive tract
CPT/HCPCS: 36415; 36600; 71045; 80051; 80053; 81003; 82330; 82805; 84443; 84484; 85025; 87040; 87070; 87205; 87635; 93005; 94640; 94660; 96372; 96374; 99291; J1100; J1650; J7512; J7626

== ENCOUNTER 2022-12-11 11:44 | Emergency (ER) | payer MEDICAID, SELFPAY ==
[2022-12-11] VITALS (11 sets, daily range): BP systolic 115–168; BP diastolic 71–96; PULSE 85–118; RESP 22–28; TEMP 36.8; O2SAT 94–100; BMI 38.2
--- NOTE | 2022-12-11 12:07 | ECG_ITS ---
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 Measurements Intervals [place] Rate: 107 P: 63 MS: 107 QRS: 62 QRSD: 78 T: 61 QT: 329 QTc: 441 Interpretive Statements SINUS TACHYCARDIA WITH SHORT MS INTERVAL POSSIBLE LEFT ATRIAL ENLARGEMENT [-0.1mV P-WAVE IN V1/V2] MINIMAL ST DEPRESSION [0.025+ mV ST DEPRESSION] ABNORMAL RHYTHM ECG Compared to ECG 12/04/2022 16:01:28 ST (T wave) deviation now present Electronically Signed On 12-11-2022 21:38:20 CDT by Farida Gonzalez M.D. [id number]
--- NOTE | 2022-12-11 12:17 | XR_ITS ---
WS: [id number] Exam: XR chest 1V portable [id number] Date/Time of Exam: 12/11/2022 12:26 PM Reason For Exam: dyspnea Comparison 12/04/2022. Findings: The lungs are clear and fully expanded. Costophrenic angles are sharp. No infiltrates. Bronchovascula r relief appears normal. Cardiac silhouette is unremarkable. Bony elements are intact. XR/XR chest 1V portable [id number] IMPRESSION: Unremarkable chest radiograph.
--- NOTE | 2022-12-11 12:23 | ED_ITS ---
HPI - SOB/Dyspnea General: Chief Complaint: Shortness of Breath/Dyspnea Stated Complaint: SOB Time Seen by Provider: 12/11/22 12:15 History of Present Illness: HPI Narrative: Presents to the ER with complaints of shortness of breath worse today. Patient is recent been discharged from the hospital approximately 4 days ago for similar episode. Patient is currently on steroids and doxycycline. Patient admits to taking 4 nebulizer treatments earlier this morning with no help. Patient called her family doctor that sent her to the urgent care when she got to the urgent care they sent her directly to the ER. 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 Moderate airflow obstruction, significant post-bronchodilator response, air trapping. History of sleep study 11/2021 no sleep apnea or nocturnal hypoxemia Multiple allergies In 2021 absolute eosinophils 2100 and IgE [id number] Psychiatric care PTSD (post-traumatic stress disorder) Severe persistent asthma Surgical History H/O esophagogastroduodenoscopy (06/22/21) History of appendectomy History of History of colon resection History of hysterectomy History of laparotomy Status post colonoscopy (06/22/21) Status post laparoscopic cholecystectomy Family History Other No pertinent family history Social History Smoking and tobacco status: never smoked Second hand smoke exposure: Yes Alcohol intake: never Substance/Drug Use: current Physical Exam Const: COMMON NORMALS: no acute distress, average body habitus, patient oriented x3, no limitations, healthy appearing, alert and well nourished HENMT: COMMON NORMALS: normocephalic, atraumatic, hearing grossly normal bilaterally, external ears normal, Normal external nose present and moist oral m ucous membranes HEAD & SCALP: normocephalic and atraumatic NOSE: Normal external nose present EXTERNAL EAR: Yes external ears normal Neck/C-Spine: COMMON NORMALS: full ROM, no lymphadenopathy, supple, no meningeal signs, no JVD and Thyroid normal THYROID: Thyroid normal Lymph: LYMPHATIC: no lymphadenopathy noted Chest: COMMONS NORMALS: normal inspection of the chest and normal palpation of entire chest wall Resp: COMMON NORMALS: normal respiratory effort, No retractions and No use of accessory muscles; negative for clear to auscultation bilaterally (Tightness diffusely wheezing bilaterally) AUSCULTATION: not clear to auscultation bilaterally (Tightness diffusely wheezing bilaterally) Cardio: COMMON NORMALS: no JVD, regular rate, regular rhythm, S1 normal heart sound present, No gallops present (Cardio), No clicks present (Cardio) and No murmurs present (Cardio) RATE: regular rate RHYTHM: regular rhythm HEART SOUNDS: S1 normal heart sound present GI: COMMON NORMALS: Normal to inspection, nondistended, normoactive bowel sounds present, Soft to palpation and non-tender PALPATION: Yes Soft to palpation Neuro: COMMON NORMALS: patient oriented x3 SENSORIUM/ORIENTATION: Yes alert MENINGEAL SIGNS: Yes no meningeal signs Course Vital Signs: Vital signs: Vital Signs Temperature 98.2 F 12/11/22 12:07 Pulse Rate 85 12/11/22 15:30 Respiratory Rate 22 H 12/11/22 15:30 Blood Pressure 155/87 12/11/22 15:30 Pulse Oximetry 98 12/11/22 15:30 Oxygen Delivery Me thod Nasal Cannula 12/11/22 15:30 Oxygen Flow Rate 1 12/11/22 15:30 MDM - SOB/Dyspnea Medical Decision Making Presents to the ER with shortness of breath difficulty breathing and wheezing. Patient was just released from the hospital for similar episode. Patient does have oxygen at home. Patient was given Solu-Medrol DuoNeb and Xopenex breathing treatments as well as repeated lab work and chest x-ray EKG. All of which are essentially benign. Patient was titrated off of oxygen is maintaining a sat of 9495% on room air currently. Patient be discharged home to follow-up with her primary care doctor as needed. Differential Diagnosis Likely asthma with exacerbation; Unlikely acute exacerbation of chronic obstr uctive airways disease, congestive heart failure, community acquired pneumonia or pulmonary embolism Lab Data I reviewed the patient's lab results. 12/11/22 13:05 12/11/22 12:50 Labs/Radiology: Radiology Impressions Chest X-Ray 12/11/22 12:17 IMPRESSION: Unremarkable chest radiograph. Laboratory Results WBC 11.0 10^3/uL (4.0-10.0) H 12/11/22 13:05 RBC 4.81 10^6/uL (4.1-5.3) 12/11/22 13:05 Hgb 13.6 g/dL (11.5-15.3) 12/11/22 13:05 Hct 44.0 % (37.0-47.0) 12/11/22 13:05 MCV 91.5 fl (81-99) 12/11/22 13:05 MCH 28.3 pg (28.0-34.0) 12/11/22 13:05 MCHC 30.9 g/dL (30.0-36.0) 12/11/22 13:05 RDW 15.9 % (12.1-15.1) H 12/11/22 13:05 Plt Count 311 10^3/cmm (130-400) 12/11/22 13:05 MPV 9.5 fL (7.4-10.4) 12/11/22 13:05 Neut % (Auto) 77.7 % 12/11/22 13:05 Lymph % (Auto) 15.9 % 12/11/22 13:05 [place] % (Auto) 4.3 % 12/11/22 13:05 Eos % (Auto) 0.0 % 12/11/22 13:05 Baso % (Auto) 0.2 % 12/11/22 13:05 Neut # (Auto) 8.53 10^3/uL (1.8-7.7) H 12/11/22 13:05 Lymph # (Auto) 1.8 10^3/uL (0.8-4.8) 12/11/22 13:05 [place] # (Auto) 0.5 10^3/uL (0.2-0.9) 12/11/22 13:05 Eos # (Auto) 0.0 10^3/uL (0.0-0.8) 12/11/22 13:05 Baso # (Auto) 0.0 10^3/uL (0.0-0.1) 12/11/22 13:05 Nucleated RBC % (auto) 0 % 12/11/22 13:05 Nucleated RBCs # 0.0 /100WBC 12/11/22 13:05 Sodium 138 mmol/L (136-145) 12/11/22 12:50 Potassium 3.6 mmol/L (3.5-5.1) 12/11/22 12:50 Chloride 101 mmol/L (98-107) 12/11/22 12:50 Carbon Dioxide 21 mmol/L (22-29) L 12/11/22 12:50 Anion Gap 19.6 (5-19) H 12/11/22 12:50 BUN 10 mg/dL (6-20) 12/11/22 12:50 Creatinine 0.8 mg/dL (0.5-0.9) 12/11/22 12:50 GFR Calculation 75.0 mL/min (90-130) L 12/11/22 12:50 Glucose 100 mg/dL (65-115) 12/11/22 12:50 Calculated Osmolality 285 mOsm/kg (285-295) 12/11/22 12:50 Calcium 9.2 mg/dL (8.5-10.5) 12/11/22 12:50 Total Bilirubin 0.5 mg/dL (0.15-1.2) 12/11/22 12:50 AST 20 U/L (0-32) 12/11/22 12:50 ALT 24 U/L (0-33) 12/11/22 12:50 Alkaline Phosphatase 81 U/L (35-105) 12/11/22 12:50 Troponin T Gen 5 ng/L 8 ng/L (0-10) 12/11/22 12:50 Total Protein 7.3 g/dL (6.6-8.7) 12/11/22 12:50 Albumin 4.2 g/dL (3.5-5.2) 12/11/22 12:50 Globulin 3.1 g/dL (1.3-4.6) 12/11/22 12:50 EKG Data EKG 1: I personally reviewed and interpreted this EKG as follows: EKG Interpretation Date: 12/11/22 EKG interpretation time: 12:18 Interpretation: EKG showed sinus tachycardia with a ventricular rate 107 beats a minute, CA interval 107, QRS duration 78, QTc 392, sinus tach with short CA interval, Discharge Plan Discharge Patient Disposition: Home Clinical Impression: Acute exacerbation of chronic obstructive airways disease Condition: Stable Prescriptions: No Action (DME) Walker with wheels and a seat See Rx Instructions .Route .MEDSUPPLY Qty: 1 0RF Rx Instructions: As directed hydroxyzine HCl 25 mg tablet 25 mg PO BID PRN (Reason: Anxiety) Qty: 60 0RF albuterol sulfate 90 mcg/actuation HFA aerosol inhaler 2 puff inhalation Q6H PRN (Reason: shortness of breath or wheezing) 30 Days Qty: 8.5 12RF Singulair 10 mg tablet 10 mg PO QAM Qty: 30 3RF Fasenra Pen 30 mg/mL auto-injector 30 mg SUBCUT Q28D Qty: 1 2RF Rx Instructions: LOADING DOSE IN Ref# [id number], 04/03/22-04/03/23 [id number] Fasenra Pen 30 mg/mL auto-injector 30 mg SUBCUT .q 8 weeks Qty: 1 5RF Rx Instructions: Maintenance dose IN Ref# [id number], 04/03/22-04/03/23 [id number] budesonide-formoterol [Symbicort] 160-4.5 mcg/actuation HFA aerosol inhaler 2 puff inhalation BID 30 Days Qty: 10.2 3RF albuterol sulfate 2.5 mg /3 mL (0.083 %) solution for nebulization 2.5 mg inhalation QID PRN (Reason: shortness of breath or wheezing) Qty: 360 9RF prednisone 10 mg tablet 10 mg PO DIRECTED Qty: 63 0RF Rx Instructions: see taper instructions prazosin 1 mg capsule 1 mg PO BEDTIME PRN (Reason: unknown) multivitamin Tablet 1 tab PO QAM zinc acetate 50 mg (zinc) Capsule 50 mg PO QAM calcium carbonate-vitamin D3 600 mg-5 mcg (200 unit) Tablet 1 tab PO QAM ascorbic acid (vitamin C) [Vitamin C] 500 mg Tablet 500 mg PO QAM Spiriva Respimat 1.25 mcg/actuation mist 2 puff inhalation QAM budesonide [Pulmicort] 0.5 mg/2 mL suspension for nebulization 0.5 mg inhalation BID Qty: 60 0RF ipratropium-albuterol 0.5 mg-3 mg(2.5 mg base)/3 mL solution for nebulization 3 ml inhalation TID Qty: 180 0RF furosemide 20 mg tablet 20 mg PO DAILY PRN (Reason: Edema) Discharge Orders: Discharge ED (Routine); Ordered 12/11/22 Ordered By: Alvaro Ruiz Referrals: Laron Gutierrez MD [Primary Care Provider] - 1 week Patient Instructions: COPD (Chronic Obstructive Pulmonary Disease) (ED) Activity Restrictions/Additional Instructions: Please continue your current dose of steroids and antibiotics from your previous hospitalization. Please use your oxygen that you have at home as needed as well as your nebulizers. Please follow-up with your primary care doc in the next 7 days or sooner as needed. Coding Level of Care Code ED Percussion Teacher for Ramirez Torres
[2022-12-11] MEDS: ipratropium-albuterol 3 mL Neb INHALATION (12:31)
[2022-12-11 13:17] LABS: Basophils % 0.2 %; Hemoglobin 13.6 g/dL (11.5-15.3); Lymphocytes # 1.8 10^3/uL (0.8-4.8); Lymphocytes % 15.9 %; Mean Corpuscular HGB Conc 30.9 g/dL (30.0-36.0); Mean Corpuscular Hemoglobin 28.3 pg (28.0-34.0); Mean Corpuscular Volume 91.5 fl (81-99); Mean Platelet Volume 9.5 fL (7.4-10.4); Monocytes # 0.5 10^3/uL (0.2-0.9); Monocytes % 4.3 %; Neutrophils # 8.53 10^3/uL (1.8-7.7); Neutrophils % 77.7 %; Nucleated Red Blood Cells % 0 %; Platelet Count 311 10^3/cmm (130-400); Red Blood Count 4.81 10^6/uL (4.1-5.3); Red Cell Distribution Width 15.9 % (12.1-15.1)
[2022-12-11] MEDS: methylPREDNISolone sod succ 125 mg SDV 80 MG IVP (13:41)
[2022-12-11 13:47] LABS: Alanine Aminotransferase 24 U/L (0-33); Albumin Level 4.2 g/dL (3.5-5.2); Alkaline Phosphatase 81 U/L (35-105); Anion Gap 19.6 (5-19); Aspartate Amino Transferase 20 U/L (0-32); Blood Urea Nitrogen 10 mg/dL (6-20); Calcium 9.2 mg/dL (8.5-10.5); Carbon Dioxide 21 mmol/L (22-29); Chloride 101 mmol/L (98-107); Globulin 3.1 g/dL (1.3-4.6); Glucose 100 mg/dL (65-115); Osmolality Calculated 285 mOsm/kg (285-295); Potassium 3.6 mmol/L (3.5-5.1); Sodium 138 mmol/L (136-145); Total Bilirubin 0.5 mg/dL (0.15-1.2); Total Protein 7.3 g/dL (6.6-8.7)
[2022-12-11 14:53] LABS: Troponin T (5th) Once 8 ng/L (0-10)
[2022-12-11] MEDS: levalbuterol 1.25 mg/3 mL Neb INHALATION (14:54)
== END 2022-12-11 16:09 | disposition home or self-care (01) ==
PROVIDERS: Emergency Provider Emergency Medicine; PCP Family Medicine
DX: J44.1 Chronic obstructive pulmonary disease with (acute) exacerbation (principal); Z77.22 Contact with and (suspected) exposure to environmental tobacco smoke (acute) (chronic)
CPT/HCPCS: 71045; 80053; 84484; 85025; 93005; 94640; 96374; 99285; J2930; J7614

== ENCOUNTER 2022-12-16 22:21 | Inpatient (IN) | payer MEDICAID, SELFPAY ==
[2022-12-16 22:22] VITALS: BP 182/103; RESP 26; TEMP 36.7; O2SAT 100; BMI 38.2
--- NOTE | 2022-12-16 22:24 | XRR_ITS ---
PROCEDURE INFORMATION: Exam: XR Chest Exam date and time: 12/16/2022 11:23 PM Age: 52 years old Clinical indication: Shortness of breath; Additional info: SOB TECHNIQUE: Imaging protocol: Radiologic exam of the chest. Views: 1 view. COMPARISON: CR XR chest 1V portable [id number] 12/11/2022 12:26 PM FINDINGS: Lungs: Unremarkable. No consolidation. Pleural spaces: Unremarkable. No pleural effusion. No pneumothorax. Heart/Mediastinum: Unremarkable. No cardiomegaly. Bones/joints: Unremarkable. XR/XR chest 1V portable [id number] IMPRESSION: No acute findings.
--- NOTE | 2022-12-16 22:28 | ECG_ITS ---
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 Measurements Intervals [place] Rate: 120 P: 67 RI: 116 QRS: 72 QRSD: 82 T: 62 QT: 291 QTc: 411 Interpretive Statements SINUS TACHYCARDIA WITH SHORT RI INTERVAL MODERATE ST DEPRESSION [0.05+ mV ST DEPRESSION] Compared to ECG 12/11/2022 12:18:04 No significant changes Electronically Signed On 12-17-2022 11:24:12 CDT by Shelbie Ashby M.D. [id number]
--- NOTE | 2022-12-16 22:30 | W.ED.SOB ---
HPI - SOB/Dyspnea General: Chief Complaint: Shortness of Breath/Dyspnea Stated Complaint: SOB Time Seen by Provider: 12/16/22 22:23 Source: patient and EMS Mode of arrival: EMS Limitations: no limitations History of Present Illness: HPI Narrative: 52-year-old female has a history of asthma she is on 2 L oxygen at baseline states she had increased shortness of breath throughout the day not much worse shortness of breath just prior to arrival she is wheezing with tachypnea patient was given a breathing treatment in route. She denies any cough or fever. 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 Moderate airflow obstruction, significant post-bronchodilator response, air trapping. History of sleep study 11/2021 no sleep apnea or nocturnal hypoxemia Multiple allergies In 2021 absolute eosinophils 2100 and IgE [id number] Psychiatric care PTSD (post-traumatic stress disorder) Severe persistent asthma Surgical History H/O esophagogastroduodenoscopy (06/22/21) History of appendectomy History of History of colon resection History of hysterectomy History of laparotomy Status post colonoscopy (06/22/21) Status post laparoscopic cholecystectomy Family History Other No pertinent family history Social History Smoking and tobacco status: never smoked Second hand smoke exposure: Yes Alcohol intake: never Substance/Drug Use: current Physical Exam Const: COMMON NORMALS: patient oriented x3 HENMT: COMMON NORMALS: normocephalic and atraumatic HEAD & SCALP: normocephalic and atraumatic Eye: COMMON NORMALS: conjunctivae normal CONJUNCTIVA: Yes conjunctivae normal Neck/C-Spine: COMMON NORMALS: full ROM and supple Chest: COMMONS NORMALS: normal inspection of the chest and normal palpation of entire chest wall Resp: COMMON NORMALS: No retractions EFFORT & INSPECTION: Yes tachypneic AUSCULTATION: wheezes Cardio: COMMON NORMALS: regular rate, regular rhythm and No murmurs present (Cardio) RATE: regular rate RHYTHM: regular rhythm GI: COMMON NORMALS: Normal to inspection, nondistended, normoactive bowel sounds present, Soft to palpation, non-tender and no masses PALPATION: Yes Soft to palpation Extremity: COMMON NORMALS: normal to inspection and full ROM Neuro: COMMON NORMALS: patient oriented x3, moves all extremities and no focal motor deficits Psych: COMMON NORMALS: mental status grossly normal, Normal thought process present and cooperative THOUGHT PROCESS: Normal thought process present Skin: COMMON NORMALS: no rashes or lesions noted and no wounds GENERAL SKIN EXAM: no rashes or lesions noted Course Vital Signs: Vital signs: Vital Signs Temperature 98.1 F 12/16/22 22:22 Pulse Rate 116 H 12/17/22 02:10 Respiratory Rate 28 H 12/17/22 01:02 Blood Pressure 167/124 12/17/22 00:58 Pulse Oximetry 100 12/17/22 02:10 Oxygen Delivery Me thod Nasal Cannula 12/17/22 01:02 Oxygen Flow Rate 2 12/17/22 01:02 Fraction of Inspir ed Oxygen 40 12/17/22 02:10 MDM - SOB/Dyspnea Medical Decision Making Patient presents here with COPD exacerbation with hypercapnia and hypoxia she is very anxious here was given Ativan continued wheezing did give her breathing treatments along with magnesium her hypercapnia worsened did place her on BiPAP spoke to hospitalist will admit to ICU. Medical Records I reviewed the patient's medical records. Lab Data I reviewed the patient's lab results. 12/16/22 22:46 12/16/22 22:46 Labs/Radiology: Radiology Impressions Chest X-Ray 12/16/22 22:24 IMPRESSION: No acute findings. Laboratory Results WBC 12.9 10^3/uL (4.0-10.0) H 12/16/22 22:46 RBC 4.65 10^6/uL (4.1-5.3) 12/16/22 22:46 Hgb 12.9 g/dL (11.5-15.3) 12/16/22 22:46 Hct 40.9 % (37.0-47.0) 12/16/22 22:46 MCV 88.0 fl (81-99) 12/16/22 22:46 MCH 27.7 pg (28.0-34.0) L 12/16/22 22:46 MCHC 31.5 g/dL (30.0-36.0) 12/16/22 22:46 RDW 15.9 % (12.1-15.1) H 12/16/22 22:46 Plt Count 325 10^3/cmm (130-400) 12/16/22 22:46 MPV 8.9 fL (7.4-10.4) 12/16/22 22:46 Neut % (Auto) 62.8 % 12/16/22 22:46 Lymph % (Auto) 30.4 % 12/16/22 22:46 [place] % (Auto) 5.5 % 12/16/22 22:46 Eos % (Auto) 0.0 % 12/16/22 22:46 Baso % (Auto) 0.1 % 12/16/22 22:46 Neut # (Auto) 8.10 10^3/uL (1.8-7.7) H 12/16/22 22:46 Lymph # (Auto) 3.9 10^3/uL (0.8-4.8) 12/16/22 22:46 [place] # (Auto) 0.7 10^3/uL (0.2-0.9) 12/16/22 22:46 Eos # (Auto) 0.0 10^3/uL (0.0-0.8) 12/16/22 22:46 Baso # (Auto) 0.0 10^3/uL (0.0-0.1) 12/16/22 22:46 Nucleated RBC % (auto) 0 % 12/16/22 22:46 Nucleated RBCs # 0.0 /100WBC 12/16/22 22:46 PT 12.10 SECONDS (12.1-14.9) 12/16/22 22:46 INR 0.87 (0.8-1.2) 12/16/22 22:46 Specimen Type Arterial 12/17/22 01:50 Sample Site Radial, left 12/17/22 01:50 ABG pH 7.27 (7.35-7.45) L 12/17/22 01:50 ABG pCO2 59.2 mmHg (35-45) H 12/17/22 01:50 ABG pO2 64.9 mmHg (80.0-100.0) L 12/17/22 01:50 ABG HCO3 27.3 mmol/L (22-26) H 12/17/22 01:50 ABG Base Excess -0.8 mmol/L (-2.0-2.0) 12/17/22 01:50 Eric Test Pos 12/17/22 01:50 Hematocrit 40.7 % (37-47) 12/17/22 01:50 O2 Delivery Device Nc 12/17/22 01:50 O2 Liters/Min 2.0 % 12/17/22 01:50 FiO2 28.0 % 12/17/22 01:50 Anesthesiology Physician ID Alewe 12/17/22 01:50 Sodium 143 mmol/L (136-145) 12/16/22 22:46 Potassium 4.1 mmol/L (3.5-5.1) 12/16/22 22:46 Chloride 105 mmol/L (98-107) 12/16/22 22:46 Carbon Dioxide 29 mmol/L (22-29) 12/16/22 22:46 Anion Gap 13.1 (5-19) 12/16/22 22:46 BUN 12 mg/dL (6-20) 12/16/22 22:46 Creatinine 0.8 mg/dL (0.5-0.9) 12/16/22 22:46 GFR Calculation 75.0 mL/min (90-130) L 12/16/22 22:46 Glucose 114 mg/dL (65-115) 12/16/22 22:46 Calculated Osmolality 297 mOsm/kg (285-295) H 12/16/22 22:46 Calcium 8.8 mg/dL (8.5-10.5) 12/16/22 22:46 Total Bilirubin 0.3 mg/dL (0.15-1.2) 12/16/22 22:46 AST 14 U/L (0-32) 12/16/22 22:46 ALT 17 U/L (0-33) 12/16/22 22:46 Alkaline Phosphatase 74 U/L (35-105) 12/16/22 22:46 NT-Pro-B Natriuret Pep 78 pg/mL (0-125) 12/16/22 22:46 Total Protein 6.8 g/dL (6.6-8.7) 12/16/22 22:46 Albumin 4.1 g/dL (3.5-5.2) 12/16/22 22:46 Globulin 2.7 g/dL (1.3-4.6) 12/16/22 22:46 Urine Opiates Screen Negative ng/mL (Negative) 12/17/22 01:11 Ur Barbiturates Screen Negative ng/mL (Negative) 12/17/22 01:11 Ur Phencyclidine Scrn Negative ng/mL (Negative) 12/17/22 01:11 Ur Amphetamines Screen Negative ng/mL (Negative) 12/17/22 01:11 U Benzodiazepines Scrn Negative ng/mL (Negative) 12/17/22 01:11 Urine Cocaine Screen Negative ng/mL (Negative) 12/17/22 01:11 U Marijuana (THC) Screen Negative ng/mL (Negative) 12/17/22 01:11 Critical Care Time Critical Care Time: Critical Care Time: Yes Total Critical Care Time: 45 Attestation: The high probability of a clinically significant, sudden or life threatening deterioration of the patient's resp system(s) required my full and direct attention, intervention and personal management. The critical care time is as shown. This time is in addition to time spent performing any reported procedures but includes the following: [x] Data and vital sign review and interpretation [x] Patient assessment, examination and intervention [x] Documentation [x] Medication orders and management Discharge Plan Discharge Patient Disposition: Admitted As Inpatient Clinical Impression: Acute exacerbation of chronic obstructive airways disease, Respiratory failure with hypoxia and hypercapnia Condition: Stable Prescriptions: No Action (DME) Walker with wheels and a seat See Rx Instructions .Route .MEDSUPPLY Qty: 1 0RF Rx Instructions: As directed hydroxyzine HCl 25 mg tablet 25 mg PO BID PRN (Reason: Anxiety) Qty: 60 0RF albuterol sulfate 90 mcg/actuation HFA aerosol inhaler 2 puff inhalation Q6H PRN (Reason: shortness of breath or wheezing) 30 Days Qty: 8.5 12RF Singulair 10 mg tablet 10 mg PO QAM Qty: 30 3RF Fasenra Pen 30 mg/mL auto-injector 30 mg SUBCUT Q28D Qty: 1 2RF Rx Instructions: LOADING DOSE IN Ref# [id number], 04/03/22-04/03/23 [id number] Fasenra Pen 30 mg/mL auto-injector 30 mg SUBCUT .q 8 weeks Qty: 1 5RF Rx Instructions: Maintenance dose IN Ref# [id number], 04/03/22-04/03/23 [id number] budesonide-formoterol [Symbicort] 160-4.5 mcg/actuation HFA aerosol inhaler 2 puff inhalation BID 30 Days Qty: 10.2 3RF albuterol sulfate 2.5 mg /3 mL (0.083 %) solution for nebulization 2.5 mg inhalation QID PRN (Reason: shortness of breath or wheezing) Qty: 360 9RF prednisone 10 mg tablet 10 mg PO DIRECTED Qty: 63 0RF Rx Instructions: see taper instructions prazosin 1 mg capsule 1 mg PO BEDTIME PRN (Reason: unknown) multivitamin Tablet 1 tab PO QAM zinc acetate 50 mg (zinc) Capsule 50 mg PO QAM calcium carbonate-vitamin D3 600 mg-5 mcg (200 unit) Tablet 1 tab PO QAM ascorbic acid (vitamin C) [Vitamin C] 500 mg Tablet 500 mg PO QAM Spiriva Respimat 1.25 mcg/actuation mist 2 puff inhalation QAM budesonide [Pulmicort] 0.5 mg/2 mL suspension for nebulization 0.5 mg inhalation BID Qty: 60 0RF ipratropium-albuterol 0.5 mg-3 mg(2.5 mg base)/3 mL solution for nebulization 3 ml inhalation TID Qty: 180 0RF furosemide 20 mg tablet 20 mg PO DAILY PRN (Reason: Edema) Referrals: Laron Gutierrez MD [Primary Care Provider] - Coding Level of Care Code ED Geotechnician for Chg Fwd
[2022-12-16] MEDS: albuterol 2.5 mg/3 mL Neb 5 MG INHALATION (22:40)
[2022-12-16 22:42] VITALS: PULSE 133; RESP 24; O2SAT 96
[2022-12-16 22:51] LABS: Basophils % 0.1 %; Hematocrit 40.9 % (37.0-47.0); Hemoglobin 12.9 g/dL (11.5-15.3); Lymphocytes # 3.9 10^3/uL (0.8-4.8); Lymphocytes % 30.4 %; Mean Corpuscular HGB Conc 31.5 g/dL (30.0-36.0); Mean Corpuscular Hemoglobin 27.7 pg (28.0-34.0); Mean Platelet Volume 8.9 fL (7.4-10.4); Monocytes # 0.7 10^3/uL (0.2-0.9); Monocytes % 5.5 %; Neutrophils % 62.8 %; Nucleated Red Blood Cells % 0 %; Platelet Count 325 10^3/cmm (130-400); Red Blood Count 4.65 10^6/uL (4.1-5.3); Red Cell Distribution Width 15.9 % (12.1-15.1); White Blood Count 12.9 10^3/uL (4.0-10.0)
[2022-12-16 22:58] VITALS: PULSE 143; RESP 24; O2SAT 99
[2022-12-16 23:03] LABS: INR 0.87 (0.8-1.2)
[2022-12-16 23:11] LABS: ABG PCO2 49.5 mmHg (35-45); ABG PH Result 7.34 (7.35-7.45); Arterial Blood Gas Hematocrit 40.7 % (37-47); Base Excess ABG 0.3 mmol/L (-2.0-2.0); Blood Gas Allen Test Pos; Blood Gas Sample Site Radial, right; Blood Gas Sample Type Arterial; HCO3 ABG 26.7 mmol/L (22-26); Oxygen Device NC; PO2 ABG 81.9 mmHg (80.0-100.0)
[2022-12-16 23:21] LABS: Alanine Aminotransferase 17 U/L (0-33); Albumin Level 4.1 g/dL (3.5-5.2); Alkaline Phosphatase 74 U/L (35-105); Anion Gap 13.1 (5-19); Aspartate Amino Transferase 14 U/L (0-32); Blood Urea Nitrogen 12 mg/dL (6-20); Calcium 8.8 mg/dL (8.5-10.5); Carbon Dioxide 29 mmol/L (22-29); Chloride 105 mmol/L (98-107); Globulin 2.7 g/dL (1.3-4.6); Glucose 114 mg/dL (65-115); NT Pro B Type Natriuretic Pept 78 pg/mL (0-125); Osmolality Calculated 297 mOsm/kg (285-295); Potassium 4.1 mmol/L (3.5-5.1); Sodium 143 mmol/L (136-145); Total Bilirubin 0.3 mg/dL (0.15-1.2); Total Protein 6.8 g/dL (6.6-8.7)
[2022-12-16] MEDS: magnesium sulfate premix 2 GM/50 ML PIGGYBACK IV (23:32)
[2022-12-17] VITALS (101 sets, daily range): BP systolic 65–179; BP diastolic 34–124; PULSE 92–134; RESP 13–29; TEMP 36.6–36.7; O2SAT 88–100
[2022-12-17] MEDS: predniSONE 20 mg Tablet 60 MG PO (00:03)
[2022-12-17] MEDS: albuterol 2.5 mg/3 mL Neb (00:03)
[2022-12-17] MEDS: LORazepam 2 mg/mL INJ 1 mL 0.5 MG IVP ×2 (00:39→00:50)
[2022-12-17] MEDS: albuterol 2.5 mg/3 mL Neb INHALATION (00:52)
[2022-12-17 01:30] LABS: Amphetamines Screen Urine Negative (Negative); Barbiturates Screen Urine Negative (Negative); Benzodiazepines Screen Urine Negative (Negative); Cocaine Screen Urine Negative (Negative); Opiate Screen Urine Negative (Negative); PCP Screen Urine Negative (Negative); THC Screen Urine Negative (Negative)
[2022-12-17] MEDS: hyDRALAzine 20 mg/mL INJ 1 mL 10 MG IVP (01:37)
[2022-12-17] MEDS: LORazepam 2 mg/mL INJ 1 mL 1 MG IVP (01:38)
[2022-12-17 02:00] LABS: ABG PCO2 59.2 mmHg (35-45); ABG PH Result 7.27 (7.35-7.45); Arterial Blood Gas Hematocrit 40.7 % (37-47); Base Excess ABG -0.8 mmol/L (-2.0-2.0); Blood Gas Allen Test Pos; Blood Gas Sample Site Radial, left; Blood Gas Sample Type Arterial; HCO3 ABG 27.3 mmol/L (22-26); Oxygen Device NC; PO2 ABG 64.9 mmHg (80.0-100.0)
[2022-12-17] MEDS: methylPREDNISolone sod succ 125 mg SDV IVP (02:17)
--- NOTE | 2022-12-17 02:44 | ECG_ITS ---
[facility] Test Date: 2022-12-17 Pat Name: Ramila Barrow Department: Room: [facility] Gender: Female Corrosion Control Technician: LILI: 1970 Requested By: Ashanti Villanueva Order Number: [id number] Jeri MD: Shelbie Ashby M.D. Measurements Intervals [place] Rate: 123 P: 74 [place]: 121 QRS: 72 QRSD: 75 T: 71 QT: 297 QTc: 426 Interpretive Statements SINUS TACHYCARDIA MODERATE ST DEPRESSION [0.05+ mV ST DEPRESSION] Compared to ECG 12/16/2022 22:28:47 Short [place] interval no longer present ST (T wave) deviation still present Electronically Signed On 12-17-2022 11:22:51 CDT by Shelbie Ashby M.D. [id number]
[2022-12-17] MEDS: hyDRALAzine 20 mg/mL INJ 1 mL IVP (02:49)
[2022-12-17 03:08] LABS: ABG PCO2 52.3 mmHg (35-45); ABG PH Result 7.31 (7.35-7.45); Base Excess ABG -0.8 mmol/L (-2.0-2.0); Blood Gas Allen Test Pos; Blood Gas Sample Site Radial, right; Blood Gas Sample Type Arterial; HCO3 ABG 26.3 mmol/L (22-26); Oxygen Device BIPAP
[2022-12-17] MEDS: succinylcholine 20 mg/mL SDV 10mL 120 MG IVP (03:23)
--- NOTE | 2022-12-17 03:28 | ED_ITS ---
HPI - SOB/Dyspnea General: Chief Complaint: Shortness of Breath/Dyspnea Stated Complaint: SOB Time Seen by Provider: 12/16/22 22:23 Source: patient and EMS Mode of arrival: EMS Limitations: no limitations History of Present Illness: HPI Narrative: . 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 Moderate airflow obstruction, significant post-bronchodilator response, air trapping. History of sleep study 11/2021 no sleep apnea or nocturnal hypoxemia Multiple allergies In 2021 absolute eosinophils 2100 and IgE [id number] Psychiatric care PTSD (post-traumatic stress disorder) Severe persistent asthma Surgical History H/O esophagogastroduodenoscopy (06/22/21) History of appendectomy History of History of colon resection History of hysterectomy History of laparotomy Status post colonoscopy (06/22/21) Status post laparoscopic cholecystectomy Family History Other No pertinent family history Social History Smoking and tobacco status: never smoked Second hand smoke exposure: Yes Alcohol intake: never Substance/Drug Use: current Procedures Intubation Time out performed: Yes sedative: Ketamine Mg Given: 120 paralytic: Succinylcholine Mg Given: 120 Laryngoscope: Courtney ET Tube Size: 8 ET Tube Uncuffed: No Tube Secured Depth (cm): 24 Tube Secured Location: teeth Tube Placement Confirmation: visualized tube passing through cords, equal breath sounds bilaterally, no breath sounds over epigastrium and confirmation by ca pnometry Patient Tolerated Procedure: well Intubation Complications: none Course Vital Signs: Vital signs: Vital Signs Temperature 98.1 F 12/16/22 22:22 Pulse Rate 134 H 12/17/22 02:57 Respiratory Rate 28 H 12/17/22 02:57 Blood Pressure 166/118 12/17/22 02:57 Pulse Oximetry 91 12/17/22 02:57 Oxygen Delivery Me thod Nasal Cannula 12/17/22 01:02 Oxygen Flow Rate 2 12/17/22 01:02 Fraction of Inspir ed Oxygen 40 12/17/22 02:10 MDM - SOB/Dyspnea Medical Decision Making Patient's respiratory status here deteriorated she became more tachypneic and was tiring out patient was intubated in the ER before going to the ICU Lab Data 12/16/22 22:46 12/16/22 22:46 Labs/Radiology: Radiology Impressions Chest X-Ray 12/16/22 22:24 IMPRESSION: No acute findings. Laboratory Results WBC 12.9 10^3/uL (4.0-10.0) H 12/16/22 22:46 RBC 4.65 10^6/uL (4.1-5.3) 12/16/22 22:46 Hgb 12.9 g/dL (11.5-15.3) 12/16/22 22:46 Hct 40.9 % (37.0-47.0) 12/16/22 22:46 MCV 88.0 fl (81-99) 12/16/22 22:46 MCH 27.7 pg (28.0-34.0) L 12/16/22 22:46 MCHC 31.5 g/dL (30.0-36.0) 12/16/22 22:46 RDW 15.9 % (12.1-15.1) H 12/16/22 22:46 Plt Count 325 10^3/cmm (130-400) 12/16/22 22:46 MPV 8.9 fL (7.4-10.4) 12/16/22 22:46 Neut % (Auto) 62.8 % 12/16/22 22:46 Lymph % (Auto) 30.4 % 12/16/22 22:46 [place] % (Auto) 5.5 % 12/16/22 22:46 Eos % (Auto) 0.0 % 12/16/22 22:46 Baso % (Auto) 0.1 % 12/16/22 22:46 Neut # (Auto) 8.10 10^3/uL (1.8-7.7) H 12/16/22 22:46 Lymph # (Auto) 3.9 10^3/uL (0.8-4.8) 12/16/22 22:46 [place] # (Auto) 0.7 10^3/uL (0.2-0.9) 12/16/22 22:46 Eos # (Auto) 0.0 10^3/uL (0.0-0.8) 12/16/22 22:46 Baso # (Auto) 0.0 10^3/uL (0.0-0.1) 12/16/22 22:46 Nucleated RBC % (auto) 0 % 12/16/22 22:46 Nucleated RBCs # 0.0 /100WBC 12/16/22 22:46 PT 12.10 SECONDS (12.1-14.9) 12/16/22 22:46 INR 0.87 (0.8-1.2) 12/16/22 22:46 Specimen Type Arterial 12/17/22 01:50 Sample Site Radial, left 12/17/22 01:50 ABG pH 7.27 (7.35-7.45) L 12/17/22 01:50 ABG pCO2 59.2 mmHg (35-45) H 12/17/22 01:50 ABG pO2 64.9 mmHg (80.0-100.0) L 12/17/22 01:50 ABG HCO3 27.3 mmol/L (22-26) H 12/17/22 01:50 ABG Base Excess -0.8 mmol/L (-2.0-2.0) 12/17/22 01:50 Eric Test Pos 12/17/22 01:50 Hematocrit 40.7 % (37-47) 12/17/22 01:50 O2 Delivery Device Nc 12/17/22 01:50 O2 Liters/Min 2.0 % 12/17/22 01:50 FiO2 28.0 % 12/17/22 01:50 Drug [employer] In[employer] Specialist ID Alewe 12/17/22 01:50 Sodium 143 mmol/L (136-145) 12/16/22 22:46 Potassium 4.1 mmol/L (3.5-5.1) 12/16/22 22:46 Chloride 105 mmol/L (98-107) 12/16/22 22:46 Carbon Dioxide 29 mmol/L (22-29) 12/16/22 22:46 Anion Gap 13.1 (5-19) 12/16/22 22:46 BUN 12 mg/dL (6-20) 12/16/22 22:46 Creatinine 0.8 mg/dL (0.5-0.9) 12/16/22 22:46 GFR Calculation 75.0 mL/min (90-130) L 12/16/22 22:46 Glucose 114 mg/dL (65-115) 12/16/22 22:46 Calculated Osmolality 297 mOsm/kg (285-295) H 12/16/22 22:46 Calcium 8.8 mg/dL (8.5-10.5) 12/16/22 22:46 Total Bilirubin 0.3 mg/dL (0.15-1.2) 12/16/22 22:46 AST 14 U/L (0-32) 12/16/22 22:46 ALT 17 U/L (0-33) 12/16/22 22:46 Alkaline Phosphatase 74 U/L (35-105) 12/16/22 22:46 NT-Pro-B Natriuret Pep 78 pg/mL (0-125) 12/16/22 22:46 Total Protein 6.8 g/dL (6.6-8.7) 12/16/22 22:46 Albumin 4.1 g/dL (3.5-5.2) 12/16/22 22:46 Globulin 2.7 g/dL (1.3-4.6) 12/16/22 22:46 Urine Opiates Screen Negative ng/mL (Negative) 12/17/22 01:11 Ur Barbiturates Screen Negative ng/mL (Negative) 12/17/22 01:11 Ur Phencyclidine Scrn Negative ng/mL (Negative) 12/17/22 01:11 Ur Amphetamines Screen Negative ng/mL (Negative) 12/17/22 01:11 U Benzodiazepines Scrn Negative ng/mL (Negative) 12/17/22 01:11 Urine Cocaine Screen Negative ng/mL (Negative) 12/17/22 01:11 U Marijuana (THC) Screen Negative ng/mL (Negative) 12/17/22 01:11 Discharge Plan Discharge Patient Disposition: Admitted As Inpatient Admit Provider: Matthieu Tolbert Clinical Impression: Acute exacerbation of chronic obstructive airways disease, Respiratory failure with hypoxia and hypercapnia Condition: Stable Coding Level of Care Code ED [employer] for Chg Melissa
--- NOTE | 2022-12-17 03:30 | XRR_ITS ---
PROCEDURE INFORMATION: Exam: XR Chest Exam date and time: 12/17/2022 3:18 AM Age: 52 years old Clinical indication: Device placement; Ett placement (vent status); Prior surgery; Surgery date: 6+ months; Surgery type: Gb; Patient HX: Check S/P ett and og placement. History of copd. ; Additional info: Post intubation TECHNIQUE: Imaging protocol: Radiologic exam of the chest. Views: 1 view. COMPARISON: CR (CHEST, ) 12/16/2022 11:23 PM FINDINGS: Tubes, catheters and devices: Unremarkable endotracheal tube positioning 2.5 cm cephalad to fariha. Enteric tube within gastric fundus. Lungs: Unremarkable. No consolidation. Pleural spaces: Unremarkable. No pleural effusion. No pneumothorax. Heart/Mediastinum: Unremarkable. No cardiomegaly. Bones/joints: Unremarkable. XR/XR chest 1V portable [id number] IMPRESSION: Unremarkable endotracheal tube placement.
--- NOTE | 2022-12-17 03:38 | PC.NURSE ---
Patient now intubated, patient on prop. Report given to MANGLE ROLLER. Bilateral IVs present in arms.
[2022-12-17] MEDS: albuterol 2.5 mg/3 mL Neb 10 MG INHALATION (03:39)
[2022-12-17] MEDS: propofol 1,000 MG/100 ML INJ 29.88 MG IV (03:39)
[2022-12-17] MEDS: vecuronium 10 mg SDV 8 MG IVP (03:54)
--- NOTE | 2022-12-17 03:54 | P.HP_ITS ---
Providers/Chief Complaint Admitting Physician: Matthieu Tolbert MD Primary Care Provider: Laron Gutierrez MD Chief Complaint: SOB History of Present Illness Ramila Barrow is a 52 year old female presenting to the emergency department with shortness of breath. From my understanding she had been short of breath for at least several days with significant increased wheezing. I was not able to visit with her effectively she was on BiPAP and having difficulty breathing. The decision was made shortly thereafter to intubate her. She had recently been discharged from the hospital on the secondary to COPD/asthma exacerbation. She was given a prednisone taper at that time as well as doxycycline. From my understanding she also had a cough productive of some sputum. I am not able to elucidate whether she had any fever. Review of Systems General: Reports: ROS unobtainable due to endotracheal tube and ROS unobtainable due to medical condition Medications/Allergies Home Medications Medication Instructions Recorded Confirmed Last Taken Type prazosin 1 mg capsule 1 mg PO BEDTIME PRN unknown 05/04/22 12/11/22 12/11/22 History albuterol sulfate 90 mcg/actuation 2 puff inhalation Q6H PRN 06/02/22 12/11/22 06/20/22 Rx aerosol inhaler shortness of breath or wheezing 30 days #8.5 grams ascorbic acid (vitamin C) 500 mg 500 mg PO QAM 06/20/22 12/11/22 12/11/22 History tablet (Vitamin C) calcium carbonate 600 mg-vitamin 1 tab PO QAM 06/20/22 12/11/22 12/11/22 History D3 5 mcg (200 unit) tablet multivitamin 1 tab PO QAM 06/20/22 12/11/22 12/11/22 History tiotropium bromide 1.25 2 puff inhalation QAM 06/20/22 12/11/22 12/11/22 History mcg/actuation mist for inhalation (Spiriva Respimat) zinc acetate 50 mg (zinc) capsule 50 mg PO QAM 06/20/22 12/11/22 12/11/22 Hist ory montelukast 10 mg tablet 10 mg PO QAM #30 tabs 06/28/22 12/11/22 12/11/22 Rx (Singulair) benralizumab 30 mg/mL subcutaneous 30 mg SUBCUT .q 8 weeks #1 mL 07/21/22 12/11/22 Unknown Rx auto-injector (Fasenra Pen) benralizumab 30 mg/mL subcutaneous 30 mg SUBCUT Q28D 3 doses #1 mL 07/21/22 12/11/22 10/26/22 Rx auto-injector (Fasenra Pen) budesonide-formoterol HFA 160 2 puff inhalation BID 30 days 07/26/22 12/11/22 12/11/22 Rx mcg-4.5 mcg/actuation aerosol #10.2 grams inhaler (Symbicort) Walker with wheels and a seat #1 ea 08/01/22 12/11/22 Unknown Rx hydroxyzine HCl 25 mg tablet 25 mg PO BID PRN Anxiety #60 tabs 09/13/22 12/11/22 Unknown Rx budesonide 0.5 mg/2 mL suspension 0.5 mg (2 mL) inhalation BID #60 mL 09/17/22 12/11/22 Unknown Rx for nebulization (Pulmicort) ipratropium 0.5 mg-albuterol 3 mg 3 ml inhalation TID #180 mL 09/17/22 12/11/22 12/11/22 Rx (2.5 mg base)/3 mL nebulization soln albuterol sulfate 2.5 mg/3 mL 2.5 mg (3 mL) inhalation QID PRN 11/14/22 12/11/22 12/04/22 08:00 Rx (0.083 %) solution for nebulization shortness of breath or wheezing #360 mL prednisone 10 mg tablet 10 mg PO DIRECTED #63 tabs 12/05/22 12/11/22 12/11/22 Rx furosemide 20 mg tablet 20 mg PO DAILY PRN Edema 12/11/22 12/11/22 Unknown History Allergies Allergy/AdvReac Type Severity Reaction Status Date / Time Iodinated Contrast Media Allergy Unknown Unknown Verified 12/11/22 14:00 dexamethasone Allergy ALGY-Rash Verified 12/11/22 14:00 Egg Derived Allergy ALGY-Difficulty Verified 12/11/22 14:00 Breathing PFSH Acute PFSH: Medical History Anxiety 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 Moderate airflow obstruction, significant post-bronchodilator response, air trapping. History of sleep study 11/2021 no sleep apnea or nocturnal hypoxemia Multiple allergies In 2021 absolute eosinophils 2100 and IgE 8633 Psychiatric care PTSD (post-traumatic stress disorder) Severe persistent asthma Surgical History H/O esophagogastroduodenoscopy (06/22/21) History of appendectomy History of History of colon resection History of hysterectomy History of laparotomy Status post colonoscopy (06/22/21) Status post laparoscopic cholecystectomy Family History Other No pertinent family history Social History Smoking and tobacco status: never smoked Second hand smoke exposure: Yes Alcohol intake: never Substance/Drug Use: current Vitals/I&O/Wt Last Vital Signs Temp 98.1 F 12/16/22 22:22 Pulse 127 H 12/17/22 03:41 Resp 19 H 12/17/22 03:41 BP 166/118 12/17/22 02:57 Pulse Ox 96 12/17/22 03:41 O2 Del Method Mechanical Ventilation 12/17/22 03:41 O2 Flow Rate 2 12/17/22 01:02 FiO2 35 12/17/22 03:41 12/16/22 12/16/22 12/17/22 14:59 22:59 06:59 Intake Total 50 / 50 Balance 50 / 50 Weight last 48 hrs Weight 83.007 kg Physical Exam Narrative: When I interviewed the patient, she was still on BiPAP, with dyssynchronous breathing. She would awaken briefly but was not really able to answer questions effectively. She had received some Ativan as well. HEENT: Atraumatic normocephalic. Pupils equally round. Oropharynx not examined as she was on BiPAP Cardiovascular tachycardic, no murmur, regular Lungs bilateral expiratory wheezes with diminished breath sounds Abdomen is soft. Positive bowel sounds. No obvious organomegaly exams deferred Extremities no cyanosis, edema, cap refill brisk Skin no rash Neuro no focal deficits. Data 12/16/22 22:46 12/16/22 22:46 Other Labs: INR 0.87 Multiple ABGs were performed on the patient. The last 1 prior to intubation was 7.31, PCO2 of 52, PO2 of 128 on BiPAP at 40% LFTs were normal Urine drug screen negative Last chest x-ray demonstrated endotracheal tube, no infiltrate. This is per my read EKG demonstrated sinus tachycardia, normal axis, rate of 120, nonspecific ST-T wave changes. This is per my read A&P Assessment and plan (1) Respiratory failure with hypoxia and hypercapnia: Patient requiring intubation secondary to severe exacerbation of asthma/COPD Wean ventilator as tolerated Ventilator settings reviewed Fentanyl, propofol for sedation Repeat ABG after stabilization of the ventilator (2) Acute exacerbation of chronic obstructive airways disease: She was given magnesium in the emergency department along with albuterol and a dose of Solu-Medrol Continue Solu-Medrol every 6 hours DuoNeb every 4 hours Budesonide every 6 hours Repeat ABG after stabilization on the ventilator Levaquin IV Sputum culture CBC, CMP daily ABG daily Plan History of amphetamine use Multiple other medical problems as outlined in past medical history Full code Lovenox for DVT prophylaxis Protonix for GI prophylaxis Attestations Medical Necessity Statement*: Will need greater than 2 midnight stay for evaluation and treatment of respiratory failure requiring endotracheal intubation. Critical Care Time: The high probability of a clinically significant, sudden or life threatening deterioration of the patient's [pulmonary] system(s) required my full and direct attention, intervention and personal management. The critical care time is as shown. This time is in addition to time spent performing any reported procedures but includes the following: [x] Data and vital sign review and interpretation [x] Patient assessment, examination and intervention [x] Documentation [x] Medication orders and management Critical Care Time (min): 48 Coding Level of Care Code Critical Care >/= 30 minutes Critical care time (in minutes): 48 The high probability of a clinically significant, sudden or life threatening deterioration, as referenced in this documentation, required my full and direct attention, intervention and personal management. The critical care time shown is in addition to time spent performing any reported separately billable procedures and includes the following: [x] Data and vital sign review and interpretation [x ] Patient assessment, examination and intervention [x] Medication orders and management [x] Patient/Family updates as able [x] Care Coordination and Documentation. Diagnoses Respiratory failure with hypoxia and hypercapnia J96.91; J96.92 Acute exacerbation of chronic obstructive airways disease J44.1
[2022-12-17] MEDS: water for injection-sterile SDV 10 mL IVP (04:33)
[2022-12-17] MEDS: sodium chloride 0.9% 1,000 ML 75 ML IV ×3 (04:51→19:59)
[2022-12-17] MEDS: enoxaparin 40 mg/0.4 mL Syringe SUBCUT (04:54)
[2022-12-17] MEDS: levofloxacin-dextrose 5 % 750 MG/150 ML PREMIX 100 MG IV (04:54)
[2022-12-17] MEDS: methylPREDNISolone sod succ 40 mg SDV 60 MG IVP ×4 (04:54→22:43)
[2022-12-17 05:08] LABS: ABG PCO2 59.9 mmHg (35-45); ABG PH Result 7.24 (7.35-7.45); Arterial Blood Gas Hematocrit 38.9 % (37-47); Base Excess ABG -2.5 mmol/L (-2.0-2.0); Blood Gas Allen Test Pos; Blood Gas Sample Site Radial, right; Blood Gas Sample Type Arterial; HCO3 ABG 25.8 mmol/L (22-26); Oxygen Device VENT
[2022-12-17] MEDS: montelukast sodium 10 mg Tablet PO (06:20)
[2022-12-17] MEDS: ipratropium-albuterol 3 mL Neb INHALATION ×4 (07:49→19:31)
[2022-12-17] MEDS: budesonide 0.5 mg/2 mL Neb INHALATION ×2 (07:49→19:31)
[2022-12-17] MEDS: propofol 1,000 MG/100 ML INJ 14.94 MG IV ×2 (08:01→12:25)
[2022-12-17] MEDS: pantoprazole 40 mg SDV IVP (08:02)
--- NOTE | 2022-12-17 08:33 | PC.PHAR ---
PT UNABLE TO VERIFY MEDICATIONS- UNABLE TO CONTACT PTS CONTACTS TO FIND OUT PTS HOME HEALTH NURSE- MEDICATIONS VERIFIED USING EXTERNAL MED LIST LAST FILLED- PTS PHARMACY IS NOT OPEN
--- NOTE | 2022-12-17 09:38 | PC.NURSE ---
noted decrease in blood pressure doctor called and placed on levophed at this time upper denture removed at this time place in cup in room
[2022-12-17 10:14] LABS: ABG PCO2 41.1 mmHg (35-45); ABG PH Result 7.24 (7.35-7.45); Arterial Blood Gas Hematocrit 37.5 % (37-47); Base Excess ABG -9.3 mmol/L (-2.0-2.0); Blood Gas Allen Test Pos; Blood Gas Operator Identificat CAK; Blood Gas Sample Site Radial, left; Blood Gas Sample Type Arterial; Blood Gas Tidal Volume 0.38; HCO3 ABG 17.6 mmol/L (22-26); Oxygen Device VENT; PO2 ABG 87.3 mmHg (80.0-100.0)
--- NOTE | 2022-12-17 12:40 | P.PN_ITS ---
Subjective Subjective: Plan grimace to shoulder squeeze. Mechanically ventilated off sedation. Appears comfortable. Vitals/I&O/Wt Last Vital Signs Temp 98.1 F 12/17/22 06:00 Pulse 112 H 12/17/22 11:36 Resp 17 12/17/22 11:30 BP 113/54 12/17/22 10:00 Pulse Ox 95 12/17/22 11:30 O2 Del Method Mechanical Ventilation 12/17/22 11:30 O2 Flow Rate 2 12/17/22 01:02 FiO2 30 12/17/22 11:30 12/16/22 12/17/22 12/17/22 22:59 06:59 14:59 Intake Total 280.341 / 280.341 149.686 / 149.686 Output Total 200 / 200 Balance 80.341 / 80.341 149.686 / 149.686 Weight last 48 hrs Weight 74.48 kg Weight 83.007 kg Physical Exam Const: GENERAL APPEARANCE: patient mechanically ventilated HENMT: COMMON NORMALS: oropharynx normal Neck/C-Spine: COMMON NORMALS: no JVD Resp: AUSCULTATION: wheezes throughout Cardio: COMMON NORMALS: no JVD, regular rhythm, S1 normal heart sound present, S2 normal heart sound present and No murmurs present (Cardio) RATE: tachycardic RHYTHM: regular rhythm HEART SOUNDS: S1 normal heart sound present and S2 normal heart sound present GI: COMMON NORMALS: Normal to inspection, nondistended, normoactive bowel sounds present, Soft to palpation and non-tender PALPATION: Yes Soft to palpation Extremity: COMMON NORMALS: no joint enlargement and no pedal edema Urinary Catheter Management: Maier Latex: Cath Placed During This Visit: yes Reason for Continuing Indwelling Catheter: Accurate Measurement of Urinary Outp ut in Critically Ill Patients Urinary Catheter Date of Insertion: 12/17/22 Urinary Catheter Time of Insertion: 04:36 Data 12/16/22 22:46 12/16/22 22:46 A&P Assessment and plan (1) Respiratory failure with hypoxia and hypercapnia: Presents in respiratory failure, severe asthma exacerbation, COPD exacerbation, FiO2 requirement noted at 30%, however, still bronchospasm with diffuse wheezes on assessment this morning. Continue IV steroids, scheduled nebs, inhaled steroid, montelukast. MV support. Sedation for now. Sedation vacation in the morning. Check respiratory viral panel. (2) Hypotension: Blood pressure dropped down this morning as low as 65/54, started on Levophed. Suspected shock secondary to combination of adrenal insufficiency, sedation, however, will check D-dimer as well. Assess with NICOM, possible hypovolemic shock. Follow-up blood culture. Continue Levaquin. Collect UA. Lactic acid likely elevated due to severe asthma exacerbation. Troponin series noted unremarkable. (3) Acute exacerbation of chronic obstructive airways disease: Severe bronchospasm with severe asthma component exacerbation. As above. ABG noted, CO2 movement, down to 41. pH 7.24. PO2 87.3. On 30% FiO2. Vent pressures noted, mean pressure WNL Respiratory viral panel Sputum culture CBC, CMP daily requested ABG in the morning requested Plan History of amphetamine use Multiple other medical problems as outlined in past medical history Full code Lovenox for DVT prophylaxis Protonix for GI prophylaxis Attestations Medical Necessity Statement*: Continue admission for assessment and management of acute respiratory failure with hypoxia with severe exacerbation of asthma component, COPD exacerbation, shock. Coding Level of Care Code Critical Care >/= 30 minutes Critical care time (in minutes): 50 The high probability of a clinically significant, sudden or life threatening deterioration, as referenced in this documentation, required my full and direct attention, intervention and personal management. The critical care time shown is in addition to time spent performing any reported separately billable procedures and includes the following: [x] Data and vital sign review and interpretation [x ] Patient assessment, examination and intervention [x] Medication orders and management [x] Patient/Family updates as able [x] Care Coordination and Documentation. Diagnoses Respiratory failure with hypoxia and hypercapnia J96.91; J96.92 Hypotension I95.9 Acute exacerbation of chronic obstructive airways disease J44.1
--- NOTE | 2022-12-17 13:35 | PC.NURSE ---
contacted daughter who is primary contact update given at this time will be primary contact can give information to neighbor but not to brina
[2022-12-17 15:14] LABS: Add Urine Microscopic? YES; Bilirubin Urine Neg (Negative); Blood Urine 3+ (Negative); Glucose Urine UA Trace (Normal); Ketones Urine 1+ (Negative); Leukocyte Esterase Urine Negative (Negative); Nitrate Urine Negative (Negative); Protein Urine 1+ (Negative); Urine Appearance Clear (CLEAR); Urine Color Yellow (Yellow); Urobilinogen Urine Norm (Negative); pH Urine 5 (5-7)
[2022-12-17 15:15] LABS: Squamous Epithelial Cell Urine RARE /hpf (0-5)
[2022-12-17 15:16] LABS: Add Urine Culture? No; Bacteria Urine TRACE /hpf; Mucus Urine TRACE /hpf
[2022-12-17 15:48] LABS: Adenovirus Not Detected (NOT DETECT); Chlamydia Pneumoniae Not Detected (NOT DETECT); Coronavirus 229E,HKU1,NL63,OC4 Not Detected (NOT DETECT); Human Metapneumovirus Not Detected (NOT DETECT); Human Rhinovirus/Enterovirus Not Detected (NOT DETECT); Influenza A Not Detected (NOT DETECT); Influenza A H1 Not Detected (NOT DETECT); Influenza A H1-2009 Not Detected (NOT DETECT); Influenza A H3 Not Detected (NOT DETECT); Influenza B Not Detected (NOT DETECT); Mycoplasma Pneumoniae Not Detected (NOT DETECT); Parainfluenza Virus Type 1 Not Detected (NOT DETECT); Parainfluenza Virus Type 2 Not Detected (NOT DETECT); Parainfluenza Virus Type 3 Not Detected (NOT DETECT); Parainfluenza Virus Type 4 Not Detected (NOT DETECT); Respiratory Syncytial Virus A Not Detected (NOT DETECT); Respiratory Syncytial Virus B Not Detected (NOT DETECT); SARS-COV-2 Not Detected (NOT DETECT)
--- NOTE | 2022-12-17 16:25 | PC.NURSE ---
awaken sedation down responds appropriately to question aware daughter was notified repositioned oral care done fan placed as pt requested for comfort
[2022-12-17] MEDS: dexmedetomidine 400 MCG in sodium chloride 0.9% (100 ml) 100 ML IV (18:01)
[2022-12-17 20:19] LABS: ABG PCO2 45.7 mmHg (35-45); ABG PH Result 7.28 (7.35-7.45); Alveolar-Arterial Oxygen Gradi 15.2 mmHg (5-10); Arterial Blood Gas Hematocrit 36.6 % (37-47); Blood Gas Allen Test Pos; Blood Gas Sample Site Radial, right; Blood Gas Sample Type Arterial; Blood Gas Tidal Volume 0.38; Carboxyhemoglobin 1.1 %THgb (0.4-20.1); HCO3 ABG 21.6 mmol/L (22-26); HGB O2 Sat 94.7 % (95-100); Ionized Calcium Level - ABG 1.1 mmol/L (1.1-1.4); Methemoglobin < 0.0 % (0.4-1.5); Oxygen Device VENT; Oxygen Saturation ABG 95.7; PO2 ABG 76.2 mmHg (80.0-100.0); Potassium Level - ABG 3.3 mmol/L (3.5-5.0); Total Hemoglobin 11.9 g/dL (12-16)
[2022-12-17] MEDS: sodium chlor 0.9% + KCl 20 mEq 20 MEQ/1,000 ML BAG 75 MEQ IV (20:56)
[2022-12-17] MEDS: propofol 1,000 MG/100 ML INJ 4.98 MG IV (22:59)
[2022-12-17] MEDS: chlorhexidine gluconate 4% Btl 118 mL 1 APPLIC TOPICAL (23:19)
[2022-12-18] VITALS (111 sets, daily range): BP systolic 95–146; BP diastolic 54–84; PULSE 78–110; RESP 14–18; TEMP 35.2–35.8; O2SAT 89–99
[2022-12-18] MEDS: dexmedetomidine 400 MCG in sodium chloride 0.9% (100 ml) 100 ML 19.37 MCG IV ×2 (01:37→07:18)
--- NOTE | 2022-12-18 01:48 | PC.NURSE ---
Temperature Patient's temperature 94F rectally. Brigido huggar placed on patient and Dr. Petit notified. Orders placed by Dr. Petit for blood cultures to be drawn with morning labs.
--- NOTE | 2022-12-18 03:04 | W.PM.EVENTAC ---
Event Note Event Note: Called with low temperature. Ordered blood cultures. Sputum culture pending. Medications reviewed. On levaquin. Repeat abg done earlier. Potassium was noted to be low. Changed IVFs to NS with potassium and gave 20meq potassium IV. Vent settings reviewed.
[2022-12-18 03:13] LABS: Basophils % 0.1 %; Hematocrit 35.6 % (37.0-47.0); Hemoglobin 11.1 g/dL (11.5-15.3); Lymphocytes # 0.8 10^3/uL (0.8-4.8); Lymphocytes % 4.3 %; Mean Corpuscular HGB Conc 31.2 g/dL (30.0-36.0); Mean Corpuscular Hemoglobin 27.2 pg (28.0-34.0); Mean Corpuscular Volume 87.3 fl (81-99); Mean Platelet Volume 9.3 fL (7.4-10.4); Monocytes # 0.3 10^3/uL (0.2-0.9); Monocytes % 1.7 %; Neutrophils # 17.01 10^3/uL (1.8-7.7); Nucleated Red Blood Cells % 0 %; Platelet Count 295 10^3/cmm (130-400); Red Blood Count 4.08 10^6/uL (4.1-5.3); Red Cell Distribution Width 16.3 % (12.1-15.1); White Blood Count 18.3 10^3/uL (4.0-10.0)
[2022-12-18] MEDS: ipratropium-albuterol 3 mL Neb INHALATION ×6 (03:17→23:19)
[2022-12-18 03:27] LABS: Alanine Aminotransferase 16 U/L (0-33); Albumin Level 3.6 g/dL (3.5-5.2); Alkaline Phosphatase 62 U/L (35-105); Anion Gap 12.9 (5-19); Aspartate Amino Transferase 18 U/L (0-32); Blood Urea Nitrogen 17 mg/dL (6-20); Carbon Dioxide 23 mmol/L (22-29); Chloride 108 mmol/L (98-107); Glomerular Filtration Rate 65.5 mL/min (90-130); Glucose 155 mg/dL (65-115); Magnesium 2.4 mg/dL (1.7-2.3); Osmolality Calculated 295 mOsm/kg (285-295); Potassium 3.9 mmol/L (3.5-5.1); Sodium 140 mmol/L (136-145); Total Bilirubin 0.3 mg/dL (0.15-1.2); Total Protein 5.6 g/dL (6.6-8.7)
[2022-12-18 03:30] LABS: ABG PCO2 50.7 mmHg (35-45); ABG PH Result 7.29 (7.35-7.45); Arterial Blood Gas Hematocrit 35.4 % (37-47); Base Excess ABG -2.4 mmol/L (-2.0-2.0); Blood Gas Allen Test Pos; Blood Gas Sample Site Radial, right; Blood Gas Sample Type Arterial; Blood Gas Tidal Volume 0.38; HCO3 ABG 24.5 mmol/L (22-26); Oxygen Device VENT; PO2 ABG 76.5 mmHg (80.0-100.0)
[2022-12-18] MEDS: methylPREDNISolone sod succ 40 mg SDV 60 MG IVP ×2 (05:16→10:16)
[2022-12-18] MEDS: levofloxacin-dextrose 5 % 750 MG/150 ML PREMIX 100 MG IV (05:16)
[2022-12-18] MEDS: enoxaparin 40 mg/0.4 mL Syringe SUBCUT (05:16)
[2022-12-18] MEDS: montelukast sodium 10 mg Tablet PO (06:19)
--- NOTE | 2022-12-18 07:00 | XR_ITS ---
WS: [id number] EXAMINATION: XR chest 1V portable [id number] REASON FOR EXAM: resp failure COMPARISON: 12/17/2022 ORDER DATE: 12/18/2022 4:56 AM TECHNIQUE: A single, portable frontal chest x-ray was obtained. FINDINGS: Tubes, catheters and devices: Unremarkable endotracheal tube positioning 2.5 cm cephalad to fariha. Enteric tube within gastric fundus. Lungs: Unremarkable. No consolidation. Pleural spaces: Unremarkable. No pleural effusion. No pneumothorax. Heart/Mediastinum: Unremarkable. No cardiomegaly. Bones/joints: Unremarkable. XR/XR chest 1V portable [id number] IMPRESSION: Unremarkable endotracheal tube placement.
[2022-12-18] MEDS: budesonide 0.5 mg/2 mL Neb INHALATION ×2 (07:43→19:52)
[2022-12-18 09:13] LABS: ABG PCO2 48.6 mmHg (35-45); Blood Gas Allen Test POS; Blood Gas Operator Identificat GD; HCO3 ABG 23.7 mmol/L (22-26); Oxygen Device VENT; Oxygen Saturation ABG 95.2; PO2 ABG 76.7 mmHg (80.0-100.0); Potassium Level - ABG 3.8 mmol/L (3.5-5.0)
[2022-12-18 09:14] LABS: Alveolar-Arterial Oxygen Gradi 146.4 mmHg (5-10); Arterial Blood Gas Hematocrit 35.3 % (37-47); Blood Gas Drawn By GD; Blood Gas Sample Site RT RADIAL; Blood Gas Sample Type ART; Blood Gas Vent Mode AC-VC
[2022-12-18 09:15] LABS: Carboxyhemoglobin 0.7 %THgb (0.4-20.1); HGB O2 Sat 94.2 % (95-100); Ionized Calcium Level - ABG 1.1 mmol/L (1.1-1.4); Methemoglobin 0.4 % (0.4-1.5); Total Hemoglobin 11.5 g/dL (12-16)
[2022-12-18] MEDS: pantoprazole 40 mg SDV IVP (09:57)
[2022-12-18] MEDS: sodium chlor 0.9% + KCl 20 mEq 20 MEQ/1,000 ML BAG 75 MEQ IV (10:16)
[2022-12-18] MEDS: dexmedetomidine 400 MCG in sodium chloride 0.9% (100 ml) 100 ML 23.24 MCG IV (12:28)
[2022-12-18 13:08] LABS: ABG PH Result 7.31 (7.35-7.45)
[2022-12-18 13:09] LABS: ABG PCO2 46.2 mmHg (35-45); Base Excess ABG -3.3 mmol/L (-2.0-2.0); Blood Gas Allen Test POS; Blood Gas Operator Identificat GD; HCO3 ABG 23.1 mmol/L (22-26); Oxygen Saturation ABG 99.6; Potassium Level - ABG 3.6 mmol/L (3.5-5.0)
[2022-12-18 13:10] LABS: Blood Gas Drawn By GD; Oxygen Device VENT
[2022-12-18 13:11] LABS: Arterial Blood Gas Hematocrit 35.5 % (37-47); Blood Gas Sample Site R RADIAL; Blood Gas Sample Type ART; Blood Gas Vent Mode VC-AC; Carboxyhemoglobin 0.7 %THgb (0.4-20.1); HGB O2 Sat 98.4 % (95-100); Ionized Calcium Level - ABG 1.2 mmol/L (1.1-1.4); Total Hemoglobin 11.6 g/dL (12-16)
[2022-12-18 13:12] LABS: Methemoglobin 0.6 % (0.4-1.5)
--- NOTE | 2022-12-18 15:05 | PM.PN ---
Subjective Subjective: Overnight events noted Patient is noted not a suitable candidate for weaning trial today because of her hypercapnia She is currently on fentanyl and propofol Not requiring Levophed Slow improvement of hypercapnia by noon gas was repeated today Worsening leukocytosis Blood cultures repeated Vitals/I&O/Wt Last Vital Signs Temp 96.4 F L 12/18/22 10:30 Pulse 89 12/18/22 13:00 Resp 16 12/18/22 13:29 BP 122/72 12/18/22 13:00 Pulse Ox 98 12/18/22 13:29 O2 Del Method Mechanical Ventilation 12/18/22 11:05 O2 Flow Rate 2 12/17/22 01:02 FiO2 40 12/18/22 13:29 12/18/22 12/18/22 12/18/22 06:59 14:59 22:59 Intake Total 64.038 / 2795.219 1458.000 / 1458.000 Output Total 175 / 1150 Balance -110.962 / 6207.193 1870.000 / 1458.000 Weight last 48 hrs Weight 74.48 kg Weight 83.007 kg Physical Exam Narrative: Patient is intubated and sedated Neuro exam limited Bilateral assisted breath sounds I do not appreciate any wheezing Does not look fluid overloaded FiO2 40% Respiratory rate 14 Currently on propofol and fentanyl Maier catheter draining concentrated urine Abdomen soft Sluggish bowel sounds S1, S2 Urinary Catheter Management: Maeir Latex: Cath Placed During This Visit: yes Reason for Continuing Indwelling Catheter: Accurate Measurement of Urinary Output in Critically Ill Patients Urinary Catheter Date of Insertion: 12/17/22 Urinary Catheter Time of Insertion: 04:36 Data 12/18/22 02:22 12/18/22 02:22 Micro: Microbiology 12/18/22 02:28 Blood Culture - Preliminary Blood SPECIMEN COLLECTED 12/18/22 02:22 Blood Culture - Preliminary Blood SPECIMEN COLLECTED 12/17/22 05:00 Gram Stain - Final Sputum - Endotracheal Tube Aspirate A&P Assessment and plan (1) Hypotension: (2) Respiratory failure with hypoxia and hypercapnia: (3) Acute exacerbation of chronic obstructive airways disease: (4) Tachycardia: (5) Asthma with exacerbation: (6) Dysphagia: (7) COPD (chronic obstructive pulmonary disease): (8) PTSD (post-traumatic stress disorder): (9) H/O of biological therapy treatment: Plan Respiratory failure requiring mechanical ventilation Acute on chronic hypoxia hypercapnia Hypercapnia noted she had to be put on 2 sedatives PCO2 is gradually improving Not a good candidate for weaning trial today Sedation location tomorrow and then weaning trial Overnight events noted Hypothermia with leukocytosis worsening Blood cultures obtained Start antibiotics broad-spectrum Patient is also on high-dose steroids which I would gradually taper down No active wheezing Polysubstance abuse DVT prophylaxis Lovenox N.p.o. Off Levophed I might discontinue IV fluids by tomorrow if potassium remains normal Patient is a +3 L fluid balance I will give her a small dose of Lasix today Attestations Medical Necessity Statement*: Continue medical management Diagnoses Hypotension I95.9 Respiratory failure with hypoxia and hypercapnia J96.91; J96.92 Acute exacerbation of chronic obstructive airways disease J44.1 Tachycardia R00.0 Asthma with exacerbation J45.901 Dysphagia R13.10 COPD (chronic obstructive pulmonary disease) J44.9 PTSD (post-traumatic stress disorder) F43.10 H/O of biological therapy treatment Z92.89
[2022-12-18] MEDS: methylPREDNISolone sod succ 125 mg SDV 60 MG IVP (16:14)
[2022-12-18] MEDS: piperacillin-tazobactam 3.375 GM in sodium chloride 0.9% (plus) 50 ML IV (16:14)
[2022-12-18] MEDS: FUROsemide 10 mg/mL SDV 2mL 20 MG IVP (16:14)
--- NOTE | 2022-12-18 17:46 | PC.NURSE ---
Shift Note Frequent safety and comfort rounds continue. Orders and nursing care completed as indicated. Patient monitored for response to intervention and treatment(s). Education provided includes medications and vent compliance. Patient unable to comprehend teaching at this time. Patient remains intubated at this time, vent settings are as follows; FiO-40%, VT-380, PEEP-5, RR-16. Fentanyl, Propofol, Precedex, and Zosyn infusing per orders/protocol please see MAR for details. No wounds or skin issues noted at this time. Will continue to monitor.
[2022-12-18] MEDS: propofol 1,000 MG/100 ML INJ 9.96 MG IV (22:43)
[2022-12-19] VITALS (109 sets, daily range): BP systolic 93–171; BP diastolic 59–104; PULSE 77–122; RESP 15–23; TEMP 35.7–36.4; O2SAT 91–99; BMI 35.1
[2022-12-19] MEDS: vancomycin 1,000 MG in sodium chloride 0.9% 250 ML 250 MG IV ×2 (00:34→23:56)
[2022-12-19] MEDS: piperacillin-tazobactam 3.375 GM in sodium chloride 0.9% (plus) 50 ML IV ×3 (00:43→17:00)
--- NOTE | 2022-12-19 03:02 | XRR_ITS ---
PROCEDURE INFORMATION: Exam: XR Chest Exam date and time: 12/19/2022 3:09 AM Age: 52 years old Clinical indication: Other: Decreased sats on vent; Additional info: Ventilation TECHNIQUE: Imaging protocol: Radiologic exam of the chest. Views: 1 view. COMPARISON: CR XR chest 1V portable [id number] 12/18/2022 5:13 AM FINDINGS: Tubes, catheters and devices: Unchanged ETT and NGT. Lungs: Unremarkable. No consolidation. Pleural spaces: Unremarkable. No pleural effusion. No pneumothorax. Heart/Mediastinum: Unremarkable. No cardiomegaly. Bones/joints: Unremarkable. XR/XR chest 1V portable [id number] IMPRESSION: 1. No acute findings. 2. Unchanged ETT and NGT.
[2022-12-19] MEDS: ipratropium-albuterol 3 mL Neb INHALATION ×2 (03:08→07:58)
[2022-12-19] MEDS: methylPREDNISolone sod succ 125 mg SDV 60 MG IVP (03:13)
[2022-12-19 03:37] LABS: ABG PCO2 44.8 mmHg (35-45); ABG PH Result 7.35 (7.35-7.45); Base Excess ABG -0.9 mmol/L (-2.0-2.0); Blood Gas Allen Test Pos; Blood Gas Sample Site Radial, right; Blood Gas Sample Type Arterial; Blood Gas Tidal Volume 0.35; HCO3 ABG 24.9 mmol/L (22-26); Oxygen Device VENT; PO2 ABG 80.2 mmHg (80.0-100.0)
[2022-12-19 04:18] LABS: Basophils % 0.1 %; Hematocrit 36.7 % (37.0-47.0); Hemoglobin 11.3 g/dL (11.5-15.3); Lymphocytes # 1.1 10^3/uL (0.8-4.8); Lymphocytes % 5.8 %; Mean Corpuscular HGB Conc 30.8 g/dL (30.0-36.0); Mean Corpuscular Volume 87.8 fl (81-99); Mean Platelet Volume 9.8 fL (7.4-10.4); Monocytes # 0.6 10^3/uL (0.2-0.9); Monocytes % 3.3 %; Neutrophils # 16.62 10^3/uL (1.8-7.7); Neutrophils % 89.7 %; Nucleated Red Blood Cells % 0 %; Platelet Count 285 10^3/cmm (130-400); Red Blood Count 4.18 10^6/uL (4.1-5.3); Red Cell Distribution Width 16.8 % (12.1-15.1); White Blood Count 18.5 10^3/uL (4.0-10.0)
[2022-12-19 04:38] LABS: Anion Gap 12.2 (5-19); Blood Urea Nitrogen 23 mg/dL (6-20); Carbon Dioxide 24 mmol/L (22-29); Chloride 112 mmol/L (98-107); Glomerular Filtration Rate 65.5 mL/min (90-130); Glucose 142 mg/dL (65-115); Osmolality Calculated 304 mOsm/kg (285-295); Potassium 4.2 mmol/L (3.5-5.1); Sodium 144 mmol/L (136-145)
--- NOTE | 2022-12-19 05:00 | PC.NURSE ---
Physician Communication At around 0300, respiratory therapist at bedside bagging patient as ventilator not able to deliver tidal volumes. Lungs auscultated revealing extremely tight wheezing. Dr. Grant at bedside; verbal order received for 1 mg mag sulfate as well as to administer scheduled dose of solumedrol early. See MAR for details. At around 0400, levaquin unable to be started as scheduled due to lack of IV access and medication incompatibility. IV insertions attempted several times by multiple nurses to no avail. Dr. Grant notified; no new orders received.
[2022-12-19] MEDS: levofloxacin-dextrose 5 % 750 MG/150 ML PREMIX 100 MG IV (05:40)
[2022-12-19] MEDS: enoxaparin 40 mg/0.4 mL Syringe SUBCUT (05:40)
[2022-12-19] MEDS: montelukast sodium 10 mg Tablet PO (05:41)
[2022-12-19] MEDS: budesonide 0.5 mg/2 mL Neb INHALATION ×2 (07:57→20:45)
[2022-12-19] MEDS: pantoprazole 40 mg SDV IVP (08:27)
[2022-12-19] MEDS: propofol 1,000 MG/100 ML INJ 9.96 MG IV ×2 (08:36→20:58)
[2022-12-19] MEDS: ipratropium 0.5 mg/2.5 mL Neb INHALATION ×3 (11:05→20:45)
[2022-12-19] MEDS: levalbuterol 1.25 mg/3 mL Neb INHALATION ×3 (11:05→22:37)
--- NOTE | 2022-12-19 13:38 | P.PN_ITS ---
Subjective Subjective: Overnight events noted Patient has been started on vancomycin MRSA PCR requested We were about to do a weaning trial when patient started showing bronchospasm with high peak pressure with albuterol, it has been changed to Xopenex and ipratropium We have decided to increase the dose of steroids continue Xopenex for 1 more day and keep her sedation on for next 24 hours and try extubation tomorrow Chest x-ray unremarkable Persistent leukocytosis of 18,000 Vitals/I&O/Wt Last Vital Signs Temp 96.8 F L 12/19/22 07:16 Pulse 113 H 12/19/22 12:15 Resp 23 H 12/19/22 11:45 BP 115/73 12/19/22 12:15 Pulse Ox 94 12/19/22 12:15 O2 Del Method Mechanical Ventilation 12/19/22 11:00 O2 Flow Rate 2 12/17/22 01:02 FiO2 40 12/19/22 12:00 12/18/22 12/19/22 12/19/22 22:59 06:59 14:59 Intake Total 856.882 / 2333.489 736.197 / 3069.686 232.335 / 232.335 Output Total 750 / 750 825 / 1575 Balance 106.882 / 1583.489 -88.803 / 1494.686 232.335 / 232.335 Weight last 48 hrs Weight 76.204 kg Physical Exam Narrative: Patient is debated and sedated Abdomen soft Bilateral breath sounds with rhonchi No active wheezing or crackles\ Neuro exam is limited Maier catheter draining concentrated urine Lower extremity no edema Patient has bir hugger on No posturing Urinary Catheter Management: Maier Latex: Cath Placed During This Visit: yes Reason for Continuing Indwelling Catheter: Accurate Measurement of Urinary Output in Critically Ill Patients Urinary Catheter Date of Insertion: 12/17/22 Urinary Catheter Time of Insertion: 04:36 Data 12/19/22 03:29 12/19/22 03:29 Micro: Microbiology 12/18/22 02:22 Blood Culture - Preliminary Blood NEGATIVE TO DATE 12/18/22 02:28 Blood Culture - Preliminary Blood 12/17/22 05:00 Gram Stain - Final Sputum - Endotracheal Tube Aspirate Sputum Culture - Preliminary A&P Assessment and plan (1) Hypotension: (2) Respiratory failure with hypoxia and hypercapnia: (3) Acute exacerbation of chronic obstructive airways disease: (4) Tachycardia: (5) Asthma with exacerbation: (6) COPD (chronic obstructive pulmonary disease): (7) Weakness generalized: (8) Severe persistent asthma: Qualifiers: Asthma complication type: unspecified Qualified Code(s): J45.50 - Severe persistent asthma, uncomplicated (9) PTSD (post-traumatic stress disorder): (10) H/O of biological therapy treatment: (11) Bronchospasm: Plan High peak pressures noted with bronchospasm after giving albuterol, this has been switched to Xopenex and ipratropium We will continue to do a weaning trial on daily basis, hopefully we can extubate her tomorrow Continue propofol and fentanyl She is off Levophed Gram-positive cocci noted in blood culture, requested MRSA PCR nares screen Vancomycin added 12/19, Zosyn added 12/18 Hypothermia with leukocytosis without significant drop in blood pressure Positive fluid balance I would give her 1 dose of Lasix X-ray reviewed which showed endotracheal tube and NG tube satisfactory position DVT prophylaxis covered with Lovenox I will continue scheduled doses of Xopenex along increase dose of IV steroids Agree with continued dose of vancomycin that densitometer reader started Full code Attestations Medical Necessity Statement*: Anticipating extubation by tomorrow Diagnoses Hypotension I95.9 Respiratory failure with hypoxia and hypercapnia J96.91; J96.92 Acute exacerbation of chronic obstructive airways disease J44.1 Tachycardia R00.0 Asthma with exacerbation J45.901 COPD (chronic obstructive pulmonary disease) J44.9 Weakness generalized R53.1 Severe persistent asthma J45.50 Asthma complication type: unspecified PTSD (post-traumatic stress disorder) F43.10 H/O of biological therapy treatment Z92.89 Bronchospasm J98.01
[2022-12-19 13:43] LABS: Magnesium 2.8 mg/dL (1.7-2.3)
[2022-12-19] MEDS: methylPREDNISolone sod succ 60 MG in water for injection-sterile 0.96 ML 11.52 MG IVP ×3 (14:04→23:55)
[2022-12-19] MEDS: FUROsemide 10 mg/mL SDV 2mL 20 MG IVP (14:04)
[2022-12-19] MEDS: dexmedetomidine 400 MCG in sodium chloride 0.9% (100 ml) 100 ML 23.24 MCG IV (17:21)
[2022-12-19 21:30] LABS: ABG PCO2 45.8 mmHg (35-45); ABG PH Result 7.39 (7.35-7.45); Alveolar-Arterial Oxygen Gradi 9.7 mmHg (5-10); Arterial Blood Gas Hematocrit 37.6 % (37-47); Blood Gas Allen Test Pos; Blood Gas Sample Site Radial, left; Blood Gas Sample Type Arterial; HCO3 ABG 27.6 mmol/L (22-26); Ionized Calcium Level - ABG 1.1 mmol/L (1.1-1.4); Methemoglobin 0.7 % (0.4-1.5); Oxygen Device VENT; Oxygen Saturation ABG 99.6; Total Hemoglobin 12.3 g/dL (12-16)
--- NOTE | 2022-12-19 22:22 | P.CONIM_ITS ---
Providers/Reason For Consult Consulting Physician/Specialty*: [facility] Reason for Consult*: Severe asthma exacerbation-requiring mechanical ventilation-with auto PEEP Requesting Physician: Dr. Emmanuel Altamirano Attending Physician: Afia Hernnadez MD Primary Care Provider: Laron Gutierrez MD History of Present Illness History of Present Illness Ramila Barrow is a 52 year old female with severe persistent eosinophilic asthma admitted for severe asthma exacerbation on 12/17/2022 requiring intubation and mechanical ventilation Patient has past medical history of eosinophilic asthma, absolute eosinophil count 2100 in June 2021, allergy sensitivity to multiple perennial gilda rgens, IgE 8633. Lifelong non-smoker. She is to see my colleague as outpatient-and I have seen twice in July 2022 and October 2022. She was on Symbicort, Singulair, Spiriva as outpatient-there was some delay in obtaining anti-IL-5 injection despite having multiple exacerbations requiring hospitalizations until June 2022. Finally we were able to get her Fasenra approved in July 2022 which has somewhat improved her respiratory status; during her October 2022 pulmonary clinic visit she reported that although breathing is somewhat improved-she has significant amount of anxiety with mood swings and panic attacks, concerning health issues and people in her apartment complex. Currently on hydroxyzine and buspirone.? She again tells me that she has issues with people in her apartment complex which gives her nervous breakdown.? She sees a counselor regularly.? She denied any ideas or plans to hurt herself or others. Today pulmonary consult requested for persistent auto PEEP on ventilator Plan is to slowly wean her off ventilator-her FiO2 requirements came down to 40%-however she still has significant wheeze and as per respiratory therapist patient is having paradoxical bronchospasms with DuoNeb/Atrovent/Xopenex nebulizations. Patient is sedated with fentanyl 100 mcg/hour, propofol 10 Mg/hour, Precedex Review of Systems General: Reports: ROS unobtainable due to endotracheal tube, ROS unobtainable due to medical condition and ROS unobtainable due to mental status Medications/Allergies Home Medications Medication Instructions Recorded Confirmed Last Taken Type prazosin 1 mg capsule 1 mg PO BEDTIME PRN unknown 05/04/22 12/17/22 12/11/22 History albuterol sulfate 90 mcg/actuation 2 puff inhalation Q6H PRN 06/02/22 12/17/22 06/20/22 Rx aerosol inhaler shortness of breath or wheezing 30 days #8.5 grams ascorbic acid (vitamin C) 500 mg 500 mg PO QAM 06/20/22 12/17/22 12/11/22 History tablet (Vitamin C) calcium carbonate 600 mg-vitamin 1 tab PO QAM 06/20/22 12/17/22 12/11/22 History D3 5 mcg (200 unit) tablet multivitamin 1 tab PO QAM 06/20/22 12/17/22 12/11/22 History tiotropium bromide 1.25 2 puff inhalation QAM 06/20/22 12/17/22 12/11/22 History mcg/actuation mist for inhalation (Spiriva Respimat) zinc acetate 50 mg (zinc) capsule 50 mg PO QAM 06/20/22 12/17/22 12/11/22 H istory montelukast 10 mg tablet 10 mg PO QAM #30 tabs 06/28/22 12/17/22 12/11/22 Rx (Singulair) benralizumab 30 mg/mL subcutaneous 30 mg SUBCUT .q 8 weeks #1 mL 07/21/22 12/17/22 Unknown Rx auto-injector (Fasenra Pen) benralizumab 30 mg/mL subcutaneous 30 mg SUBCUT Q28D 3 doses #1 mL 07/21/22 12/17/22 10/26/22 Rx auto-injector (Fasenra Pen) budesonide-formoterol HFA 160 2 puff inhalation BID 30 days 07/26/22 12/17/22 12/11/22 Rx mcg-4.5 mcg/actuation aerosol #10.2 grams inhaler (Symbicort) Walker with wheels and a seat #1 ea 08/01/22 12/17/22 Unknown Rx hydroxyzine HCl 25 mg tablet 25 mg PO BID PRN Anxiety #60 tabs 09/13/22 12/17/22 Unknown Rx budesonide 0.5 mg/2 mL suspension 0.5 mg (2 mL) inhalation BID #60 mL 09/17/22 12/17/22 Unknown Rx for nebulization (Pulmicort) ipratropium 0.5 mg-albuterol 3 mg 3 ml inhalation TID #180 mL 09/17/22 12/17/22 12/11/22 Rx (2.5 mg base)/3 mL nebulization soln albuterol sulfate 2.5 mg/3 mL 2.5 mg (3 mL) inhalation QID PRN 11/14/22 12/17/22 12/04/22 08:00 Rx (0.083 %) solution for nebulization shortness of breath or wheezing #360 mL prednisone 10 mg tablet 10 mg PO DIRECTED #63 tabs 12/05/22 12/17/22 12/11/22 Rx furosemide 20 mg tablet 20 mg PO DAILY PRN Edema 12/11/22 12/17/22 Unknown History Allergies Allergy/AdvReac Type Severity Reaction Status Date / Time Iodinated Contrast Media Allergy Unknown Unknown Verified 12/17/22 08:34 dexamethasone Allergy ALGY-Rash Verified 12/17/22 08:34 Egg Derived Allergy ALGY-Difficulty Verified 12/17/22 08:34 Breathing Current Medications Generic Name Dose Route Start Last Admin Trade Name Freq PRN Reason Stop Dose Admin Budesonide 0.5 mg 12/17/22 08:00 12/19/22 20:45 Budesonide 0.5 Mg/2 Ml Neb INHALATION 0.5 mg BID.RESPIRATORY AD Administration Chlorhexidine Gluconate 1 applic 12/17/22 23:15 12/19/22 05:02 Chlorhexidine Gluconate 4% Btl 118 Ml TOPICAL Not Given Q24H AD Enoxaparin Sodium 40 mg 12/17/22 04:32 12/19/22 05:40 Enoxaparin 40 Mg/0.4 Ml Syringe SUBCUT 40 mg Q24H AD Administration Propofol 1,000 mg in 100 mls @ 0 mls/hr 12/17/22 03:15 12/19/22 20:58 Diprivan IV 20 mcg/kg/min .Q0M AD 9.96 mls/hr Administration Protocol Per Protocol Levofloxacin/Dextrose 750 mg in 150 mls @ 100 mls/hr 12/17/22 04:32 12/19/22 07:18 Levaquin-D5w IV Infused Q24H AD Infusion Protocol Fentanyl 1,000 mcg/ Sodium 100 mls @ 0 mls/hr 12/17/22 04:32 12/19/22 18:00 Chloride IV 150 mcg/hr .Q0M AD 15 mls/hr Administration Protocol Per Protocol Norepinephrine Bitartrate 4 mg 254 mls @ 0 mls/hr 12/17/22 09:30 12/19/22 18:28 / Dextrose IV Infused .Q0M AD Titration Protocol Per Protocol Dexmedetomidine HCl 400 mcg/ 104 mls @ 0 mls/hr 12/17/22 17:30 12/19/22 17:21 Sodium Chloride IV 1.2 mcg/kg/hr .Q0M AD 23.24 mls/hr Administration Protocol Per Protocol Piperacillin Sod/Tazobactam 50 mls @ 12.5 mls/hr 12/18/22 16:00 12/19/22 17:00 Sod 3.375 gm/ Sodium Chloride IV 12.5 mls/hr Q8H AD Administration Protocol As Directed Dexmedetomidine HCl 1,000 mcg/ 260 mls @ 0 mls/hr 12/18/22 17:00 12/19/22 17:16 Sodium Chloride IV Infused .Q0M AD Titration Protocol Per Protocol Vancomycin HCl 1,000 mg/ 250 mls @ 250 mls/hr 12/18/22 23:30 12/19/22 01:40 Sodium Chloride IV Infused Q24H AD Infusion Methylprednisolone Sodium 0.96 mls @ 11.52 mls/hr 12/19/22 12:30 12/19/22 18:06 Succinate 60 mg/ Sterile Water IVP Infused Q6H AD Infusion Ipratropium [place] 0.5 mg 12/19/22 12:00 12/19/22 20:45 Ipratropium 0.5 Mg/2.5 Ml Neb INHALATION 0.5 mg Q4H.RESPIRATORY AD Administration Levalbuterol HCl 1.25 mg 12/19/22 16:00 12/19/22 20:46 Levalbuterol 1.25 Mg/3 Ml Neb INHALATION 1.25 mg Q4H.RESPIRATORY AD Administration Montelukast Sodium 10 mg 12/17/22 06:00 12/19/22 05:41 Montelukast Sodium 10 Mg Tablet PO 10 mg QAM AD Administration Pantoprazole Sodium 40 mg 12/17/22 09:00 12/19/22 08:27 Pantoprazole 40 Mg Sdv IVP 40 mg DAILY AD Administration PFSH Acute PFSH: Medical History Anxiety 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 Moderate airflow obstruction, significant post-bronchodilator response, air trapping. History of sleep study 11/2021 no sleep apnea or nocturnal hypoxemia Multiple allergies In 2021 absolute eosinophils 2100 and IgE 8633 Psychiatric care PTSD (post-traumatic stress disorder) Severe persistent asthma Surgical History H/O esophagogastroduodenoscopy (06/22/21) History of appendectomy History of History of colon resection History of hysterectomy History of laparotomy Status post colonoscopy (06/22/21) Status post laparoscopic cholecystectomy Family History Other No pertinent family history Social History Smoking and tobacco status: never smoked Second hand smoke exposure: Yes Alcohol intake: never Substance/Drug Use: current Vitals/I&O/Wt Last Vital Signs Temp 97.2 F L 12/19/22 20:00 Pulse 79 12/19/22 20:46 Resp 15 12/19/22 20:46 BP 164/102 12/19/22 20:15 Pulse Ox 97 12/19/22 20:46 O2 Del Method Mechanical Ventilation 12/19/22 20:46 O2 Flow Rate 2 12/17/22 01:02 FiO2 35 12/19/22 20:46 12/19/22 12/19/22 12/19/22 06:59 14:59 22:59 Intake Total 736.197 / 3069.686 233.295 / 233.295 460.96 / 694.255 Output Total 825 / 1575 1200 / 1200 Balance -88.803 / 1494.686 233.295 / 233.295 -739.04 / -505.745 Weight last 48 hrs Weight 168 lb Physical Exam Narrative: PHYSICAL EXAM: General: lying in bed, sedated and intubated. HEENT:NCAT, PERRLA, EOMI Neck: Supple Lungs: Bilateral diffuse end expiratory wheeze Heart: s1/s2, RRR Abd: soft, NT, ND, BS + Normoactive Extremities: No edema WINDOWS TECHNICAL SPECIALIST: sedated and limited WINDOWS TECHNICAL SPECIALIST exam possible. SKIN: no rash Urinary Catheter Management: Maier Latex: Cath Placed During This Visit: yes Reason for Continuing Indwelling Catheter: Accurate Measurement of Urinary Output in Critically Ill Patients Urinary Catheter Date of Insertion: 12/17/22 Urinary Catheter Time of Insertion: 04:36 Data 12/19/22 03:29 12/19/22 03:29 Other Labs: Radiology Impressions Chest X-Ray 12/19/22 03:02 IMPRESSION: 1. No acute findings. 2. Unchanged ETT and NGT. Laboratory Results WBC 18.5 10^3/uL (4.0-10.0) H 12/19/22 03:29 RBC 4.18 10^6/uL (4.1-5.3) 12/19/22 03:29 Hgb 11.3 g/dL (11.5-15.3) L 12/19/22 03:29 Hct 36.7 % (37.0-47.0) L 12/19/22 03:29 MCV 87.8 fl (81-99) 12/19/22 03:29 MCH 27.0 pg (28.0-34.0) L 12/19/22 03:29 MCHC 30.8 g/dL (30.0-36.0) 12/19/22 03:29 RDW 16.8 % (12.1-15.1) H 12/19/22 03:29 Plt Count 285 10^3/cmm (130-400) 12/19/22 03:29 MPV 9.8 fL (7.4-10.4) 12/19/22 03:29 Neut % (Auto) 89.7 % 12/19/22 03:29 Lymph % (Auto) 5.8 % 12/19/22 03:29 [place] % (Auto) 3.3 % 12/19/22 03:29 Eos % (Auto) 0.0 % 12/19/22 03:29 Baso % (Auto) 0.1 % 12/19/22 03:29 Neut # (Auto) 16.62 10^3/uL (1.8-7.7) H 12/19/22 03:29 Lymph # (Auto) 1.1 10^3/uL (0.8-4.8) 12/19/22 03:29 [place] # (Auto) 0.6 10^3/uL (0.2-0.9) 12/19/22 03:29 Eos # (Auto) 0.0 10^3/uL (0.0-0.8) 12/19/22 03:29 Baso # (Auto) 0.0 10^3/uL (0.0-0.1) 12/19/22 03:29 Nucleated RBC % (auto) 0 % 12/19/22 03:29 Nucleated RBCs # 0.0 /100WBC 12/19/22 03:29 PT 12.10 SECONDS (12.1-14.9) 12/16/22 22:46 INR 0.87 (0.8-1.2) 12/16/22 22:46 D-Dimer 0.50 ug/mIFEU (0-0.59) 12/17/22 13:21 Specimen Type Arterial 12/19/22 21:16 Sample Site Radial, left 12/19/22 21:16 ABG pH 7.39 (7.35-7.45) 12/19/22 21:16 ABG pCO2 45.8 mmHg (35-45) H 12/19/22 21:16 ABG pO2 117.0 mmHg (80.0-100.0) H 12/19/22 21:16 ABG HCO3 27.6 mmol/L (22-26) H 12/19/22 21:16 ABG O2 Saturation 99.6 12/19/22 21:16 ABG Base Excess 2.0 mmol/L (-2.0-2.0) 12/19/22 21:16 Eric Test Pos 12/19/22 21:16 A-a O2 Gradient 9.7 mmHg (5-10) 12/19/22 21:16 Hematocrit 37.6 % (37-47) 12/19/22 21:16 Hgb O2 Saturation 98.0 % (95-100) 12/19/22 21:16 Carboxyhemoglobin 1.0 %THgb (0.4-20.1) 12/19/22 21:16 Methemoglobin 0.7 % (0.4-1.5) 12/19/22 21:16 Total Hemoglobin 12.3 g/dL (12-16) 12/19/22 21:16 Sodium 146.0 mmol/L (131-143) H 12/19/22 21:16 Potassium 4.0 mmol/L (3.5-5.0) 12/19/22 21:16 Glucose 170.0 mg/dL (70-115) H 12/19/22 21:16 Ionized Calcium 1.1 mmol/L (1.1-1.4) 12/19/22 21:16 Respiration Rate 16.0 % 12/18/22 12:50 O2 Delivery Device Vent 12/19/22 21:16 O2 Liters/Min 2.0 % 12/17/22 01:50 Vent Mode Vc-ac 12/18/22 12:50 FiO2 35.0 % 12/19/22 21:16 Tidal Volume 0.35 12/19/22 04:00 PEEP 5.0 cmH20 12/19/22 21:16 Specimen Drawn By Gd 12/18/22 12:50 Hazmat Cdl A Driver ID Alewe 12/19/22 21:16 Sodium 144 mmol/L (136-145) 12/19/22 03:29 Potassium 4.2 mmol/L (3.5-5.1) 12/19/22 03:29 Chloride 112 mmol/L (98-107) H 12/19/22 03:29 Carbon Dioxide 24 mmol/L (22-29) 12/19/22 03:29 Anion Gap 12.2 (5-19) 12/19/22 03:29 BUN 23 mg/dL (6-20) H 12/19/22 03:29 Creatinine 0.9 mg/dL (0.5-0.9) 12/19/22 03:29 GFR Calculation 65.5 mL/min (90-130) L 12/19/22 03:29 Glucose 142 mg/dL (65-115) H 12/19/22 03:29 Calculated Osmolality 304 mOsm/kg (285-295) H 12/19/22 03:29 Calcium 8.0 mg/dL (8.5-10.5) L 12/19/22 03:29 Magnesium 2.8 mg/dL (1.7-2.3) H 12/19/22 12:55 Total Bilirubin 0.3 mg/dL (0.15-1.2) 12/18/22 02:22 AST 18 U/L (0-32) 12/18/22 02:22 ALT 16 U/L (0-33) 12/18/22 02:22 Alkaline Phosphatase 62 U/L (35-105) 12/18/22 02:22 NT-Pro-B Natriuret Pep 78 pg/mL (0-125) 12/16/22 22:46 Total Protein 5.6 g/dL (6.6-8.7) L 12/18/22 02:22 Albumin 3.6 g/dL (3.5-5.2) 12/18/22 02:22 Globulin 2.0 g/dL (1.3-4.6) 12/18/22 02:22 Urine Color Yellow (Yellow) 12/17/22 13:15 Urine Appearance Clear (CLEAR) 12/17/22 13:15 Urine pH 5 (5-7) 12/17/22 13:15 Ur Specific Michael 1.020 (1.005-1.030) 12/17/22 13:15 Urine Protein 1+ (Negative) H 12/17/22 13:15 Urine Glucose (UA) Trace (Normal) H 12/17/22 13:15 Urine Ketones 1+ (Negative) H 12/17/22 13:15 Urine Blood 3+ (Negative) H 12/17/22 13:15 Urine Nitrate Negative (Negative) 12/17/22 13:15 Urine Bilirubin Neg (Negative) 12/17/22 13:15 Urine Urobilinogen Norm mg/dL (Negative) 12/17/22 13:15 Ur Leukocyte Esterase Negative (Negative) 12/17/22 13:15 Urine RBC 5-10 /hpf (0-2) H 12/17/22 13:15 Urine WBC None /hpf (0-5) 12/17/22 13:15 Ur Squamous Epith Cells Rare /hpf (0-5) 12/17/22 13:15 Amorphous Sediment Not Reportable 12/17/22 13:15 Urine Bacteria Trace /hpf (NONE) 12/17/22 13:15 Urine Mucus Trace /hpf 12/17/22 13:15 Nasal Influ A H1 2008 PCR Not detected (NOT DETECT) 12/17/22 13:10 Urine Opiates Screen Negative ng/mL (Negative) 12/17/22 01:11 Ur Barbiturates Screen Negative ng/mL (Negative) 12/17/22 01:11 Ur Phencyclidine Scrn Negative ng/mL (Negative) 12/17/22 01:11 Ur Amphetamines Screen Negative ng/mL (Negative) 12/17/22 01:11 U Benzodiazepines Scrn Negative ng/mL (Negative) 12/17/22 01:11 Urine Cocaine Screen Negative ng/mL (Negative) 12/17/22 01:11 U Marijuana (THC) Screen Negative ng/mL (Negative) 12/17/22 01:11 Adenovirus (PCR) Not detected (NOT DETECT) 12/17/22 13:10 C. pneumoniae DNA (PCR) Not detected (NOT DETECT) 12/17/22 13:10 Coronavirus 229E (PCR) Not detected (NOT DETECT) 12/17/22 13:10 Human Metapneumovir PCR Not detected (NOT DETECT) 12/17/22 13:10 Influenza A (H1) PCR Not detected (NOT DETECT) 12/17/22 13:10 Influenza A (H3) PCR Not detected (NOT DETECT) 12/17/22 13:10 Influenza Type A (PCR) Not detected (NOT DETECT) 12/17/22 13:10 Influenza Type B (PCR) Not detected (NOT DETECT) 12/17/22 13:10 M. pneumoniae (PCR) Not detected (NOT DETECT) 12/17/22 13:10 Parainfluenza 1 (PCR) Not detected (NOT DETECT) 12/17/22 13:10 Parainfluenza 2 (PCR) Not detected (NOT DETECT) 12/17/22 13:10 Parainfluenza 3 (PCR) Not detected (NOT DETECT) 12/17/22 13:10 Parainfluenza 4 (PCR) Not detected (NOT DETECT) 12/17/22 13:10 RSV Type A (PCR) Not detected (NOT DETECT) 12/17/22 13:10 RSV Type B (PCR) Not detected (NOT DETECT) 12/17/22 13:10 Entero/Rhino (PCR) Not detected (NOT DETECT) 12/17/22 13:10 SARS-CoV-2 (PCR) Not detected (NOT DETECT) 12/17/22 13:10 Micro: Microbiology 12/18/22 02:28 Blood Culture - Preliminary Blood 12/18/22 20:29 MRSA Culture - Final Nose 12/17/22 05:00 Gram Stain - Final Sputum - Endotracheal Tube Aspirate Sputum Culture - Final 12/18/22 02:22 Blood Culture - Preliminary Blood NEGATIVE TO DATE A&P Assessment and plan (1) Acute exacerbation of chronic obstructive airways disease: (2) Respiratory failure with hypoxia and hypercapnia: (3) Severe persistent asthma: Qualifiers: Asthma complication type: unspecified Qualified Code(s): J45.50 - Severe persistent asthma, uncomplicated (4) Anxiety: (5) H/O of biological therapy treatment: (6) Difficulty with extubation: Plan #Acute hypoxic hypercapnic respiratory failure secondary to severe asthma exacerbation in 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 #Her asthma is COMPLICATED by her significant anxiety and panic attacks-reported taking buspirone/Xanax as outpatient #Difficulty weaning from ventilator-with significant auto PEEP and severe bronchospasm -Currently mechanically intubated-on CMV 350/18/PEEP 5/40% FiO2-with I time 1.2 -Recommended to reduce TI to 1.0; reduce respiratory rate to 15-patient continues to have severe bronchospasm/wheezing-we may have to increase her sedation and even paralyze and try to reduce dynamic hyperinflation by reducing respiratory rate allowing for permissive hypercapnia with target minimum pH 7.25-follow with frequent ABG 2 hours after ventilator changes to make sure patient is not overtly acidotic. -Recommended to continue scheduled nebulization-however there is a concern if there is paradoxical bronchospasm with DuoNeb/Atrovent/Xopenex-recommended to continue Xopenex nebulization and paralyzed the patient if necessary-by giving more time for expiration, reducing respiratory rate, adequate sedation and paralysis-the goal is to avoid dynamic hyperinflation and auto PEEP. -Can give IV magnesium sulfate -Recommended IV Solu-Medrol every 8 hours (total of 200 Mg daily) and gradually taper off based on clinical response -Chest x-ray-no acute findings-currently patient is covered with broad-spectrum antibiotics vancomycin, Zosyn, Levaquin; MRSA nares negative however preliminary blood and sputum cultures showed gram-positive cocci in pairs centimeters-final cultures pending -We will continue to monitor ventilator settings and help with weaning protocol Consult Attestations Medical Necessity Statement: Intubated and mechanically ventilated inpatient due to acute respiratory failure secondary to severe asthma exacerbation Time Spent in Patient Care: Greater than 35 minutes (>than 50% of time spent in counselling and/or direct pt care on unit) . Critical Care Time: The high probability of a clinically significant, sudden or life threatening deterioration of the patient's [pulmonary] system(s) required my full and direct attention, intervention and personal management. The critical care time is as shown. This time is in addition to time spent performing any reported procedures but includes the following: [x] Data and vital sign review and interpretation [x] Patient assessment, examination and intervention [x] Documentation [x] Medication orders and management Coding Level of Care Code Critical Care >/= 30 minutes Diagnoses Acute exacerbation of chronic obstructive airways disease J44.1 Respiratory failure with hypoxia and hypercapnia J96.91; J96.92 Severe persistent asthma J45.50 Asthma complication type: unspecified Anxiety F41.9 H/O of biological therapy treatment Z92.89 Difficulty with extubation T88.8XXA Time Spent (min) 74
--- NOTE | 2022-12-19 22:32 | PM.CCNAC ---
Critical Care Event Note Note call from nurse as patient having elevated blood pressures going up to 170 systolics with increasing peak pressures on the ventilator. On reviewing the ventilator settings it seems patient having auto PEEP. Current PIP of 35. Patient currently on propofol of 10, fentanyl of 150 which was increased earlier at night around [address] Kumar. Last ABG reviewed. pH is 7.39, PCO2 of 46, PO2 of 117. Respiratory therapist concerned that Atrovent and levo albuterol is causing patient to have increased bronchospasm. Assessment: Patient having extreme reactive airway disease currently in setting of asthma exacerbation. Plan: Consulted Dr. Kumar. Continue with current ventilator settings. Increase sedation with propofol up to 40. Continue with fentanyl at 150. If peak pressures continue to remain high can paralyze the patient. Continue with Xopenex and Pulmicort. Hold off on Atrovent. IV magnesium 1 g stat. Plan discussed in detail with respiratory therapist and RN taking care of the patient. The high probability of a clinically significant, sudden or life threatening deterioration of the patient's [pulmonary] system(s) required my full and direct attention, intervention and personal management. The critical care time is as shown. This time is in addition to time spent performing any reported procedures but includes the following: [x] Data and vital sign review and interpretation [x] Patient assessment, examination and intervention [x] Documentation [x] Medication orders and management Critical Care Time Code activated: No Critical Care Time (min): 50 Coding Level of Care Code Critical Care Other Coding Information Prolonged care (total time indicated above or notated here) Ventilator setting, nebulization Time Spent (min) 50
--- NOTE | 2022-12-19 22:34 | PC.NURSE ---
Blood Pressure Patient's blood pressure maintaining elevated, ranging from 159-171 systolic, 93-[address] Grant contacted: vent settings, sedation, and breathing treatments discussed. Orders received to increase propofol from 20 mcg/kg/min to 40 mcg/kg/min, have RT administer a xopenex treatment now and hold all future atrovent treatments. Additional order placed by Dr. Grant for 10 mg IVP hydralazine PRN Q4H for SBP>160.
[2022-12-19 23:06] LABS: Glucose Point of Care 159 mg/dL (70-110)
[2022-12-20] VITALS (75 sets, daily range): BP systolic 76–151; BP diastolic 58–88; PULSE 82–118; RESP 12–20; TEMP 36.5–37.6; O2SAT 93–98; BMI 34.9
[2022-12-20] MEDS: levalbuterol 1.25 mg/3 mL Neb INHALATION ×7 (00:24→23:28)
[2022-12-20] MEDS: chlorhexidine gluconate 4% Btl 118 mL 1 APPLIC TOPICAL ×2 (01:20→23:05)
[2022-12-20 01:30] LABS: Adenovirus Not Detected (NOT DETECT); Chlamydia Pneumoniae Not Detected (NOT DETECT); Coronavirus 229E,HKU1,NL63,OC4 Not Detected (NOT DETECT); Human Metapneumovirus Not Detected (NOT DETECT); Human Rhinovirus/Enterovirus Not Detected (NOT DETECT); Influenza A Not Detected (NOT DETECT); Influenza A H1 Not Detected (NOT DETECT); Influenza A H1-2009 Not Detected (NOT DETECT); Influenza A H3 Not Detected (NOT DETECT); Influenza B Not Detected (NOT DETECT); Mycoplasma Pneumoniae Not Detected (NOT DETECT); Parainfluenza Virus Type 1 Not Detected (NOT DETECT); Parainfluenza Virus Type 2 Not Detected (NOT DETECT); Parainfluenza Virus Type 3 Not Detected (NOT DETECT); Parainfluenza Virus Type 4 Not Detected (NOT DETECT); Respiratory Syncytial Virus A Not Detected (NOT DETECT); Respiratory Syncytial Virus B Not Detected (NOT DETECT); SARS-COV-2 Not Detected (NOT DETECT)
[2022-12-20] MEDS: piperacillin-tazobactam 3.375 GM in sodium chloride 0.9% (plus) 50 ML IV ×3 (02:14→17:57)
[2022-12-20 04:11] LABS: Basophils % 0.2 %; Eosinophils % 0.1 %; Hematocrit 36.8 % (37.0-47.0); Hemoglobin 11.6 g/dL (11.5-15.3); Lymphocytes # 0.4 10^3/uL (0.8-4.8); Lymphocytes % 3.4 %; Mean Corpuscular HGB Conc 31.5 g/dL (30.0-36.0); Mean Corpuscular Hemoglobin 27.9 pg (28.0-34.0); Mean Corpuscular Volume 88.5 fl (81-99); Mean Platelet Volume 10.2 fL (7.4-10.4); Monocytes # 0.1 10^3/uL (0.2-0.9); Monocytes % 0.6 %; Neutrophils # 12.07 10^3/uL (1.8-7.7); Neutrophils % 94.4 %; Nucleated Red Blood Cells % 0.2 %; Platelet Count 252 10^3/cmm (130-400); Red Blood Count 4.16 10^6/uL (4.1-5.3); Red Cell Distribution Width 17.5 % (12.1-15.1); White Blood Count 12.8 10^3/uL (4.0-10.0)
[2022-12-20] MEDS: levofloxacin-dextrose 5 % 750 MG/150 ML PREMIX 100 MG IV (04:11)
[2022-12-20] MEDS: enoxaparin 40 mg/0.4 mL Syringe SUBCUT (04:11)
[2022-12-20 04:24] LABS: ABG PCO2 43.5 mmHg (35-45); Arterial Blood Gas Hematocrit 36.4 % (37-47); Base Excess ABG 1.9 mmol/L (-2.0-2.0); Blood Gas Allen Test Pos; Blood Gas Sample Site Radial, left; Blood Gas Sample Type Arterial; Oxygen Device VENT
[2022-12-20 05:23] LABS: Glucose Point of Care 171 mg/dL (70-110)
[2022-12-20] MEDS: montelukast sodium 10 mg Tablet PO (05:38)
[2022-12-20] MEDS: methylPREDNISolone sod succ 60 MG in water for injection-sterile 0.96 ML 11.52 MG IVP ×3 (05:38→20:56)
[2022-12-20] MEDS: propofol 1,000 MG/100 ML INJ 19.92 MG IV ×4 (05:54→20:58)
[2022-12-20] MEDS: budesonide 0.5 mg/2 mL Neb INHALATION ×2 (09:28→20:09)
[2022-12-20] MEDS: pantoprazole 40 mg SDV IVP (10:01)
[2022-12-20 10:06] LABS: Glucose Point of Care 129 mg/dL (70-110)
--- NOTE | 2022-12-20 11:55 | PM.PN ---
Subjective Subjective: Overnight events noted Appreciate pulm critical recommendations Currently patient is on propofol 40 and fentanyl 100, Precedex 1.2 FiO2 30%, PEEP 5 Positive rhonchi and wheezing on lung auscultation patient is already on methylprednisolone 60 mg IV push every 6 hours She is on Xopenex and received magnesium overnight, magnesium level around 3 Patient has been n.p.o., will start Jevity 1.2 at lower rate Drop in blood pressure noted Would not repeat Lasix today Improvement in leukocytosis noted Patient is still in positive fluid balance +3 L I tried to get in touch with the family, call multiple times it is going straight to voicemail Vitals/I&O/Wt Last Vital Signs Temp 98.6 F 12/20/22 07:00 Pulse 102 H 12/20/22 11:41 Resp 18 12/20/22 11:35 BP 94/75 12/20/22 11:00 Pulse Ox 94 12/20/22 11:35 O2 Del Method Mechanical Ventilation 12/20/22 11:35 O2 Flow Rate 2 12/17/22 01:02 FiO2 35 12/20/22 11:35 12/19/22 12/20/22 12/20/22 22:59 06:59 14:59 Intake Total 505.402 / 738.697 870.978 / 1609.675 342.336 / 342.336 Output Total 1200 / 1200 1075 / 2275 Balance -694.598 / -461.303 -204.022 / -665.325 342.336 / 342.336 Weight last 48 hrs Weight 75.75 kg Weight 76.204 kg Physical Exam Narrative: Intubated and sedated Currently on fentanyl and propofol Minimal vent settings Wheezing and rhonchi present Abdomen soft No signs of vascular compromise of lower extremities Patient seems to have multiple petechial rash/fungal rash on her chest Neuro exam is limited Hemodynamically stable Abdomen soft sluggish bowel sounds Maier catheter in place Urinary Catheter Management: Maier Latex: Cath Placed During This Visit: yes Reason for Continuing Indwelling Catheter: Accurate Measurement of Urinary Output in Critically Ill Patients Urinary Catheter Date of Insertion: 12/17/22 Urinary Catheter Time of Insertion: 04:36 Data 12/21/22 03:35 12/21/22 03:35 Micro: Microbiology 12/18/22 02:28 Blood Culture - Preliminary Blood 12/18/22 20:29 MRSA Culture - Final Nose 12/17/22 05:00 Gram Stain - Final Sputum - Endotracheal Tube Aspirate Sputum Culture - Final A&P Assessment and plan (1) Difficulty with extubation: (2) Bronchospasm: (3) Hypotension: (4) Respiratory failure with hypoxia and hypercapnia: (5) Acute exacerbation of chronic obstructive airways disease: (6) Asthma with exacerbation: (7) Weakness generalized: (8) COPD (chronic obstructive pulmonary disease): (9) Anxiety: (10) PTSD (post-traumatic stress disorder): Plan Difficult extubation Failed weaning trial twice secondary to increased peak pressure and active wheezing with bronchospasm History of asthma Paradoxical response to albuterol Continue inhaled steroids, IV steroids, Xopenex Overnight events noted Appreciate pulm critical recommendations Check magnesium and phosphorus level Patient was given magnesium overnight Heavily sedated with propofol at 40, fentanyl at 100 and Precedex 1.2 I will request EKG to monitor QTc interval We will keep Levophed on board in case that is required because of heavy sedation and polypharmacy Hypothermia with leukocytosis currently patient is on Levaquin vancomycin and Zosyn improvement in leukocytosis noted, gram-positive cocci 1/3 positive bottles, blood cultures, Patient is afebrile Positive fluid balance 3 L, she has been given Lasix in last 48 hours, hold Lasix today Patient has not received any nutrition since intubation, I will start Jevity 1.2 at 10 mL/h and advance gradually, I will discuss further with Dr. Kumar regarding the timing for paralytic DVT prophylaxis Lovenox Attestations Medical Necessity Statement*: Continue ICU management Diagnoses Difficulty with extubation T88.8XXA Bronchospasm J98.01 Hypotension I95.9 Respiratory failure with hypoxia and hypercapnia J96.91; J96.92 Acute exacerbation of chronic obstructive airways disease J44.1 Asthma with exacerbation J45.901 Weakness generalized R53.1 COPD (chronic obstructive pulmonary disease) J44.9 Anxiety F41.9 PTSD (post-traumatic stress disorder) F43.10
--- NOTE | 2022-12-20 12:05 | ECG_ITS ---
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 Measurements Intervals [place] Rate: 104 P: 76 VA: 98 QRS: 65 QRSD: 75 T: 70 QT: 312 QTc: 411 Interpretive Statements SINUS TACHYCARDIA WITH SHORT VA INTERVAL POSSIBLE LEFT ATRIAL ENLARGEMENT [-0.1mV P-WAVE IN V1/V2] ABNORMAL RHYTHM ECG Compared to ECG 12/17/2022 02:47:09 Short VA interval now present ST (T wave) deviation no longer present Electronically Signed On 12-20-2022 20:37:45 CDT by Farida Gonzalez M.D. [id number]
--- NOTE | 2022-12-20 13:14 | P.PN_ITS ---
Subjective Subjective: Patient is a still wheezing There is some auto PEEP on ventilator made changes on ventilator accordingly- respiratory rate and permissive acceptable in this situation We will increase sedation She tolerated Xopenex nebulization without bronchospasm-we will add Atrovent Continue to monitor Medications: Reviewed: Yes Vitals/I&O/Wt Last Vital Signs Temp 98.6 F 12/20/22 07:00 Pulse 102 H 12/20/22 11:41 Resp 18 12/20/22 11:35 BP 94/75 12/20/22 11:00 Pulse Ox 94 12/20/22 11:35 O2 Del Method Mechanical Ventilation 12/20/22 11:35 O2 Flow Rate 2 12/17/22 01:02 FiO2 35 12/20/22 11:35 12/19/22 12/20/22 12/20/22 22:59 06:59 14:59 Intake Total 505.402 / 738.697 870.978 / 1609.675 342.336 / 342.336 Output Total 1200 / 1200 1075 / 2275 Balance -694.598 / -461.303 -204.022 / -665.325 342.336 / 342.336 Weight last 48 hrs Weight 167 lb Weight 168 lb Physical Exam Narrative: PHYSICAL EXAM: General: lying in bed, sedated and intubated. 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 SKIN: no rash Urinary Catheter Management: Maier Latex: Cath Placed During This Visit: yes Reason for Continuing Indwelling Catheter: Accurate Measurement of Urinary Output in Critically Ill Patients Urinary Catheter Date of Insertion: 12/17/22 Urinary Catheter Time of Insertion: 04:36 Data 12/21/22 03:35 12/21/22 03:35 Other Labs: Radiology Impressions Chest X-Ray 12/21/22 08:30 IMPRESSION: 1. No acute findings. 2. Unchanged ETT and NGT. Laboratory Results WBC 11.0 10^3/uL (4.0-10.0) H 12/21/22 03:35 RBC 3.93 10^6/uL (4.1-5.3) L 12/21/22 03:35 Hgb 10.8 g/dL (11.5-15.3) L 12/21/22 03:35 Hct 35.5 % (37.0-47.0) L 12/21/22 03:35 MCV 90.3 fl (81-99) 12/21/22 03:35 MCH 27.5 pg (28.0-34.0) L 12/21/22 03:35 MCHC 30.4 g/dL (30.0-36.0) 12/21/22 03:35 RDW 17.7 % (12.1-15.1) H 12/21/22 03:35 Plt Count 259 10^3/cmm (130-400) 12/21/22 03:35 MPV 9.5 fL (7.4-10.4) 12/21/22 03:35 Neut % (Auto) 83.8 % 12/21/22 03:35 Lymph % (Auto) 8.0 % 12/21/22 03:35 [place] % (Auto) 5.5 % 12/21/22 03:35 Eos % (Auto) 0.0 % 12/21/22 03:35 Baso % (Auto) 0.2 % 12/21/22 03:35 Neut # (Auto) 9.23 10^3/uL (1.8-7.7) H 12/21/22 03:35 Lymph # (Auto) 0.9 10^3/uL (0.8-4.8) 12/21/22 03:35 [place] # (Auto) 0.6 10^3/uL (0.2-0.9) 12/21/22 03:35 Eos # (Auto) 0.0 10^3/uL (0.0-0.8) 12/21/22 03:35 Baso # (Auto) 0.0 10^3/uL (0.0-0.1) 12/21/22 03:35 Nucleated RBC % (auto) 0.3 % 12/21/22 03:35 Nucleated RBCs # 0.0 /100WBC 12/21/22 03:35 PT 12.10 SECONDS (12.1-14.9) 12/16/22 22:46 INR 0.87 (0.8-1.2) 12/16/22 22:46 D-Dimer 0.50 ug/mIFEU (0-0.59) 12/17/22 13:21 Specimen Type Arterial 12/21/22 11:23 Sample Site Brachial, left 12/21/22 11:23 ABG pH 7.34 (7.35-7.45) L 12/21/22 11:23 ABG pCO2 53.5 mmHg (35-45) H 12/21/22 11:23 ABG pO2 62.5 mmHg (80.0-100.0) L 12/21/22 11:23 ABG HCO3 28.9 mmol/L (22-26) H 12/21/22 11:23 ABG O2 Saturation 95.6 12/20/22 16:58 ABG Base Excess 2.2 mmol/L (-2.0-2.0) H 12/21/22 11:23 Eric Test Pos 12/21/22 11:23 A-a O2 Gradient 13.8 mmHg (5-10) H 12/20/22 16:58 Hematocrit 36.7 % (37-47) L 12/21/22 11:23 Hgb O2 Saturation 94.2 % (95-100) L 12/20/22 16:58 Carboxyhemoglobin 0.7 %THgb (0.4-20.1) 12/20/22 16:58 Methemoglobin 0.7 % (0.4-1.5) 12/20/22 16:58 Total Hemoglobin 11.4 g/dL (12-16) L 12/20/22 16:58 Sodium 145.0 mmol/L (131-143) H 12/20/22 16:58 Potassium 4.8 mmol/L (3.5-5.0) 12/20/22 16:58 Glucose 151.0 mg/dL (70-115) H 12/20/22 16:58 Ionized Calcium 1.2 mmol/L (1.1-1.4) 12/20/22 16:58 Respiration Rate 16.0 % 12/18/22 12:50 O2 Delivery Device Vent 12/21/22 11:23 O2 Liters/Min 2.0 % 12/17/22 01:50 Vent Mode Vc-ac 12/18/22 12:50 FiO2 35.0 % 12/21/22 11:23 Tidal Volume 0.36 12/21/22 11:23 PEEP 6.0 cmH20 12/21/22 11:23 Specimen Drawn By Gd 12/18/22 12:50 Foreign Banknote Teller ID Cak 12/21/22 11:23 Sodium 143 mmol/L (136-145) 12/21/22 03:35 Potassium 5.3 mmol/L (3.5-5.1) H 12/21/22 03:35 Chloride 109 mmol/L (98-107) H 12/21/22 03:35 Carbon Dioxide 28 mmol/L (22-29) 12/21/22 03:35 Anion Gap 11.3 (5-19) 12/21/22 03:35 BUN 24 mg/dL (6-20) H 12/21/22 03:35 Creatinine 0.9 mg/dL (0.5-0.9) 12/21/22 03:35 GFR Calculation 65.5 mL/min (90-130) L 12/21/22 03:35 Glucose 162 mg/dL (65-115) H 12/21/22 03:35 POC Glucose 158 mg/dL (70-110) H 12/21/22 07:32 Calculated Osmolality 304 mOsm/kg (285-295) H 12/21/22 03:35 Lactate 1.0 mmol/L (0.5-2.2) 12/20/22 03:20 Calcium 7.9 mg/dL (8.5-10.5) L 12/21/22 03:35 Phosphorus 3.5 mg/dL (2.5-4.5) 12/20/22 12:52 Magnesium 3.0 mg/dL (1.7-2.3) H 12/20/22 12:52 Total Bilirubin 0.3 mg/dL (0.15-1.2) 12/18/22 02:22 AST 18 U/L (0-32) 12/18/22 02:22 ALT 16 U/L (0-33) 12/18/22 02:22 Alkaline Phosphatase 62 U/L (35-105) 12/18/22 02:22 NT-Pro-B Natriuret Pep 78 pg/mL (0-125) 12/16/22 22:46 Total Protein 5.6 g/dL (6.6-8.7) L 12/18/22 02:22 Albumin 3.6 g/dL (3.5-5.2) 12/18/22 02:22 Globulin 2.0 g/dL (1.3-4.6) 12/18/22 02:22 Urine Color Yellow (Yellow) 12/17/22 13:15 Urine Appearance Clear (CLEAR) 12/17/22 13:15 Urine pH 5 (5-7) 12/17/22 13:15 Ur Specific [place] 1.020 (1.005-1.030) 12/17/22 13:15 Urine Protein 1+ (Negative) H 12/17/22 13:15 Urine Glucose (UA) Trace (Normal) H 12/17/22 13:15 Urine Ketones 1+ (Negative) H 12/17/22 13:15 Urine Blood 3+ (Negative) H 12/17/22 13:15 Urine Nitrate Negative (Negative) 12/17/22 13:15 Urine Bilirubin Neg (Negative) 12/17/22 13:15 Urine Urobilinogen Norm mg/dL (Negative) 12/17/22 13:15 Ur Leukocyte Esterase Negative (Negative) 12/17/22 13:15 Urine RBC 5-10 /hpf (0-2) H 12/17/22 13:15 Urine WBC None /hpf (0-5) 12/17/22 13:15 Ur Squamous Epith Cells Rare /hpf (0-5) 12/17/22 13:15 Amorphous Sediment Not Reportable 12/17/22 13:15 Urine Bacteria Trace /hpf (NONE) 12/17/22 13:15 Urine Mucus Trace /hpf 12/17/22 13:15 Nasal Influ A H1 2008 PCR Not detected (NOT DETECT) 12/19/22 23:38 Urine Opiates Screen Negative ng/mL (Negative) 12/17/22 01:11 Ur Barbiturates Screen Negative ng/mL (Negative) 12/17/22 01:11 Ur Phencyclidine Scrn Negative ng/mL (Negative) 12/17/22 01:11 Ur Amphetamines Screen Negative ng/mL (Negative) 12/17/22 01:11 U Benzodiazepines Scrn Negative ng/mL (Negative) 12/17/22 01:11 Urine Cocaine Screen Negative ng/mL (Negative) 12/17/22 01:11 U Marijuana (THC) Screen Negative ng/mL (Negative) 12/17/22 01:11 Adenovirus (PCR) Not detected (NOT DETECT) 12/19/22 23:38 C. pneumoniae DNA (PCR) Not detected (NOT DETECT) 12/19/22 23:38 Coronavirus 229E (PCR) Not detected (NOT DETECT) 12/19/22 23:38 Human Metapneumovir PCR Not detected (NOT DETECT) 12/19/22 23:38 Influenza A (H1) PCR Not detected (NOT DETECT) 12/19/22 23:38 Influenza A (H3) PCR Not detected (NOT DETECT) 12/19/22 23:38 Influenza Type A (PCR) Not detected (NOT DETECT) 12/19/22 23:38 Influenza Type B (PCR) Not detected (NOT DETECT) 12/19/22 23:38 M. pneumoniae (PCR) Not detected (NOT DETECT) 12/19/22 23:38 Parainfluenza 1 (PCR) Not detected (NOT DETECT) 12/19/22 23:38 Parainfluenza 2 (PCR) Not detected (NOT DETECT) 12/19/22 23:38 Parainfluenza 3 (PCR) Not detected (NOT DETECT) 12/19/22 23:38 Parainfluenza 4 (PCR) Not detected (NOT DETECT) 12/19/22 23:38 RSV Type A (PCR) Not detected (NOT DETECT) 12/19/22 23:38 RSV Type B (PCR) Not detected (NOT DETECT) 12/19/22 23:38 Entero/Rhino (PCR) Not detected (NOT DETECT) 12/19/22 23:38 SARS-CoV-2 (PCR) Not detected (NOT DETECT) 12/19/22 23:38 Micro: Microbiology 12/18/22 02:28 Blood Culture - Preliminary Blood 12/18/22 20:29 MRSA Culture - Final Nose 12/17/22 05:00 Gram Stain - Final Sputum - Endotracheal Tube Aspirate Sputum Culture - Final A&P Assessment and plan (1) Acute exacerbation of chronic obstructive airways disease: (2) Respiratory failure with hypoxia and hypercapnia: (3) Severe persistent asthma: Qualifiers: Asthma complication type: unspecified Qualified Code(s): J45.50 - Severe persistent asthma, uncomplicated (4) Anxiety: (5) H/O of biological therapy treatment: (6) Difficulty with extubation: Plan #Acute hypoxic hypercapnic respiratory failure secondary to severe asthma exacerbation in 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 #Her asthma is COMPLICATED by her significant anxiety and panic attacks-reported taking buspirone/Xanax as outpatient #Difficulty weaning from ventilator-with significant auto PEEP and severe bronchospasm -Currently mechanically intubated-on CMV 350/15/PEEP 5/35% FiO2-with I time 1.0 -Recommended to reduce TI to 0.90; reduce respiratory rate to 12-patient alis kirby to have severe bronchospasm/wheezing-we may have to increase her sedation and even paralyze and try to reduce dynamic hyperinflation by reducing respiratory rate allowing for permissive hypercapnia with target minimum pH 7.25-follow with frequent ABG 2 hours after ventilator changes to make sure patient is not overtly acidotic. -Recommended to continue scheduled nebulization-however there is a concern if there is paradoxical bronchospasm with DuoNeb --recommended to continue Xopenex nebulization and paralyze the patient if necessary-by giving more time for expiration, reducing respiratory rate, adequate sedation and paralysis-the goal is to avoid dynamic hyperinflation and auto PEEP. -Can give IV magnesium sulfate -Recommended IV Solu-Medrol every 8 hours (total of 200 Mg daily) and gradually taper off based on clinical response -Chest x-ray-no acute findings-currently patient is covered with broad-spectrum antibiotics vancomycin, Zosyn, Levaquin; MRSA nares negative however preliminary blood and sputum cultures showed gram-positive cocci in pairs centimeters-final cultures pending -We will continue to monitor ventilator settings and help with weaning protocol ICU CHECKLIST: Problem list updated Verbal orders reviewed and signed Code Status: Full code Disposition: ICU Critically ill: Yes MD discussed with: RN, RT, hospitalist taking care of the patient Analgesia: Fentanyl Glycemic Control: N/A Nutrition: Tube feeds Restraint Renewal (within 24 hrs): Yes Ulcer Prophylaxis: PPI Chemical Thromboprophylaxis: Prophylaxis: Lovenox Mechanical Thromboprophylaxis: SCDs Need for Central line: N/A Need for Maier catheter: Urine output monitoring Critical Care Time (No Overlap): 59 min Attestations Medical Necessity Statement*: Patient still wheezing-we will continue to vent management and ICU observation for next 24 to 48 hours Time Spent in Patient Care: Greater than 35 minutes (>than 50% of time spent in counselling and/or direct pt care on unit) . Critical Care Time: The high probability of a clinically significant, sudden or life threatening deterioration of the patient's [respiratory] system(s) required my full and direct attention, intervention and personal management. The critical care time is as shown. This time is in addition to time spent performing any reported procedures but includes the following: [x] Data and vital sign review and interpretation [x] Patient assessment, examination and intervention [x] Documentation [x] Medication orders and management Critical Care Time (min): 59 Coding Level of Care Code 27031 Diagnoses Acute exacerbation of chronic obstructive airways disease J44.1 Respiratory failure with hypoxia and hypercapnia J96.91; J96.92 Severe persistent asthma J45.50 Asthma complication type: unspecified Anxiety F41.9 H/O of biological therapy treatment Z92.89 Difficulty with extubation T88.8XXA Time Spent (min) 59
[2022-12-20 13:26] LABS: Blood Urea Nitrogen 25 mg/dL (6-20); Calcium 7.9 mg/dL (8.5-10.5); Carbon Dioxide 23 mmol/L (22-29); Chloride 110 mmol/L (98-107); Glomerular Filtration Rate 65.5 mL/min (90-130); Glucose 130 mg/dL (65-115); Osmolality Calculated 298 mOsm/kg (285-295); Phosphorus 3.5 mg/dL (2.5-4.5); Sodium 141 mmol/L (136-145)
[2022-12-20 13:30] LABS: Anion Gap 12.7 (5-19); Potassium 4.7 mmol/L (3.5-5.1)
[2022-12-20] MEDS: ipratropium 0.5 mg/2.5 mL Neb INHALATION ×3 (15:44→23:28)
[2022-12-20 17:10] LABS: ABG PCO2 51.3 mmHg (35-45); ABG PH Result 7.34 (7.35-7.45); Alveolar-Arterial Oxygen Gradi 13.8 mmHg (5-10); Arterial Blood Gas Hematocrit 35.1 % (37-47); Base Excess ABG 0.8 mmol/L (-2.0-2.0); Blood Gas Allen Test Pos; Blood Gas Operator Identificat CAK; Blood Gas Sample Site Brachial, left; Blood Gas Sample Type Arterial; Blood Gas Tidal Volume 0.35; Carboxyhemoglobin 0.7 %THgb (0.4-20.1); HCO3 ABG 27.4 mmol/L (22-26); HGB O2 Sat 94.2 % (95-100); Ionized Calcium Level - ABG 1.2 mmol/L (1.1-1.4); Methemoglobin 0.7 % (0.4-1.5); Oxygen Device VENT; Oxygen Saturation ABG 95.6; PO2 ABG 80.3 mmHg (80.0-100.0); Potassium Level - ABG 4.8 mmol/L (3.5-5.0); Total Hemoglobin 11.4 g/dL (12-16)
[2022-12-20 17:45] LABS: Glucose Point of Care 154 mg/dL (70-110)
[2022-12-20] MEDS: LORazepam 2 mg/mL INJ 1 mL 0.5 MG IVP ×2 (20:44→23:48)
--- NOTE | 2022-12-20 21:02 | PC.NUTR ---
Received consult for TF recommendations. Recommend Jevity 1.2 beginning @ 10 mls/hr and increasing 5-10 mls/hr Q8H as tolerated until goal rate of 30 mls/hr is reached with fresh water flushes of 80 mls Q4H or per MD discretion. Details in RD assessment.
[2022-12-20] MEDS: vancomycin 1,000 MG in sodium chloride 0.9% 250 ML 250 MG IV (23:04)
[2022-12-20] MEDS: dexmedetomidine 400 MCG in sodium chloride 0.9% (100 ml) 100 ML 23.24 MCG IV (23:05)
[2022-12-20] MEDS: propofol 1,000 MG/100 ML INJ 27.39 MG IV (23:10)
[2022-12-21] VITALS (65 sets, daily range): BP systolic 96–205; BP diastolic 59–141; PULSE 73–120; RESP 10–17; TEMP 35.9–37.4; O2SAT 90–98
[2022-12-21] MEDS: piperacillin-tazobactam 3.375 GM in sodium chloride 0.9% (plus) 50 ML IV ×3 (02:03→17:37)
[2022-12-21] MEDS: propofol 1,000 MG/100 ML INJ 29.88 MG IV ×3 (02:04→08:37)
[2022-12-21] MEDS: ipratropium 0.5 mg/2.5 mL Neb INHALATION ×6 (03:41→23:49)
[2022-12-21] MEDS: levalbuterol 1.25 mg/3 mL Neb INHALATION ×6 (03:41→23:49)
[2022-12-21] MEDS: LORazepam 2 mg/mL INJ 1 mL 0.5 MG IVP (03:53)
[2022-12-21] MEDS: levofloxacin-dextrose 5 % 750 MG/150 ML PREMIX 100 MG IV (04:00)
[2022-12-21] MEDS: enoxaparin 40 mg/0.4 mL Syringe SUBCUT (04:00)
[2022-12-21 04:26] LABS: Basophils % 0.2 %; Hematocrit 35.5 % (37.0-47.0); Hemoglobin 10.8 g/dL (11.5-15.3); Lymphocytes # 0.9 10^3/uL (0.8-4.8); Mean Corpuscular HGB Conc 30.4 g/dL (30.0-36.0); Mean Corpuscular Hemoglobin 27.5 pg (28.0-34.0); Mean Corpuscular Volume 90.3 fl (81-99); Mean Platelet Volume 9.5 fL (7.4-10.4); Monocytes # 0.6 10^3/uL (0.2-0.9); Monocytes % 5.5 %; Neutrophils # 9.23 10^3/uL (1.8-7.7); Neutrophils % 83.8 %; Nucleated Red Blood Cells % 0.3 %; Platelet Count 259 10^3/cmm (130-400); Red Blood Count 3.93 10^6/uL (4.1-5.3); Red Cell Distribution Width 17.7 % (12.1-15.1)
[2022-12-21 04:49] LABS: Blood Urea Nitrogen 24 mg/dL (6-20); Calcium 7.9 mg/dL (8.5-10.5); Carbon Dioxide 28 mmol/L (22-29); Glomerular Filtration Rate 65.5 mL/min (90-130); Glucose 162 mg/dL (65-115)
[2022-12-21 04:58] LABS: Glucose Point of Care 171 mg/dL (70-110)
[2022-12-21] MEDS: methylPREDNISolone sod succ 60 MG in water for injection-sterile 0.96 ML 11.52 MG IVP ×3 (05:05→20:57)
[2022-12-21] MEDS: montelukast sodium 10 mg Tablet PO (05:05)
[2022-12-21 05:25] LABS: Anion Gap 11.3 (5-19); Chloride 109 mmol/L (98-107); Osmolality Calculated 304 mOsm/kg (285-295); Potassium 5.3 mmol/L (3.5-5.1); Sodium 143 mmol/L (136-145)
[2022-12-21 05:29] LABS: ABG PCO2 55.7 mmHg (35-45); ABG PH Result 7.31 (7.35-7.45); Base Excess ABG 1.1 mmol/L (-2.0-2.0); Blood Gas Allen Test Pos; Blood Gas Operator Identificat JB; Blood Gas Sample Site Radial, right; Blood Gas Sample Type Arterial; HCO3 ABG 28.3 mmol/L (22-26); Oxygen Device VENT; PO2 ABG 97.4 mmHg (80.0-100.0)
[2022-12-21 05:30] LABS: Blood Gas Tidal Volume 0.35
[2022-12-21] MEDS: budesonide 0.5 mg/2 mL Neb INHALATION ×2 (07:34→19:54)
[2022-12-21 07:35] LABS: Glucose Point of Care 158 mg/dL (70-110)
--- NOTE | 2022-12-21 08:30 | XR_ITS ---
WS: [id number] EXAMINATION: XR chest 1V portable [id number] REASON FOR EXAM: follow up COMPARISON: 12/19/2022 ORDER DATE: 12/21/2022 8:48 AM TECHNIQUE: A single, portable frontal chest x-ray was obtained. X-RAY FINDINGS: Tubes, catheters and devices: Unchanged ETT and NGT. Lungs: Unremarkable. No consolidation. Pleural spaces: Unremarkable. No pleural effusion. No pneumothorax. Heart/Mediastinum: Unremarkable. No cardiomegaly. Bones/joints: Unremarkable. XR/XR chest 1V portable [id number] IMPRESSION: 1. No acute findings. 2. Unchanged ETT and NGT.
[2022-12-21] MEDS: pantoprazole 40 mg SDV IVP (08:38)
[2022-12-21 11:34] LABS: ABG PCO2 53.5 mmHg (35-45); ABG PH Result 7.34 (7.35-7.45); Arterial Blood Gas Hematocrit 36.7 % (37-47); Base Excess ABG 2.2 mmol/L (-2.0-2.0); Blood Gas Allen Test Pos; Blood Gas Operator Identificat CAK; Blood Gas Sample Site Brachial, left; Blood Gas Sample Type Arterial; Blood Gas Tidal Volume 0.36; HCO3 ABG 28.9 mmol/L (22-26); Oxygen Device VENT; PO2 ABG 62.5 mmHg (80.0-100.0)
--- NOTE | 2022-12-21 12:23 | P.PN_ITS ---
Subjective Subjective: Patient is weaned off sedatives New ABG showed improvement in PCO2 Patient still has wheezing Spoke with Dr. Kumar and RT Silvino and ICU nurse Fior Vitals/I&O/Wt Last Vital Signs Temp 97.7 F 12/21/22 07:00 Pulse 73 12/21/22 11:03 Resp 12 12/21/22 11:03 BP 148/92 12/21/22 09:00 Pulse Ox 96 12/21/22 11:03 O2 Del Method Mechanical Ventilation 12/21/22 11:03 O2 Flow Rate 2 12/17/22 01:02 FiO2 35 12/21/22 11:03 12/20/22 12/21/22 12/21/22 22:59 06:59 14:59 Intake Total 678.372 / 1144.168 647.539 / 1791.707 247.333 / 247.333 Output Total 250 / 250 650 / 900 Balance 428.372 / 894.168 -2.461 / 891.707 247.333 / 247.333 Weight last 48 hrs Weight 77.564 kg Weight 75.75 kg Physical Exam Narrative: Patient intubated and sedated Wheezing present Assisted bilateral breath sounds FiO2 30% Neuro exam limited Abdomen soft S1, S2 sinus rhythm Urinary Catheter Management: Maier Latex: Cath Placed During This Visit: yes Reason for Continuing Indwelling Catheter: Accurate Measurement of Urinary Output in Critically Ill Patients Urinary Catheter Date of Insertion: 12/17/22 Urinary Catheter Time of Insertion: 04:36 Data 12/22/22 02:30 12/22/22 02:30 A&P Assessment and plan (1) Difficulty with extubation: (2) Bronchospasm: (3) Respiratory failure with hypoxia and hypercapnia: (4) Acute exacerbation of chronic obstructive airways disease: (5) Asthma with exacerbation: (6) Severe persistent asthma: Qualifiers: Asthma complication type: unspecified Qualified Code(s): J45.50 - Severe persistent asthma, uncomplicated (7) Anxiety: (8) PTSD (post-traumatic stress disorder): (9) H/O of biological therapy treatment: Plan Difficult extubation for last 4 days because of her persistent wheezing and auto peep We will follow-up with Dr. Kumar Today our plan is to decrease her sedation and wake her up to start weaning trial by tomorrow We will continue her steroids for now Tube feeds can be held by tomorrow Patient remains full code Continue antibiotics Afebrile without significant leukocytosis worsening Attestations Medical Necessity Statement*: Continue ICU management Coding Level of Care Code 73322 Moderate MDM includes number and complexity of problems actively addressed during encounter, amount and/or complexity of data reviewed/ordered and described risk of complication, morbidity or mortality of management as documen froilan Diagnoses Difficulty with extubation T88.8XXA Bronchospasm J98.01 Respiratory failure with hypoxia and hypercapnia J96.91; J96.92 Acute exacerbation of chronic obstructive airways disease J44.1 Asthma with exacerbation J45.901 Severe persistent asthma J45.50 Asthma complication type: unspecified Anxiety F41.9 PTSD (post-traumatic stress disorder) F43.10 H/O of biological therapy treatment Z92.89
[2022-12-21] MEDS: FUROsemide 10 mg/mL SDV 2mL 20 MG IVP (12:36)
--- NOTE | 2022-12-21 21:22 | PM.PN ---
Subjective Subjective: Patient is a still wheezing Auto PEEP appears to be better-we will gradually taper off sedation and do awakening trial She is tolerating pressure support ventilation but still very drowsy She tolerated Xopenex nebulization without bronchospasm-we will add Atrovent Continue to monitor Medications: Reviewed: Yes Vitals/I&O/Wt Last Vital Signs Temp 96.7 F L 12/21/22 15:30 Pulse 87 12/21/22 19:56 Resp 11 L 12/21/22 19:58 BP 122/85 12/21/22 18:00 Pulse Ox 92 12/21/22 19:58 O2 Del Method Mechanical Ventilation 12/21/22 19:56 O2 Flow Rate 2 12/17/22 01:02 FiO2 35 12/21/22 19:58 12/21/22 12/21/22 12/21/22 06:59 14:59 22:59 Intake Total 647.539 / 1791.707 624.058 / 624.058 63.138 / 687.196 Output Total 650 / 900 800 / 800 1850 / 2650 Balance -2.461 / 891.707 -175.942 / -175.942 -1786.862 / -1962.804 Weight last 48 hrs Weight 171 lb Weight 167 lb Physical Exam Narrative: PHYSICAL EXAM: General: lying in bed, sedated and intubated. HEENT:NCAT, PERRLA, EOMI Neck: Supple Lungs: Bilateral diffuse end expiratory wheeze Heart: s1/s2, RRR Abd: soft, NT, ND, BS + Normoactive Extremities: No edema SURGICAL ELASTIC KNITTER HAND FRAME: sedated and limited SURGICAL ELASTIC KNITTER HAND FRAME exam possible. SKIN: no rash Urinary Catheter Management: Maier Latex: Cath Placed During This Visit: yes Reason for Continuing Indwelling Catheter: Accurate Measurement of Urinary Output in Critically Ill Patients Urinary Catheter Date of Insertion: 12/17/22 Urinary Catheter Time of Insertion: 04:36 Data 12/21/22 03:35 12/21/22 03:35 Other Labs: Radiology Impressions Chest X-Ray 12/21/22 08:30 IMPRESSION: 1. No acute findings. 2. Unchanged ETT and NGT. Laboratory Results WBC 11.0 10^3/uL (4.0-10.0) H 12/21/22 03:35 RBC 3.93 10^6/uL (4.1-5.3) L 12/21/22 03:35 Hgb 10.8 g/dL (11.5-15.3) L 12/21/22 03:35 Hct 35.5 % (37.0-47.0) L 12/21/22 03:35 MCV 90.3 fl (81-99) 12/21/22 03:35 MCH 27.5 pg (28.0-34.0) L 12/21/22 03:35 MCHC 30.4 g/dL (30.0-36.0) 12/21/22 03:35 RDW 17.7 % (12.1-15.1) H 12/21/22 03:35 Plt Count 259 10^3/cmm (130-400) 12/21/22 03:35 MPV 9.5 fL (7.4-10.4) 12/21/22 03:35 Neut % (Auto) 83.8 % 12/21/22 03:35 Lymph % (Auto) 8.0 % 12/21/22 03:35 [place] % (Auto) 5.5 % 12/21/22 03:35 Eos % (Auto) 0.0 % 12/21/22 03:35 Baso % (Auto) 0.2 % 12/21/22 03:35 Neut # (Auto) 9.23 10^3/uL (1.8-7.7) H 12/21/22 03:35 Lymph # (Auto) 0.9 10^3/uL (0.8-4.8) 12/21/22 03:35 [place] # (Auto) 0.6 10^3/uL (0.2-0.9) 12/21/22 03:35 Eos # (Auto) 0.0 10^3/uL (0.0-0.8) 12/21/22 03:35 Baso # (Auto) 0.0 10^3/uL (0.0-0.1) 12/21/22 03:35 Nucleated RBC % (auto) 0.3 % 12/21/22 03:35 Nucleated RBCs # 0.0 /100WBC 12/21/22 03:35 PT 12.10 SECONDS (12.1-14.9) 12/16/22 22:46 INR 0.87 (0.8-1.2) 12/16/22 22:46 D-Dimer 0.50 ug/mIFEU (0-0.59) 12/17/22 13:21 Specimen Type Arterial 12/21/22 11:23 Sample Site Brachial, left 12/21/22 11:23 ABG pH 7.34 (7.35-7.45) L 12/21/22 11:23 ABG pCO2 53.5 mmHg (35-45) H 12/21/22 11:23 ABG pO2 62.5 mmHg (80.0-100.0) L 12/21/22 11:23 ABG HCO3 28.9 mmol/L (22-26) H 12/21/22 11:23 ABG O2 Saturation 95.6 12/20/22 16:58 ABG Base Excess 2.2 mmol/L (-2.0-2.0) H 12/21/22 11:23 Eric Test Pos 12/21/22 11:23 A-a O2 Gradient 13.8 mmHg (5-10) H 12/20/22 16:58 Hematocrit 36.7 % (37-47) L 12/21/22 11:23 Hgb O2 Saturation 94.2 % (95-100) L 12/20/22 16:58 Carboxyhemoglobin 0.7 %THgb (0.4-20.1) 12/20/22 16:58 Methemoglobin 0.7 % (0.4-1.5) 12/20/22 16:58 Total Hemoglobin 11.4 g/dL (12-16) L 12/20/22 16:58 Sodium 145.0 mmol/L (131-143) H 12/20/22 16:58 Potassium 4.8 mmol/L (3.5-5.0) 12/20/22 16:58 Glucose 151.0 mg/dL (70-115) H 12/20/22 16:58 Ionized Calcium 1.2 mmol/L (1.1-1.4) 12/20/22 16:58 Respiration Rate 16.0 % 12/18/22 12:50 O2 Delivery Device Vent 12/21/22 11:23 O2 Liters/Min 2.0 % 12/17/22 01:50 Vent Mode Vc-ac 12/18/22 12:50 FiO2 35.0 % 12/21/22 11:23 Tidal Volume 0.36 12/21/22 11:23 PEEP 6.0 cmH20 12/21/22 11:23 Specimen Drawn By Gd 12/18/22 12:50 Expedition Supervisor ID Cak 12/21/22 11:23 Sodium 143 mmol/L (136-145) 12/21/22 03:35 Potassium 5.3 mmol/L (3.5-5.1) H 12/21/22 03:35 Chloride 109 mmol/L (98-107) H 12/21/22 03:35 Carbon Dioxide 28 mmol/L (22-29) 12/21/22 03:35 Anion Gap 11.3 (5-19) 12/21/22 03:35 BUN 24 mg/dL (6-20) H 12/21/22 03:35 Creatinine 0.9 mg/dL (0.5-0.9) 12/21/22 03:35 GFR Calculation 65.5 mL/min (90-130) L 12/21/22 03:35 Glucose 162 mg/dL (65-115) H 12/21/22 03:35 POC Glucose 158 mg/dL (70-110) H 12/21/22 07:32 Calculated Osmolality 304 mOsm/kg (285-295) H 12/21/22 03:35 Lactate 1.0 mmol/L (0.5-2.2) 12/20/22 03:20 Calcium 7.9 mg/dL (8.5-10.5) L 12/21/22 03:35 Phosphorus 3.5 mg/dL (2.5-4.5) 12/20/22 12:52 Magnesium 3.0 mg/dL (1.7-2.3) H 12/20/22 12:52 Total Bilirubin 0.3 mg/dL (0.15-1.2) 12/18/22 02:22 AST 18 U/L (0-32) 12/18/22 02:22 ALT 16 U/L (0-33) 12/18/22 02:22 Alkaline Phosphatase 62 U/L (35-105) 12/18/22 02:22 NT-Pro-B Natriuret Pep 78 pg/mL (0-125) 12/16/22 22:46 Total Protein 5.6 g/dL (6.6-8.7) L 12/18/22 02:22 Albumin 3.6 g/dL (3.5-5.2) 12/18/22 02:22 Globulin 2.0 g/dL (1.3-4.6) 12/18/22 02:22 Urine Color Yellow (Yellow) 12/17/22 13:15 Urine Appearance Clear (CLEAR) 12/17/22 13:15 Urine pH 5 (5-7) 12/17/22 13:15 Ur Specific [place] 1.020 (1.005-1.030) 12/17/22 13:15 Urine Protein 1+ (Negative) H 12/17/22 13:15 Urine Glucose (UA) Trace (Normal) H 12/17/22 13:15 Urine Ketones 1+ (Negative) H 12/17/22 13:15 Urine Blood 3+ (Negative) H 12/17/22 13:15 Urine Nitrate Negative (Negative) 12/17/22 13:15 Urine Bilirubin Neg (Negative) 12/17/22 13:15 Urine Urobilinogen Norm mg/dL (Negative) 12/17/22 13:15 Ur Leukocyte Esterase Negative (Negative) 12/17/22 13:15 Urine RBC 5-10 /hpf (0-2) H 12/17/22 13:15 Urine WBC None /hpf (0-5) 12/17/22 13:15 Ur Squamous Epith Cells Rare /hpf (0-5) 12/17/22 13:15 Amorphous Sediment Not Reportable 12/17/22 13:15 Urine Bacteria Trace /hpf (NONE) 12/17/22 13:15 Urine Mucus Trace /hpf 12/17/22 13:15 Nasal Influ A H1 2008 PCR Not detected (NOT DETECT) 12/19/22 23:38 Urine Opiates Screen Negative ng/mL (Negative) 12/17/22 01:11 Ur Barbiturates Screen Negative ng/mL (Negative) 12/17/22 01:11 Ur Phencyclidine Scrn Negative ng/mL (Negative) 12/17/22 01:11 Ur Amphetamines Screen Negative ng/mL (Negative) 12/17/22 01:11 U Benzodiazepines Scrn Negative ng/mL (Negative) 12/17/22 01:11 Urine Cocaine Screen Negative ng/mL (Negative) 07/23/23 01:11 U Marijuana (THC) Screen Negative ng/mL (Negative) 12/17/22 01:11 Adenovirus (PCR) Not detected (NOT DETECT) 12/19/22 23:38 C. pneumoniae DNA (PCR) Not detected (NOT DETECT) 12/19/22 23:38 Coronavirus 229E (PCR) Not detected (NOT DETECT) 12/19/22 23:38 Human Metapneumovir PCR Not detected (NOT DETECT) 12/19/22 23:38 Influenza A (H1) PCR Not detected (NOT DETECT) 12/19/22 23:38 Influenza A (H3) PCR Not detected (NOT DETECT) 12/19/22 23:38 Influenza Type A (PCR) Not detected (NOT DETECT) 12/19/22 23:38 Influenza Type B (PCR) Not detected (NOT DETECT) 12/19/22 23:38 M. pneumoniae (PCR) Not detected (NOT DETECT) 12/19/22 23:38 Parainfluenza 1 (PCR) Not detected (NOT DETECT) 12/19/22 23:38 Parainfluenza 2 (PCR) Not detected (NOT DETECT) 12/19/22 23:38 Parainfluenza 3 (PCR) Not detected (NOT DETECT) 12/19/22 23:38 Parainfluenza 4 (PCR) Not detected (NOT DETECT) 12/19/22 23:38 RSV Type A (PCR) Not detected (NOT DETECT) 12/19/22 23:38 RSV Type B (PCR) Not detected (NOT DETECT) 12/19/22 23:38 Entero/Rhino (PCR) Not detected (NOT DETECT) 12/19/22 23:38 SARS-CoV-2 (PCR) Not detected (NOT DETECT) 12/19/22 23:38 A&P Assessment and plan (1) Acute exacerbation of chronic obstructive airways disease: (2) Respiratory failure with hypoxia and hypercapnia: (3) Severe persistent asthma: Qualifiers: Asthma complication type: unspecified Qualified Code(s): J45.50 - Severe persistent asthma, uncomplicated (4) Anxiety: (5) H/O of biological therapy treatment: (6) Difficulty with extubation: Plan #Acute hypoxic hypercapnic respiratory failure secondary to severe asthma exacerbation in 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 #Her asthma is COMPLICATED by her significant anxiety and panic attacks-reported taking buspirone/Xanax as outpatient #Difficulty weaning from ventilator-with significant auto PEEP and severe bronchospasm -Currently mechanically intubated-on CMV 360/12/PEEP 6/35% FiO2-with I time 0.90; -Recommended to continue scheduled nebulization-however there is a concern if there is paradoxical bronchospasm with DuoNeb -We will taper off sedation and proceed with awakening trial and spontaneous breathing trial-plan to extubate in next 24 to 48 hours --recommended to continue Xopenex and Atrovent nebulization and paralyze the patient if necessary-by giving more time for expiration, reducing respiratory rate, adequate sedation and paralysis-the goal is to avoid dynamic hyperinflation and auto PEEP. She is -Recommended IV Solu-Medrol every 8 hours (total of 200 Mg daily) and gradually taper off based on clinical response -Chest x-ray-no acute findings-currently patient is covered with broad-spectrum antibiotics vancomycin, Zosyn, Levaquin; MRSA nares negative however preliminary blood and sputum cultures showed gram-positive cocci in pairs centimeters-final cultures pending -We will continue to monitor ventilator settings and help with weaning protocol ICU CHECKLIST: Problem list updated Verbal orders reviewed and signed Code Status: Full code Disposition: ICU Critically ill: Yes MD discussed with: RN, RT, hospitalist taking care of the patient Analgesia: Fentanyl Glycemic Control: N/A Nutrition: Tube feeds Restraint Renewal (within 24 hrs): Yes Ulcer Prophylaxis: PPI Chemical Thromboprophylaxis: Prophylaxis: Lovenox Mechanical Thromboprophylaxis: SCDs Need for Central line: N/A Need for Maier catheter: Urine output monitoring Critical Care Time (No Overlap): 61 min Attestations Medical Necessity Statement*: Patient still wheezing-we will continue to vent management and ICU observation for next 24 to 48 hours Time Spent in Patient Care: Greater than 35 minutes (>than 50% of time spent in counselling and/or direct pt care on unit). Critical Care Time: The high probability of a clinically significant, sudden or life threatening deterioration of the patient's [respiratory] system(s) required my full and direct attention, intervention and personal management. The critical care time is as shown. This time is in addition to time spent performing any reported procedures but includes the following: [x] Data and vital sign review and interpretation [x] Patient assessment, examination and intervention [x] Documentation [x] Medication orders and management Critical Care Time (min): 61 Coding Level of Care Code Acute Code for Chg Fwd Diagnoses Acute exacerbation of chronic obstructive airways disease J44.1 Respiratory failure with hypoxia and hypercapnia J96.91; J96.92 Severe persistent asthma J45.50 Asthma complication type: unspecified Anxiety F41.9 H/O of biological therapy treatment Z92.89 Difficulty with extubation T88.8XXA Time Spent (min) 61
[2022-12-21 21:51] LABS: Glucose Point of Care 132 mg/dL (70-110)
[2022-12-21 23:32] LABS: Vancomycin Trough 6.8 ug/mL (10-15)
--- NOTE | 2022-12-21 23:45 | PC.PHAR ---
Pharmacokinetic dosing service Date: 12/21/22 Time: 2345 Patient: Ramila Barrow Floor: ICU-4 Weight: 77.564 Kilograms Vancomycin single level analysis: Current dose being given: 1000 mg Current dosing interval: 18 hrs Current infusion time (hrs): 1 Single level Trough Data: Trough level obtained: 6.8 mcg/ml Timing of trough - # of hrs before next dose: 1 Hrs Desired peak: 40 mcg/ml Desired trough: 15 mcg/ml Diagnosis: Relevant medical/social history: Cultures and sensitivities: Other labs: Estimated PK Parameters: New rate constant (naz): 0.049 hr-1 Half-life: 14.15 Hours Vd from levels: 69.81 Liters (0.7 L/kg) CLvanco=?? 3.421 L/hr Estimated New Dose and Interval Recommended dose: 1838.8 mg Recommended interval: 21.0 Hrs Patient response: Patient is responding to treatment [yes/no] wbc decreasing, S/SX reduced [yes/no] Renal function is stable/unstable Recommendations: Give Vancomycin 1000 mg q 18 hrs. Infuse over 1 hrs Expected Cpeak: 23.9 mcg/mL Expected Ctrough: 10.4 mcg/mL AUC 0-24 /MARGOT Data: MARGOT 0.5 mcg/mL:?? AUC/MARGOT:? 779.5 MARGOT 1.0 mcg/mL:?? AUC/MARGOT:? 389.7 Recommended labs and intervals: Measure Bun and Scr 3 times/week. Renal dosing of other antibiotics (review renal dosing of other medications and list guidelines here): Thank you for the consult, will continue to follow. Signature: Tejal Restrepo [facility]
[2022-12-22] VITALS (72 sets, daily range): BP systolic 79–196; BP diastolic 45–104; PULSE 93–137; RESP 12–28; TEMP 36.6–37.4; O2SAT 92–99
[2022-12-22] MEDS: vancomycin 1,000 MG in sodium chloride 0.9% 250 ML 250 MG IV ×2 (00:30→18:37)
[2022-12-22] MEDS: chlorhexidine gluconate 4% Btl 118 mL 1 APPLIC TOPICAL (00:30)
[2022-12-22] MEDS: propofol 1,000 MG/100 ML INJ 9.96 MG IV (00:34)
[2022-12-22 02:35] LABS: Hematocrit 39.4 % (37.0-47.0); Hemoglobin 12.4 g/dL (11.5-15.3); Mean Corpuscular HGB Conc 31.5 g/dL (30.0-36.0); Mean Corpuscular Hemoglobin 27.8 pg (28.0-34.0); Mean Corpuscular Volume 88.3 fl (81-99); Mean Platelet Volume 9.5 fL (7.4-10.4); Platelet Count 301 10^3/cmm (130-400); Red Blood Count 4.46 10^6/uL (4.1-5.3); White Blood Count 13.3 10^3/uL (4.0-10.0)
[2022-12-22 02:57] LABS: Anion Gap 15.8 (5-19); Blood Urea Nitrogen 26 mg/dL (6-20); Calcium 8.6 mg/dL (8.5-10.5); Carbon Dioxide 29 mmol/L (22-29); Chloride 105 mmol/L (98-107); Glucose 121 mg/dL (65-115); Osmolality Calculated 306 mOsm/kg (285-295); Potassium 4.8 mmol/L (3.5-5.1); Sodium 145 mmol/L (136-145)
[2022-12-22] MEDS: piperacillin-tazobactam 3.375 GM in sodium chloride 0.9% (plus) 50 ML IV ×3 (03:00→20:35)
[2022-12-22 03:10] LABS: Absolute Segmented Neutrophil 11.2 10/cmm (1.6-7.1); Eosinophils 0 %; Lymphocytes 8 %; Monocytes Absolute 0.7 10^3/cmm (0.1-0.6); Platelet Estimate Normal (Normal); Segmented Neutrophils 84 %; Slide Review Slide Review Perform; Total Cells Counted 100 (0-100)
[2022-12-22] MEDS: ipratropium 0.5 mg/2.5 mL Neb INHALATION ×7 (03:40→23:54)
[2022-12-22] MEDS: levalbuterol 1.25 mg/3 mL Neb INHALATION ×7 (03:40→23:54)
[2022-12-22] MEDS: methylPREDNISolone sod succ 60 MG in water for injection-sterile 0.96 ML 11.52 MG IVP ×3 (04:45→20:35)
[2022-12-22] MEDS: enoxaparin 40 mg/0.4 mL Syringe SUBCUT (04:45)
[2022-12-22 05:20] LABS: Glucose Point of Care 108 mg/dL (70-110)
[2022-12-22] MEDS: montelukast sodium 10 mg Tablet PO (05:30)
[2022-12-22 05:57] LABS: ABG PCO2 50.7 mmHg (35-45); ABG PH Result 7.42 (7.35-7.45); Arterial Blood Gas Hematocrit 35.6 % (37-47); Base Excess ABG 7.1 mmol/L (-2.0-2.0); Blood Gas Allen Test Pos; Blood Gas Sample Type Arterial; HCO3 ABG 32.8 mmol/L (22-26); PO2 ABG 71.9 mmHg (80.0-100.0)
[2022-12-22 05:59] LABS: Blood Gas Operator Identificat JB; Blood Gas Sample Site Radial, right; Blood Gas Tidal Volume 0.36; Oxygen Device VENT
[2022-12-22] MEDS: budesonide 0.5 mg/2 mL Neb INHALATION ×2 (07:56→20:04)
[2022-12-22] MEDS: pantoprazole 40 mg SDV IVP (08:51)
--- NOTE | 2022-12-22 09:47 | CT_ITS ---
WS: [id number] CT HEAD TECHNIQUE: Noncontrast CT of the head obtained from the skullbase to the vertex. CLINICAL INFORMATION: non responisve COMPARISON: CT head July 12, 2022 DLP: 861.[address] scans at [facility] use at least one of these dose optimization techniques: automated e xposure control; mA and/or kV adjustment per patient size (includes targeted exams where dose is matc hed to clinical indication); or iterative reconstruction. FINDINGS: No evidence of intracranial hemorrhage. 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 Chronic infarcts in the RIGHT occipita l and posterior temporal lobes with encephalomalacia unchanged. No hydrocephalus. Sphenoid sinusitis. Retention cyst or polyp LEFT sphenoid sinus. Mild mucosal thickening in the ethmo id air cells. Mastoid air cells are well aerated. Intracranial vascular calcification. Stable cerebel lar tonsillar ectopia. CT/CT head wo con* [id number] IMPRESSION: Some images degraded by beam Fontanez artifact. 1. No evidence of intracranial hemorrhage or mass effect. 2. Chronic infarcts RIGHT frontal, parietal, occipital, and posterior temporal lobes with encephalomalacia unchanged from previous. 3. Sphenoid sinusitis. 4. No other significant changes.
--- NOTE | 2022-12-22 11:41 | P.PN_ITS ---
Subjective Subjective: Patient is off sedation Precedex 0.8 She is able to open her eyes to some extent however not able to follow commands at all CT head did not show acute changes other than an enkephalin malacia which has not worsened from last CT head findings Vitals/I&O/Wt Last Vital Signs Temp 98 F 12/22/22 10:00 Pulse 106 H 12/22/22 11:17 Resp 17 12/22/22 11:17 BP 98/63 12/22/22 10:00 Pulse Ox 95 12/22/22 11:17 O2 Del Method Mechanical Ventilation 12/22/22 11:17 O2 Flow Rate 2 12/17/22 01:02 FiO2 35 12/22/22 11:17 12/21/22 12/22/22 12/22/22 22:59 06:59 14:59 Intake Total 253.856 / 877.914 454.579 / 1332.493 110.303 / 110.303 Output Total 2200 / 3000 200 / 3200 Balance -1946.144 / -2122.086 254.579 / -1867.507 110.303 / 110.303 Weight last 48 hrs Weight 75.892 kg Weight 77.564 kg Physical Exam Narrative: Pupils are reactive to light Lower extremity flaccid Patient extremely drowsy Intubated and sedated Minimal vent settings Off sedation Abdomen slightly sound Maier catheter w concentrated urine Urinary Catheter Management: Maier Latex: Cath Placed During This Visit: yes Reason for Continuing Indwelling Catheter: Accurate Measurement of Urinary Output in Critically Ill Patients Urinary Catheter Date of Insertion: 12/17/22 Urinary Catheter Time of Insertion: 04:36 Data 12/23/22 02:14 12/23/22 02:14 A&P Assessment and plan (1) Difficulty with extubation: (2) Bronchospasm: (3) Respiratory failure with hypoxia and hypercapnia: (4) Asthma with exacerbation: (5) Weakness generalized: (6) COPD (chronic obstructive pulmonary disease): (7) Severe persistent asthma: Qualifiers: Asthma complication type: unspecified Qualified Code(s): J45.50 - Severe persistent asthma, uncomplicated (8) PTSD (post-traumatic stress disorder): Plan Patient was reintubated, she did not do well at all after extubation, she was tachypneic was experiencing bronchospasm, she was reintubated because of worsen ing of respiratory distress, Dr. Kumar initiated paralytic agents Tube feeds on hold Continue antibiotics Plan is to wean off her paralytics in next 24 hours after seeing the response Patient remains full code DVT prophylaxis on board Cultures remain negative however we have continue antibiotics because of her reintubation Continue bronchodilators with steroids Patient was eval multiple times Attestations Medical Necessity Statement*: Continue ICU management Coding Level of Care Code Critical Care >/= 30 minutes Critical care time (in minutes): 40 The high probability of a clinically significant, sudden or life threatening deterioration, as referenced in this documentation, required my full and direct attention, intervention and personal management. The critical care time shown is in addition to time spent performing any reported separately billable procedures and includes the following: [x] Data and vital sign review and interpretation [x ] Patient assessment, examination and intervention [x] Medication orders and management [x] Patient/Family updates as able [x] Care Coordination and Documentation. Diagnoses Difficulty with extubation T88.8XXA Bronchospasm J98.01 Respiratory failure with hypoxia and hypercapnia J96.91; J96.92 Asthma with exacerbation J45.901 Weakness generalized R53.1 COPD (chronic obstructive pulmonary disease) J44.9 Severe persistent asthma J45.50 Asthma complication type: unspecified PTSD (post-traumatic stress disorder) F43.10
[2022-12-22] MEDS: dexmedetomidine 400 MCG in sodium chloride 0.9% (100 ml) 100 ML 15.49 MCG IV (12:46)
[2022-12-22 13:04] LABS: Glucose Point of Care 127 mg/dL (70-110)
--- NOTE | 2022-12-22 15:09 | PM.PN ---
Subjective Subjective: -Patient is off fentanyl and propofol -Precedex 0.8 - She is able to open her eyes to some extent and following commands but appears very weak; -we will further taper down Precedex and continue to do awakening trial and plan to extubate later today once mentation is better -On minimal vent settings -CT head did not show acute changes other than an encephalomalacia which has not worsened from last CT head findings Medications: Reviewed: Yes Vitals/I&O/Wt Last Vital Signs Temp 98 F 12/22/22 13:00 Pulse 114 H 12/22/22 13:00 Resp 16 12/22/22 12:52 BP 126/70 12/22/22 13:00 Pulse Ox 94 12/22/22 13:00 O2 Del Method Mechanical Ventilation 12/22/22 13:00 O2 Flow Rate 2 12/17/22 01:02 FiO2 30 12/22/22 13:00 12/22/22 12/22/22 12/22/22 06:59 14:59 22:59 Intake Total 454.579 / 1332.493 175.766 / 175.766 Output Total 200 / 3200 200 / 200 Balance 254.579 / -1867.507 -24.234 / -24.234 Weight last 48 hrs Weight 167 lb 5 oz Weight 171 lb Physical Exam Narrative: PHYSICAL EXAM: General: lying in bed, sedated and intubated. 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 SKIN: no rash Urinary Catheter Management: Maier Latex: Cath Placed During This Visit: yes Reason for Continuing Indwelling Catheter: Accurate Measurement of Urinary Output in Critically Ill Patients Urinary Catheter Date of Insertion: 12/17/22 Urinary Catheter Time of Insertion: 04:36 Data 12/22/22 02:30 12/22/22 02:30 Other Labs: Radiology Impressions Chest X-Ray 12/21/22 08:30 IMPRESSION: 1. No acute findings. 2. Unchanged ETT and NGT. Head CT 12/22/22 09:47 IMPRESSION: Some images degraded by beam Fontanez artifact. 1. No evidence of intracranial hemorrhage or mass effect. 2. Chronic infarcts RIGHT frontal, parietal, occipital, and posterior temporal lobes with encephalomalacia unchanged from previous. 3. Sphenoid sinusitis. 4. No other significant changes. Laboratory Results WBC 13.3 10^3/uL (4.0-10.0) H 12/22/22 02:30 RBC 4.46 10^6/uL (4.1-5.3) 12/22/22 02:30 Hgb 12.4 g/dL (11.5-15.3) 12/22/22 02:30 Hct 39.4 % (37.0-47.0) 12/22/22 02:30 MCV 88.3 fl (81-99) 12/22/22 02:30 MCH 27.8 pg (28.0-34.0) L 12/22/22 02:30 MCHC 31.5 g/dL (30.0-36.0) 12/22/22 02:30 RDW 17.0 % (12.1-15.1) H 12/22/22 02:30 Plt Count 301 10^3/cmm (130-400) 12/22/22 02:30 MPV 9.5 fL (7.4-10.4) 12/22/22 02:30 Neut % (Auto) 83.8 % 12/21/22 03:35 Lymph % (Auto) Not Reportable 12/22/22 02:30 [place] % (Auto) Not Reportable 12/22/22 02:30 Eos % (Auto) 0.0 % 12/21/22 03:35 Baso % (Auto) 0.2 % 12/21/22 03:35 Neut # (Auto) 9.23 10^3/uL (1.8-7.7) H 12/21/22 03:35 Lymph # (Auto) Not Reportable 12/22/22 02:30 [place] # (Auto) Not Reportable 12/22/22 02:30 Eos # (Auto) 0.0 10^3/uL (0.0-0.8) 12/21/22 03:35 Baso # (Auto) 0.0 10^3/uL (0.0-0.1) 12/21/22 03:35 Nucleated RBC % (auto) 0.3 % 12/21/22 03:35 Total Counted 100 (0-100) 12/22/22 02:30 Atypical Lymphs % Not Reportable 12/22/22 02:30 Segmented Neutrophils 84 % 12/22/22 02:30 Abs Segm Neuts (Man) 11.2 10/cmm (1.6-7.1) H 12/22/22 02:30 Band Neutrophils Not Reportable 12/22/22 02:30 Lymphocytes (Manual) 8 % 12/22/22 02:30 Monocytes (Manual) 5.0 % 12/22/22 02:30 Absolute Monocytes 0.7 10^3/cmm (0.1-0.6) H 12/22/22 02:30 Eosinophils (Manual) 0 % 12/22/22 02:30 Absolute Eosinophils 0.0 10^3/cmm (0.0-0.7) 12/22/22 02:30 Basophils (Manual) 0.0 % 12/22/22 02:30 Absolute Basophils 0.0 10^3/cmm (0.0-0.2) 12/22/22 02:30 Myelocytes 3.0 % 12/22/22 02:30 Nucleated RBCs # 0.0 /100WBC 12/21/22 03:35 Platelet Estimate Normal (Normal) 12/22/22 02:30 PT 12.10 SECONDS (12.1-14.9) 12/16/22 22:46 INR 0.87 (0.8-1.2) 12/16/22 22:46 D-Dimer 0.50 ug/mIFEU (0-0.59) 12/17/22 13:21 Specimen Type Arterial 12/22/22 05:43 Sample Site Radial, right 12/22/22 05:43 ABG pH 7.42 (7.35-7.45) 12/22/22 05:43 ABG pCO2 50.7 mmHg (35-45) H 12/22/22 05:43 ABG pO2 71.9 mmHg (80.0-100.0) L 12/22/22 05:43 ABG HCO3 32.8 mmol/L (22-26) H 12/22/22 05:43 ABG O2 Saturation 95.6 12/20/22 16:58 ABG Base Excess 7.1 mmol/L (-2.0-2.0) H 12/22/22 05:43 Eric Test Pos 12/22/22 05:43 A-a O2 Gradient 13.8 mmHg (5-10) H 12/20/22 16:58 Hematocrit 35.6 % (37-47) L 12/22/22 05:43 Hgb O2 Saturation 94.2 % (95-100) L 12/20/22 16:58 Carboxyhemoglobin 0.7 %THgb (0.4-20.1) 12/20/22 16:58 Methemoglobin 0.7 % (0.4-1.5) 12/20/22 16:58 Total Hemoglobin 11.4 g/dL (12-16) L 12/20/22 16:58 Sodium 145.0 mmol/L (131-143) H 12/20/22 16:58 Potassium 4.8 mmol/L (3.5-5.0) 12/20/22 16:58 Glucose 151.0 mg/dL (70-115) H 12/20/22 16:58 Ionized Calcium 1.2 mmol/L (1.1-1.4) 12/20/22 16:58 Respiration Rate 16.0 % 12/18/22 12:50 O2 Delivery Device Vent 12/22/22 05:43 O2 Liters/Min 2.0 % 12/17/22 01:50 Vent Mode Vc-ac 12/18/22 12:50 FiO2 35.0 % 12/22/22 05:43 Tidal Volume 0.36 12/22/22 05:43 PEEP 5.0 cmH20 12/22/22 05:43 Specimen Drawn By Gd 12/18/22 12:50 Corporate Tax Preparer ID Gary 12/22/22 05:43 Sodium 145 mmol/L (136-145) 12/22/22 02:30 Potassium 4.8 mmol/L (3.5-5.1) 12/22/22 02:30 Chloride 105 mmol/L (98-107) 12/22/22 02:30 Carbon Dioxide 29 mmol/L (22-29) 12/22/22 02:30 Anion Gap 15.8 (5-19) 12/22/22 02:30 BUN 26 mg/dL (6-20) H 12/22/22 02:30 Creatinine 0.8 mg/dL (0.5-0.9) 12/22/22 02:30 GFR Calculation 75.0 mL/min (90-130) L 12/22/22 02:30 Glucose 121 mg/dL (65-115) H 12/22/22 02:30 POC Glucose 127 mg/dL (70-110) H 12/22/22 13:00 Calculated Osmolality 306 mOsm/kg (285-295) H 12/22/22 02:30 Lactate 1.0 mmol/L (0.5-2.2) 12/20/22 03:20 Calcium 8.6 mg/dL (8.5-10.5) 12/22/22 02:30 Phosphorus 3.5 mg/dL (2.5-4.5) 12/20/22 12:52 Magnesium 3.0 mg/dL (1.7-2.3) H 12/20/22 12:52 Total Bilirubin 0.3 mg/dL (0.15-1.2) 12/18/22 02:22 AST 18 U/L (0-32) 12/18/22 02:22 ALT 16 U/L (0-33) 12/18/22 02:22 Alkaline Phosphatase 62 U/L (35-105) 12/18/22 02:22 NT-Pro-B Natriuret Pep 78 pg/mL (0-125) 12/16/22 22:46 Total Protein 5.6 g/dL (6.6-8.7) L 12/18/22 02:22 Albumin 3.6 g/dL (3.5-5.2) 12/18/22 02:22 Globulin 2.0 g/dL (1.3-4.6) 12/18/22 02:22 Urine Color Yellow (Yellow) 12/17/22 13:15 Urine Appearance Clear (CLEAR) 12/17/22 13:15 Urine pH 5 (5-7) 12/17/22 13:15 Ur Specific [place] 1.020 (1.005-1.030) 12/17/22 13:15 Urine Protein 1+ (Negative) H 12/17/22 13:15 Urine Glucose (UA) Trace (Normal) H 12/17/22 13:15 Urine Ketones 1+ (Negative) H 12/17/22 13:15 Urine Blood 3+ (Negative) H 12/17/22 13:15 Urine Nitrate Negative (Negative) 12/17/22 13:15 Urine Bilirubin Neg (Negative) 12/17/22 13:15 Urine Urobilinogen Norm mg/dL (Negative) 12/17/22 13:15 Ur Leukocyte Esterase Negative (Negative) 12/17/22 13:15 Urine RBC 5-10 /hpf (0-2) H 12/17/22 13:15 Urine WBC None /hpf (0-5) 12/17/22 13:15 Ur Squamous Epith Cells Rare /hpf (0-5) 12/17/22 13:15 Amorphous Sediment Not Reportable 12/17/22 13:15 Urine Bacteria Trace /hpf (NONE) 12/17/22 13:15 Urine Mucus Trace /hpf 12/17/22 13:15 Nasal Influ A H1 2008 PCR Not detected (NOT DETECT) 12/19/22 23:38 Vancomycin Trough 6.8 ug/mL (10-15) L 12/21/22 22:29 Urine Opiates Screen Negative ng/mL (Negative) 12/17/22 01:11 Ur Barbiturates Screen Negative ng/mL (Negative) 12/17/22 01:11 Ur Phencyclidine Scrn Negative ng/mL (Negative) 12/17/22 01:11 Ur Amphetamines Screen Negative ng/mL (Negative) 12/17/22 01:11 U Benzodiazepines Scrn Negative ng/mL (Negative) 12/17/22 01:11 Urine Cocaine Screen Negative ng/mL (Negative) 12/17/22 01:11 U Marijuana (THC) Screen Negative ng/mL (Negative) 12/17/22 01:11 Adenovirus (PCR) Not detected (NOT DETECT) 12/19/22 23:38 C. pneumoniae DNA (PCR) Not detected (NOT DETECT) 12/19/22 23:38 Coronavirus 229E (PCR) Not detected (NOT DETECT) 12/19/22 23:38 Human Metapneumovir PCR Not detected (NOT DETECT) 12/19/22 23:38 Influenza A (H1) PCR Not detected (NOT DETECT) 12/19/22 23:38 Influenza A (H3) PCR Not detected (NOT DETECT) 12/19/22 23:38 Influenza Type A (PCR) Not detected (NOT DETECT) 12/19/22 23:38 Influenza Type B (PCR) Not detected (NOT DETECT) 12/19/22 23:38 M. pneumoniae (PCR) Not detected (NOT DETECT) 12/19/22 23:38 Parainfluenza 1 (PCR) Not detected (NOT DETECT) 12/19/22 23:38 Parainfluenza 2 (PCR) Not detected (NOT DETECT) 12/19/22 23:38 Parainfluenza 3 (PCR) Not detected (NOT DETECT) 12/19/22 23:38 Parainfluenza 4 (PCR) Not detected (NOT DETECT) 12/19/22 23:38 RSV Type A (PCR) Not detected (NOT DETECT) 12/19/22 23:38 RSV Type B (PCR) Not detected (NOT DETECT) 12/19/22 23:38 Entero/Rhino (PCR) Not detected (NOT DETECT) 12/19/22 23:38 SARS-CoV-2 (PCR) Not detected (NOT DETECT) 12/19/22 23:38 A&P Assessment and plan (1) Acute exacerbation of chronic obstructive airways disease: (2) Respiratory failure with hypoxia and hypercapnia: (3) Severe persistent asthma: Qualifiers: Asthma complication type: unspecified Qualified Code(s): J45.50 - Severe persistent asthma, uncomplicated (4) Anxiety: (5) H/O of biological therapy treatment: (6) Difficulty with extubation: Plan #Acute hypoxic hypercapnic respiratory failure secondary to severe asthma exacerbation in 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 #Her asthma is COMPLICATED by her significant anxiety and panic attacks-reported taking buspirone/Xanax as outpatient #Difficulty weaning from ventilator-with significant auto PEEP and severe bronchospasm -Currently mechanically intubated-on CMV 360/12/PEEP 5/35% FiO2-with I time 0.90; ABG 7.4 /71/32 -Recommended to continue scheduled nebulization-however there is a concern if there is paradoxical bronchospasm with DuoNeb -We will taper off sedation and proceed with awakening trial and spontaneous breathing trial-plan to extubate in next 24 to 48 hours --recommended to continue Xopenex and Atrovent nebulization and paralyze the patient if necessary-by giving more time for expiration, reducing respiratory rate, adequate sedation and paralysis-the goal is to avoid dynamic hyperinflation and auto PEEP. -Recommended IV Solu-Medrol every 8 hours (total of 200 Mg daily) and gradually taper off based on clinical response -Chest x-ray-no acute findings-currently patient is covered with broad-spectrum antibiotics vancomycin, Zosyn, Levaquin; MRSA nares negative however preliminary blood and sputum cultures showed gram-positive cocci in pairs centimeters-final cultures pending -We will continue to monitor ventilator settings and help with weaning protocol ICU CHECKLIST: Problem list updated Verbal orders reviewed and signed Code Status: Full code Disposition: ICU Critically ill: Yes MD discussed with: RN, RT, hospitalist taking care of the patient Analgesia: Fentanyl Glycemic Control: N/A Nutrition: Tube feeds Restraint Renewal (within 24 hrs): Yes Ulcer Prophylaxis: PPI Chemical Thromboprophylaxis: Prophylaxis: Lovenox Mechanical Thromboprophylaxis: SCDs Need for Central line: N/A Need for Maier catheter: Urine output monitoring Critical Care Time (No Overlap): 77 min Attestations Medical Necessity Statement*: Patient still wheezing-we will continue to vent management and ICU observation for next 24 to 48 hours Time Spent in Patient Care: Greater than 35 minutes (>than 50% of time spent in counselling and/or direct pt care on unit). Critical Care Time: The high probability of a clinically significant, sudden or life threatening deterioration of the patient's [respiratory] system(s) required my full and direct attention, intervention and personal management. The critical care time is as shown. This time is in addition to time spent performing any reported procedures but includes the following: [x] Data and vital sign review and interpretation [x] Patient assessment, examination and intervention [x] Documentation [x] Medication orders and management Critical Care Time (min): 77 Coding Level of Care Code 02654 Diagnoses Acute exacerbation of chronic obstructive airways disease J44.1 Respiratory failure with hypoxia and hypercapnia J96.91; J96.92 Severe persistent asthma J45.50 Asthma complication type: unspecified Anxiety F41.9 H/O of biological therapy treatment Z92.89 Difficulty with extubation T88.8XXA Time Spent (min) 77
[2022-12-22] MEDS: LORazepam 2 mg/mL INJ 1 mL 1 MG IVP (16:35)
--- NOTE | 2022-12-22 16:51 | XRR_ITS ---
PROCEDURE INFORMATION: Exam: XR Chest Exam date and time: 12/22/2022 5:33 PM Age: 52 years old Clinical indication: Device placement; Ett placement (vent status); Additional info: Post-intubation TECHNIQUE: Imaging protocol: Radiologic exam of the chest. Views: 1 view. COMPARISON: CR XR chest 1V portable [id number] 12/21/2022 8:53 AM FINDINGS: Tubes, catheters and devices: Endotracheal catheter seen, with tip of the catheter below the level of the heads of the clavicle and approximally 2.5 cm above the level of the fariha. A nasogastric tube is seen projected in good position within the stomach, without visualization of the distal tip. Overlying monitor leads. Lungs: Unremarkable. No consolidation. Pleural spaces: Unremarkable. No pleural effusion. No pneumothorax. Heart/Mediastinum: Unremarkable. No cardiomegaly. Bones/joints: Mild thoracic scoliosis. Soft tissues: No acute change in the chest from previous exam. XR/XR chest 1V portable [id number] IMPRESSION: 1. Endotracheal catheter appears in good position as noted above. 2. Nasogastric tube projects in good position as noted above. 3. No acute cardiopulmonary abnormality.
[2022-12-22] MEDS: propofol 1,000 MG/100 ML INJ 2.28 MG IV (17:04)
[2022-12-22] MEDS: fentaNYL 50 mcg/mL INJ 2mL IVP (17:22)
[2022-12-22] MEDS: rocuronium 10 mg/mL INJ 5mL IV (17:22)
[2022-12-22] MEDS: etomidate 2 mg/mL INJ SDV 10 mL 7.59 MG IVP (17:22)
[2022-12-22] MEDS: cisatracurium 100 MG in sodium chloride 0.9% 50 ML IV (17:25)
--- NOTE | 2022-12-22 17:30 | PM.CCNAC ---
Critical Care Event Note > As we came down on Precedex-patient appeared more awake and following commands. Her brother at bedside. >Decision was made to give her a extubation trial with a marsha discussion with family about high risk for reintubation given patient's history of significant anxiety as well as panic attacks > Accordingly patient was extubated to 5 L nasal cannula-however she went into anxiety spells/panic attack and started to hyperventilate > We increased the Precedex gtt. and given her 1 Mg IV push Ativan-after which her respiratory rate came down from 26-20; heart rate down from 1 37-1 20 > BiPAP was placed to reduce work of breathing > Observe for next 45 minutes to 1 hour-clinically she did not look comfortable and started wheezing again > Decision was made to reintubate her and sedated/paralyzed her for overnight to better comply with ventilator > Accordingly she was intubated again > Vitals remained stable post intubation The high probability of a clinically significant, sudden or life threatening deterioration of the patient's [neurological/pulmonary] system(s) required my full and direct attention, intervention and personal management. The critical care time is as shown. This time is in addition to time spent performing any reported procedures but includes the following: [x] Data and vital sign review and interpretation [x] Patient assessment, examination and intervention [x] Documentation [x] Medication orders and management Critical Care Time Code activated: No Critical Care Time (min): 55 Coding Level of Care Code Acute Code for Chg Fwd Time Spent (min) 55
--- NOTE | 2022-12-22 17:35 | PC.NURSE ---
Addendum entered by Bartolo Espinoza RN 12/22/22 17:40: witnessed waste Original Note: Wasting with Bartolo Rn post intubation. Rocuronium 40mg, Etomidate 12.41. Prop 48.125.
--- NOTE | 2022-12-22 17:36 | PM.ACPR ---
Procedure/Consent Time out: Time Out Performed: Yes Consent: Consent for Procedure: Consent obtained from other (indicate) (Verbal consent obtained from her brother at bedside), Emergency procedure and Risks & Benefits reviewed Procedure Narrative: Endotracheal Intubation Procedure Note Indication for endotracheal intubation: Acute persistent asthma causing hyperventilation in patient with significant anxiety Time of the procedure: 1714 Consent: There was not time to obtain consent. The patient was in immediate danger, and required the procedure emergently. Explained the indication and rationale for intubation to patient's brother verbally at bedside. Sedation: Fentanyl 50 mcg , Versed 2 mg, Etomidate 12 mg Paralytic: Rocuronium 60 mg Equipment: Glidoscope blade for View: Grade 1 Cricoid Pressure: No Number of attempts: 1 ETT location confirmed by direct visulization, ET fogging, Capnometer, bilateral breath sounds, Chest x ray Celestino DatarMD FCCP Pulm/Critical Care Medicine Acute Procedures Epistaxis Control: Time out performed: Yes
--- NOTE | 2022-12-22 18:38 | XRR_ITS ---
PROCEDURE INFORMATION: Exam: XR Chest Exam date and time: 12/22/2022 7:01 PM Age: 52 years old Clinical indication: Device placement; Other: Central line & ng tube TECHNIQUE: Imaging protocol: Radiologic exam of the chest. Views: 1 view. COMPARISON: CR (CHEST, ) 12/22/2022 5:33 PM FINDINGS: Tubes, catheters and devices: A right internal jugular central venous line is seen, with tip of the catheter at the expected level of the superior vena cava just above the right atrium, appearing in good position. Nasogastric tube is seen with tip of the catheter at the expected level of the distal stomach to the right of midline in the mid to upper abdomen, appearing in good position. Endotracheal catheter is seen with tip of the catheter at the inferior head of the clavicle level and approximally 3.5 cm above the level of the fariha, appearing in good position. No pneumothorax is seen post central line placement. No pleural effusion. Lungs: Unremarkable. No consolidation. Pleural spaces: See Tubes, catheters and devices finding. Heart/Mediastinum: Unremarkable. No cardiomegaly. Bones/joints: Visualized osseous structures show no acute abnormality. XR/XR chest 1V portable [id number] IMPRESSION: 1. Status post right internal jugular central venous line placement appearing in good position as noted above without pneumothorax. 2. Nasogastric tube and endotracheal catheter appear in good position as noted above. 3. No acute cardiopulmonary abnormality.
[2022-12-22 18:44] LABS: ABG PCO2 54.2 mmHg (35-45); ABG PH Result 7.39 (7.35-7.45); Arterial Blood Gas Hematocrit 38.4 % (37-47); Base Excess ABG 6.5 mmol/L (-2.0-2.0); Blood Gas Allen Test Pos; Blood Gas Operator Identificat MONRO; Blood Gas Sample Site Radial, right; Blood Gas Sample Type Arterial; Blood Gas Tidal Volume 0.36; HCO3 ABG 32.9 mmol/L (22-26); Oxygen Device VENT; PO2 ABG 71.2 mmHg (80.0-100.0)
--- NOTE | 2022-12-22 18:45 | P.PCN_ITS ---
Procedure/Consent Time out: Time Out Performed: Yes Consent: Consent for Procedure: Emergency procedure and Risks & Benefits reviewed Procedure Narrative: Procedure time: 1829 Procedure: Ultrasound-guided identification of the right internal jugular vein CPT code [id number] placement of Central venous line CPT code 64650 Indication: Multiple medications including paralytics as patient is intubated for respiratory failure secondary to severe asthma exacerbation Personal Service Representative(s): Celestino Datar MD PURVIS Consent: Emergent Yes Time out called. Armstrong precautions applied. Site: Right internal jugular vein Catheter:7 Fr 16 cm, Triple Lumen Sutured at: 16 cm Anesthesia: 5 cc 1% lidocaine without epinephrine Description: Cap, eye protection, mask donned by myself and RN. Patient head down below feet (Trendelenburg 10 degrees). Sterile gown and gloves donned. Time out patient prepped with Chlorhexidine and full body fenestrated drape placed in sterile f ashion. The vessel anatomy and patency was examined by ultrasound probe which was covered with sterile probe cover. Real time US guidance for target selection and real time US visualization of needle entry into vessel, after venous blood aspirated the guidewire was inserted through the needle and kept in situ, no ectopy, needle was removed. Placement of guidewire in the vein confirmed in relation to the adjacent artery in both in-plane and [id number] US views. After appropriate dilation of entry site with dilator, removed dilator and Catheter was then advanced over the guidewire, no ectopy and guidewire was successfully removed. All ports drawn back and flushed with ease. Ports capped and locked. Catheter sutured at [address] Sterile dressing applied and chlorhexidine patch placed. Patient tolerated procedure well. Number of attempts:1 Dilator applied: 1, number of Dilations: 1 Placement Verified by: Blood draw from all ports and Ultrasound exam and Chest Xray EBL: 5-10 cc Complications: None Ultrasound guidance used: Yes. Acute Procedures Epistaxis Control: Time out performed: Yes
--- NOTE | 2022-12-22 19:08 | PC.NURSE ---
Patient re-intubated bedside with respiratory, Dr. Kumar, charge nurse, and this nurse. Physician also placed central line to right neck this shift. Patient HR elevated with elevated BP post extubation and has remained elevated. Brother at bedside and updated on situation.
[2022-12-22 21:09] LABS: Glucose Point of Care 139 mg/dL (70-110)
[2022-12-23] VITALS (84 sets, daily range): BP systolic 86–180; BP diastolic 52–90; PULSE 81–133; RESP 14; TEMP 36.6–37.1; O2SAT 94–100
--- NOTE | 2022-12-23 00:40 | PC.PHAR ---
Vancomycin Trough scheduled for 12/24/22 at 0500. Please hold dose until drawn. Will continue to follow. Thank you, Tejal Restrepo h
[2022-12-23] MEDS: propofol 1,000 MG/100 ML INJ 18.21 MG IV (02:04)
[2022-12-23] MEDS: piperacillin-tazobactam 3.375 GM in sodium chloride 0.9% (plus) 50 ML IV ×3 (02:11→17:58)
[2022-12-23 03:00] LABS: Basophils % 0.3 %; Hematocrit 35.7 % (37.0-47.0); Hemoglobin 11.1 g/dL (11.5-15.3); Lymphocytes # 0.9 10^3/uL (0.8-4.8); Lymphocytes % 7.3 %; Mean Corpuscular HGB Conc 31.1 g/dL (30.0-36.0); Mean Corpuscular Hemoglobin 27.1 pg (28.0-34.0); Mean Corpuscular Volume 87.3 fl (81-99); Mean Platelet Volume 9.4 fL (7.4-10.4); Monocytes # 0.5 10^3/uL (0.2-0.9); Monocytes % 3.8 %; Neutrophils # 10.01 10^3/uL (1.8-7.7); Neutrophils % 81.7 %; Nucleated Red Blood Cells % 0.2 %; Platelet Count 313 10^3/cmm (130-400); Red Blood Count 4.09 10^6/uL (4.1-5.3); Red Cell Distribution Width 17.2 % (12.1-15.1); White Blood Count 12.2 10^3/uL (4.0-10.0)
[2022-12-23 03:19] LABS: Magnesium 2.4 mg/dL (1.7-2.3); Phosphorus 4.5 mg/dL (2.5-4.5)
[2022-12-23 03:20] LABS: Anion Gap 13.9 (5-19); Blood Urea Nitrogen 26 mg/dL (6-20); Calcium 8.3 mg/dL (8.5-10.5); Carbon Dioxide 30 mmol/L (22-29); Chloride 104 mmol/L (98-107); Glomerular Filtration Rate 104.6 mL/min (90-130); Glucose 144 mg/dL (65-115); Osmolality Calculated 303 mOsm/kg (285-295); Potassium 4.9 mmol/L (3.5-5.1); Sodium 143 mmol/L (136-145)
[2022-12-23] MEDS: levalbuterol 1.25 mg/3 mL Neb INHALATION ×5 (03:27→19:19)
[2022-12-23] MEDS: ipratropium 0.5 mg/2.5 mL Neb INHALATION ×5 (03:27→19:19)
[2022-12-23] MEDS: enoxaparin 40 mg/0.4 mL Syringe SUBCUT (04:46)
[2022-12-23] MEDS: methylPREDNISolone sod succ 60 MG in water for injection-sterile 0.96 ML 11.52 MG IVP ×2 (04:46→20:39)
[2022-12-23 04:58] LABS: Glucose Point of Care 128 mg/dL (70-110)
[2022-12-23] MEDS: propofol 1,000 MG/100 ML INJ 22.77 MG IV (05:36)
[2022-12-23] MEDS: montelukast sodium 10 mg Tablet PO (05:36)
[2022-12-23 05:52] LABS: ABG PCO2 49.5 mmHg (35-45); ABG PH Result 7.42 (7.35-7.45); Arterial Blood Gas Hematocrit 36.8 % (37-47); Base Excess ABG 6.8 mmol/L (-2.0-2.0); Blood Gas Allen Test Pos; Blood Gas Operator Identificat JB; Blood Gas Sample Site Radial, right; Blood Gas Sample Type Arterial; Blood Gas Tidal Volume 0.36; HCO3 ABG 32.3 mmol/L (22-26); Oxygen Device VENT
--- NOTE | 2022-12-23 07:09 | PM.PN ---
Subjective Subjective: Stable leukocytosis No fever Patient on paralytics and sedatives Mechanical ventilator Vitals/I&O/Wt Last Vital Signs Temp 98.8 F 12/23/22 03:13 Pulse 85 12/23/22 06:30 Resp 14 12/23/22 05:55 BP 97/58 12/23/22 06:30 Pulse Ox 95 12/23/22 06:30 O2 Del Method Mechanical Ventilation 12/23/22 03:27 O2 Flow Rate 2 12/17/22 01:02 FiO2 30 12/23/22 05:55 12/22/22 12/23/22 12/23/22 22:59 06:59 14:59 Intake Total 369.326 / 545.092 340.137 / 885.229 Output Total 1300 / 1500 400 / 1900 Balance -930.674 / -954.908 -59.863 / -1014.771 Weight last 48 hrs Weight 77.337 kg Weight 75.892 kg Physical Exam Narrative: Patient intubated sedated and paralyzed Neuro exam limited Tube feeds on hold Maier catheter with concentrated urine Abdomen soft sluggish bowel sounds Bilateral breath sounds with rhonchi Urinary Catheter Management: Maier Latex: Cath Placed During This Visit: yes Reason for Continuing Indwelling Catheter: Accurate Measurement of Urinary Output in Critically Ill Patients Urinary Catheter Date of Insertion: 12/17/22 Urinary Catheter Time of Insertion: 04:36 Data 12/24/22 04:55 12/24/22 04:55 Micro: Microbiology 12/18/22 02:22 Blood Culture - Final Blood NO GROWTH AFTER 5 DAYS A&P Assessment and plan (1) Difficulty with extubation: (2) Bronchospasm: (3) Hypotension: (4) Respiratory failure with hypoxia and hypercapnia: (5) Acute exacerbation of chronic obstructive airways disease: (6) Asthma with exacerbation: (7) Acute respiratory failure requiring reintubation: Plan Patient reintubated 12/22, Thoughts that are wanted to use ketamine however we do not have a protocol, paralytics weaned off, sedatives have been weaned off as well continue IV steroids We are reaching out to LT[facility] because patient will take time to get extubated She is still showing bronchospasm Continue antibiotics she has remained afebrile, no significant leukocytosis, eosinophil count is 0 She does not need bronchoscopy Full code Start feeds later today Full code DVT prophylaxis on board Attestations Medical Necessity Statement*: Continue medical management Diagnoses Difficulty with extubation T88.8XXA Bronchospasm J98.01 Hypotension I95.9 Respiratory failure with hypoxia and hypercapnia J96.91; J96.92 Acute exacerbation of chronic obstructive airways disease J44.1 Asthma with exacerbation J45.901 Acute respiratory failure requiring reintubation J96.00
[2022-12-23] MEDS: budesonide 0.5 mg/2 mL Neb INHALATION ×2 (07:52→19:19)
--- NOTE | 2022-12-23 08:10 | PC.NURSE ---
Auscultated patient's lungs at 0800; tight wheezing present in right upper lobe, less pronounced wheezing in left upper lobe. Patient remains sedated and paralyzed, does not appear to be restless or in pain. Patient's skin appears intact and dry, no breaks in skin integrity noted. SCDs remain on patient. Maier catheter remains inserted with approximately 200 ml in drainage bag.
[2022-12-23] MEDS: pantoprazole 40 mg SDV IVP (08:47)
[2022-12-23] MEDS: cisatracurium 100 MG in sodium chloride 0.9% 50 ML 6.83 MG IV ×2 (08:48→22:21)
[2022-12-23 11:40] LABS: Glucose Point of Care 135 mg/dL (70-110)
[2022-12-23] MEDS: vancomycin 1,000 MG in sodium chloride 0.9% 250 ML 250 MG IV (12:52)
[2022-12-23] MEDS: methylPREDNISolone sod succ 60 MG in water for injection-sterile 0.96 ML 11.5 MG IVP (12:55)
[2022-12-23] MEDS: propofol 1,000 MG/100 ML INJ 9.11 MG IV (13:07)
[2022-12-23 17:10] LABS: Glucose Point of Care 120 mg/dL (70-110)
[2022-12-23] MEDS: propofol 1,000 MG/100 ML INJ 13.66 MG IV (20:39)
[2022-12-23] MEDS: artificial tears Op Oint 3.5 gm 1 APPLIC EYE-BOTH (23:58)
[2022-12-23] MEDS: chlorhexidine gluconate 4% Btl 118 mL 1 APPLIC TOPICAL (23:58)
[2022-12-24] VITALS (73 sets, daily range): BP systolic 84–184; BP diastolic 52–109; PULSE 61–112; RESP 14–16; TEMP 36.6; O2SAT 91–100
[2022-12-24] MEDS: piperacillin-tazobactam 3.375 GM in sodium chloride 0.9% (plus) 50 ML IV ×3 (02:59→17:58)
[2022-12-24] MEDS: propofol 1,000 MG/100 ML INJ 13.66 MG IV (03:02)
[2022-12-24 03:07] LABS: ABG PCO2 47.8 mmHg (35-45); ABG PH Result 7.44 (7.35-7.45); Arterial Blood Gas Hematocrit 35.2 % (37-47); Base Excess ABG 6.8 mmol/L (-2.0-2.0); Blood Gas Allen Test Pos; Blood Gas Sample Site Radial, left; Blood Gas Sample Type Arterial; Blood Gas Tidal Volume 0.36; HCO3 ABG 32.1 mmol/L (22-26); Oxygen Device VENT; PO2 ABG 72.9 mmHg (80.0-100.0)
[2022-12-24 05:04] LABS: Glucose Point of Care 101 mg/dL (70-110)
[2022-12-24] MEDS: montelukast sodium 10 mg Tablet PO (05:06)
[2022-12-24] MEDS: enoxaparin 40 mg/0.4 mL Syringe SUBCUT (05:06)
[2022-12-24] MEDS: methylPREDNISolone sod succ 60 MG in water for injection-sterile 0.96 ML 11.52 MG IVP (05:06)
[2022-12-24 05:17] LABS: Basophils % 0.3 %; Hematocrit 34.3 % (37.0-47.0); Hemoglobin 10.7 g/dL (11.5-15.3); Lymphocytes # 1.1 10^3/uL (0.8-4.8); Lymphocytes % 10.1 %; Mean Corpuscular HGB Conc 31.2 g/dL (30.0-36.0); Mean Corpuscular Hemoglobin 27.2 pg (28.0-34.0); Mean Corpuscular Volume 87.3 fl (81-99); Mean Platelet Volume 9.3 fL (7.4-10.4); Monocytes # 0.5 10^3/uL (0.2-0.9); Monocytes % 5.1 %; Neutrophils # 8.13 10^3/uL (1.8-7.7); Neutrophils % 76.3 %; Nucleated Red Blood Cells % 0.2 %; Platelet Count 262 10^3/cmm (130-400); Red Blood Count 3.93 10^6/uL (4.1-5.3); Red Cell Distribution Width 17.2 % (12.1-15.1); White Blood Count 10.6 10^3/uL (4.0-10.0)
[2022-12-24 05:33] LABS: Anion Gap 12.9 (5-19); Blood Urea Nitrogen 27 mg/dL (6-20); Calcium 8.3 mg/dL (8.5-10.5); Carbon Dioxide 29 mmol/L (22-29); Chloride 107 mmol/L (98-107); Creatinine Clr Calc Pharmacy 132.3859; Glomerular Filtration Rate 104.6 mL/min (90-130); Glucose 112 mg/dL (65-115); Osmolality Calculated 304 mOsm/kg (285-295); Potassium 4.9 mmol/L (3.5-5.1); Sodium 144 mmol/L (136-145); Vancomycin Trough 8.8 ug/mL (10-15)
--- NOTE | 2022-12-24 05:47 | PC.PHAR ---
Vancomycin Trough 8.8. Current dose 1 gm q18h, changed dose to 1250mg q18h. Will continue to follow. Thank you, Tejal Restrepo RPh
[2022-12-24] MEDS: vancomycin 1,250 MG/250 ML PIGGYBACK 250 MG IV (05:53)
[2022-12-24] MEDS: budesonide 0.5 mg/2 mL Neb INHALATION (07:51)
[2022-12-24] MEDS: ipratropium 0.5 mg/2.5 mL Neb INHALATION (07:51)
[2022-12-24] MEDS: levalbuterol 1.25 mg/3 mL Neb INHALATION (07:52)
--- NOTE | 2022-12-24 08:21 | PC.NURSE ---
This nurse torrie, ROBERTA RN, and Suad RT were bedside in patient's room at 0800. Patient de-satted to 91 with a significant drop in BP as well. Oral swab performed by this torrie, but all other care withheld at this time due to de-sat. Patient's noncompliance to ventilator has increased. Tight wheezing auscultated in right and left upper lung lobes.
[2022-12-24] MEDS: pantoprazole 40 mg SDV IVP (08:44)
--- NOTE | 2022-12-24 10:00 | PC.NURSE ---
weaning down on nimbex at this time and awaking .. biz monitor on monitoring ventilation when awaken noted decrease in bloodpressure and noted diaphramic breathing working against vent .. Dr Kumar and Dr Zuniga here along with arlin at this time long discussion about care and [facility] .. oral care frequent and also eye care
--- NOTE | 2022-12-24 11:51 | PM.PN ---
Subjective Subjective: Clinically unchanged on paralytics and sedation No signs of sepsis Post nebulization-patient started to have increasing peak pressures to 38 with plateau pressure 17. This is concerning for paradoxical bronchospasm-we will hold off on treatment nebulization at this point of time and try again with Xopenex in the afternoon Medications: Reviewed: Yes Vitals/I&O/Wt Last Vital Signs Temp 98.5 F 12/23/22 23:00 Pulse 93 12/24/22 10:30 Resp 14 12/24/22 11:45 BP 133/88 12/24/22 11:00 Pulse Ox 97 12/24/22 11:45 O2 Del Method Mechanical Ventilation 12/24/22 07:50 O2 Flow Rate 2 12/17/22 01:02 FiO2 30 12/24/22 11:45 12/23/22 12/24/22 12/24/22 22:59 06:59 14:59 Intake Total 266.913 / 700.686 365.960 / 1066.646 367.845 / 367.845 Output Total 950 / 950 350 / 1300 Balance -683.087 / -249.314 15.960 / -233.354 367.845 / 367.845 Weight last 48 hrs Weight 170 lb 8 oz Weight 170 lb 8 oz Physical Exam Narrative: PHYSICAL EXAM: General: lying in bed, sedated and intubated. HEENT:NCAT, PERRLA, EOMI Neck: Supple Lungs: Bilateral diffuse end expiratory wheeze Heart: s1/s2, RRR Abd: soft, NT, ND, BS + Normoactive Extremities: No edema SLAT BASKET TOP MAKER: sedated and limited SLAT BASKET TOP MAKER exam possible. SKIN: no rash Urinary Catheter Management: Maier Latex: Cath Placed During This Visit: yes Reason for Continuing Indwelling Catheter: Accurate Measurement of Urinary Output in Critically Ill Patients Urinary Catheter Date of Insertion: 12/17/22 Urinary Catheter Time of Insertion: 04:36 Data 12/24/22 04:55 12/24/22 04:55 Other Labs: Radiology Impressions Head CT 12/22/22 09:47 IMPRESSION: Some images degraded by beam Fontanez artifact. 1. No evidence of intracranial hemorrhage or mass effect. 2. Chronic infarcts RIGHT frontal, parietal, occipital, and posterior temporal lobes with encephalomalacia unchanged from previous. 3. Sphenoid sinusitis. 4. No other significant changes. Chest X-Ray 12/22/22 18:38 IMPRESSION: 1. Status post right internal jugular central venous line placement appearing in good position as noted above without pneumothorax. 2. Nasogastric tube and endotracheal catheter appear in good position as noted above. 3. No acute cardiopulmonary abnormality. Laboratory Results WBC 10.6 10^3/uL (4.0-10.0) H 12/24/22 04:55 RBC 3.93 10^6/uL (4.1-5.3) L 12/24/22 04:55 Hgb 10.7 g/dL (11.5-15.3) L 12/24/22 04:55 Hct 34.3 % (37.0-47.0) L 12/24/22 04:55 MCV 87.3 fl (81-99) 12/24/22 04:55 MCH 27.2 pg (28.0-34.0) L 12/24/22 04:55 MCHC 31.2 g/dL (30.0-36.0) 12/24/22 04:55 RDW 17.2 % (12.1-15.1) H 12/24/22 04:55 Plt Count 262 10^3/cmm (130-400) 12/24/22 04:55 MPV 9.3 fL (7.4-10.4) 12/24/22 04:55 Neut % (Auto) 76.3 % 12/24/22 04:55 Lymph % (Auto) 10.1 % 12/24/22 04:55 Bland % (Auto) 5.1 % 12/24/22 04:55 Eos % (Auto) 0.0 % 12/24/22 04:55 Baso % (Auto) 0.3 % 12/24/22 04:55 Neut # (Auto) 8.13 10^3/uL (1.8-7.7) H 12/24/22 04:55 Lymph # (Auto) 1.1 10^3/uL (0.8-4.8) 12/24/22 04:55 Bland # (Auto) 0.5 10^3/uL (0.2-0.9) 12/24/22 04:55 Eos # (Auto) 0.0 10^3/uL (0.0-0.8) 12/24/22 04:55 Baso # (Auto) 0.0 10^3/uL (0.0-0.1) 12/24/22 04:55 Nucleated RBC % (auto) 0.2 % 12/24/22 04:55 Total Counted 100 (0-100) 12/22/22 02:30 Atypical Lymphs % Not Reportable 12/22/22 02:30 Segmented Neutrophils 84 % 12/22/22 02:30 Abs Segm Neuts (Man) 11.2 10/cmm (1.6-7.1) H 12/22/22 02:30 Band Neutrophils Not Reportable 12/22/22 02:30 Lymphocytes (Manual) 8 % 12/22/22 02:30 Monocytes (Manual) 5.0 % 12/22/22 02:30 Absolute Monocytes 0.7 10^3/cmm (0.1-0.6) H 12/22/22 02:30 Eosinophils (Manual) 0 % 12/22/22 02:30 Absolute Eosinophils 0.0 10^3/cmm (0.0-0.7) 12/22/22 02:30 Basophils (Manual) 0.0 % 12/22/22 02:30 Absolute Basophils 0.0 10^3/cmm (0.0-0.2) 12/22/22 02:30 Myelocytes 3.0 % 12/22/22 02:30 Nucleated RBCs # 0.0 /100WBC 12/24/22 04:55 Platelet Estimate Normal (Normal) 12/22/22 02:30 PT 12.10 SECONDS (12.1-14.9) 12/16/22 22:46 INR 0.87 (0.8-1.2) 12/16/22 22:46 D-Dimer 0.50 ug/mIFEU (0-0.59) 12/17/22 13:21 Specimen Type Arterial 12/24/22 04:00 Sample Site Radial, left 12/24/22 04:00 ABG pH 7.44 (7.35-7.45) 12/24/22 04:00 ABG pCO2 47.8 mmHg (35-45) H 12/24/22 04:00 ABG pO2 72.9 mmHg (80.0-100.0) L 12/24/22 04:00 ABG HCO3 32.1 mmol/L (22-26) H 12/24/22 04:00 ABG O2 Saturation 95.6 12/20/22 16:58 ABG Base Excess 6.8 mmol/L (-2.0-2.0) H 12/24/22 04:00 Eric Test Pos 12/24/22 04:00 A-a O2 Gradient 13.8 mmHg (5-10) H 12/20/22 16:58 Hematocrit 35.2 % (37-47) L 12/24/22 04:00 Hgb O2 Saturation 94.2 % (95-100) L 12/20/22 16:58 Carboxyhemoglobin 0.7 %THgb (0.4-20.1) 12/20/22 16:58 Methemoglobin 0.7 % (0.4-1.5) 12/20/22 16:58 Total Hemoglobin 11.4 g/dL (12-16) L 12/20/22 16:58 Sodium 145.0 mmol/L (131-143) H 12/20/22 16:58 Potassium 4.8 mmol/L (3.5-5.0) 12/20/22 16:58 Glucose 151.0 mg/dL (70-115) H 12/20/22 16:58 Ionized Calcium 1.2 mmol/L (1.1-1.4) 12/20/22 16:58 Respiration Rate 16.0 % 12/18/22 12:50 O2 Delivery Device Vent 12/24/22 04:00 O2 Liters/Min 2.0 % 12/17/22 01:50 Vent Mode Vc-ac 12/18/22 12:50 FiO2 30.0 % 12/24/22 04:00 Tidal Volume 0.36 12/24/22 04:00 PEEP 5.0 cmH20 12/24/22 04:00 Specimen Drawn By Gd 12/18/22 12:50 Bristle Machine Operator ID jewell 12/24/22 04:00 Sodium 144 mmol/L (136-145) 12/24/22 04:55 Potassium 4.9 mmol/L (3.5-5.1) 12/24/22 04:55 Chloride 107 mmol/L (98-107) 12/24/22 04:55 Carbon Dioxide 29 mmol/L (22-29) 12/24/22 04:55 Anion Gap 12.9 (5-19) 12/24/22 04:55 BUN 27 mg/dL (6-20) H 12/24/22 04:55 Creatinine 0.6 mg/dL (0.5-0.9) 12/24/22 04:55 GFR Calculation 104.6 mL/min (90-130) 12/24/22 04:55 Glucose 112 mg/dL (65-115) 12/24/22 04:55 POC Glucose 101 mg/dL (70-110) 12/24/22 04:59 Calculated Osmolality 304 mOsm/kg (285-295) H 12/24/22 04:55 Lactate 1.0 mmol/L (0.5-2.2) 12/20/22 03:20 Calcium 8.3 mg/dL (8.5-10.5) L 12/24/22 04:55 Phosphorus 4.5 mg/dL (2.5-4.5) 12/23/22 02:14 Magnesium 2.4 mg/dL (1.7-2.3) H 12/23/22 02:14 Total Bilirubin 0.3 mg/dL (0.15-1.2) 12/18/22 02:22 AST 18 U/L (0-32) 12/18/22 02:22 ALT 16 U/L (0-33) 12/18/22 02:22 Alkaline Phosphatase 62 U/L (35-105) 12/18/22 02:22 NT-Pro-B Natriuret Pep 78 pg/mL (0-125) 12/16/22 22:46 Total Protein 5.6 g/dL (6.6-8.7) L 12/18/22 02:22 Albumin 3.6 g/dL (3.5-5.2) 12/18/22 02:22 Globulin 2.0 g/dL (1.3-4.6) 12/18/22 02:22 Urine Color Yellow (Yellow) 12/17/22 13:15 Urine Appearance Clear (CLEAR) 12/17/22 13:15 Urine pH 5 (5-7) 12/17/22 13:15 Ur Specific Noble 1.020 (1.005-1.030) 12/17/22 13:15 Urine Protein 1+ (Negative) H 12/17/22 13:15 Urine Glucose (UA) Trace (Normal) H 12/17/22 13:15 Urine Ketones 1+ (Negative) H 12/17/22 13:15 Urine Blood 3+ (Negative) H 12/17/22 13:15 Urine Nitrate Negative (Negative) 12/17/22 13:15 Urine Bilirubin Neg (Negative) 12/17/22 13:15 Urine Urobilinogen Norm mg/dL (Negative) 12/17/22 13:15 Ur Leukocyte Esterase Negative (Negative) 12/17/22 13:15 Urine RBC 5-10 /hpf (0-2) H 12/17/22 13:15 Urine WBC None /hpf (0-5) 12/17/22 13:15 Ur Squamous Epith Cells Rare /hpf (0-5) 12/17/22 13:15 Amorphous Sediment Not Reportable 12/17/22 13:15 Urine Bacteria Trace /hpf (NONE) 12/17/22 13:15 Urine Mucus Trace /hpf 12/17/22 13:15 Nasal Influ A H1 2009 PCR Not detected (NOT DETECT) 12/19/22 23:38 Vancomycin Trough 8.8 ug/mL (10-15) L 12/24/22 04:55 Urine Opiates Screen Negative ng/mL (Negative) 12/17/22 01:11 Ur Barbiturates Screen Negative ng/mL (Negative) 12/17/22 01:11 Ur Phencyclidine Scrn Negative ng/mL (Negative) 12/17/22 01:11 Ur Amphetamines Screen Negative ng/mL (Negative) 12/17/22 01:11 U Benzodiazepines Scrn Negative ng/mL (Negative) 12/17/22 01:11 Urine Cocaine Screen Negative ng/mL (Negative) 12/17/22 01:11 U Marijuana (THC) Screen Negative ng/mL (Negative) 12/17/22 01:11 Adenovirus (PCR) Not detected (NOT DETECT) 12/19/22 23:38 C. pneumoniae DNA (PCR) Not detected (NOT DETECT) 12/19/22 23:38 Coronavirus 229E (PCR) Not detected (NOT DETECT) 12/19/22 23:38 Human Metapneumovir PCR Not detected (NOT DETECT) 12/19/22 23:38 Influenza A (H1) PCR Not detected (NOT DETECT) 12/19/22 23:38 Influenza A (H3) PCR Not detected (NOT DETECT) 12/19/22 23:38 Influenza Type A (PCR) Not detected (NOT DETECT) 12/19/22 23:38 Influenza Type B (PCR) Not detected (NOT DETECT) 12/19/22 23:38 M. pneumoniae (PCR) Not detected (NOT DETECT) 12/19/22 23:38 Parainfluenza 1 (PCR) Not detected (NOT DETECT) 12/19/22 23:38 Parainfluenza 2 (PCR) Not detected (NOT DETECT) 12/19/22 23:38 Parainfluenza 3 (PCR) Not detected (NOT DETECT) 12/19/22 23:38 Parainfluenza 4 (PCR) Not detected (NOT DETECT) 12/19/22 23:38 RSV Type A (PCR) Not detected (NOT DETECT) 12/19/22 23:38 RSV Type B (PCR) Not detected (NOT DETECT) 12/19/22 23:38 Entero/Rhino (PCR) Not detected (NOT DETECT) 12/19/22 23:38 SARS-CoV-2 (PCR) Not detected (NOT DETECT) 12/19/22 23:38 Micro: Microbiology 12/22/22 17:50 Gram Stain - Final Sputum - Endotracheal Tube Aspirate Sputum Culture - Preliminary A&P Assessment and plan (1) Acute exacerbation of chronic obstructive airways disease: (2) Respiratory failure with hypoxia and hypercapnia: (3) Severe persistent asthma: Qualifiers: Asthma complication type: unspecified Qualified Code(s): J45.50 - Severe persistent asthma, uncomplicated (4) Anxiety: (5) H/O of biological therapy treatment: (6) Difficulty with extubation: Plan #Acute hypoxic hypercapnic respiratory failure secondary to severe asthma exacerbation in 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 #Her asthma is COMPLICATED by her significant anxiety and panic attacks-reported taking buspirone/Xanax as outpatient #Difficulty weaning from ventilator-with significant auto PEEP and severe bronchospasm -Currently mechanically intubated-on CMV 360/12/PEEP 5/30% FiO2-with I time 1; ABG 7.4 //32 -Recommended to continue scheduled nebulization-however there is a concern if there is paradoxical bronchospasm with DuoNeb-I will decrease frequency of Xopenex nebulization -We will taper off paralytic -by giving more time for expiration, reducing respiratory rate, adequate sedation -the goal is to avoid dynamic hyperinflation and auto PEEP. -Recommended IV Solu-Medrol every 8 hours (total of 200 Mg daily) and gradually taper off based on clinical response -Chest x-ray-no acute findings-currently patient is covered with broad-spectrum antibiotics vancomycin, Zosyn, Levaquin; MRSA nares negative however preliminary blood and sputum cultures showed gram-positive cocci in pairs centimeters-final cultures pending -We will continue to monitor ventilator settings and help with weaning protocol -Last chest x-ray 12/22/2022 did not show any acute abnormality -Given her prolonged asthma exacerbation-I will obtain CT chest -She is a complicated case of severe asthma exacerbation-you may need longer than usual time for response to standard asthma treatments. Until then she will need mechanical ventilator support. ICU CHECKLIST: Problem list updated Verbal orders reviewed and signed Code Status: Full code Disposition: ICU Critically ill: Yes MD discussed with: RN, RT, hospitalist taking care of the patient Analgesia: Fentanyl Glycemic Control: N/A Nutrition: Tube feeds Restraint Renewal (within 24 hrs): Yes Ulcer Prophylaxis: PPI Chemical Thromboprophylaxis: Prophylaxis: Lovenox Mechanical Thromboprophylaxis: SCDs Need for Central line: N/A Need for Maier catheter: Urine output monitoring Critical Care Time (No Overlap): 77 min Attestations Medical Necessity Statement*: Patient still wheezing-we will continue to vent management and ICU observation for next 24 to 48 hours Time Spent in Patient Care: Greater than 35 minutes (>than 50% of time spent in counselling and/or direct pt care on unit). Critical Care Time: The high probability of a clinically significant, sudden or life threatening deterioration of the patient's [respiratory] system(s) required my full and direct attention, intervention and personal management. The critical care time is as shown. This time is in addition to time spent performing any reported procedures but includes the following: [x] Data and vital sign review and interpretation [x] Patient assessment, examination and intervention [x] Documentation [x] Medication orders and management Critical Care Time (min): 53 Coding Level of Care Code 87304 Diagnoses Acute exacerbation of chronic obstructive airways disease J44.1 Respiratory failure with hypoxia and hypercapnia J96.91; J96.92 Severe persistent asthma J45.50 Asthma complication type: unspecified Anxiety F41.9 H/O of biological therapy treatment Z92.89 Difficulty with extubation T88.8XXA Time Spent (min) 53
[2022-12-24 12:05] LABS: Glucose Point of Care 101 mg/dL (70-110)
--- NOTE | 2022-12-24 12:20 | CTR_ITS ---
PROCEDURE INFORMATION: Exam: CT Chest Without Contrast; Diagnostic Exam date and time: 12/24/2022 1:13 PM Age: 52 years old Clinical indication: Device placement; Ett placement (vent status); Shortness of breath; Additional info: Asthma TECHNIQUE: Imaging protocol: Diagnostic computed tomography of the chest without contrast. Radiation optimization: All CT scans at this facility use at least one of these dose optimization techniques: automated exposure control; mA and/or kV adjustment per patient size (includes targeted exams where dose is matched to clinical indication); or iterative reconstruction. REPORTING DATA: Count of CT and Cardiac NM exams in prior 12 months: This patient has received 3 known CTs and 0 known cardiac nuclear medicine studies in the 12 months prior to the current study. COMPARISON: CT angio chest w abd pel w con 07/20/2022 3:03 PM RADIATION DOSE METRICS: Total DLP (mGy-cm): 518.38 FINDINGS: Tubes, catheters and devices: NG tube coursing into the distal stomach beyond the field of view. There is an ET tube situated somewhat low 2 cm above the fariha. There is a central line placed via right jugular approach whose tip terminates at the cavoatrial junction. Lungs: Mild airway changes consisting of mild bronchiectasis and bronchial wall thickening mid-lower lung zones progressed from previous exam. No infiltrates. Stable 6 mm pulmonary nodule right midlung zone unchanged from his June 2021, likely benign. Pleural spaces: Unremarkable. No pneumothorax. No pleural effusion. Heart: Heart is not significantly enlarged. No significant coronary artery calcifications. No significant pericardial effusion. Lymph nodes: Unremarkable. No enlarged lymph nodes. Vasculature: Unremarkable. No aortic aneurysm. Bones/joints: The mild degenerative changes of the thoracic spine. No acute bony abnormalities. Soft tissues: Unremarkable. CT/CT chest wo con [id number] IMPRESSION: 1. Tubes and lines as discussed above. 2. Mild reactive airway changes progressed from previous exam. 3. Stable 6 mm pulmonary nodule right mid lung zone.
--- NOTE | 2022-12-24 12:26 | PM.PN ---
Subjective Subjective: We will start her tube feeds Repeat CT chest today Continue IV steroids and antibiotics No significant leukocytosis, afebrile She still has bronchospasm Case discussed with Dr. Kumar FiO2 30 to 35% PEEP of 5 Off paralytics Sedatives are being weaned off Vitals/I&O/Wt Last Vital Signs Temp 98.5 F 12/23/22 23:00 Pulse 93 12/24/22 10:30 Resp 14 12/24/22 11:45 BP 133/88 12/24/22 11:00 Pulse Ox 97 12/24/22 11:45 O2 Del Method Mechanical Ventilation 12/24/22 07:50 O2 Flow Rate 2 12/17/22 01:02 FiO2 30 12/24/22 11:45 12/23/22 12/24/22 12/24/22 22:59 06:59 14:59 Intake Total 266.913 / 700.686 365.960 / 1066.646 452.678 / 452.678 Output Total 950 / 950 350 / 1300 Balance -683.087 / -249.314 15.960 / -233.354 452.678 / 452.678 Weight last 48 hrs Weight 77.337 kg Weight 77.337 kg Physical Exam Narrative: Bronchospasm Debated and sedated Not paralyzed She seems to have foot drop No signs of fluid overload Abdomen with sluggish bowel sounds Pupils are reactive to light S1, S2 sinus rhythm Currently saturating 96% on 30% FiO2 Urinary Catheter Management: Maier Latex: Cath Placed During This Visit: yes Reason for Continuing Indwelling Catheter: Accurate Measurement of Urinary Output in Critically Ill Patients Urinary Catheter Date of Insertion: 12/17/22 Urinary Catheter Time of Insertion: 04:36 Data 12/24/22 04:55 12/24/22 04:55 Micro: Microbiology 12/22/22 17:50 Gram Stain - Final Sputum - Endotracheal Tube Aspirate Sputum Culture - Preliminary A&P Assessment and plan (1) Acute respiratory failure requiring reintubation: (2) Difficulty with extubation: (3) Bronchospasm: (4) Respiratory failure with hypoxia and hypercapnia: (5) Acute exacerbation of chronic obstructive airways disease: (6) Tachycardia: (7) Asthma with exacerbation: (8) Weakness generalized: (9) COPD (chronic obstructive pulmonary disease): (10) PTSD (post-traumatic stress disorder): Plan We will repeat CT chest She does not need bronchoscopy We will start her tube feeds Continue antibiotics and IV steroids Afebrile no significant leukocytosis Cultures negative We might be able to discontinue vancomycin by tomorrow if she remains afebrile Case discussed with Dr. Kumar Family was at the bedside Patient would definitely benefit from long-term acute care Bronchospasm still present Attestations Medical Necessity Statement*: Continue ICU manage Diagnoses Acute respiratory failure requiring reintubation J96.00 Difficulty with extubation T88.8XXA Bronchospasm J98.01 Respiratory failure with hypoxia and hypercapnia J96.91; J96.92 Acute exacerbation of chronic obstructive airways disease J44.1 Tachycardia R00.0 Asthma with exacerbation J45.901 Weakness generalized R53.1 COPD (chronic obstructive pulmonary disease) J44.9 PTSD (post-traumatic stress disorder) F43.10
[2022-12-24] MEDS: FUROsemide 10 mg/mL SDV 2mL 20 MG IVP (13:30)
[2022-12-24] MEDS: methylPREDNISolone sod succ 60 MG in water for injection-sterile 0.96 ML 11 MG IVP ×2 (13:30→20:36)
[2022-12-24] MEDS: propofol 1,000 MG/100 ML INJ 9.11 MG IV (16:00)
[2022-12-24 17:54] LABS: Glucose Point of Care 130 mg/dL (70-110)
--- NOTE | 2022-12-24 18:16 | PC.NURSE ---
Patient was discontinued on paralytic today and is being slowly weaned off propofol. Urine is tinged green, but output is good. This tech emptied 2000 mL from catheter at 1815. Patient went to CT at 1300, transported well. Pressure and O2 sat WNL at 1820.
[2022-12-25] VITALS (66 sets, daily range): BP systolic 90–213; BP diastolic 51–131; PULSE 52–117; RESP 10–17; TEMP 36–36.8; O2SAT 87–100; BMI 34.5
[2022-12-25] LABS: Glucose Point of Care 128 mg/dL (70-110)
[2022-12-25] MEDS: vancomycin 1,250 MG/250 ML PIGGYBACK 250 MG IV (00:02)
[2022-12-25] MEDS: chlorhexidine gluconate 4% Btl 118 mL 1 APPLIC TOPICAL (01:09)
[2022-12-25] MEDS: propofol 1,000 MG/100 ML INJ 13.66 MG IV (01:11)
[2022-12-25] MEDS: piperacillin-tazobactam 3.375 GM in sodium chloride 0.9% (plus) 50 ML IV ×3 (03:29→18:40)
[2022-12-25 03:38] LABS: Basophils # 0.1 10^3/uL (0.0-0.1); Basophils % 0.4 %; Hematocrit 39.2 % (37.0-47.0); Hemoglobin 12.3 g/dL (11.5-15.3); Lymphocytes # 0.9 10^3/uL (0.8-4.8); Lymphocytes % 7.7 %; Mean Corpuscular HGB Conc 31.4 g/dL (30.0-36.0); Mean Corpuscular Volume 89.1 fl (81-99); Mean Platelet Volume 9.6 fL (7.4-10.4); Monocytes # 0.3 10^3/uL (0.2-0.9); Monocytes % 2.6 %; Neutrophils # 9.55 10^3/uL (1.8-7.7); Nucleated Red Blood Cells % 0.2 %; Platelet Count 297 10^3/cmm (130-400); Red Cell Distribution Width 16.6 % (12.1-15.1); White Blood Count 12.1 10^3/uL (4.0-10.0)
[2022-12-25 03:54] LABS: Anion Gap 16.8 (5-19); Blood Urea Nitrogen 31 mg/dL (6-20); Calcium 8.8 mg/dL (8.5-10.5); Carbon Dioxide 30 mmol/L (22-29); Chloride 103 mmol/L (98-107); Creatinine Clr Calc Pharmacy 132.3859; Glomerular Filtration Rate 104.6 mL/min (90-130); Glucose 116 mg/dL (65-115); Osmolality Calculated 308 mOsm/kg (285-295); Potassium 4.8 mmol/L (3.5-5.1); Sodium 145 mmol/L (136-145)
[2022-12-25 04:25] LABS: ABG PCO2 54.4 mmHg (35-45); ABG PH Result 7.39 (7.35-7.45); Arterial Blood Gas Hematocrit 36.5 % (37-47); Base Excess ABG 6.6 mmol/L (-2.0-2.0); Blood Gas Allen Test Pos; Blood Gas Sample Site Radial, right; Blood Gas Sample Type Arterial; Blood Gas Tidal Volume 0.36; Oxygen Device VENT; PO2 ABG 77.1 mmHg (80.0-100.0)
[2022-12-25] MEDS: methylPREDNISolone sod succ 60 MG in water for injection-sterile 0.96 ML 11 MG IVP ×2 (05:00→12:51)
[2022-12-25] MEDS: montelukast sodium 10 mg Tablet PO (05:00)
[2022-12-25] MEDS: enoxaparin 40 mg/0.4 mL Syringe SUBCUT (05:01)
[2022-12-25 06:50] LABS: Glucose Point of Care 113 mg/dL (70-110)
--- NOTE | 2022-12-25 07:03 | PC.NURSE ---
Patient's OG tube noted to have dark , coffee ground like residual. Dr. Gamez notified; no new orders received.
[2022-12-25] MEDS: propofol 1,000 MG/100 ML INJ 11.38 MG IV (07:40)
[2022-12-25 08:59] LABS: Amphetamines Screen Urine Negative (Negative); Barbiturates Screen Urine Negative (Negative); Benzodiazepines Screen Urine Positive (Negative); Cocaine Screen Urine Negative (Negative); Opiate Screen Urine Negative (Negative); PCP Screen Urine Negative (Negative); THC Screen Urine Negative (Negative)
[2022-12-25] MEDS: pantoprazole 40 mg SDV IVP (09:13)
[2022-12-25] MEDS: sodium chloride 0.9% 250 ML IV (09:14)
[2022-12-25] MEDS: cisatracurium 100 MG in sodium chloride 0.9% 50 ML IV (09:44)
--- NOTE | 2022-12-25 10:15 | ECG_ITS ---
[facility] Test Date: 2022-12-25 Pat Name: Ramila Barrow Department: Room: 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 Measurements Intervals [place] Rate: 57 P: 86 FL: 93 QRS: 80 QRSD: 85 T: 87 QT: 431 QTc: 420 Interpretive Statements SINUS BRADYCARDIA WITH SHORT FL INTERVAL Compared to ECG 12/20/2022 12:48:51 Sinus tachycardia no longer present Electronically Signed On 12-25-2022 16:13:55 CDT by Lasha Choi M.D. [id number]
[2022-12-25] MEDS: DOPamine drip 400 MG/250 ML PREMIX 56.3 MG IV (11:48)
--- NOTE | 2022-12-25 12:01 | XRR_ITS ---
PROCEDURE INFORMATION: Exam: XR Chest Exam date and time: 12/25/2022 12:06 PM Age: 52 years old Clinical indication: Shortness of breath; Additional info: Follow up TECHNIQUE: Imaging protocol: Radiologic exam of the chest. Views: 1 view. COMPARISON: 1. CT chest wo con [id number] 12/24/2022 1:13 PM 2. CR (CHEST, ) 12/22/2022 7:01 PM 3. CR (CHEST, ) 12/22/2022 5:33 PM FINDINGS: Tubes, catheters and devices: Endotracheal tube terminates 4 cm above the fariha. Right IJ catheter terminates at the superior cavoatrial junction. Enteric tube courses to the left upper abdomen and terminates beyond the field of view. Lungs: Unremarkable. No consolidation. Pleural spaces: Unremarkable. No pleural effusion. No pneumothorax. Heart/Mediastinum: Unremarkable. No cardiomegaly. Bones/joints: Unremarkable. XR/XR chest 1V portable [id number] IMPRESSION: 1. Adequately positioned tubes and catheters. 2. No acute findings.
[2022-12-25 12:28] LABS: Creatine Phosphokinase 113 U/L (26-192); Magnesium 2.3 mg/dL (1.7-2.3); Phosphorus 4.3 mg/dL (2.5-4.5); Triglycerides 297 mg/dL (0-150)
--- NOTE | 2022-12-25 12:42 | PM.PN ---
Subjective Subjective: Morning patient became bradycardic Phosphorus magnesium triglyceride requested Concern for propofol syndrome Propofol discontinued patient was put on Levophed and dopamine for heart rate increased from 30-1 09 EKG showing sinus bradycardia No QTc prolongation Family updated Spoke with Dr. Kumar multiple times Patient was evaluated multiple times Dr. Kumar recommended Pneumovax because her peak pressure has increased again and her wheezing has not improved Vitals/I&O/Wt Last Vital Signs Temp 96.8 F L 12/25/22 08:00 Pulse 54 L 12/25/22 10:30 Resp 17 12/25/22 11:55 BP 99/57 12/25/22 10:30 Pulse Ox 94 12/25/22 11:55 O2 Del Method Mechanical Ventilation 12/25/22 10:00 O2 Flow Rate 2 12/17/22 01:02 FiO2 30 12/25/22 11:55 12/24/22 12/25/22 12/25/22 22:59 06:59 14:59 Intake Total 177.855 / 745.570 411.375 / 1156.945 392.999 / 392.999 Output Total 2000 / 4200 625 / 4825 Balance -1822.145 / -3454.430 -213.625 / -3668.055 392.999 / 392.999 Weight last 48 hrs Weight 75.07 kg Weight 77.337 kg Physical Exam Narrative: Intubated and sedated Abdomen soft with solid bowel sound Neuro exam limited Catheter with concentrated urine Clinically does not look fluid overloaded Bilateral rhonchi with mild wheeze Urinary Catheter Management: Maier Latex: Cath Placed During This Visit: yes Reason for Continuing Indwelling Catheter: Accurate Measurement of Urinary Output in Critically Ill Patients Urinary Catheter Date of Insertion: 12/17/22 Urinary Catheter Time of Insertion: 04:36 Data 12/25/22 02:41 12/25/22 02:41 Micro: Microbiology 12/25/22 09:58 Blood Culture - Preliminary Blood SPECIMEN COLLECTED 12/25/22 10:09 Blood Culture - Preliminary Blood SPECIMEN COLLECTED 12/18/22 02:28 Blood Culture - Final Blood Staphylococcus epidermidis Staphylococcus sp coag neg Corynebacterium species 12/22/22 17:50 Gram Stain - Final Sputum - Endotracheal Tube Aspirate Sputum Culture - Final A&P Assessment and plan (1) Acute respiratory failure requiring reintubation: (2) Difficulty with extubation: (3) Bronchospasm: (4) Bradycardia: (5) Asthma with exacerbation: (6) Acute exacerbation of chronic obstructive airways disease: (7) PTSD (post-traumatic stress disorder): (8) H/O of biological therapy treatment: Plan Persistent bronchospasm Bradycardia concern for propofol syndrome Propofol discontinued started on Levophed and dopamine which improved her heart rate Check triglyceride magnesium phosphorus and lactic, EKG showing sinus bradycardia Family updated Plan to discontinue antibiotics if repeat cultures are negative, I will hold vancomycin, continue Zosyn Dr. Kumar was recommending initiation of paralytics however that was put on hold because of her bradycardic pulse We will want to have pulm critical 18/12 on-call center agent starting today I will get in touch with [facility] Continue DVT prophylaxis Tube feeds will be continued Continue steroids, increase dose Monitor for opportunistic infections Attestations Medical Necessity Statement*: Continue ICU management Coding Level of Care Code Critical Care >/= 30 minutes Critical care time (in minutes): 35 The high probability of a clinically significant, sudden or life threatening deterioration, as referenced in this documentation, required my full and direct attention, intervention and personal management. The critical care time shown is in addition to time spent performing any reported separately billable procedures and includes the following: [x] Data and vital sign review and interpretation [x] Patient assessment, examination and intervention [x] Medication orders and management [x] Patient/Family updates as able [x] Care Coordination and Documentation. Diagnoses Acute respiratory failure requiring reintubation J96.00 Difficulty with extubation T88.8XXA Bronchospasm J98.01 Bradycardia R00.1 Asthma with exacerbation J45.901 Acute exacerbation of chronic obstructive airways disease J44.1 PTSD (post-traumatic stress disorder) F43.10 H/O of biological therapy treatment Z92.89
[2022-12-25 12:59] LABS: Lactate (Lactic Acid level) 1.1 mmol/L (0.5-2.2)
[2022-12-25 13:07] LABS: Troponin(5th) Baseline 44 ng/L (0-10)
[2022-12-25 14:45] LABS: Glucose Point of Care 127 mg/dL (70-110)
[2022-12-25 14:59] LABS: Troponin 5 2HR 76.56 ng/L (0-10)
[2022-12-25 15:09] LABS: Troponin 5 2HR Delta 32.56 ABS# (0-10)
[2022-12-25 15:54] LABS: Alveolar-Arterial Oxygen Gradi 17.4 mmHg (5-10); Arterial Blood Gas Hematocrit 40.2 % (37-47); Base Excess ABG 3.3 mmol/L (-2.0-2.0); Blood Gas Allen Test Pos; Blood Gas Operator Identificat GD; Blood Gas Sample Site Radial, right; Blood Gas Sample Type Arterial; Blood Gas Tidal Volume 0.34; Carboxyhemoglobin 1.2 %THgb (0.4-20.1); HCO3 ABG 31.5 mmol/L (22-26); HGB O2 Sat 91.5 % (95-100); Ionized Calcium Level - ABG 1.2 mmol/L (1.1-1.4); Methemoglobin 0.7 % (0.4-1.5); Oxygen Device VENT; Oxygen Saturation ABG 93.2; PO2 ABG 74.9 mmHg (80.0-100.0); Potassium Level - ABG 4.3 mmol/L (3.5-5.0); Total Hemoglobin 13.1 g/dL (12-16)
[2022-12-25 15:55] LABS: ABG PCO2 64.1 mmHg (35-45)
[2022-12-25] MEDS: ipratropium-albuterol 3 mL Neb INHALATION (16:11)
--- NOTE | 2022-12-25 16:41 | PC.NURSE ---
Pt was put on Nimbex this morning to help stop the broncho spasms from occurring and help with gas exchange. It was started at 0.3mcg per protocol and turned up to 1.8 mcg per protocol. Pts heart rate went from 90s to the high 30s. Propofol was turned off and Levo was started. Dopamine was also started but turned off along with Levo and Nimbex when heart rate got up to the 80s. Fentanyl and Versed where left on to keep up sedation. Nimbex was turned on again along side dopamine and heart rate maintained in the 80s.
[2022-12-25 17:30] LABS: Glucose Point of Care 132 mg/dL (70-110)
--- NOTE | 2022-12-25 18:11 | PM.PN ---
Subjective Subjective: Seen multiple times at bedside today There was initially no significant change in her clinical status during morning evaluation Patient continues to have persistent wheeze-ABG showed slightly metabolic alkalosis-she is net -3 L last 24 hours after receiving Lasix 20 Mg. Will discontinue diuretics and give 250 cc of normal saline bolus. Plan was to taper down her paralytic. Later in the afternoon patient became bradycardic into 30s and was started on a dopamine drip however which is discontinued after making adjustments to the ventilator. I suspect the cause is dynamic hyperinflation with peak pressures 46 and plateau pressures 22, auto PEEP 16 contributing to hemodynamic instability. However restarted paralytic and with appropriate ventilator settings-reducing nighttime to 0.90, respiratory rate to 12, tidal volume from 3 60 to 340-her auto PEEP has improved and her hemodynamics. Dopamine was discontinued. There was no paradoxical bronchospasm with DuoNeb nebulization and recommended to continue as scheduled. Other labs and imaging reviewed Medications: Reviewed: Yes Vitals/I&O/Wt Last Vital Signs Temp 96.8 F L 12/25/22 13:30 Pulse 82 12/25/22 16:17 Resp 12 12/25/22 17:09 BP 129/75 12/25/22 16:00 Pulse Ox 97 12/25/22 17:09 O2 Del Method Mechanical Ventilation 12/25/22 16:05 O2 Flow Rate 2 12/17/22 01:02 FiO2 35 12/25/22 17:09 12/25/22 12/25/22 12/25/22 06:59 14:59 22:59 Intake Total 411.375 / 1156.945 729.184 / 729.184 8.342 / 737.526 Output Total 625 / 4825 350 / 350 300 / 650 Balance -213.625 / -3668.055 379.184 / 379.184 -291.658 / 87.526 Weight last 48 hrs Weight 165 lb 8 oz Weight 170 lb 8 oz Physical Exam Narrative: PHYSICAL EXAM: General: lying in bed, sedated and intubated. HEENT:NCAT, PERRLA, EOMI Neck: Supple Lungs: Bilateral diffuse end expiratory wheeze Heart: s1/s2, RRR Abd: soft, NT, ND, BS + Normoactive Extremities: No edema MEDICAL ADVISOR: sedated and limited MEDICAL ADVISOR exam possible. SKIN: no rash Urinary Catheter Management: Maier Latex: Cath Placed During This Visit: yes Reason for Continuing Indwelling Catheter: Accurate Measurement of Urinary Output in Critically Ill Patients Urinary Catheter Date of Insertion: 12/17/22 Urinary Catheter Time of Insertion: 04:36 Data 12/26/22 03:00 12/26/22 03:00 Micro: Microbiology 12/25/22 09:58 Blood Culture - Preliminary Blood SPECIMEN COLLECTED 12/25/22 10:09 Blood Culture - Preliminary Blood SPECIMEN COLLECTED 12/18/22 02:28 Blood Culture - Final Blood Staphylococcus epidermidis Staphylococcus sp coag neg Corynebacterium species A&P Assessment and plan (1) Acute exacerbation of chronic obstructive airways disease: (2) Respiratory failure with hypoxia and hypercapnia: (3) Severe persistent asthma: Qualifiers: Asthma complication type: unspecified Qualified Code(s): J45.50 - Severe persistent asthma, uncomplicated (4) Anxiety: (5) H/O of biological therapy treatment: (6) Difficulty with extubation: (7) Status asthmaticus: Plan #Acute hypoxic hypercapnic respiratory failure secondary to status asthmaticus 3 hours for in the treatment more than 3 in 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 I suspect the cause is dynamic hyperinflation with peak pressures 46 and plateau pressures 22, auto PEEP 16 contributing to hemodynamic instability. However restarted paralytic and with appropriate ventilator settings-reducing nighttime to 0.90, respiratory rate to 12, tidal volume from 3 60 to 340-her auto PEEP has improved and her hemodynamics. Dopamine was discontinued. There was no paradoxical bronchospasm with DuoNeb nebulization and recommended to continue as scheduled. -Recommended to continue scheduled DuoNeb nebulization -For now we will restart paralytic and continue sedation -by giving more time for expiration, reducing respiratory rate, adequate sedation -the goal is to avoid dynamic hyperinflation and auto PEEP. -Recommended IV Solu-Medrol 60 Mg every 8 hours and gradually taper off based on clinical response -Chest x-ray-no acute findings-currently patient is covered with broad-spectrum antibiotics vancomycin, Zosyn, Levaquin; - MRSA nares negative however 1 out of blood cultures grew Staph epidermidis/staph coag negative/Corynebacterium species-likely contaminant; will continue antibiotics for now and repeat blood cultures -We will continue to monitor ventilator settings and help with weaning protocol -CT chest 12/24/2022 showed bronchial wall thickening and mild reactive airway changes progressed from previous exam. -She is a complicated case of severe asthma exacerbation- may need longer than usual time for response to standard asthma treatments. Until then she will need mechanical ventilator support. She may benefit from ketamine infusion unfortunately we do not have a protocol here. ICU CHECKLIST: Problem list updated Verbal orders reviewed and signed Code Status: Full code Disposition: ICU Critically ill: Yes MD discussed with: RN, RT, hospitalist taking care of the patient Analgesia: Fentanyl Glycemic Control: N/A Nutrition: Tube feeds Restraint Renewal (within 24 hrs): Yes Ulcer Prophylaxis: PPI Chemical Thromboprophylaxis: Prophylaxis: Lovenox Mechanical Thromboprophylaxis: SCDs Need for Central line: N/A Need for Maier catheter: Urine output monitoring Critical Care Time (No Overlap):90 min Attestations Medical Necessity Statement*: Requires ICU monitoring for respiratory failure requiring ventilator Time Spent in Patient Care: Greater than 35 minutes (>than 50% of time spent in counselling and/or direct pt care on unit). Critical Care Time: The high probability of a clinically significant, sudden or life threatening deterioration of the patient's [respiratory] system(s) required my full and direct attention, intervention and personal management. The critical care time is as shown. This time is in addition to time spent performing any reported procedures but includes the following: [x] Data and vital sign review and interpretation [x] Patient assessment, examination and intervention [x] Documentation [x] Medication orders and management Critical Care Time (min): 90 Coding Level of Care Code 37487 Diagnoses Acute exacerbation of chronic obstructive airways disease J44.1 Respiratory failure with hypoxia and hypercapnia J96.91; J96.92 Severe persistent asthma J45.50 Asthma complication type: unspecified Anxiety F41.9 H/O of biological therapy treatment Z92.89 Difficulty with extubation T88.8XXA Status asthmaticus J45.902 Time Spent (min) 90
--- NOTE | 2022-12-25 18:13 | USCV_ITS ---
Ramila Barrow Age: 52 Gender: F : 1970 Exam Date: 12/25/2022 22:54 Ordering Phys: Afia Hernandez MD Technologist: DAX [place] [facility] [place]: bradycardia. Patient is on ventilator in ICU-4 BP: 122 / 65 HR: 63 Rhythm: Sinus Technical Quality: Adequate MEASUREMENTS (Male / Female) Normal Values 2D ECHO LV Diastolic Diameter PLAX 4.6 cm 4.2 - 5.9 / 3.9 - 5.3 cm LV Systolic Diameter PLAX 2.7 cm IVS Diastolic Thickness 0.9 cm 0.6 - 1.0 / 0.6 - 0.9 cm IVS Systolic Thickness 1.3 cm LVPW Diastolic Thickness 0.9 cm 0.6 - 1.0 / 0.6 - 0.9 cm LVPW Systolic Thickness 1.1 cm LVOT Diameter 1.8 cm LV Ejection Fraction 2D Teich 72.2 % LV Ejection Fraction MOD 2C 58.0 % LV Ejection Fraction 2C AL 57.3 % LA Diameter 3.6 cm LA Width 4.0 cm LA Height 5.2 cm RA Width 3.0 cm RA Height 3.6 cm Aorta at Sinotubular Diameter 2.4 cm IVC Diameter 0.9 cm M-MODE Aortic Annulus Diameter 2.3 cm LA Ao Ratio MM 1.6 MV E Point Septal Separation 0.3 cm DOPPLER AV Peak Velocity 136.0 cm/s LVOT Peak Velocity 99.0 cm/s AV Area Cont Eq vti 2.0 cm squared AV Area Cont Eq pk 1.8 cm squared MV Peak Velocity 105.0 cm/s MV Area PHT 3.5 cm squared Mitral E to A Ratio 0.8 MV E' Velocity 52.5 cm/s Mitral E to MV E' Ratio 12.2 Mitral E to LV E' Lateral Ratio 11.8 Mitral E to LV E' Septal Ratio 12.7 TV Peak E Velocity 39.0 cm/s PV Peak Velocity 90.0 cm/s RV Acceleration Time 0.1 s RV Ejection Time 0.4 s RV AcT/ET 0.3 FINDINGS Left Ventricle Normal left ventricular size and systolic function, EF 61 %. No regional wall motion abnormalities.Grade I/IV diastolic dysfunction (abnormal relaxation filling pattern), normal to mildly elevated filling pressures. Right Ventricle Normal right ventricular size and systolic function. Right Atrium The right atrium is normal in size. Left Atrium Mildly increased left atrial size. Mitral Valve Trace mitral valve regurgitation. Aortic Valve No gross abnormalities noted Tricuspid Valve No gross abnormalities noted Pulmonic Valve No gross abnormalities noted Pericardium Normal pericardium without effusion. Aorta Normal ascending aorta dimension. IVC The inferior vena cava appears normal. CONCLUSIONS Normal left ventricular size and systolic function, EF 61 %. No regional wall motion abnormalities.Grade I/IV diastolic dysfunction (abnormal relaxation filling pattern), normal to mildly elevated filling pressures. Trace mitral valve regurgitation. Mildly increased left atrial size. There is no pericardial effusion. There are no intracardiac masses. Compared to the study from 07/19/2022, there may not be a significant change Dr Farida Gonzalez MD FAC (Electronically Signed) Final Date: 26 December 2022 19:00 S
[2022-12-25 19:35] LABS: Troponin 5 6HR 86.98 ng/L (0-10)
[2022-12-25 19:43] LABS: Troponin 5 6HR Delta 42.98 ng/L (0-12)
--- NOTE | 2022-12-25 20:10 | PC.NURSE ---
Heart Rate Patient's heart rate decreasing as low as 38, blood pressure stable. Dopamine titrated per JUL. Following dopamine increase, patient's blood pressure in the 200s systolic. Additionally, patient's 6 hour troponin delta came back critical at 42.98. Dr. Gamez notified; order received to repeat a one time troponin in 6 hours from last test and to decrease dopamine for blood pressures, allowing asymptomatic bradycardia.
[2022-12-25 22:11] LABS: Glucose Point of Care 152 mg/dL (70-110)
[2022-12-26] VITALS (27 sets, daily range): BP systolic 111–206; BP diastolic 61–115; PULSE 57–90; RESP 12; TEMP 36–36.6; O2SAT 93–98; BMI 34.7
[2022-12-26 00:33] LABS: Glucose Point of Care 128 mg/dL (70-110)
[2022-12-26 01:37] LABS: Troponin T (5th) Once 87 ng/L (0-10)
[2022-12-26] MEDS: chlorhexidine gluconate 4% Btl 118 mL 1 APPLIC TOPICAL (01:49)
[2022-12-26 03:03] LABS: ABG PCO2 56.1 mmHg (35-45); ABG PH Result 7.37 (7.35-7.45); Arterial Blood Gas Hematocrit 38.7 % (37-47); Base Excess ABG 5.2 mmol/L (-2.0-2.0); Blood Gas Allen Test Pos; Blood Gas Sample Site Radial, right; Blood Gas Sample Type Arterial; Blood Gas Tidal Volume 0.36; Oxygen Device VENT; PO2 ABG 72.8 mmHg (80.0-100.0)
[2022-12-26 03:12] LABS: Basophils % 0.2 %; Hematocrit 37.9 % (37.0-47.0); Lymphocytes # 0.7 10^3/uL (0.8-4.8); Mean Corpuscular HGB Conc 31.7 g/dL (30.0-36.0); Mean Corpuscular Hemoglobin 27.6 pg (28.0-34.0); Mean Corpuscular Volume 87.3 fl (81-99); Mean Platelet Volume 9.3 fL (7.4-10.4); Monocytes # 0.4 10^3/uL (0.2-0.9); Monocytes % 3.1 %; Neutrophils # 10.94 10^3/uL (1.8-7.7); Nucleated Red Blood Cells % 0.2 %; Platelet Count 248 10^3/cmm (130-400); Red Blood Count 4.34 10^6/uL (4.1-5.3); Red Cell Distribution Width 15.7 % (12.1-15.1)
[2022-12-26 03:33] LABS: Alanine Aminotransferase 99 U/L (0-33); Albumin Level 3.6 g/dL (3.5-5.2); Alkaline Phosphatase 53 U/L (35-105); Anion Gap 12.5 (5-19); Aspartate Amino Transferase 46 U/L (0-32); Blood Urea Nitrogen 30 mg/dL (6-20); Calcium 8.6 mg/dL (8.5-10.5); Carbon Dioxide 30 mmol/L (22-29); Chloride 109 mmol/L (98-107); Globulin 1.9 g/dL (1.3-4.6); Glomerular Filtration Rate 129.1 mL/min (90-130); Glucose 137 mg/dL (65-115); Osmolality Calculated 312 mOsm/kg (285-295); Potassium 4.5 mmol/L (3.5-5.1); Sodium 147 mmol/L (136-145); Total Bilirubin 0.4 mg/dL (0.15-1.2); Total Protein 5.5 g/dL (6.6-8.7)
[2022-12-26 03:40] LABS: Slide Review Slide Review Perform
[2022-12-26 03:44] LABS: Lactate Dehydrogenase 316 U/L (135-214)
[2022-12-26] MEDS: piperacillin-tazobactam 3.375 GM in sodium chloride 0.9% (plus) 50 ML IV (04:02)
[2022-12-26] MEDS: enoxaparin 40 mg/0.4 mL Syringe SUBCUT (04:07)
[2022-12-26] MEDS: cisatracurium 100 MG in sodium chloride 0.9% 50 ML 7.88 MG IV (04:44)
[2022-12-26] MEDS: montelukast sodium 10 mg Tablet PO (06:01)
[2022-12-26 06:50] LABS: Glucose Point of Care 106 mg/dL (70-110)
--- NOTE | 2022-12-26 07:00 | PC.NURSE ---
[facility] [facility] [employer] for night 12/25-12/26 [facility] [employer] 1999 43 [phone] 44 4 0000 38 [phone] 53 4 0400 43 4 0600 40 4
[2022-12-26] MEDS: pantoprazole 40 mg SDV IVP (09:43)
--- NOTE | 2022-12-26 09:54 | PM.TDS ---
Transfer Summary Providers Date of Admission: 12/17/22 02:41 Date of Discharge/Transfer: 01/01/23 Attending Provider at Admission: Matthieu Tolbert MD Attending Provider at Transfer: Afia Hernandez MD Primary Care Provider: Laron Gutierrez MD Transfer Plans: Anticipated date of transfer: 01/01/23. Diagnoses at Discharge Discharge Diagnosis (1) Acute respiratory failure requiring reintubation: Status: Acute (2) Difficulty with extubation: Status: Acute (3) Bronchospasm: Status: Acute (4) Bradycardia: Status: Acute (5) Asthma with exacerbation: Status: Acute (6) Acute exacerbation of chronic obstructive airways disease: Status: Acute (7) PTSD (post-traumatic stress disorder): Status: Acute (8) H/O of biological therapy treatment: Status: Acute Permanent problem details: Started in July 2022 Reason for Visit Reason for Visit SOB Hospital Course Hospital Course 49-year-old female who was intubated due to acute on chronic hypoxic respiratory failure due to asthma consistent wheezing, she was experiencing paradoxical bronchospasm with albuterol which was switched to Xopenex, Dr. Fraser was consulted despite use of , Xopenex, ipratropium and IV steroids high-dose, bronchospasm never improved, patient was extubated however because of tachypnea and tachycardia and persistent wheezing she was reintubated within few hours by Dr. Fraser, she was paralyzed as well which did not show significant improvement, her peak pressures were consistently above 40s with bronchospasms and paradoxical response to inhalers this case was discussed with [facility] track template maker for use of ketamine as we do not have ketamine protocol in the hospital, she will be transferred to [facility] for further management, family meeting was conducted on daily basis, family was against tracheostomy or PEG tube placement however they are willing to try ketamine infusion at [facility] to see if she would improve Please see pulm/critical note for further details Physical Exam Narrative: Intubated and sedated Abdomen soft with solid bowel sound Neuro exam limited Catheter with concentrated urine Clinically does not look fluid overloaded Bilateral rhonchi with mild wheeze Urinary Catheter Management: Maier Latex: Cath Placed During This Visit: yes Reason for Continuing Indwelling Catheter: Accurate Measurement of Urinary Output in Critically Ill Patients Urinary Catheter Date of Insertion: 12/17/22 Urinary Catheter Time of Insertion: 04:36 TS Data Studies Completed and Pending Pending at discharge Category Date Time Status ABG FULL [Arterial Blood Gas Full] Routine Lab 12/25/22 19:30 Ordered LUIS Screen w/ Reflex Routine Lab 12/25/22 14:30 Received ANCA [Anti-Neutrophil Cytoplasmic AB] Routine Lab 12/25/22 14:30 Received Aspergillus AG,EIA,Serum Routine Lab 12/25/22 14:30 Received Blood Culture Stat Lab 12/25/22 09:58 Results Fungitell Glucan Assay (Blood) Routine Lab 12/25/22 14:30 Received Vancomycin Trough Timed Lab 12/26/22 11:00 Ordered CV. echo complete* [id number] Routine Ultrasound 12/25/22 18:13 Taken Labs from last 24 hours 12/26/22 12/26/22 12/26/22 06:41 04:00 03:00 WBC RBC Hgb Hct MCV MCH MCHC RDW Plt Count MPV Neut % (Auto) Lymph % (Auto) Newton % (Auto) Eos % (Auto) Baso % (Auto) Neut # (Auto) Lymph # (Auto) Newton # (Auto) Eos # (Auto) Baso # (Auto) Nucleated RBC % (auto) Nucleated RBCs # Specimen Type Arterial Sample Site Radial, right ABG pH 7.37 ABG pCO2 56.1 H ABG pO2 72.8 L ABG HCO3 32.0 H ABG O2 Saturation ABG Base Excess 5.2 H Eric Test Pos A-a O2 Gradient Hematocrit 38.7 Hgb O2 Saturation Carboxyhemoglobin Methemoglobin Total Hemoglobin Sodium 147 H Potassium 4.5 Glucose 137 H Ionized Calcium O2 Delivery Device Vent FiO2 35.0 Tidal Volume 0.36 PEEP 5.0 Driller And Broacher ID ellpe Chloride 109 H Carbon Dioxide 30 H Anion Gap 12.5 BUN 30 H Creatinine 0.5 GFR Calculation 129.1 POC Glucose 106 Calculated Osmolality 312 H Lactate Calcium 8.6 Phosphorus Magnesium Total Bilirubin 0.4 AST 46 H ALT 99 H Alkaline Phosphatase 53 Lactate Dehydrogenase Creatine Kinase Troponin T Gen 5 ng/L Troponin T Baseline Troponin T 120 Minute Delta Troponin T Troponin T Hi Sens 6Hr Troponin T Hi Sens 6Hr Delta Total Protein 5.5 L Albumin 3.6 Globulin 1.9 Triglycerides LUIS Screen ANCA Screen ANCA Titer A. galactomannan Ag EIA A. galactomannan Ag Idx Beta-(1,3)-D-Glucan B-(1,3)-D-Glucan Intrp 12/26/22 12/26/22 12/26/22 03:00 03:00 01:05 WBC 13.0 H RBC 4.34 Hgb 12.0 Hct 37.9 MCV 87.3 MCH 27.6 L MCHC 31.7 RDW 15.7 H Plt Count 248 MPV 9.3 Neut % (Auto) 89.0 Lymph % (Auto) 7.0 Newton % (Auto) 3.1 Eos % (Auto) 0.0 Baso % (Auto) 0.2 Neut # (Auto) 10.94 H Lymph # (Auto) 0.7 L Newton # (Auto) 0.4 Eos # (Auto) 0.0 Baso # (Auto) 0.0 Nucleated RBC % (auto) 0.2 Nucleated RBCs # 0.0 Specimen Type Sample Site ABG pH ABG pCO2 ABG pO2 ABG HCO3 ABG O2 Saturation ABG Base Excess Eric Test A-a O2 Gradient Hematocrit Hgb O2 Saturation Carboxyhemoglobin Methemoglobin Total Hemoglobin Sodium Potassium Glucose Ionized Calcium O2 Delivery Device FiO2 Tidal Volume PEEP Driller And Broacher ID Chloride Carbon Dioxide Anion Gap BUN Creatinine GFR Calculation POC Glucose Calculated Osmolality Lactate Calcium Phosphorus Magnesium Total Bilirubin AST ALT Alkaline Phosphatase Lactate Dehydrogenase 316 H Creatine Kinase Troponin T Gen 5 ng/L 87 H Troponin T Baseline Troponin T 120 Minute Delta Troponin T Troponin T Hi Sens 6Hr Troponin T Hi Sens 6Hr Delta Total Protein Albumin Globulin Triglycerides LUIS Screen ANCA Screen ANCA Titer A. galactomannan Ag EIA A. galactomannan Ag Idx Beta-(1,3)-D-Glucan B-(1,3)-D-Glucan Intrp 12/26/22 12/25/22 12/25/22 00:29 21:54 19:00 WBC RBC Hgb Hct MCV MCH MCHC RDW Plt Count MPV Neut % (Auto) Lymph % (Auto) Newton % (Auto) Eos % (Auto) Baso % (Auto) Neut # (Auto) Lymph # (Auto) Newton # (Auto) Eos # (Auto) Baso # (Auto) Nucleated RBC % (auto) Nucleated RBCs # Specimen Type Sample Site ABG pH ABG pCO2 ABG pO2 ABG HCO3 ABG O2 Saturation ABG Base Excess Eric Test A-a O2 Gradient Hematocrit Hgb O2 Saturation Carboxyhemoglobin Methemoglobin Total Hemoglobin Sodium Potassium Glucose Ionized Calcium O2 Delivery Device FiO2 Tidal Volume PEEP Driller And Broacher ID Chloride Carbon Dioxide Anion Gap BUN Creatinine GFR Calculation POC Glucose 128 H 152 H Calculated Osmolality Lactate Calcium Phosphorus Magnesium Total Bilirubin AST ALT Alkaline Phosphatase Lactate Dehydrogenase Creatine Kinase Troponin T Gen 5 ng/L Troponin T Baseline Troponin T 120 Minute Delta Troponin T Troponin T Hi Sens 6Hr 86.98 H Troponin T Hi Sens 6Hr Delta 42.98 H* Total Protein Albumin Globulin Triglycerides LUIS Screen ANCA Screen ANCA Titer A. galactomannan Ag EIA A. galactomannan Ag Idx Beta-(1,3)-D-Glucan B-(1,3)-D-Glucan Intrp 12/25/22 12/25/22 12/25/22 17:20 15:31 14:41 WBC RBC Hgb Hct MCV MCH MCHC RDW Plt Count MPV Neut % (Auto) Lymph % (Auto) Newton % (Auto) Eos % (Auto) Baso % (Auto) Neut # (Auto) Lymph # (Auto) Newton # (Auto) Eos # (Auto) Baso # (Auto) Nucleated RBC % (auto) Nucleated RBCs # Specimen Type Arterial Sample Site Radial, right ABG pH 7.30 L ABG pCO2 64.1 H* ABG pO2 74.9 L ABG HCO3 31.5 H ABG O2 Saturation 93.2 ABG Base Excess 3.3 H Eric Test Pos A-a O2 Gradient 17.4 H Hematocrit 40.2 Hgb O2 Saturation 91.5 L Carboxyhemoglobin 1.2 Methemoglobin 0.7 Total Hemoglobin 13.1 Sodium 146.0 H Potassium 4.3 Glucose 147.0 H Ionized Calcium 1.2 O2 Delivery Device Vent FiO2 40.0 Tidal Volume 0.34 PEEP 5.0 Driller And Broacher ID Gd Chloride Carbon Dioxide Anion Gap BUN Creatinine GFR Calculation POC Glucose 132 H 127 H Calculated Osmolality Lactate Calcium Phosphorus Magnesium Total Bilirubin AST ALT Alkaline Phosphatase Lactate Dehydrogenase Creatine Kinase Troponin T Gen 5 ng/L Troponin T Baseline Troponin T 120 Minute Delta Troponin T Troponin T Hi Sens 6Hr Troponin T Hi Sens 6Hr Delta Total Protein Albumin Globulin Triglycerides LUIS Screen ANCA Screen ANCA Titer A. galactomannan Ag EIA A. galactomannan Ag Idx Beta-(1,3)-D-Glucan B-(1,3)-D-Glucan Intrp 12/25/22 12/25/22 12/25/22 14:30 14:30 14:30 WBC RBC Hgb Hct MCV MCH MCHC RDW Plt Count MPV Neut % (Auto) Lymph % (Auto) Newton % (Auto) Eos % (Auto) Baso % (Auto) Neut # (Auto) Lymph # (Auto) Newton # (Auto) Eos # (Auto) Baso # (Auto) Nucleated RBC % (auto) Nucleated RBCs # Specimen Type Sample Site ABG pH ABG pCO2 ABG pO2 ABG HCO3 ABG O2 Saturation ABG Base Excess Eric Test A-a O2 Gradient Hematocrit Hgb O2 Saturation Carboxyhemoglobin Methemoglobin Total Hemoglobin Sodium Potassium Glucose Ionized Calcium O2 Delivery Device FiO2 Tidal Volume PEEP Driller And Broacher ID Chloride Carbon Dioxide Anion Gap BUN Creatinine GFR Calculation POC Glucose Calculated Osmolality Lactate Calcium Phosphorus Magnesium Total Bilirubin AST ALT Alkaline Phosphatase Lactate Dehydrogenase Creatine Kinase Troponin T Gen 5 ng/L Troponin T Baseline Troponin T 120 Minute 76.56 H Delta Troponin T 32.56 H* Troponin T Hi Sens 6Hr Troponin T Hi Sens 6Hr Delta Total Protein Albumin Globulin Triglycerides LUIS Screen Pending ANCA Screen Pending ANCA Titer Pending A. galactomannan Ag EIA Pending A. galactomannan Ag Idx Pending Beta-(1,3)-D-Glucan Pending B-(1,3)-D-Glucan Intrp Pending 12/25/22 12/25/22 12/25/22 12:30 12:30 11:58 WBC RBC Hgb Hct MCV MCH MCHC RDW Plt Count MPV Neut % (Auto) Lymph % (Auto) Newton % (Auto) Eos % (Auto) Baso % (Auto) Neut # (Auto) Lymph # (Auto) Newton # (Auto) Eos # (Auto) Baso # (Auto) Nucleated RBC % (auto) Nucleated RBCs # Specimen Type Sample Site ABG pH ABG pCO2 ABG pO2 ABG HCO3 ABG O2 Saturation ABG Base Excess Eric Test A-a O2 Gradient Hematocrit Hgb O2 Saturation Carboxyhemoglobin Methemoglobin Total Hemoglobin Sodium Potassium Glucose Ionized Calcium O2 Delivery Device FiO2 Tidal Volume PEEP Driller And Broacher ID Chloride Carbon Dioxide Anion Gap BUN Creatinine GFR Calculation POC Glucose Calculated Osmolality Lactate 1.1 Calcium Phosphorus 4.3 Magnesium 2.3 Total Bilirubin AST ALT Alkaline Phosphatase Lactate Dehydrogenase Creatine Kinase 113 Troponin T Gen 5 ng/L Troponin T Baseline 44 H Troponin T 120 Minute Delta Troponin T Troponin T Hi Sens 6Hr Troponin T Hi Sens 6Hr Delta Total Protein Albumin Globulin Triglycerides 297 H LUIS Screen ANCA Screen ANCA Titer A. galactomannan Ag EIA A. galactomannan Ag Idx Beta-(1,3)-D-Glucan B-(1,3)-D-Glucan Intrp Completed Studies During Hospitalization Category Date Time Status CT chest wo con [id number] Routine Cat Scan 12/24/22 12:[address] head wo con* [id number] Stat Cat Scan 12/22/22 09:47 Completed CXRP [XR chest 1V portable [id number]] Routine Exams 12/17/22 03:30 Completed CXRP [XR chest 1V portable [id number]] Routine Exams 12/21/22 08:30 Completed CXRP [XR chest 1V portable [id number]] Stat Exams 12/22/22 18:38 Completed XR chest 1V portable [id number] Routine Exams 12/18/22 07:00 Completed XR chest 1V portable [id number] Stat Exams 12/16/22 22:24 Completed XR chest 1V portable [id number] Stat Exams 12/19/22 03:02 Completed XR chest 1V portable [id number] Stat Exams 12/22/22 16:51 Completed XR chest 1V portable [id number] Stat Exams 12/25/22 12:01 Completed Laboratory Last Values WBC 13.0 10^3/uL (4.0-10.0) H 12/26/22 03:00 RBC 4.34 10^6/uL (4.1-5.3) 12/26/22 03:00 Hgb 12.0 g/dL (11.5-15.3) 12/26/22 03:00 Hct 37.9 % (37.0-47.0) 12/26/22 03:00 MCV 87.3 fl (81-99) 12/26/22 03:00 MCH 27.6 pg (28.0-34.0) L 12/26/22 03:00 MCHC 31.7 g/dL (30.0-36.0) 12/26/22 03:00 RDW 15.7 % (12.1-15.1) H 12/26/22 03:00 Plt Count 248 10^3/cmm (130-400) 12/26/22 03:00 MPV 9.3 fL (7.4-10.4) 12/26/22 03:00 Neut % (Auto) 89.0 % 12/26/22 03:00 Lymph % (Auto) 7.0 % 12/26/22 03:00 Newton % (Auto) 3.1 % 12/26/22 03:00 Eos % (Auto) 0.0 % 12/26/22 03:00 Baso % (Auto) 0.2 % 12/26/22 03:00 Neut # (Auto) 10.94 10^3/uL (1.8-7.7) H 12/26/22 03:00 Lymph # (Auto) 0.7 10^3/uL (0.8-4.8) L 12/26/22 03:00 Newton # (Auto) 0.4 10^3/uL (0.2-0.9) 12/26/22 03:00 Eos # (Auto) 0.0 10^3/uL (0.0-0.8) 12/26/22 03:00 Baso # (Auto) 0.0 10^3/uL (0.0-0.1) 12/26/22 03:00 Nucleated RBC % (auto) 0.2 % 12/26/22 03:00 Total Counted 100 (0-100) 12/22/22 02:30 Atypical Lymphs % Not Reportable 12/22/22 02:30 Segmented Neutrophils 84 % 12/22/22 02:30 Abs Segm Neuts (Man) 11.2 10/cmm (1.6-7.1) H 12/22/22 02:30 Band Neutrophils Not Reportable 12/22/22 02:30 Lymphocytes (Manual) 8 % 12/22/22 02:30 Monocytes (Manual) 5.0 % 12/22/22 02:30 Absolute Monocytes 0.7 10^3/cmm (0.1-0.6) H 12/22/22 02:30 Eosinophils (Manual) 0 % 12/22/22 02:30 Absolute Eosinophils 0.0 10^3/cmm (0.0-0.7) 12/22/22 02:30 Basophils (Manual) 0.0 % 12/22/22 02:30 Absolute Basophils 0.0 10^3/cmm (0.0-0.2) 12/22/22 02:30 Myelocytes 3.0 % 12/22/22 02:30 Nucleated RBCs # 0.0 /100WBC 12/26/22 03:00 Platelet Estimate Normal (Normal) 12/22/22 02:30 PT 12.10 SECONDS (12.1-14.9) 12/16/22 22:46 INR 0.87 (0.8-1.2) 12/16/22 22:46 D-Dimer 0.50 ug/mIFEU (0-0.59) 12/17/22 13:21 Specimen Type Arterial 12/26/22 04:00 Sample Site Radial, right 12/26/22 04:00 ABG pH 7.37 (7.35-7.45) 12/26/22 04:00 ABG pCO2 56.1 mmHg (35-45) H 12/26/22 04:00 ABG pO2 72.8 mmHg (80.0-100.0) L 12/26/22 04:00 ABG HCO3 32.0 mmol/L (22-26) H 12/26/22 04:00 ABG O2 Saturation 93.2 12/25/22 15:31 ABG Base Excess 5.2 mmol/L (-2.0-2.0) H 12/26/22 04:00 Eric Test Pos 12/26/22 04:00 A-a O2 Gradient 17.4 mmHg (5-10) H 12/25/22 15:31 Hematocrit 38.7 % (37-47) 12/26/22 04:00 Hgb O2 Saturation 91.5 % (95-100) L 12/25/22 15:31 Carboxyhemoglobin 1.2 %THgb (0.4-20.1) 12/25/22 15:31 Methemoglobin 0.7 % (0.4-1.5) 12/25/22 15:31 Total Hemoglobin 13.1 g/dL (12-16) 12/25/22 15:31 Sodium 146.0 mmol/L (131-143) H 12/25/22 15:31 Potassium 4.3 mmol/L (3.5-5.0) 12/25/22 15:31 Glucose 147.0 mg/dL (70-115) H 12/25/22 15:31 Ionized Calcium 1.2 mmol/L (1.1-1.4) 12/25/22 15:31 Respiration Rate 16.0 % 12/18/22 12:50 O2 Delivery Device Vent 12/26/22 04:00 O2 Liters/Min 2.0 % 12/17/22 01:50 Vent Mode Vc-ac 12/18/22 12:50 FiO2 35.0 % 12/26/22 04:00 Tidal Volume 0.36 12/26/22 04:00 PEEP 5.0 cmH20 12/26/22 04:00 Specimen Drawn By Edward 12/18/22 12:50 Driller And Broacher ID jewell 12/26/22 04:00 Sodium 147 mmol/L (136-145) H 12/26/22 03:00 Potassium 4.5 mmol/L (3.5-5.1) 12/26/22 03:00 Chloride 109 mmol/L (98-107) H 12/26/22 03:00 Carbon Dioxide 30 mmol/L (22-29) H 12/26/22 03:00 Anion Gap 12.5 (5-19) 12/26/22 03:00 BUN 30 mg/dL (6-20) H 12/26/22 03:00 Creatinine 0.5 mg/dL (0.5-0.9) 12/26/22 03:00 GFR Calculation 129.1 mL/min (90-130) 12/26/22 03:00 Glucose 137 mg/dL (65-115) H 12/26/22 03:00 POC Glucose 106 mg/dL (70-110) 12/26/22 06:41 Specific [place] Cancelled 12/25/22 06:47 Calculated Osmolality 312 mOsm/kg (285-295) H 12/26/22 03:00 Lactate 1.1 mmol/L (0.5-2.2) 12/25/22 12:30 Calcium 8.6 mg/dL (8.5-10.5) 12/26/22 03:00 Phosphorus 4.3 mg/dL (2.5-4.5) 12/25/22 11:58 Magnesium 2.3 mg/dL (1.7-2.3) 12/25/22 11:58 Total Bilirubin 0.4 mg/dL (0.15-1.2) 12/26/22 03:00 AST 46 U/L (0-32) H 12/26/22 03:00 ALT 99 U/L (0-33) H 12/26/22 03:00 Alkaline Phosphatase 53 U/L (35-105) 12/26/22 03:00 Lactate Dehydrogenase 316 U/L (135-214) H 12/26/22 03:00 Creatine Kinase 113 U/L (26-192) 12/25/22 11:58 Troponin T Gen 5 ng/L 87 ng/L (0-10) H 12/26/22 01:05 Troponin T Baseline 44 ng/L (0-10) H 12/25/22 12:30 Troponin T 120 Minute 76.56 ng/L (0-10) H 12/25/22 14:30 Delta Troponin T 32.56 ABS# (0-10) H* 12/25/22 14:30 Troponin T Hi Sens 6Hr 86.98 ng/L (0-10) H 12/25/22 19:00 Troponin T Hi Sens 6Hr Delta 42.98 ng/L (0-12) H* 12/25/22 19:00 NT-Pro-B Natriuret Pep 78 pg/mL (0-125) 12/16/22 22:46 Total Protein 5.5 g/dL (6.6-8.7) L 12/26/22 03:00 Albumin 3.6 g/dL (3.5-5.2) 12/26/22 03:00 Globulin 1.9 g/dL (1.3-4.6) 12/26/22 03:00 Triglycerides 297 mg/dL (0-150) H 12/25/22 11:58 Urine Color Yellow (Yellow) 12/17/22 13:15 Urine Appearance Clear (CLEAR) 12/17/22 13:15 Urine pH Cancelled 12/25/22 06:47 Ur Specific [place] 1.020 (1.005-1.030) 12/17/22 13:15 Urine Protein 1+ (Negative) H 12/17/22 13:15 Urine Glucose (UA) Trace (Normal) H 12/17/22 13:15 Urine Ketones 1+ (Negative) H 12/17/22 13:15 Urine Blood 3+ (Negative) H 12/17/22 13:15 Urine Nitrate Negative (Negative) 12/17/22 13:15 Urine Bilirubin Neg (Negative) 12/17/22 13:15 Urine Urobilinogen Norm mg/dL (Negative) 12/17/22 13:15 Ur Leukocyte Esterase Negative (Negative) 12/17/22 13:15 Urine RBC 5-10 /hpf (0-2) H 12/17/22 13:15 Urine WBC None /hpf (0-5) 12/17/22 13:15 Ur Squamous Epith Cells Rare /hpf (0-5) 12/17/22 13:15 Amorphous Sediment Not Reportable 12/17/22 13:15 Urine Bacteria Trace /hpf (NONE) 12/17/22 13:15 Urine Mucus Trace /hpf 12/17/22 13:15 Urine Oxidant Cancelled 12/25/22 06:47 Nasal Influ A H1 2009 PCR Not detected (NOT DETECT) 12/19/22 23:38 Vancomycin Trough 8.8 ug/mL (10-15) L 12/24/22 04:55 Urine Opiates Screen Negative ng/mL (Negative) 12/25/22 06:47 Urine Opiates Level Cancelled 12/25/22 06:47 Urine Oxycodone Cancelled 12/25/22 06:47 U Methadone Metabolites Cancelled 12/25/22 06:47 Barbiturates Cancelled 12/25/22 06:47 Ur Barbiturates Screen Negative ng/mL (Negative) 12/25/22 06:47 Phencyclidine (PCP) Cancelled 12/25/22 06:47 Ur Phencyclidine Scrn Negative ng/mL (Negative) 12/25/22 06:47 Amphetamines Cancelled 12/25/22 06:47 Ur Amphetamines Screen Negative ng/mL (Negative) 12/25/22 06:47 Benzodiazepines Cancelled 12/25/22 06:47 U Benzodiazepines Scrn Positive ng/mL (Negative) H 12/25/22 06:47 Cocaine Metabolite Cancelled 12/25/22 06:47 Urine Cocaine Screen Negative ng/mL (Negative) 12/25/22 06:47 U Marijuana (THC) Screen Negative ng/mL (Negative) 12/25/22 06:47 U Marijuana Metabolites Cancelled 12/25/22 06:47 Abn Spec Valid Drug Scn Cancelled 12/25/22 06:47 Urine Drug Screen Note Cancelled 12/25/22 06:47 Ur Drug Screen Comment Cancelled 12/25/22 06:47 Adenovirus (PCR) Not detected (NOT DETECT) 12/19/22 23:38 C. pneumoniae DNA (PCR) Not detected (NOT DETECT) 12/19/22 23:38 Coronavirus 229E (PCR) Not detected (NOT DETECT) 12/19/22 23:38 Human Metapneumovir PCR Not detected (NOT DETECT) 12/19/22 23:38 Influenza A (H1) PCR Not detected (NOT DETECT) 12/19/22 23:38 Influenza A (H3) PCR Not detected (NOT DETECT) 12/19/22 23:38 Influenza Type A (PCR) Not detected (NOT DETECT) 12/19/22 23:38 Influenza Type B (PCR) Not detected (NOT DETECT) 12/19/22 23:38 M. pneumoniae (PCR) Not detected (NOT DETECT) 12/19/22 23:38 Parainfluenza 1 (PCR) Not detected (NOT DETECT) 12/19/22 23:38 Parainfluenza 2 (PCR) Not detected (NOT DETECT) 12/19/22 23:38 Parainfluenza 3 (PCR) Not detected (NOT DETECT) 12/19/22 23:38 Parainfluenza 4 (PCR) Not detected (NOT DETECT) 12/19/22 23:38 RSV Type A (PCR) Not detected (NOT DETECT) 12/19/22 23:38 RSV Type B (PCR) Not detected (NOT DETECT) 12/19/22 23:38 Entero/Rhino (PCR) Not detected (NOT DETECT) 12/19/22 23:38 SARS-CoV-2 (PCR) Not detected (NOT DETECT) 12/19/22 23:[address] 12/22/22 09:47 IMPRESSION: Some images degraded by beam Fontanez artifact. 1. No evidence of intracranial hemorrhage or mass effect. 2. Chronic infarcts RIGHT frontal, parietal, occipital, and posterior temporal lobes with encephalomalacia unchanged from previous. 3. Sphenoid sinusitis. 4. No other significant changes. Chest CT 12/24/22 12:20 IMPRESSION: 1. Tubes and lines as discussed above. 2. Mild reactive airway changes progressed from previous exam. 3. Stable 6 mm pulmonary nodule right mid lung zone. Chest X-Ray 12/25/22 12:01 IMPRESSION: 1. Adequately positioned tubes and catheters. 2. No acute findings. Recent Clincial Data Last Vital Signs Temp 96.8 F L 12/26/22 07:30 Pulse 71 12/26/22 09:21 Resp 12 12/26/22 09:24 BP 171/87 12/26/22 08:00 Pulse Ox 97 12/26/22 09:24 O2 Del Method Mechanical Ventilation 12/26/22 09:21 O2 Flow Rate 35 12/26/22 07:30 FiO2 35 12/26/22 09:24 Vital Signs Temp Pulse Resp BP Pulse Ox O2 Del Method O2 Flow Rate 12/26/22 09:24 12 97 12/26/22 09:21 71 12 97 Mechanical Ventilation 12/26/22 08:00 67 171/87 98 12/26/22 07:30 96.8 F L 69 12 178/84 98 Mechanical Ventilation 35 12/26/22 07:00 66 12 183/108 97 Mechanical Ventilation 35 12/26/22 07:51 12 98 12/26/22 06:00 57 L 12/26/22 06:15 12 96 12/26/22 06:00 57 L 124/67 97 12/26/22 05:30 66 120/67 96 12/26/22 05:00 70 133/76 96 12/26/22 04:30 60 130/77 98 12/26/22 04:00 97.7 F 74 113/64 96 Mechanical Ventilation 12/26/22 03:30 85 141/89 96 12/26/22 03:00 71 172/83 95 12/26/22 02:30 78 206/115 95 12/26/22 02:00 67 119/61 98 12/26/22 01:30 74 122/68 96 12/26/22 01:00 72 198/88 96 12/26/22 02:43 12 95 12/26/22 00:30 81 132/73 96 12/26/22 00:00 97.9 F 86 132/78 95 Mechanical Ventilation 12/25/22 23:30 71 213/99 96 12/25/22 23:00 66 171/80 97 12/25/22 22:30 60 119/62 97 12/25/22 22:00 56 L 123/60 98 12/25/22 22:00 56 L 12/25/22 22:04 12 98 FiO2 12/26/22 09:24 35 12/26/22 09:21 35 12/26/22 08:00 12/26/22 07:30 12/26/22 07:00 12/26/22 07:51 35 12/26/22 06:00 12/26/22 06:15 35 12/26/22 06:00 12/26/22 05:30 12/26/22 05:00 12/26/22 04:30 12/26/22 04:00 35 12/26/22 03:30 12/26/22 03:00 12/26/22 02:30 12/26/22 02:00 12/26/22 01:30 12/26/22 01:00 12/26/22 02:43 35 12/26/22 00:30 12/26/22 00:00 35 12/25/22 23:30 12/25/22 23:00 12/25/22 22:30 12/25/22 22:00 12/25/22 22:00 12/25/22 22:04 35 Intake & Output/Weight 12/24/22 12/25/22 12/26/22 12/27/22 06:59 06:59 06:59 06:59 Intake Total 1066.646 / 7691.283 5052.945 / 0265.885 5568.375 / 1336.375 151.555 / 151.555 Output Total 1300 / 1300 4825 / 4825 1550 / 1550 Balance -233.354 / -233.354 -3668.055 / -3668.055 -213.625 / -213.625 151.555 / 151.555 Weight 77.337 kg 75.07 kg 75.478 kg Vitals Last Vital Signs Temp 96.8 F L 12/26/22 07:30 Pulse 71 12/26/22 09:21 Resp 12 12/26/22 09:24 BP 171/87 12/26/22 08:00 Pulse Ox 97 12/26/22 09:24 O2 Del Method Mechanical Ventilation 12/26/22 09:21 O2 Flow Rate 35 12/26/22 07:30 FiO2 35 12/26/22 09:24 TS Medications Medications Acetaminophen (Acetaminophen 325 Mg Tablet) 650 mg PO Q6H PRN PRN Reason: MILD PAIN Albuterol/Ipratropium (Ipratropium-Albuterol 3 Ml Neb) 3 ml INHALATION Q6H.RESP AD Artificial Tears (Artificial Tears Op Oint 3.5 Gm) 1 applic EYE-BOTH PRN PRN PRN Reason: DRY EYE(S) Last Admin: 12/23/22 23:58 Dose: 1 applic Budesonide (Budesonide 0.5 Mg/2 Ml Neb) 0.5 mg INHALATION BID.RESPIRATORY PRN PRN Reason: BRONCHOSPASM Chlorhexidine Gluconate (Chlorhexidine Gluconate 4% Btl 118 Ml) 1 applic TOPICAL 0100 DA Last Admin: 12/26/22 01:49 Dose: 1 applic Enoxaparin Sodium (Enoxaparin 40 Mg/0.4 Ml Syringe) 40 mg SUBCUT Q24H AD Last Admin: 12/26/22 04:07 Dose: 40 mg Hydralazine HCl (Hydralazine 20 Mg/Ml Inj 1 Ml) 10 mg IVP Q4H PRN PRN Reason: SBP more than 160 mmhg Norepinephrine Bitartrate 4 mg (/ Dextrose) 254 mls @ 0 mls/hr IV .Q0M AD; Protocol Last Titration: 12/25/22 13:59 Dose: 0 mcg/min, 0 mls/hr Dexmedetomidine HCl 400 mcg/ (Sodium Chloride) 104 mls @ 0 mls/hr IV .Q0M AD; Protocol Last Titration: 12/22/22 17:31 Dose: Infused Piperacillin Sod/Tazobactam (Sod 3.375 gm/ Sodium Chloride) 50 mls @ 12.5 mls/hr IV Q8H DA; Protocol Last Infusion: 12/26/22 08:28 Dose: Infused Fentanyl 2,500 mcg/ Sodium (Chloride) 250 mls @ 0 mls/hr IV .Q0M AD; Protocol Last Titration: 12/26/22 09:06 Dose: 190 mcg/hr, 19 mls/hr Propofol (Diprivan) 1,000 mg in 100 mls @ 0 mls/hr IV .Q0M AD; Protocol Last Titration: 12/25/22 13:59 Dose: 0 mcg/kg/min, 0 mls/hr Midazolam HCl 100 mg/ Sodium (Chloride) 100 mls @ 0 mls/hr IV .Q0M AD; Protocol Last Titration: 12/26/22 02:37 Dose: 4 mg/hr, 4 mls/hr Vancomycin/PEG/[place]/Lysine/Water (Vancocin) 1,250 mg in 250 mls @ 250 mls/hr IV Q18H [facility] Last Infusion: 12/25/22 06:18 Dose: Infused Cisatracurium Besylate 100 mg/ (Sodium Chloride) 100 mls @ 0 mls/hr IV .Q0M [facility]; Protocol Last Titration: 12/26/22 09:52 Dose: 1.2 mcg/kg/min, 5.41 mls/hr Dopamine HCl/Dextrose (Intropin Drip) 400 mg in 250 mls @ 14.076 mls/hr IV CONT AD; Protocol Last Titration: 12/25/22 23:34 Dose: 0 mcg/kg/min, 0 mls/hr Methylprednisolone Sodium Succinate 100 mg/ Sterile Water 1.6 mls @ 9.6 mls/hr IVP Q8H [facility] Last Infusion: 12/26/22 05:51 Dose: Infused Ipratropium [place] (Ipratropium 0.5 Mg/2.5 Ml Neb) 0.5 mg INHALATION Q2H PRN PRN Reason: SHORTNESS OF BREATH Last Admin: 12/22/22 17:44 Dose: 0.5 mg Levalbuterol HCl (Levalbuterol 1.25 Mg/3 Ml Neb) 1.25 mg INHALATION Q2H PRN PRN Reason: SHORTNESS OF BREATH Last Admin: 12/22/22 17:44 Dose: 1.25 mg Montelukast Sodium (Montelukast Sodium 10 Mg Tablet) 10 mg PO QAM [facility] Last Admin: 12/26/22 06:01 Dose: 10 mg Ondansetron HCl (Ondansetron 2 Mg/Ml Sdv 2 Ml) 4 mg IVP Q6H PRN PRN Reason: NAUSEA AND VOMITING Pantoprazole Sodium (Pantoprazole 40 Mg Sdv) 40 mg IVP DAILY [facility] Last Admin: 12/26/22 09:43 Dose: 40 mg Senna/Docusate Sodium (Sennosides-Docusate Tablet) 1 tab PO DAILY PRN PRN Reason: CONSTIPATION Discontinued Medications Albuterol Sulfate (Albuterol 2.5 Mg/3 Ml Neb) 5 mg INHALATION ONCE ONE Stop: 12/16/22 22:27 Last Admin: 12/16/22 22:40 Dose: 5 mg Albuterol Sulfate (Albuterol 2.5 Mg/3 Ml Neb) Confirm Administered Dose 2.5 mg .ROUTE .STK-MED ONE Stop: 12/16/22 22:42 Last Admin: 12/17/22 00:03 Dose: 2.5 mg Albuterol Sulfate (Albuterol 2.5 Mg/3 Ml Neb) 2.5 mg INHALATION ONCE ONE Stop: 12/17/22 00:27 Last Admin: 12/17/22 00:52 Dose: 2.5 mg Albuterol Sulfate (Albuterol 2.5 Mg/3 Ml Neb) 2.5 mg INHALATION ONCE ONE Stop: 12/17/22 02:54 Last Admin: 12/17/22 07:36 Dose: Not Given Albuterol Sulfate (Albuterol 2.5 Mg/3 Ml Neb) 10 mg INHALATION ONCE ONE Stop: 12/17/22 03:33 Last Admin: 12/17/22 03:39 Dose: 10 mg Albuterol/Ipratropium (Ipratropium-Albuterol 3 Ml Neb) 3 ml INHALATION Q4H AD Last Admin: 12/18/22 07:43 Dose: 3 ml Albuterol/Ipratropium (Ipratropium-Albuterol 3 Ml Neb) 3 ml INHALATION Q4H.RESPIRATORY AD Last Admin: 12/19/22 07:58 Dose: 3 ml Albuterol/Ipratropium (Ipratropium-Albuterol 3 Ml Neb) 3 ml INHALATION ONCE ONE Stop: 12/25/22 16:06 Last Admin: 12/25/22 16:11 Dose: 3 ml Alprazolam (Alprazolam 0.5 Mg Tablet) 0.5 mg PO TID PRN PRN Reason: ANXIETY Budesonide (Budesonide 0.5 Mg/2 Ml Neb) 0.5 mg INHALATION BID.RESPIRATORY AD Last Admin: 12/24/22 07:51 Dose: 0.5 mg Chlorhexidine Gluconate (Chlorhexidine Gluconate 4% Btl 118 Ml) 1 applic TOPICAL Q24H AD Last Admin: 12/22/22 23:05 Dose: Not Given Etomidate (Etomidate 2 Mg/Ml Inj Sdv 10 Ml) 20 mg IVP NOW ONE Stop: 12/17/22 03:07 Last Admin: 12/17/22 03:23 Dose: Not Given Etomidate (Etomidate 2 Mg/Ml Inj Sdv 10 Ml) 7.59 mg 0.1 mg/kg (7.59 mg) IVP ONCE ONE Stop: 12/22/22 17:13 Last Admin: 12/22/22 17:22 Dose: 7.59 mg Fentanyl (Fentanyl 50 Mcg/Ml Inj 2ml) 50 mcg IVP ONCE ONE Stop: 12/22/22 16:52 Last Admin: 12/22/22 17:22 Dose: 50 mcg Furosemide (Furosemide 10 Mg/Ml Sdv 2ml) 20 mg IVP ONCE ONE Stop: 12/18/22 15:16 Last Admin: 12/18/22 16:14 Dose: 20 mg Furosemide (Furosemide 10 Mg/Ml Sdv 2ml) 20 mg IVP ONCE ONE Stop: 12/19/22 13:44 Last Admin: 12/19/22 14:04 Dose: 20 mg Furosemide (Furosemide 10 Mg/Ml Sdv 2ml) 20 mg IVP ONCE ONE Stop: 12/21/22 12:28 Last Admin: 12/21/22 12:36 Dose: 20 mg Furosemide (Furosemide 10 Mg/Ml Sdv 2ml) 20 mg IVP ONCE ONE Stop: 12/24/22 12:26 Last Admin: 12/24/22 13:30 Dose: 20 mg Hydralazine HCl (Hydralazine 20 Mg/Ml Inj 1 Ml) 10 mg IVP ONCE ONE Stop: 12/17/22 01:28 Last Admin: 12/17/22 01:37 Dose: 10 mg Hydralazine HCl (Hydralazine 20 Mg/Ml Inj 1 Ml) 20 mg IVP ONCE ONE Stop: 12/17/22 02:44 Last Admin: 12/17/22 02:49 Dose: 20 mg Magnesium Sulfate (Magnesium Sulfate Premix) 2 gm in 50 mls @ 50 mls/hr IV ONCE ONE Stop: 12/16/22 23:25 Last Infusion: 12/17/22 00:28 Dose: Infused Propofol (Diprivan) 1,000 mg in 100 mls @ 0 mls/hr IV .Q0M AD; Protocol Last Titration: 12/22/22 17:25 Dose: Infused Sodium Chloride (Sodium Chloride 0.9%) 1,000 mls @ 75 mls/hr IV .[id number] AD Last Infusion: 12/17/22 21:08 Dose: Infused Levofloxacin/Dextrose (Levaquin-D5w) 750 mg in 150 mls @ 100 mls/hr IV Q24H AD; Protocol Last Infusion: 12/21/22 05:30 Dose: Infused Fentanyl 1,000 mcg/ Sodium (Chloride) 100 mls @ 0 mls/hr IV .Q0M AD; Protocol Last Titration: 12/20/22 23:00 Dose: 200 mcg/hr, 20 mls/hr Potassium Chloride/Sodium Chloride (Sodium Chlor 0.9% + Kcl 20 Meq) 20 meq in 1,000 mls @ 75 mls/hr IV .[id number] AD Stop: 12/18/22 17:00 Last Infusion: 12/18/22 17:21 Dose: Infused Potassium Chloride (K-Corey Premix) 20 meq in 100 mls @ 50 mls/hr IV ONCE ONE Stop: 12/17/22 22:40 Last Infusion: 12/17/22 22:57 Dose: Infused Piperacillin Sod/Tazobactam (Sod 3.375 gm/ Sodium Chloride) 50 mls @ 12.5 mls/hr IV Q8H [facility]; Protocol Last Admin: 12/20/22 00:44 Dose: Not Given Dexmedetomidine HCl 1,000 mcg/ (Sodium Chloride) 260 mls @ 0 mls/hr IV .Q0M AD; Protocol Last Titration: 12/22/22 12:46 Dose: Infused Vancomycin HCl / Sodium (Chloride) 250 mls @ 0 mls/hr [id number] PROTOCOL [facility]; Protocol Vancomycin HCl 1,000 mg/ (Sodium Chloride) 250 mls @ 250 mls/hr IV Q24H [facility] Last Admin: 12/22/22 07:33 Dose: Not Given Magnesium Sulfate 1 gm/ Sodium (Chloride) 52 mls @ 104 mls/hr IV ONCE ONE Stop: 12/19/22 03:32 Last Infusion: 12/19/22 06:40 Dose: Infused Methylprednisolone Sodium (Succinate 60 mg/ Sterile Water) 0.96 mls @ 11.52 mls/hr IVP Q6H [facility] Last Infusion: 12/20/22 05:54 Dose: Infused Magnesium Sulfate 1 gm/ Sodium (Chloride) 52 mls @ 104 mls/hr IV ONCE ONE Stop: 12/19/22 22:47 Last Infusion: 12/20/22 00:43 Dose: Infused Methylprednisolone Sodium (Succinate 60 mg/ Sterile Water) 0.96 mls @ 11.52 mls/hr IVP Q8H [facility] Last Admin: 12/25/22 12:51 Dose: 11 mls/hr Norepinephrine Bitartrate 4 mg (/ Dextrose) 254 mls @ 0 mls/hr IV .Q0M AD; Protocol Vancomycin HCl 1,000 mg/ (Sodium Chloride) 250 mls @ 250 mls/hr IV Q18H AD Last Infusion: 12/23/22 13:54 Dose: Infused Cisatracurium Besylate 100 mg/ (Sodium Chloride) 100 mls @ 0 mls/hr IV .Q0M AD; Protocol Last Titration: 12/24/22 11:21 Dose: 0 mcg/kg/min, 0 mls/hr Etomidate (Amidate) Confirm Administered Dose 10 mls @ as directed .ROUTE .STK-MED ONE Stop: 12/22/22 17:13 Sodium Chloride (Sodium Chloride 0.9%) 250 mls @ 250 mls/hr IV ONCE ONE Stop: 12/25/22 09:53 Last Infusion: 12/25/22 13:42 Dose: Infused Ipratropium [place] (Ipratropium 0.5 Mg/2.5 Ml Neb) 0.5 mg INHALATION Q4H.RESPIRATORY AD Last Admin: 12/19/22 20:45 Dose: 0.5 mg Ipratropium [place] (Ipratropium 0.5 Mg/2.5 Ml Neb) 0.5 mg INHALATION Q4H.RESPIRATORY AD Last Admin: 12/24/22 07:51 Dose: 0.5 mg Ketamine HCl (Ketamine 50 Mg/Ml Inj 10 Ml) 120 mg IVP ONCE ONE Stop: 12/17/22 03:17 Last Admin: 12/17/22 03:23 Dose: 120 mg Levalbuterol HCl (Levalbuterol 1.25 Mg/3 Ml Neb) 1.25 mg INHALATION Q4H.RESPIRATORY PRN PRN Reason: SHORTNESS OF BREATH Last Admin: 12/19/22 11:05 Dose: 1.25 mg Levalbuterol HCl (Levalbuterol 1.25 Mg/3 Ml Neb) 1.25 mg INHALATION Q4H.RESPIRATORY AD Last Admin: 12/24/22 07:52 Dose: 1.25 mg Levalbuterol HCl (Levalbuterol 1.25 Mg/3 Ml Neb) 1.25 mg INHALATION ONCE ONE Stop: 12/19/22 22:34 Last Admin: 12/19/22 22:37 Dose: 1.25 mg Lorazepam (Lorazepam 2 Mg/Ml Inj 1 Ml) 0.5 mg IVP NOW ONE Stop: 12/17/22 00:30 Last Admin: 12/17/22 00:39 Dose: 0.5 mg Lorazepam (Lorazepam 2 Mg/Ml Inj 1 Ml) 0.5 mg IVP NOW ONE Stop: 12/17/22 00:43 Last Admin: 12/17/22 00:50 Dose: 0.5 mg Lorazepam (Lorazepam 2 Mg/Ml Inj 1 Ml) 1 mg IVP NOW ONE Stop: 12/17/22 01:24 Last Admin: 12/17/22 01:38 Dose: 1 mg Lorazepam (Lorazepam 2 Mg/Ml Inj 1 Ml) 0.5 mg IVP Q2H PRN PRN Reason: ANXIETY Last Admin: 12/21/22 03:53 Dose: 0.5 mg Lorazepam (Lorazepam 2 Mg/Ml Inj 1 Ml) 1 mg IVP ONCE PRN PRN Reason: ANXIETY Last Admin: 12/22/22 16:35 Dose: 1 mg Lorazepam (Lorazepam 2 Mg/Ml Inj 1 Ml) Confirm Administered Dose 2 mg .ROUTE .STK-MED ONE Stop: 12/22/22 16:25 Last Admin: 12/22/22 17:23 Dose: Not Given Methylprednisolone Sodium Succinate (Methylprednisolone Sod Succ 125 Mg Sdv) 125 mg IVP ONCE ONE Stop: 12/17/22 02:16 Last Admin: 12/17/22 02:17 Dose: 125 mg Methylprednisolone Sodium Succinate (Methylprednisolone Sod Succ 40 Mg Sdv) 60 mg IVP Q6H [facility] Last Admin: 12/18/22 10:16 Dose: 60 mg Methylprednisolone Sodium Succinate (Methylprednisolone Sod Succ 125 Mg Sdv) 60 mg IVP Q12H [facility] Last Admin: 12/19/22 03:13 Dose: 60 mg Methylprednisolone Sodium Succinate (Methylprednisolone Sod Succ 125 Mg Sdv) 60 mg IVP Q6H [facility] Prednisone (Prednisone 20 Mg Tablet) 60 mg PO ONCE ONE Stop: 12/16/22 23:46 Last Admin: 12/17/22 00:03 Dose: 60 mg Rocuronium [place] (Rocuronium 10 Mg/Ml Inj 5ml) 0 mg IV NOW ONE Stop: 12/22/22 16:52 Last Admin: 12/22/22 17:22 Dose: 60 mg Sterile Water (Water For Injection-Sterile Sdv 10 Ml) 0 ml IVP ONCE ONE Stop: 12/17/22 03:55 Last Admin: 12/17/22 04:33 Dose: 10 ml Succinylcholine Chloride (Succinylcholine 20 Mg/Ml Sdv 10ml) 120 mg IVP NOW ONE Stop: 12/17/22 03:07 Last Admin: 12/17/22 03:23 Dose: 120 mg Vecuronium [place] (Vecuronium 10 Mg Sdv) 8 mg IVP ONCE ONE Stop: 12/17/22 03:38 Last Admin: 12/17/22 03:54 Dose: 8 mg Allergies Iodinated Contrast Media Allergy (Unknown, Verified 12/17/22 08:34) Unknown pt states makes heart race and vomit dexamethasone Allergy (Verified 12/17/22 08:34) ALGY-Rash Egg Derived Allergy (Verified 12/17/22 08:34) ALGY-Difficulty Breathing Home Medications prazosin 1 mg capsule 1 mg PO BEDTIME PRN unknown 05/04/22 [History Confirmed 12/17/22] albuterol sulfate 90 mcg/actuation aerosol inhaler 2 puff inhalation Q6H PRN shortness of breath or wheezing 30 days #8.5 grams 06/02/22 [Rx Confirmed 12/17/22] ascorbic acid (vitamin C) 500 mg tablet (Vitamin C) 500 mg PO QAM 06/20/22 [History Confirmed 12/17/22] calcium carbonate 600 mg-vitamin D3 5 mcg (200 unit) tablet 1 tab PO QAM 06/20/22 [History Confirmed 12/17/22] multivitamin 1 tab PO QAM 06/20/22 [History Confirmed 12/17/22] tiotropium bromide 1.25 mcg/actuation mist for inhalation (Spiriva Respimat) 2 puff inhalation QAM 06/20/22 [History Confirmed 12/17/22] zinc acetate 50 mg (zinc) capsule 50 mg PO QAM 06/20/22 [History Confirmed 12/17/22] montelukast 10 mg tablet (Singulair) 10 mg PO QAM #30 tabs 06/28/22 [Rx Confirmed 12/17/22] benralizumab 30 mg/mL subcutaneous auto-injector (Fasenra Pen) 30 mg SUBCUT .q 8 weeks #1 mL 07/21/22 [Rx Confirmed 12/17/22] benralizumab 30 mg/mL subcutaneous auto-injector (Fasenra Pen) 30 mg SUBCUT Q28D 3 doses #1 mL 07/21/22 [Rx Confirmed 12/17/22] Walker with wheels and a seat #1 ea 08/01/22 [Rx Confirmed 12/17/22] hydroxyzine HCl 25 mg tablet 25 mg PO BID PRN Anxiety #60 tabs 09/13/22 [Rx Confirmed 12/17/22] budesonide 0.5 mg/2 mL suspension for nebulization (Pulmicort) 0.5 mg (2 mL) inhalation BID #60 mL 09/17/22 [Rx Confirmed 12/17/22] ipratropium 0.5 mg-albuterol 3 mg (2.5 mg base)/3 mL nebulization soln 3 ml inhalation TID #180 mL 09/17/22 [Rx Confirmed 12/17/22] albuterol sulfate 2.5 mg/3 mL (0.083 %) solution for nebulization 2.5 mg (3 mL) inhalation QID PRN shortness of breath or wheezing #360 mL 11/14/22 [Rx Confirmed 12/17/22] prednisone 10 mg tablet 10 mg PO DIRECTED #63 tabs 12/05/22 [Rx Confirmed 12/17/22] furosemide 20 mg tablet 20 mg PO DAILY PRN Edema 12/11/22 [History Confirmed 12/17/22] budesonide-formoterol HFA 160 mcg-4.5 mcg/actuation aerosol inhaler (Symbicort) 2 puff inhalation BID 30 days #10.2 grams 12/25/22 [Rx] Discharge Plan Discharge Patient Disposition: Xfer Short-Term Hosp Condition: Stable Prescriptions: No Action (DME) Walker with wheels and a seat See Rx Instructions .Route .MEDSUPPLY Qty: 1 0RF Rx Instructions: As directed albuterol sulfate 90 mcg/actuation HFA aerosol inhaler 2 puff inhalation Q6H PRN (Reason: shortness of breath or wheezing) 30 Days Qty: 8.5 12RF Singulair 10 mg tablet 10 mg PO QAM Qty: 30 3RF Fasenra Pen 30 mg/mL auto-injector 30 mg SUBCUT Q28D Qty: 1 2RF Rx Instructions: LOADING DOSE [place] Ref# [id number], 04/03/22-04/03/23 [id number] Fasenra Pen 30 mg/mL auto-injector 30 mg SUBCUT .q 8 weeks Qty: 1 5RF Rx Instructions: Maintenance dose [place] Ref# [id number], 04/03/22-04/03/23 [id number] albuterol sulfate 2.5 mg /3 mL (0.083 %) solution for nebulization 2.5 mg inhalation QID PRN (Reason: shortness of breath or wheezing) Qty: 360 9RF budesonide-formoterol [Symbicort] 160-4.5 mcg/actuation HFA aerosol inhaler 2 puff inhalation BID 30 Days Qty: 10.2 3RF hydroxyzine HCl 25 mg tablet 25 mg PO BID PRN (Reason: Anxiety) Qty: 60 6RF prednisone 10 mg tablet 10 mg PO DIRECTED Qty: 63 0RF Rx Instructions: see taper instructions prazosin 1 mg capsule 1 mg PO BEDTIME PRN (Reason: unknown) multivitamin Tablet 1 tab PO QAM zinc acetate 50 mg (zinc) Capsule 50 mg PO QAM calcium carbonate-vitamin D3 600 mg-5 mcg (200 unit) Tablet 1 tab PO QAM ascorbic acid (vitamin C) [Vitamin C] 500 mg Tablet 500 mg PO QAM Spiriva Respimat 1.25 mcg/actuation mist 2 puff inhalation QAM budesonide [Pulmicort] 0.5 mg/2 mL suspension for nebulization 0.5 mg inhalation BID Qty: 60 0RF ipratropium-albuterol 0.5 mg-3 mg(2.5 mg base)/3 mL solution for nebulization 3 ml inhalation TID Qty: 180 0RF furosemide 20 mg tablet 20 mg PO DAILY PRN (Reason: Edema) Discharge Orders: Transfer Out of Facility (Order); Ordered 12/26/22 Ordered By: Afia Hernandez Referrals: Laron Gutierrez MD [Primary Care Provider] - Patient Instructions: Opioid Safety Transfer Attestations Time Spent in Transfer Care: greater than 30 min Status at Transfer: Cognitive status at transfer: cognitively intact; Behavioral status at transfer: cooperative; Quality Metrics Clinical Quality Measures [ No reported AMI, CVA or VTE this stay] Coding Level of Care Code Acute Code for Chg Fwd Diagnoses Acute respiratory failure requiring reintubation J96.00 Difficulty with extubation T88.8XXA Bronchospasm J98.01 Bradycardia R00.1 Asthma with exacerbation J45.901 Acute exacerbation of chronic obstructive airways disease J44.1 PTSD (post-traumatic stress disorder) F43.10 H/O of biological therapy treatment Z92.89
--- NOTE | 2022-12-26 10:32 | PM.PN ---
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 She was off dopamine today morning Patient continues to have persistent wheeze. She is still on Nimbex, fentanyl 200, Versed 4, ABG 7.3 /72/32 on CMV 360/PEEP of 5/FiO2 35%/rate 12; I time 0.90, PEEP latches 16, PIP 32, auto PEEP 2 We will continue to give scheduled DuoNeb nebulization and plan to taper off paralytic as well as sedation today. While maintaining lung protective strategies with low tidal volume and respiratory rate allowing for permissive hypercapnia-so far patient did well since last shift For persistent bronchospasm she may benefit from ketamine infusion-unfortunately we do not have any protocol established for that. This is a complicated status asthmaticus patient requiring close ICU monitoring and I will not be on-call for next 10 days ; she needs close ICU monitoring with 18/12 critical care services unfortunately we do not crimping machine operator for metal coverage. Discussed with Shawnee Tracyfield crimping machine operator for metal and accepted the patient. Medications: Reviewed: Yes Vitals/I&O/Wt Last Vital Signs Temp 96.8 F L 12/26/22 07:30 Pulse 90 12/26/22 10:00 Resp 12 12/26/22 10:00 BP 111/61 12/26/22 10:00 Pulse Ox 95 12/26/22 10:00 O2 Del Method Mechanical Ventilation 12/26/22 10:00 O2 Flow Rate 35 12/26/22 07:30 FiO2 35 12/26/22 10:00 12/25/22 12/26/22 12/26/22 22:59 06:59 14:59 Intake Total 169.048 / 898.232 438.143 / 1336.375 153.719 / 153.719 Output Total 550 / 900 650 / 1550 Balance -380.952 / -1.768 -211.857 / -213.625 153.719 / 153.719 Weight last 48 hrs Weight 166 lb 6.4 oz Weight 165 lb 8 oz Physical Exam Narrative: PHYSICAL EXAM: General: lying in bed, sedated and intubated. HEENT:NCAT, PERRLA, EOMI Neck: Supple Lungs: Bilateral diffuse end expiratory wheeze Heart: s1/s2, RRR Abd: soft, NT, ND, BS + Normoactive Extremities: No edema HEAVY REPAIRER: sedated and limited HEAVY REPAIRER exam possible. SKIN: no rash Urinary Catheter Management: Maier Latex: Cath Placed During This Visit: yes Reason for Continuing Indwelling Catheter: Accurate Measurement of Urinary Output in Critically Ill Patients Urinary Catheter Date of Insertion: 12/17/22 Urinary Catheter Time of Insertion: 04:36 Data 12/26/22 03:00 12/26/22 03:00 Other Labs: Radiology Impressions Head CT 12/22/22 09:47 IMPRESSION: Some images degraded by beam Fontanez artifact. 1. No evidence of intracranial hemorrhage or mass effect. 2. Chronic infarcts RIGHT frontal, parietal, occipital, and posterior temporal lobes with encephalomalacia unchanged from previous. 3. Sphenoid sinusitis. 4. No other significant changes. Chest CT 12/24/22 12:20 IMPRESSION: 1. Tubes and lines as discussed above. 2. Mild reactive airway changes progressed from previous exam. 3. Stable 6 mm pulmonary nodule right mid lung zone. Chest X-Ray 12/25/22 12:01 IMPRESSION: 1. Adequately positioned tubes and catheters. 2. No acute findings. Laboratory Results WBC 13.0 10^3/uL (4.0-10.0) H 12/26/22 03:00 RBC 4.34 10^6/uL (4.1-5.3) 12/26/22 03:00 Hgb 12.0 g/dL (11.5-15.3) 12/26/22 03:00 Hct 37.9 % (37.0-47.0) 12/26/22 03:00 MCV 87.3 fl (81-99) 12/26/22 03:00 MCH 27.6 pg (28.0-34.0) L 12/26/22 03:00 MCHC 31.7 g/dL (30.0-36.0) 12/26/22 03:00 RDW 15.7 % (12.1-15.1) H 12/26/22 03:00 Plt Count 248 10^3/cmm (130-400) 12/26/22 03:00 MPV 9.3 fL (7.4-10.4) 12/26/22 03:00 Neut % (Auto) 89.0 % 12/26/22 03:00 Lymph % (Auto) 7.0 % 12/26/22 03:00 [place] % (Auto) 3.1 % 12/26/22 03:00 Eos % (Auto) 0.0 % 12/26/22 03:00 Baso % (Auto) 0.2 % 12/26/22 03:00 Neut # (Auto) 10.94 10^3/uL (1.8-7.7) H 12/26/22 03:00 Lymph # (Auto) 0.7 10^3/uL (0.8-4.8) L 12/26/22 03:00 [place] # (Auto) 0.4 10^3/uL (0.2-0.9) 12/26/22 03:00 Eos # (Auto) 0.0 10^3/uL (0.0-0.8) 12/26/22 03:00 Baso # (Auto) 0.0 10^3/uL (0.0-0.1) 12/26/22 03:00 Nucleated RBC % (auto) 0.2 % 12/26/22 03:00 Total Counted 100 (0-100) 12/22/22 02:30 Atypical Lymphs % Not Reportable 12/22/22 02:30 Segmented Neutrophils 84 % 12/22/22 02:30 Abs Segm Neuts (Man) 11.2 10/cmm (1.6-7.1) H 12/22/22 02:30 Band Neutrophils Not Reportable 12/22/22 02:30 Lymphocytes (Manual) 8 % 12/22/22 02:30 Monocytes (Manual) 5.0 % 12/22/22 02:30 Absolute Monocytes 0.7 10^3/cmm (0.1-0.6) H 12/22/22 02:30 Eosinophils (Manual) 0 % 12/22/22 02:30 Absolute Eosinophils 0.0 10^3/cmm (0.0-0.7) 12/22/22 02:30 Basophils (Manual) 0.0 % 12/22/22 02:30 Absolute Basophils 0.0 10^3/cmm (0.0-0.2) 12/22/22 02:30 Myelocytes 3.0 % 12/22/22 02:30 Nucleated RBCs # 0.0 /100WBC 12/26/22 03:00 Platelet Estimate Normal (Normal) 12/22/22 02:30 PT 12.10 SECONDS (12.1-14.9) 12/16/22 22:46 INR 0.87 (0.8-1.2) 12/16/22 22:46 D-Dimer 0.50 ug/mIFEU (0-0.59) 12/17/22 13:21 Specimen Type Arterial 12/26/22 04:00 Sample Site Radial, right 12/26/22 04:00 ABG pH 7.37 (7.35-7.45) 12/26/22 04:00 ABG pCO2 56.1 mmHg (35-45) H 12/26/22 04:00 ABG pO2 72.8 mmHg (80.0-100.0) L 12/26/22 04:00 ABG HCO3 32.0 mmol/L (22-26) H 12/26/22 04:00 ABG O2 Saturation 93.2 12/25/22 15:31 ABG Base Excess 5.2 mmol/L (-2.0-2.0) H 12/26/22 04:00 Eric Test Pos 12/26/22 04:00 A-a O2 Gradient 17.4 mmHg (5-10) H 12/25/22 15:31 Hematocrit 38.7 % (37-47) 12/26/22 04:00 Hgb O2 Saturation 91.5 % (95-100) L 12/25/22 15:31 Carboxyhemoglobin 1.2 %THgb (0.4-20.1) 12/25/22 15:31 Methemoglobin 0.7 % (0.4-1.5) 12/25/22 15:31 Total Hemoglobin 13.1 g/dL (12-16) 12/25/22 15:31 Sodium 146.0 mmol/L (131-143) H 12/25/22 15:31 Potassium 4.3 mmol/L (3.5-5.0) 12/25/22 15:31 Glucose 147.0 mg/dL (70-115) H 12/25/22 15:31 Ionized Calcium 1.2 mmol/L (1.1-1.4) 12/25/22 15:31 Respiration Rate 16.0 % 12/18/22 12:50 O2 Delivery Device Vent 12/26/22 04:00 O2 Liters/Min 2.0 % 12/17/22 01:50 Vent Mode Vc-ac 12/18/22 12:50 FiO2 35.0 % 12/26/22 04:00 Tidal Volume 0.36 12/26/22 04:00 PEEP 5.0 cmH20 12/26/22 04:00 Specimen Drawn By Edward 12/18/22 12:50 Database Security Expert ID [email or web address] 12/26/22 04:00 Sodium 147 mmol/L (136-145) H 12/26/22 03:00 Potassium 4.5 mmol/L (3.5-5.1) 12/26/22 03:00 Chloride 109 mmol/L (98-107) H 12/26/22 03:00 Carbon Dioxide 30 mmol/L (22-29) H 12/26/22 03:00 Anion Gap 12.5 (5-19) 12/26/22 03:00 BUN 30 mg/dL (6-20) H 12/26/22 03:00 Creatinine 0.5 mg/dL (0.5-0.9) 12/26/22 03:00 GFR Calculation 129.1 mL/min (90-130) 12/26/22 03:00 Glucose 137 mg/dL (65-115) H 12/26/22 03:00 POC Glucose 106 mg/dL (70-110) 12/26/22 06:41 Specific [place] Cancelled 12/25/22 06:47 Calculated Osmolality 312 mOsm/kg (285-295) H 12/26/22 03:00 Lactate 1.1 mmol/L (0.5-2.2) 12/25/22 12:30 Calcium 8.6 mg/dL (8.5-10.5) 12/26/22 03:00 Phosphorus 4.3 mg/dL (2.5-4.5) 12/25/22 11:58 Magnesium 2.3 mg/dL (1.7-2.3) 12/25/22 11:58 Total Bilirubin 0.4 mg/dL (0.15-1.2) 12/26/22 03:00 AST 46 U/L (0-32) H 12/26/22 03:00 ALT 99 U/L (0-33) H 12/26/22 03:00 Alkaline Phosphatase 53 U/L (35-105) 12/26/22 03:00 Lactate Dehydrogenase 316 U/L (135-214) H 12/26/22 03:00 Creatine Kinase 113 U/L (26-192) 12/25/22 11:58 Troponin T Gen 5 ng/L 87 ng/L (0-10) H 12/26/22 01:05 Troponin T Baseline 44 ng/L (0-10) H 12/25/22 12:30 Troponin T 120 Minute 76.56 ng/L (0-10) H 12/25/22 14:30 Delta Troponin T 32.56 ABS# (0-10) H* 12/25/22 14:30 Troponin T Hi Sens 6Hr 86.98 ng/L (0-10) H 12/25/22 19:00 Troponin T Hi Sens 6Hr Delta 42.98 ng/L (0-12) H* 12/25/22 19:00 NT-Pro-B Natriuret Pep 78 pg/mL (0-125) 12/16/22 22:46 Total Protein 5.5 g/dL (6.6-8.7) L 12/26/22 03:00 Albumin 3.6 g/dL (3.5-5.2) 12/26/22 03:00 Globulin 1.9 g/dL (1.3-4.6) 12/26/22 03:00 Triglycerides 297 mg/dL (0-150) H 12/25/22 11:58 Urine Color Yellow (Yellow) 12/17/22 13:15 Urine Appearance Clear (CLEAR) 12/17/22 13:15 Urine pH Cancelled 12/25/22 06:47 Ur Specific [place] 1.020 (1.005-1.030) 12/17/22 13:15 Urine Protein 1+ (Negative) H 12/17/22 13:15 Urine Glucose (UA) Trace (Normal) H 12/17/22 13:15 Urine Ketones 1+ (Negative) H 12/17/22 13:15 Urine Blood 3+ (Negative) H 12/17/22 13:15 Urine Nitrate Negative (Negative) 12/17/22 13:15 Urine Bilirubin Neg (Negative) 12/17/22 13:15 Urine Urobilinogen Norm mg/dL (Negative) 12/17/22 13:15 Ur Leukocyte Esterase Negative (Negative) 12/17/22 13:15 Urine RBC 5-10 /hpf (0-2) H 12/17/22 13:15 Urine WBC None /hpf (0-5) 12/17/22 13:15 Ur Squamous Epith Cells Rare /hpf (0-5) 12/17/22 13:15 Amorphous Sediment Not Reportable 12/17/22 13:15 Urine Bacteria Trace /hpf (NONE) 12/17/22 13:15 Urine Mucus Trace /hpf 12/17/22 13:15 Urine Oxidant Cancelled 12/25/22 06:47 Nasal Influ A H1 2008 PCR Not detected (NOT DETECT) 12/19/22 23:38 Vancomycin Trough 8.8 ug/mL (10-15) L 12/24/22 04:55 Urine Opiates Screen Negative ng/mL (Negative) 12/25/22 06:47 Urine Opiates Level Cancelled 12/25/22 06:47 Urine Oxycodone Cancelled 12/25/22 06:47 U Methadone Metabolites Cancelled 12/25/22 06:47 Barbiturates Cancelled 12/25/22 06:47 Ur Barbiturates Screen Negative ng/mL (Negative) 12/25/22 06:47 Phencyclidine (PCP) Cancelled 12/25/22 06:47 Ur Phencyclidine Scrn Negative ng/mL (Negative) 12/25/22 06:47 Amphetamines Cancelled 12/25/22 06:47 Ur Amphetamines Screen Negative ng/mL (Negative) 12/25/22 06:47 Benzodiazepines Cancelled 12/25/22 06:47 U Benzodiazepines Scrn Positive ng/mL (Negative) H 12/25/22 06:47 Cocaine Metabolite Cancelled 12/25/22 06:47 Urine Cocaine Screen Negative ng/mL (Negative) 12/25/22 06:47 U Marijuana (THC) Screen Negative ng/mL (Negative) 12/25/22 06:47 U Marijuana Metabolites Cancelled 12/25/22 06:47 Abn Spec Valid Drug Scn Cancelled 12/25/22 06:47 Urine Drug Screen Note Cancelled 12/25/22 06:47 Ur Drug Screen Comment Cancelled 12/25/22 06:47 Adenovirus (PCR) Not detected (NOT DETECT) 12/19/22 23:38 C. pneumoniae DNA (PCR) Not detected (NOT DETECT) 12/19/22 23:38 Coronavirus 229E (PCR) Not detected (NOT DETECT) 12/19/22 23:38 Human Metapneumovir PCR Not detected (NOT DETECT) 12/19/22 23:38 Influenza A (H1) PCR Not detected (NOT DETECT) 12/19/22 23:38 Influenza A (H3) PCR Not detected (NOT DETECT) 12/19/22 23:38 Influenza Type A (PCR) Not detected (NOT DETECT) 12/19/22 23:38 Influenza Type B (PCR) Not detected (NOT DETECT) 12/19/22 23:38 M. pneumoniae (PCR) Not detected (NOT DETECT) 12/19/22 23:38 Parainfluenza 1 (PCR) Not detected (NOT DETECT) 12/19/22 23:38 Parainfluenza 2 (PCR) Not detected (NOT DETECT) 12/19/22 23:38 Parainfluenza 3 (PCR) Not detected (NOT DETECT) 12/19/22 23:38 Parainfluenza 4 (PCR) Not detected (NOT DETECT) 12/19/22 23:38 RSV Type A (PCR) Not detected (NOT DETECT) 12/19/22 23:38 RSV Type B (PCR) Not detected (NOT DETECT) 12/19/22 23:38 Entero/Rhino (PCR) Not detected (NOT DETECT) 12/19/22 23:38 SARS-CoV-2 (PCR) Not detected (NOT DETECT) 12/19/22 23:38 Micro: Microbiology 12/25/22 09:58 Blood Culture - Preliminary Blood NEGATIVE TO DATE 12/25/22 10:09 Blood Culture - Preliminary Blood NEGATIVE TO DATE A&P Assessment and plan (1) Acute exacerbation of chronic obstructive airways disease: (2) Respiratory failure with hypoxia and hypercapnia: (3) Severe persistent asthma: Qualifiers: Asthma complication type: unspecified Qualified Code(s): J45.50 - Severe persistent asthma, uncomplicated (4) Anxiety: (5) H/O of biological therapy treatment: (6) Difficulty with extubation: (7) Status asthmaticus: Plan #Acute hypoxic hypercapnic respiratory failure secondary to status asthmaticus 3 hours for in the treatment more than 3 in 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 -She is still on Nimbex, fentanyl 200, Versed 4, ABG 7.3 /72/32 on CMV 360/PEEP of 5/FiO2 35%/rate 12; I time 0.90, PEEP latches 16, PIP 32, auto PEEP 2 -We will continue to give scheduled DuoNeb nebulization and plan to taper off paralytic as well as sedation today. -While maintaining lung protective strategies with low tidal volume and respiratory rate allowing for permissive hypercapnia-so far patient did well since last shift -by giving more time for expiration, reducing respiratory rate, adequate sedation -the goal is to avoid dynamic hyperinflation and auto PEEP. -Recommended IV Solu-Medrol 60 Mg every 8 hours and gradually taper off based on clinical response -Chest x-ray-no acute findings-currently patient is covered with broad-spectrum antibiotics vancomycin, Zosyn, Levaquin; - MRSA nares negative however 1 out of blood cultures grew Staph epidermidis/staph coag negative/Corynebacterium species-likely contaminant; will continue antibiotics for now and repeat blood cultures -We will continue to monitor ventilator settings and help with weaning protocol -CT chest 12/24/2022 showed bronchial wall thickening and mild reactive airway changes progressed from previous exam. -She is a complicated case of severe asthma exacerbation- may need longer than usual time for response to standard asthma treatments. Until then she will need mechanical ventilator support. She may benefit from ketamine infusion unfortunately we do not have a protocol here. ICU CHECKLIST: Problem list updated Verbal orders reviewed and signed Code Status: Full code Disposition: ICU Critically ill: Yes MD discussed with: RN, RT, hospitalist taking care of the patient Analgesia: Fentanyl Glycemic Control: N/A Nutrition: Tube feeds Restraint Renewal (within 24 hrs): Yes Ulcer Prophylaxis: PPI Chemical Thromboprophylaxis: Prophylaxis: Lovenox Mechanical Thromboprophylaxis: SCDs Need for Central line: N/A Need for Maier catheter: Urine output monitoring Critical Care Time (No Overlap):90 min Attestations Medical Necessity Statement*: - This is a complicated status asthmaticus patient requiring close ICU monitoring and I will not be on-call for next 10 days ; she needs close ICU monitoring with 24/7 critical care services unfortunately we do not crimping machine operator for metal coverage. Discussed with Shawnee Tracyfield crimping machine operator for metal and accepted the patient. Time Spent in Patient Care: Greater than 35 minutes (>than 50% of time spent in counselling and/or direct pt care on unit). Critical Care Time: The high probability of a clinically significant, sudden or life threatening deterioration of the patient's [respiratory] system(s) required my full and direct attention, intervention and personal management. The critical care time is as shown. This time is in addition to time spent performing any reported procedures but includes the following: [x] Data and vital sign review and interpretation [x] Patient assessment, examination and intervention [x] Documentation [x] Medication orders and management Critical Care Time (min): 48 Coding Level of Care Code 82625 Diagnoses Acute exacerbation of chronic obstructive airways disease J44.1 Respiratory failure with hypoxia and hypercapnia J96.91; J96.92 Severe persistent asthma J45.50 Asthma complication type: unspecified Anxiety F41.9 H/O of biological therapy treatment Z92.89 Difficulty with extubation T88.8XXA Status asthmaticus J45.902 Time Spent (min) 48
--- NOTE | 2022-12-26 12:59 | PC.NURSE ---
Approval for transfer to [facility] in [place] was given by the patient's daughter Lindsey Barrow. Report was given to Carol Ann Rich RN, at the ICU [facility] in [place]. Aguila Bray arrived and picked up patient at 12:50. Patient was stable when Aguila Puriell left. Patient left with fentanyl and versed on.
[2022-12-27 08:30] LABS: Anti-Nuclear Antibody Screen NEGATIVE (NEGATIVE)
[2022-12-28 14:24] LABS: ANCA Screen NEGATIVE (NEGATIVE)
[2022-12-29 21:28] LABS: Fungitell 1-3-B Glucan Assay 195 pg/mL; Interpretation POSITIVE
[2022-12-30 17:25] LABS: Aspergillus AG,EIA,Serum NOT DETECTED; Aspergillus Galactomannan Inde <0.50
== END 2022-12-26 13:20 | disposition short-term general hospital (02) | DRG 207 ==
LOC: ER 12-17 02:16 → ICU 12-17 02:41
PROVIDERS: Hospitalist; Internal Medicine; Internal Medicine Pulmonary Disease; Student in an Organized Health Care Education/Training Program; Admitting Provider Internal Medicine; Emergency Provider Emergency Medicine; PCP Family Medicine; Visit Provider Internal Medicine
DX: J44.1 Chronic obstructive pulmonary disease with (acute) exacerbation (principal); J96.22 Acute and chronic respiratory failure with hypercapnia; J45.52 Severe persistent asthma with status asthmaticus; R57.9 Shock, unspecified; Z86.73 Personal history of transient ischemic attack (TIA), and cerebral infarction without residual deficits; F41.9 Anxiety disorder, unspecified; F41.0 Panic disorder [episodic paroxysmal anxiety]; F43.10 Post-traumatic stress disorder, unspecified; R00.0 Tachycardia, unspecified; Z79.51 Long term (current) use of inhaled steroids; Z79.52 Long term (current) use of systemic steroids; Z99.81 Dependence on supplemental oxygen; H54.40 Blindness, one eye, unspecified eye; Z86.16 Personal history of COVID-19; Z90.49 Acquired absence of other specified parts of digestive tract; Z86.010 Personal history of colon polyps; F15.91 Other stimulant use, unspecified, in remission; R00.1 Bradycardia, unspecified; R68.0 Hypothermia, not associated with low environmental temperature; I95.9 Hypotension, unspecified
CPT/HCPCS: 31500; 36415; 36416; 36592; 36600; 51702; 70450; 71045; 71250; 80048; 80051; 80053; 80202; 80306; 81001; 82330; 82550; 82803; 82805; 82962; 83605; 83615; 83735; 83880; 84100; 84478; 84484; 85007; 85025; 85378; 85610; 86036; 86038; 87040; 87070; 87205; 87305; 87449; 87486; 87581; 87633; 87641; 93005; 93306; 94003; 94640; 94660; 94799; 96365; 96372; 96375; 96376; 99291; C9113; J0330; J0360; J1265; J1650; J1940; J1956; J2060; J2250; J2543; J2704; J2920; J2930; J3010; J3370; J3475; J3480; J3490; J7030; J7050; J7060; J7512; J7613; J7614; J7626; J7644

== ENCOUNTER 2023-02-02 08:43 | Oncology outpatient (recurring) (ONCR) | payer MEDICAID, SELFPAY ==
[2023-02-02 08:57] VITALS: BP 117/74; PULSE 88; RESP 18; TEMP 36.4; O2SAT 96
[2023-02-02] MEDS: Benralizumab *no charge* 30 mg/ml syringe SUBCUT (09:52)
[2023-02-02 09:57] VITALS: BP 123/56; PULSE 86; RESP 17; TEMP 35.9; O2SAT 97
== END 2023-02-24 23:59 | disposition home or self-care (01) ==
LOC: ONCMED 08:44
PROVIDERS: PCP Family Medicine; Visit Provider Internal Medicine Pulmonary Disease
DX: J45.909 Unspecified asthma, uncomplicated (principal)
CPT/HCPCS: 96372

== ENCOUNTER 2023-02-16 11:29 | Emergency (ER) | payer MEDICAID, SELFPAY ==
[2023-02-16 11:43] VITALS: BP 128/81; PULSE 104; RESP 16; TEMP 36.7; O2SAT 100; BMI 33.0
--- NOTE | 2023-02-16 11:45 | CT_ITS ---
WS: [id number] CT HEAD TECHNIQUE: Noncontrast CT of the head obtained from the skullbase to the vertex. CLINICAL INFORMATION: Symptoms of acute stroke COMPARISON: None. DLP: All CT scans at [facility] use at least one of these dose optimization techniques: automated e xposure control; mA and/or kV adjustment per patient size (includes targeted exams where dose is matc hed to clinical indication); or iterative reconstruction. FINDINGS: No evidence of intracranial hemorrhage or mass effect. Ventricular system and basal cisterns are ortega nt. Moderate small vessel changes with moderate parenchymal volume loss. No extra-axial fluid collect ions. No evidence of mass or mass effect. Chiari I malformation. No hydrocephalus. Chronic infarct with encephalomalacia in the RIGHT parasagittal parietal lobe and and RIGHT parasagit cassie occipital lobe. Vascular calcification. Mild mucosal thickening in the ethmoid air cells. Mastoid air cells are well aerated. Normal posterio r nasopharynx. IMPRESSION: 1. No evidence of intracranial hemorrhage or mass effect. 2. Moderate small vessel changes. Moderate parenchymal volume loss. 3. Incidental Chiari I malformation. No hydrocephalus. 4. No acute intracranial findings. Notified Isai Koch MD at 02/16/2023 11:57 AM.
--- NOTE | 2023-02-16 11:47 | ED_ITS ---
HPI - Weakness General: Chief complaint: Neuro Symptoms/Deficit Stated complaint: left sided weakness and headache Time Seen by Provider: 02/16/23 11:34 History of Present Illness: Patient straight to CT scanner on arrival. EMS report of weakness. Chart Review from Dr Gutierrez 01/25/23: The patient presents for a hospital follow up appointment. She was transferred to [facility] for status asthmaticus.? She was intubated for a number of days, extubated and reintubated again.? They discussed possibly putting in a tracheostomy tube.? The family had declined this.? The patient initially had a hard time talking after she was extubated, but her voice has improved. She had an asthma attack and she could breathe in but not out. She was intubated twice. She went into a coma for 8 days. She woke up in [place]. She is just now getting her strength in her arms and legs back.? After she woke up, she was very weak.? She currently has drop feet bilaterally.? She went through rehab at [facility] and was discharged on 01/21.? They would like her to do continued physical therapy to help with her strength.? She is not able to go to [place] for this due to the distance. She has some weakness in her left arm still. Her right arm is improving. Her strength in the bilateral lower extremities is improving but she still has foot drop. She has a lady that helps her clean on Mon, Wed and Fri. She has a walker with wheels and a seat. Home health PT When the patient returned to the room, I was able to get further history and also talk with her [id number]. The patient tells me that she has chronic foot drop, old head injury from childhood, and a poor baseline function. However, it got worse after being intubated for 7 or 8 days. She went through rehabilitation and was doing better. Yesterday she started noticing some heavy feeling on her neck and left arm made it feel like it was hard to move her left arm. She also reported she felt weaker in number than usual in her left lower leg. The symptoms started yesterday. Associated symptoms: Denies chills, dysuria, fever(s), headache(s), nausea, syncope or vomiting Review of Systems General: Reports: 10 or more systems reviewed and unremarkable except in HPI and below Const: Denies: fever(s), chills or body aches Eyes: Denies: change in vision Card: Denies: edema or syncope Resp: Denies: dyspnea or productive cough GI: Denies: abdominal pain, nausea, vomiting or diarrhea : Denies: flank pain, dysuria or urinary frequency Musc: Denies: neck pain, back pain, extremity pain or extremity swelling Skin/Breast: Denies: rash or erythema Neuro: Denies: headache(s) or lack of coordination PFSH ED PFSH: Medical History Anxiety 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 Moderate airflow obstruction, significant post-bronchodilator response, air trapping. History of sleep study 11/2021 no sleep apnea or nocturnal hypoxemia Multiple allergies In 2021 absolute eosinophils 2100 and IgE [id number] Psychiatric care PTSD (post-traumatic stress disorder) Severe persistent asthma Tachycardia Weakness generalized Surgical History H/O esophagogastroduodenoscopy (06/22/21) History of appendectomy History of History of colon resection History of hysterectomy History of laparotomy Status post colonoscopy (06/22/21) Status post laparoscopic cholecystectomy Family History (Updated 02/13/23 @ 07:10 by Fanny Pillai RN) Unknown Adopted Social History (Updated 02/13/23 @ 10:01 by Fanny Pillai RN) Smoking and tobacco status: never smoked Second hand smoke exposure: Yes Alcohol intake: never Substance/Drug Use: never Adopted: Yes Caregiver/support person: Yes (Nurse comes in and sets up medication, aide comes in helps her cook/clean) Lives independently: Yes Household members: none Housing: Apartment Marital status: Number of children: 2 Number of grandchildren: 4 Highest education level completed: 9th Grade service: No Current occupational status: disabled Pets and animals: Yes Pets & animals: dog(s) Leisure activites: other Leisure activities details: watch movies and play with her dog Sexually active: No Do you think of yourself as: Straight/Heterosexual Current gender identity: Female Alessandra/Zoroastrianism: Yazdanism Special alessandra needs: No Agree to transfusion: Yes Financial difficulty paying for basics: Somewhat Hard Female Reproductive History: Para: 2 Spontaneous abortions: Yes Physical Exam Const: COMMON NORMALS: no limitations, alert and well nourished EXAM LIMITATIONS: no altered mental status HENMT: COMMON NORMALS: normocephalic, atraumatic and external ears normal HEAD & SCALP: normocephalic and atraumatic EXTERNAL EAR: Yes external ears normal MOUTH: no muffled voice Eye: COMMON NORMALS: EOMs intact bilaterally, conjunctivae normal and no scleral icterus CONJUNCTIVA: Yes conjunctivae normal Neck/C-Spine: COMMON NORMALS: no JVD GENERAL: Yes normal visual inspection and Yes trachea midline Resp: COMMON NORMALS: normal respiratory effort, No use of accessory muscles and clear to auscultation bilaterally AUSCULTATION: clear to auscultation bilaterally Cardio: COMMON NORMALS: no JVD, regular rate and regular rhythm RATE: regular rate RHYTHM: regular rhythm Neuro: COMMON NORMALS: moves all extremities SENSORIUM/ORIENTATION: Yes alert SPEECH: speech normal OTHER: Alert, conversational. Patient is able to lift her right lower extremity and hold it up without drift. Same with the right side. When I asked her to squeeze her left hand and show me her managing consultant clinical professor, she gives a 4 out of 5 effort. She is able to engage her lats, deltoid, chest muscles. I am holding her hand and having her resist me. However when I asked her to hold her left arm up to assess for drift. She says she cannot lift it up at all. I position her hand up over her face such that if it fell it would strike her in the face. It starts to fall and she moves it away from her face. She endorses that the whole arm feels heavy. Of note, her strength in the deltoid, chest and LAT to stabilize her shoulder against firm resistance was 5 out of 5 and then was 0 out of 5 seconds later. Patient endorses she is not able to feel anything from her left knee down. She is able to feel everything above the left knee. Sensory exam on the face, right upper extremity, right lower extremity and left upper extremity are normal. Psych: COMMON NORMALS: mental status grossly normal, Normal thought process present, cooperative, normal affect and speech normal SPEECH: Yes normal speech THOUGHT PROCESS: Normal thought process present OTHER: Patient fixated on having her [id number] with her at all times Course Vital Signs: Vital signs: Vital Signs Temperature 98.0 F 02/16/23 11:43 Pulse Rate 85 02/16/23 13:39 Respiratory Rate 14 02/16/23 13:39 Blood Pressure 142/75 02/16/23 13:39 Pulse Oximetry 99 02/16/23 13:39 Oxygen Delivery Me thod Room Air 02/16/23 13:39 MDM - Weakness Medical Decision Making Subacute weak/heavy feeling in the left upper extremity and numbness from the left knee down. Neurologic exam is notably fluctuating significantly within seconds. I spoke to the patient's [id number] privately. Evidently, the patient has been in the sick role for most of her life. Whenever she seems to need attention, something like this happens. Unfortunately, the difficult part for all of them, is that the patient also has renal disease processes that require evaluation and treatment. I agree with this ovagkj-ke-wrf's assessment. There is definitely a psychologic and emotional factor to what is going on here. The neurologic exam fluctuates without any plausible anatomic explanation. I explained that my plan was to proceed with a CT scan of the head and a stroke work-up. It is often times difficult to assess apart whether there is a true underlying neurologic problem that is simply being over endorsed by the patient or whether the entire presentation is psychosomatic. The patient is not a candidate for thrombolytics given that the symptoms started yesterday and the diagnosis is in question. Update CT scan of the head was negative for any bleeding or signs of acute infarct. There are chronic findings Chronic infarct with encephalomalacia in the RIGHT parasagittal parietal lobe and and RIGHT parasagittal occipital lobe. Vascular calcification. 1230 Radiology can do MRI Brain for me to help me determine definitively if there is acute infarct. Pending this do determine course of treatment Update 1415 MRI of the brain is negative. This is consistent with expectations. Chronic findings as documented. Labs reviewed. No concerning abnormalities to explain the patient's findings today. Urine analysis is pending. As long as this is not requiring specific treatment, then patient may be discharged with outpatient follow-up. It is possible that there is some polyneuropathy that could potentially explain the symptoms. However, its not a mass or anything that would be discovered on MRI and therefore would be an outpatient work-up. However, I maintain my original suspicions that this is psychosomatic/behavioral Lab Data 02/16/23 12:02 02/16/23 12:02 Laboratory Results WBC 6.78 10^3/uL (3.29-11.43) 02/16/23 12:02 RBC 4.22 10^6/uL (3.85-5.65) 02/16/23 12:02 Hgb 11.20 g/dL (11.27-16.99) L 02/16/23 12:02 Hct 36.9 % (36-47) 02/16/23 12:02 MCV 87.4 fl (85-98) 02/16/23 12:02 MCH 26.5 pg (27-33) L 02/16/23 12:02 MCHC 30.4 g/dL (30-55) 02/16/23 12:02 RDW 17.2 % (12.1-15.1) H 02/16/23 12:02 Plt Count 256 10^3/cmm (157-399) 02/16/23 12:02 MPV 9.4 fL (7.4-10.4) 02/16/23 12:02 Neut % (Auto) 41.5 % 02/16/23 12:02 Lymph % (Auto) 48.8 % 02/16/23 12:02 [place] % (Auto) 9.4 % 02/16/23 12:02 Eos % (Auto) 0.0 % 02/16/23 12:02 Baso % (Auto) 0.0 % 02/16/23 12:02 Neut # (Auto) 2.81 10^3/uL (1.8-7.7) 02/16/23 12:02 Lymph # (Auto) 3.3 10^3/uL (0.8-4.8) 02/16/23 12:02 [place] # (Auto) 0.6 10^3/uL (0.2-0.9) 02/16/23 12:02 Eos # (Auto) 0.0 10^3/uL (0.0-0.8) 02/16/23 12:02 Baso # (Auto) 0.0 10^3/uL (0.0-0.1) 02/16/23 12:02 Nucleated RBC % (auto) 0 % 02/16/23 12:02 Nucleated RBCs # 0.0 /100WBC 02/16/23 12:02 PT 12.60 SECONDS (12.1-14.9) 02/16/23 12:02 INR 0.91 (0.8-1.2) 02/16/23 12:02 APTT 24.5 SECONDS (23.9-36.7) 02/16/23 12:02 Sodium 141 mmol/L (136-145) 02/16/23 12:02 Potassium 3.5 mmol/L (3.5-5.1) 02/16/23 12:02 Chloride 107 mmol/L (98-107) 02/16/23 12:02 Carbon Dioxide 22 mmol/L (22-29) 02/16/23 12:02 Anion Gap 15.5 (5-19) 02/16/23 12:02 BUN 14 mg/dL (6-20) 02/16/23 12:02 Creatinine 0.6 mg/dL (0.5-0.9) 02/16/23 12:02 GFR Calculation 104.6 mL/min (90-130) 02/16/23 12:02 Glucose 85 mg/dL (65-115) 02/16/23 12:02 POC Glucose 102 mg/dL (70-110) 02/16/23 11:53 Calculated Osmolality 292 mOsm/kg (285-295) 02/16/23 12:02 Calcium 8.8 mg/dL (8.5-10.5) 02/16/23 12:02 Total Bilirubin 0.2 mg/dL (0.15-1.2) 02/16/23 12:02 AST 27 U/L (0-32) 02/16/23 12:02 ALT 30 U/L (0-33) 02/16/23 12:02 Alkaline Phosphatase 69 U/L (35-105) 02/16/23 12:02 Troponin T Baseline 11 ng/L (0-10) H 02/16/23 12:02 Total Protein 6.0 g/dL (6.6-8.7) L 02/16/23 12:02 Albumin 3.6 g/dL (3.5-5.2) 02/16/23 12:02 Globulin 2.4 g/dL (1.3-4.6) 02/16/23 12:02 Urine Color Yellow (Yellow) 02/16/23 13:49 Urine Appearance Hazy (CLEAR) A 02/16/23 13:49 Urine pH 5 (5-7) 02/16/23 13:49 Ur Specific [place] 1.010 (1.005-1.030) 02/16/23 13:49 Urine Protein Neg (Negative) 02/16/23 13:49 Urine Glucose (UA) Norm (Normal) 02/16/23 13:49 Urine Ketones Negative (Negative) 02/16/23 13:49 Urine Blood Neg (Negative) 02/16/23 13:49 Urine Nitrate Negative (Negative) 02/16/23 13:49 Urine Bilirubin Neg (Negative) 02/16/23 13:49 Urine Urobilinogen Norm mg/dL (Negative) 02/16/23 13:49 Ur Leukocyte Esterase Trace (Negative) H 02/16/23 13:49 Urine RBC 0-4 /hpf (0-2) H 02/16/23 13:49 Urine WBC 0-4 /hpf (0-5) H 02/16/23 13:49 Ur Squamous Epith Cells 10-15 /hpf (0-5) H 02/16/23 13:49 Amorphous Sediment Not Reportable 02/16/23 13:49 Urine Bacteria 1+ /hpf (NONE) H 02/16/23 13:49 Urine Opiates Screen Negative ng/mL (Negative) 02/16/23 13:49 Ur Barbiturates Screen Negative ng/mL (Negative) 02/16/23 13:49 Ur Phencyclidine Scrn Negative ng/mL (Negative) 02/16/23 13:49 Ur Amphetamines Screen Negative ng/mL (Negative) 02/16/23 13:49 U Benzodiazepines Scrn Negative ng/mL (Negative) 02/16/23 13:49 Urine Cocaine Screen Negative ng/mL (Negative) 02/16/23 13:49 U Marijuana (THC) Screen Negative ng/mL (Negative) 02/16/23 13:49 All radiology interpretation(s) finalized by discharge ED provider radiology interpretation(s): MRI of the brain is negative for any acute pathology. CT scan of the head is negative for any acute pathology. See report for chronic findings. Discharge Plan Discharge Patient Disposition: Home Clinical Impression: Psychosomatic factor in physical condition, Left leg numbness, Left arm weakness Condition: Stable Prescriptions: No Action (DME) Walker with wheels and a seat See Rx Instructions .Route .MEDSUPPLY Qty: 1 0RF Rx Instructions: As directed albuterol sulfate 90 mcg/actuation HFA aerosol inhaler 2 puff inhalation Q6H PRN (Reason: shortness of breath or wheezing) 30 Days Qty: 8.5 12RF Singulair 10 mg tablet 10 mg PO QAM Qty: 30 3RF Fasenra Pen 30 mg/mL auto-injector 30 mg SUBCUT Q28D Qty: 1 2RF Rx Instructions: LOADING DOSE [place] Ref# [id number], 04/03/22-04/03/23 [id number] Fasenra Pen 30 mg/mL auto-injector 30 mg SUBCUT .q 8 weeks Qty: 1 5RF Rx Instructions: Maintenance dose [place] Ref# [id number], 04/03/22-04/03/23 [id number] albuterol sulfate 2.5 mg /3 mL (0.083 %) solution for nebulization 2.5 mg inhalation QID PRN (Reason: shortness of breath or wheezing) Qty: 360 9RF prazosin 1 mg capsule 1 mg PO BEDTIME multivitamin Tablet 1 tab PO QAM zinc acetate 50 mg (zinc) Capsule 50 mg PO QAM calcium carbonate-vitamin D3 600 mg-5 mcg (200 unit) Tablet 1 tab PO QAM ascorbic acid (vitamin C) [Vitamin C] 500 mg Tablet 500 mg PO QAM buspirone 5 mg tablet 5 mg PO TID trazodone 50 mg tablet 50 mg PO BEDTIME PRN (Reason: Sleep) albuterol sulfate 90 mcg/actuation Hfa Aerosol Inhaler 2 puff INHALATION QAM ondansetron 4 mg tablet,disintegrating 4 mg PO Q6H PRN (Reason: Nausea And Vomiting) hydroxyzine HCl 25 mg tablet 25 mg PO BID Symbicort 160-4.5 mcg/actuation HFA aerosol inhaler 2 puff inhalation DAILY@12 Discharge Orders: Discharge ED (Routine); Ordered 02/16/23 Ordered By: Isai Koch Referrals: Laron Gutierrez MD [Primary Care Provider] - 7-10 days (Patient seen in the emergency department for symptoms that were difficult to explain medically/anatomically and were also variable during examination. MRI negative for acute pathology. Psychosomatic symptoms suggested. Could be rare polyneuropathy. Referred for outpatient f/u.) Patient Instructions: Pain Management Activity Restrictions/Additional Instructions: MRI of your brain did not show a stroke, MS, or any abnormalities that would explain your symptoms. In rare cases this could be due to an unusual neuropathy given your recent prolonged hospitalization. However, psychosomatic syndrome is considered likely explanation. Please follow-up as an outpatient. Continue doing physical therapy. Coding Level of Care Code ED Wood Molder for Ramirez Torres
[2023-02-16 11:57] LABS: Glucose Point of Care 102 mg/dL (70-110)
--- NOTE | 2023-02-16 12:04 | ECG_ITS ---
[facility] Test Date: 2023-02-16 Pat Name: Ramila Barrow Department: Room: Gender: Female Pharmacy Resource Tech: : [id number] Requested By: Isai Koch Order Number: [id number] Jeri MD: Farida Gonzalez M.D. Measurements Intervals [place] Rate: 100 P: 52 MD: 104 QRS: 49 QRSD: 84 T: 49 QT: 338 QTc: 437 Interpretive Statements SINUS TACHYCARDIA WITH SHORT MD INTERVAL POSSIBLE LEFT ATRIAL ENLARGEMENT [-0.1mV P-WAVE IN V1/V2] ABNORMAL RHYTHM ECG Compared to ECG 12/25/2022 10:15:26 Sinus bradycardia no longer present Electronically Signed On 02-16-2023 19:07:14 CDT by Farida Gonzalez M.D. [id number]
[2023-02-16 12:10] LABS: Hematocrit 36.9 % (36-47); Lymphocytes # 3.3 10^3/uL (0.8-4.8); Lymphocytes % 48.8 %; Mean Corpuscular HGB Conc 30.4 g/dL (30-55); Mean Corpuscular Hemoglobin 26.5 pg (27-33); Mean Corpuscular Volume 87.4 fl (85-98); Mean Platelet Volume 9.4 fL (7.4-10.4); Monocytes # 0.6 10^3/uL (0.2-0.9); Monocytes % 9.4 %; Neutrophils # 2.81 10^3/uL (1.8-7.7); Neutrophils % 41.5 %; Nucleated Red Blood Cells % 0 %; Platelet Count 256 10^3/cmm (157-399); Red Blood Count 4.22 10^6/uL (3.85-5.65); Red Cell Distribution Width 17.2 % (12.1-15.1); White Blood Count 6.78 10^3/uL (3.29-11.43)
[2023-02-16 12:22] LABS: INR 0.91 (0.8-1.2)
[2023-02-16 12:23] LABS: Partial Thromboplastin Time 24.5 SECONDS (23.9-36.7)
[2023-02-16 12:25] VITALS: BP 123/71; PULSE 94; RESP 20; O2SAT 100
[2023-02-16 12:26] LABS: Alanine Aminotransferase 30 U/L (0-33); Albumin Level 3.6 g/dL (3.5-5.2); Alkaline Phosphatase 69 U/L (35-105); Anion Gap 15.5 (5-19); Aspartate Amino Transferase 27 U/L (0-32); Blood Urea Nitrogen 14 mg/dL (6-20); Calcium 8.8 mg/dL (8.5-10.5); Carbon Dioxide 22 mmol/L (22-29); Chloride 107 mmol/L (98-107); Globulin 2.4 g/dL (1.3-4.6); Glomerular Filtration Rate 104.6 mL/min (90-130); Glucose 85 mg/dL (65-115); Osmolality Calculated 292 mOsm/kg (285-295); Potassium 3.5 mmol/L (3.5-5.1); Sodium 141 mmol/L (136-145); Total Bilirubin 0.2 mg/dL (0.15-1.2)
--- NOTE | 2023-02-16 12:32 | MR_ITS ---
WS: [id number] MRI HEAD WITHOUT CONTRAST TECHNIQUE: Sagittal T1, T2 axial, T2 axial FLAIR, axial and coronal T1 images, axial susceptibility w eighted imaging, axial diffusion weighted images, and coronal T2 images were obtained. CLINICAL INFORMATION: pt reports LUE weakness and LLE numbness COMPARISON: None. FINDINGS: No evidence of restricted diffusion to suggest acute ischemia. Ventricular system and basilar cistern s are patent. Mild small vessel changes. Mild parenchymal volume loss. Chronic encephalomalacia invol ving the RIGHT frontal and parietal lobes may be due to prior trauma or ischemia. Evidence of chronic infarct with encephalomalacia and gliosis in the parasagittal RIGHT parietal and occipital lobes. Mild mucosal thickening in the ethmoid air cells. Mastoid air cells demonstrate mild mucosal thickeni ng. Normal posterior fossa. Normal vascular flow voids at the skull base. No extra-axial fluid collec tions. No hemosiderin on susceptibility-weighted images. Mild central canal stenosis in the upper cer vical spine. Normal optic chiasm and pituitary infundibulum. Incidental Chiari I malformation. No hydrocephalus. IMPRESSION: 1. No evidence of restricted diffusion to suggest acute ischemia. 2. Mild small vessel changes with mild parenchymal volume loss. 3. Chronic encephalomalacia RIGHT frontal and parietal lobes likely due to prior trauma or ischemia. 4. Evidence of prior infarct with encephalomalacia and gliosis in the RIGHT parasagittal parietal an d occipital lobes. 5. No hemosiderin on the susceptibly weighted images. 6. Incidental Chiari I malformation. 7. No other acute findings.
[2023-02-16 12:38] LABS: Troponin(5th) Baseline 11 ng/L (0-10)
[2023-02-16 12:57] VITALS: PULSE 96; RESP 20; O2SAT 98
[2023-02-16 13:39] VITALS: BP 142/75; PULSE 85; RESP 14; O2SAT 99
[2023-02-16 14:21] LABS: Amphetamines Screen Urine Negative (Negative); Barbiturates Screen Urine Negative (Negative); Benzodiazepines Screen Urine Negative (Negative); Cocaine Screen Urine Negative (Negative); Opiate Screen Urine Negative (Negative); PCP Screen Urine Negative (Negative); THC Screen Urine Negative (Negative)
[2023-02-16 14:26] LABS: Add Urine Culture? No; Add Urine Microscopic? YES; Bacteria Urine 1+ /hpf; Bilirubin Urine Neg (Negative); Blood Urine Neg (Negative); Glucose Urine UA Norm (Normal); Ketones Urine Negative (Negative); Leukocyte Esterase Urine Trace (Negative); Nitrate Urine Negative (Negative); Protein Urine Neg (Negative); RBC Urine 0-4 /hpf (0-2); Urine Appearance Hazy (CLEAR); Urine Color Yellow (Yellow); Urobilinogen Urine Norm (Negative); WBC Urine 0-4 /hpf (0-5); pH Urine 5 (5-7)
--- NOTE | 2023-02-16 14:28 | PC.PHAR ---
pt states she has home health that sets up her meds-pt states her homehealth is from [facility]-per frantz with [facility] [phone] states they dont set the pts meds up-pt brought in a list that her nurse wrote out- pt states she doesnt have a spiriva respimat not on med list brought in ext shows last filled -pt states she only takes the medications on the list she brought in-pt states she uses her albuterol inhaler 2p qam and then uses 2p q4h prn-pt states the only neb med she has in albuterol 0.083%-
--- NOTE | 2023-02-16 14:54 | PC.NURSE ---
PT IV PLACEMENT WITH 2.5 IV ULTRASOUND.
== END 2023-02-16 14:55 | disposition home or self-care (01) ==
PROVIDERS: Emergency Provider Emergency Medicine; PCP Family Medicine
DX: R53.1 Weakness (principal); R20.0 Anesthesia of skin; F45.8 Other somatoform disorders; Z77.22 Contact with and (suspected) exposure to environmental tobacco smoke (acute) (chronic); J44.9 Chronic obstructive pulmonary disease, unspecified
CPT/HCPCS: 36415; 36416; 70450; 70551; 80053; 80306; 81001; 82962; 84484; 85025; 85610; 85730; 93005; 99285